=== PATIENT | female | born 1980 | race Caucasian/White ===

== ENCOUNTER → 2017-09-27 19:01 | Outpatient (REF) | payer MEDICAID, SELFPAY ==
[2017-09-27 20:25] LABS: Amphetamine/Metha Screen,Urine Positive ng/mL (<1000); Barbiturates Screen,Urine Negative ng/mL (<200); Benzodiazepines Screen,Urine Negative ng/mL (200); Cannabinoid Screen,Urine Negative ng/mL (<50); Cocaine Screen,Urine Negative ng/g (<300); Methadone Screen,Urine Negative ng/mL (<300); Opiate Screen,Urine Positive ng/mL (<300); Phencyclidine Screen,Urine Negative ng/mL (<25)
== END ==
LOC: LAB 19:01
PROVIDERS: Visit Provider Nurse Practitioner Family
DX: R73.9 Hyperglycemia, unspecified (principal)
CPT/HCPCS: 80305

== ENCOUNTER 2017-09-28 09:59 | Observation (INO) ==
--- NOTE | 2017-09-28 10:27 | Emergency Department Note ---
ED Disposition Clinical Impression: Hyperglycemia due to type 1 diabetes mellitus, Polysubstance (excluding opioids ) dependence Disposition: Still a Patient Condition on Discharge: Fair Referrals: Jeff De La Cruz MD [Primary Care Provider] - - Critical Care Critical Care Time: No Attestation: On 09/28/17, the high probability of a clinically significant, sudden or life threatening deterioration of the following system(s) required my full and direct attention, intervention and personal management. The time I documented below is in addition to time spent performing reported procedures but includes the following listed in this critical care notation. Medical Decision Making - Medical Records Medical records reviewed: Yes: I reviewed the patient's medical records. - Deshaun Inquiry Pt receiving controlled substance: No Deshaun was queried for this patient: No Vital Signs: 09/28/17 10:08 Temperature 98 F Temperature Source Oral Pulse Rate [Right Brachial] 109 H Respiratory Rate 20 Blood Pressure [Right Arm] 124/77 Blood Pressure Mean [Right Arm] 92 Blood Pressure Source [Right Arm] Automatic Cuff Blood Pressure Position [Right Arm] Sitting 02 Sat by Pulse Oximetry 99 Oxygen Delivery Method Room Air - Lab Data Lab Results 09/28/17 10:30: Urine Color Yellow, Urine Appearance Clear, Urine pH 5.5, Ur Specific [place] <= 1.005, Urine Protein Negative, Urine Glucose (UA) 3+, Urine Ketones 1+, Urine Blood Negative, Urine Nitrate Negative, Urine Bilirubin Negative, Urine Urobilinogen 0.2, Ur Leukocyte Esterase Negative, Urine RBC None , Urine WBC Occasional, Ur Squamous Epith Cells 5-10, Urine Bacteria Trace 09/28/17 10:30: Serum HCG, Qual Negative, Urine HCG, Qual Cancelled 09/28/17 10:30: Urine Opiates Screen Positive H, Ur Barbituates Screen Negative , Ur Phencyclidine Scrn Negative, Ur Amphetamines Screen Positive H, U Methamphetamines Scrn Negative, U Benzodiazepines Scrn Negative, Urine Cocaine Screen Negative, U Marijuana (THC) Screen Negative 09/28/17 10:45: WBC 11.1 H, RBC 4.51, Hgb 13.4, Hct 44.1, MCV 97.7, MCH 29.8, MCHC 30.5 L, RDW 12.6, Plt Count 239, MPV 9.2, Neut % (Auto) 74.6, Lymph % (Auto ) 19.7, [place] % (Auto) 3.8, Eos % (Auto) 1.5, Baso % (Auto) 0.6, Neut # (Auto) 8.3 H, Lymph # (Auto) 2.2, [place] # (Auto) 0.4, Eos # (Auto) 0.2, Baso # (Auto) 0.1 09/28/17 10:45: Sodium 131 L, Potassium 4.3, Chloride 94 L, Carbon Dioxide 27, Anion Gap 14.3, BUN 12, Creatinine 0.96, Estimated Creat Clear 73, Estimated GFR 66, Est GFR ( Amer) 80, Glucose 736 H*, Calcium 8.9, Phosphorus 5.0 H , Magnesium 1.6, Total Bilirubin 0.5, AST 30, ALT 65, Alkaline Phosphatase 125 H , Total Protein 7.7, Albumin 3.7, Globulin 4.0 H, Albumin/Globulin Ratio 0.9 L, Acetone Level None detected Result diagrams: 09/28/17 10:45 09/28/17 10:45 Orders (Tests/Meds): ED MEDICATIONS Discontinued Medications Generic Name Dose Route Start Last Admin Trade Name Freq PRN Reason Stop Dose Admin Sodium Chloride 500 mls @ 999 mls/hr 09/28/17 10:30 09/28/17 10:47 Sod Chlor 0.9% 1000ml Bag IV 09/28/17 11:00 999 mls/hr .Q31M BOWEN Administration Sodium Chloride 1,000 mls @ 999 mls/hr 09/28/17 10:45 09/28/17 10:47 Sod Chlor 0.9% 1000ml Bag IV 09/28/17 11:45 999 mls/hr .Q1H1M BOWEN Administration ORDERS Category Date Time Status XR abdomen min 2V Stat Exams 09/28/17 10:27 Taken XR chest 2V Stat Exams 09/28/17 10:27 Taken Diarrhea Panel, PCR Stat Lab 09/28/17 10:29 Ordered Arterial Blood Gas Stat RT 09/28/17 10:27 Ordered Venous Blood Gas Routine RT 09/28/17 11:25 Received - Radiology Data #1 Image(s): Chest, Abdomen Preliminary Findings: Normal/NAD Medical Decision Narrative: The patient remained stable her acetone was negative for blood sugar 737 electrolytes were within normal limits drug screen was positive. Chest x-ray and abdomen were within normal limits. I spoke with the patient who agreed for admission. I discussed with her primary care physician again the Jimy who accepted to admit her for insulin drip. General Adult HPI - General Chief complaint: PAIN Stated complaint: high sugar per Jg Time Seen by Provider: 09/28/17 10:30 Mode of Arrival: Family Vehicle Limitations: No Limitations Description of Symptoms (Recalled from ER Triage Doc. by RN): C/O HEADACHE AND ELEVATED BLOOD SUGAR. WAS SEEN BY ELAN RAPP APRN YESTERDAY AND INSTRUCTED TO COME TO ED YESTERDAY. BLOODSUGAR THIS AM WAS 560 AND HAD HUMALOG INSULIN 15 UNITS SQ - History of Present Illness HPI narrative: 36 years old insulin-dependent diabetic september of 2016 with one episode of diabetic coma. She was seen by her primary care physician yesterday was found to have blood sugar above 500 she was advised to come to the ED but she had nobody to sit for her children. This morning sugar continues to be above 500 so she came to the ED. she denies nausea vomiting abdominal pain but she admits for having 6 bouts of diarrhea yesterday. She denies recent but she admits for missing here menstruation for the past week. Onset (ago): day(s) (elevated blood sugar since yesterday.) Radiation: non-radiation Relieving factors: none Exacerbating factors: none Associated symptoms: cough, fever/chills, malaise, other (diarrhea. ) - Related Data Home Medications Medication Instructions Recorded Confirmed amitriptyline 25 mg tablet 25 mg PO QHS 09/27/17 09/28/17 lisinopril 10 mg tablet 10 mg PO DAILY tab 09/27/17 09/28/17 Gabapentin [Neurontin 600mg 600 mg PO TID 09/28/17 09/28/17 tablet] Insulin Glargine,Hum.rec.anlog 26 unit SQ DAILY 09/28/17 09/28/17 [Lantus Insulin 100units/mL 10mL vial] Insulin Lispro [HumaLOG 100 0 unit SQ QID 09/28/17 09/28/17 units/mL 3mL vial (SSI)] Allergies Allergy/AdvReac Type Severity Reaction Status Date / Time moxifloxacin [From AVELOX] Allergy Unknown SWELLING Verified 09/27/17 09:17 [facility] History I have reviewed the patient's past medical history: Yes Medical History: Reports:: Diabetes Mellitus Type 1 Denies:: Diabetes Mellitus Type 2 Comment: Arthritis, Depression, Neuropathy Other Surgeries: Yes: Amputation: No Fractures: No Comment: Skin Graft - Social History Smoking Status: Current every day smoker Tobacco Type: cigarettes # Packs/Day (cigarettes): 1 Alcohol Intake: never Substance Use Type: denies use Occupational Status: employed Housing: house Household Members: children - Psychiatric History Expresses thoughts of harming self/others: None Suicide Plan Description: No Plan Family Hx:: Heart Attack, Anemia Comment: Lung Disease ROS Obtained: Yes All systems reviewed & no additional complaints Physical Exam - General General appearance: alert, in no apparent distress - Head Head exam: atraumatic, normocephalic, normal inspection - Eye Eye exam: Present: normal appearance, PERRL, other (left eye strabismus. ) - ENT ENT exam: Present: normal exam, normal oropharynx, mucous membranes moist, TM's normal bilaterally, normal external ear exam - Neck Neck exam: Present: normal inspection, full ROM, trachea midline. Absent: meningismus, lymphadenopathy - Chest Chest inspection: Present: normal inspection, symmetric chest wall rise. Absent : tenderness - Respiratory Respiratory exam: Present: normal lung sounds bilaterally. Absent: respiratory distress - Cardiovascular Cardiovascular exam: Present: regular rate, normal rhythm. Absent: JVD - Abdominal Exam Abdominal exam: Present: soft, normal bowel sounds. Absent: distention, tenderness, guarding - Extremities Exam Extremities exam: Present: normal inspection, full ROM, normal capillary refill. Absent: calf tenderness - Back Exam Back exam: Present: normal inspection. Absent: tenderness - Neurological Exam Neurological exam: Present: alert, oriented X3, normal gait, motor sensory deficit, reflexes normal (left eye starbismus. ) - Psychiatric Psychiatric exam: Present: normal affect, normal mood - Skin Skin exam: Present: warm, dry, intact, normal color - Lymphatic Lymphatic Findings: no adenopathy
[2017-09-28 10:51] LABS: Microscopic, Urine URINE MICROSCOPIC (MICROSCOPIC)
[2017-09-28 11:00] LABS: Basophils # 0.1 K/mm3 (0-0.2); Basophils % 0.6 % (0.1-2.0); Eosinophils # 0.2 K/mm3 (0.0-0.4); Eosinophils % 1.5 % (0.1-12.0); Hematocrit 44.1 % (37.0-47.0); Hemoglobin 13.4 g/dL (12.2-16.2); Lymphocytes # 2.2 K/mm3 (0.7-4.5); Lymphocytes % 19.7 K/mm3 (10-50); Mean Corpuscular HGB Conc 30.5 g/dL (31.8-35.4); Mean Corpuscular Hemoglobin 29.8 pg (27.0-31.2); Mean Corpuscular Volume 97.7 fl (81-99); Mean Platelet Volume 9.2 fl (7.4-10.4); Monocytes # 0.4 K/mm3 (0.1-1.0); Monocytes % 3.8 % (1.7-9.3); Neutrophils # 8.3 K/mm3 (1.8-7.8); Neutrophils % 74.6 % (37.0-80.0); Platelet Count 239 K/mm3 (142-424); Red Blood Count 4.51 M/mm3 (4.20-5.40); Red Cell Distribution Width 12.6 % (11.5-17.5); White Blood Count 11.1 K/mm3 (4.8-10.8)
[2017-09-28 11:03] LABS: Appearance,Urine CLEAR (Clear); Bilirubin,Urine Negative (Negative); Blood, Urine Negative (Negative); Color,Urine YELLOW (Yellow); Glucose,Urine (UA) 3+ (Negative); Ketones,Urine 1+ (Negative); Leukocyte Esterase,Urine Negative (Negative); PH,Urine 5.5 (5.0-8.5); Protein,Urine Negative (Negative); Specific Gravity, Urine <= 1.005 (1.005-1.030); Urobilinogen,Urine 0.2 EU/dl (0.2)
[2017-09-28 11:05] LABS: Acetone, Serum (Rapid) None Detected (None Detect); Alanine Aminotransferase 65 U/L (12-78); Albumin Level 3.7 gm/dL (3.4-5.0); Albumin/Globulin Ratio 0.9 (1.1-1.8); Alkaline Phosphatase 125 U/L (46-116); Anion Gap 14.3 mEq/L (5-15); Aspartate Amino Transferase 30 U/L (15-37); Bilirubin,Total 0.5 mg/dL (0.2-1.0); Blood Urea Nitrogen 12 mg/dL (7-18); Calcium 8.9 mg/dL (8.5-10.1); Carbon Dioxide 27 mmol/L (21.0-32.0); Chloride 94 mmol/L (98-107); Potassium 4.3 mmoL/L (3.5-5.1); Sodium 131 mmol/L (136-145); Total Protein,Serum 7.7 gm/dL (6.4-8.2)
[2017-09-28 11:08] LABS: Glucose 736 mg/dL (74-106)
[2017-09-28 11:14] LABS: Amphetamine/Metha Screen,Urine Positive ng/mL (<1000); Barbiturates Screen,Urine Negative ng/mL (<200); Benzodiazepines Screen,Urine Negative ng/mL (200); Cannabinoid Screen,Urine Negative ng/mL (<50); Cocaine Screen,Urine Negative ng/g (<300); Methadone Screen,Urine Negative ng/mL (<300); Opiate Screen,Urine Positive ng/mL (<300); Phencyclidine Screen,Urine Negative ng/mL (<25); WBC,Urine Occasional #/hpf (0-3)
[2017-09-28 11:15] LABS: Bacteria,Urine Trace /lpf
[2017-09-28 12:06] LABS: VBG HCO3 26.2 mmol/L (23-30); VBG Oxygen Saturation 86.7 % (50-70); VBG PH 7.31 mmol/L (7.31-7.41); VBG PO2 52.2 mmol/L (28-40); VBG Total CO2 27.8 mmol/L (23-27)
[2017-09-28 12:10] LABS: VBG PCO2 52.8 mmol/L (35-51)
[2017-09-28 17:19] LABS: Anion Gap 10.8 mEq/L (5-15); Phosphorous 3.3 mg/dL (2.4-4.9); Potassium 3.8 mmoL/L (3.5-5.1)
[2017-09-28 18:45] VITALS: BP 98/67
--- NOTE | 2017-09-29 12:55 | H&P/Discharge Summary ---
General - General Admission date: 09/28/17 Discharge date: 09/28/17 *Admission Date: 09/28/17 *Chief complaint: hyperglycemia *History of present illness: 36 years old insulin-dependent diabetic september of 2016 with one episode of diabetic coma. She was seen by me in office on mons was found to have blood sugar above 500 she was advised to come to the ED but she had nobody to sit for her children. This morning sugar continues to be above 500 so she came to the ED. she denies nausea vomiting abdominal pain but she admits for having 6 bouts of diarrhea yesterday. She denies recent but she admits for missing here menstruation for the past week. [facility] History I have reviewed the patient's past medical history: Yes Medical History: Reports:: Diabetes Mellitus Type 1, Diabetes Mellitus Type 2 Other Surgeries: Yes: Amputation: No Fractures: No - *Social History Smoking Status: Current every day smoker Tobacco Type: cigarettes # Packs/Day (cigarettes): 1 Alcohol Intake: former Alcohol Intake Frequency:: holidays/special occasions only Substance Use Type: amphetamines, opiates Occupational Status: employed Housing: house Household Members: children - Psychiatric History Expresses thoughts of harming self/others: None Suicide Plan Description: No Plan *Family Hx:: Heart Attack, Anemia Exam Vital signs and Labs for Last 24 Hours: Temp Pulse Resp BP Pulse Ox 98.3 F 82 15 98/67 96 09/28/17 13:33 09/28/17 18:44 09/28/17 15:00 09/28/17 18:44 09/28/17 18:00 Laboratory Results - last 24 hr 09/28/17 13:15: POC Glucose > 600 09/28/17 13:25: Random Glucose 614 H* 09/28/17 14:33: POC Glucose 417 09/28/17 15:11: POC Glucose 342 09/28/17 16:13: POC Glucose 233 09/28/17 16:55: Sodium 140, Potassium 3.8, Chloride 104, Carbon Dioxide 29, Anion Gap 10.8, BUN 9, Creatinine 0.66 D, Estimated Creat Clear 105, Estimated GFR 101, Est GFR ( Amer) 123 D, Glucose 184 H D, Phosphorus 3.3 D, Magnesium 1.8 D 09/28/17 17:01: POC Glucose 188 09/28/17 18:34: POC Glucose 93 09/28/17 18:55: Acetone Level None detected I & O for Last 24 hours: Intake & Output 09/27/17 09/28/17 09/29/17 09/30/17 11:59 11:59 11:59 11:59 Intake Total 1624 / 1624 Balance 1624 / 1624 - Detailed Eye Exam Eyelids: Left normal inspection Hospital Course Hospital Course: pt left ama before being seen by pcp assessment was not completed Results Labs on day of discharge: Labs from last 24 hours 09/28/17 09/28/17 09/28/17 18:55 18:34 17:01 Sodium Potassium Chloride Carbon Dioxide Anion Gap BUN Creatinine Estimated Creat Clear Estimated GFR Est GFR ( Amer) Glucose POC Glucose 93 188 Random Glucose Phosphorus Magnesium Acetone Level None detected 09/28/17 09/28/17 09/28/17 16:55 16:13 15:11 Sodium 140 Potassium 3.8 Chloride 104 Carbon Dioxide 29 Anion Gap 10.8 BUN 9 Creatinine 0.66 D Estimated Creat Clear 105 Estimated GFR 101 Est GFR ( Amer) 123 D Glucose 184 H D POC Glucose 233 342 Random Glucose Phosphorus 3.3 D Magnesium 1.8 D Acetone Level 09/28/17 09/28/17 09/28/17 14:33 13:25 13:15 Sodium Potassium Chloride Carbon Dioxide Anion Gap BUN Creatinine Estimated Creat Clear Estimated GFR Est GFR ( Amer) Glucose POC Glucose 417 > 600 Random Glucose 614 H* Phosphorus Magnesium Acetone Level Discharge Medications Discharge Medications: Home Medications Medication Instructions Recorded Confirmed Type amitriptyline 25 mg tablet 25 mg PO QHS 09/27/17 09/28/17 History lisinopril 10 mg tablet 10 mg PO DAILY tab 09/27/17 09/28/17 History Gabapentin [Neurontin 600mg 600 mg PO TID 09/28/17 09/28/17 History tablet] Insulin Glargine,Hum.rec.anlog 26 unit SQ DAILY 09/28/17 09/28/17 History [Lantus Insulin 100units/mL 10mL vial] Insulin Lispro [HumaLOG 100 0 unit SQ QID 09/28/17 09/28/17 History units/mL 3mL vial (SSI)] Disposition Disposition: Left Against Medical Advice
== END 2017-09-28 19:31 | disposition left against medical advice (07) ==
LOC: ER 09:59 → 2ND 12:14 → INTOOBSV 13:09 → 2ND 13:10
PROVIDERS: ADMIT Emergency Medicine; ATTEND Emergency Medicine

== ENCOUNTER 2017-12-07 10:17 | Observation (INO) ==
--- NOTE | 2017-12-07 10:40 | Emergency Department Note ---
ED Disposition Clinical Impression: Diabetic ketoacidosis, Atypical chest pain, Vomiting, Dehydration Disposition: Still a Patient Condition on Discharge: Fair Referrals: Jeff De La Cruz MD [Primary Care Provider] - - Critical Care Critical Care Time: No Attestation: On 12/07/17, the high probability of a clinically significant, sudden or life threatening deterioration of the following system(s) required my full and direct attention, intervention and personal management. The time I documented below is in addition to time spent performing reported procedures but includes the following listed in this critical care notation. Medical Decision Making - Deshaun Inquiry Pt receiving controlled substance: No Deshaun was queried for this patient: No Vital Signs: 12/07/17 10:18 Temperature 98.3 F Temperature Source Oral Pulse Rate [Right Brachial] 118 H Respiratory Rate 20 Blood Pressure [Right Arm] 125/74 Blood Pressure Mean [Right Arm] 91 Blood Pressure Source [Right Arm] Automatic Cuff Blood Pressure Position [Right Arm] Supine 02 Sat by Pulse Oximetry 98 Oxygen Delivery Method Room Air - Lab Data Lab Results 12/07/17 10:25: WBC 13.8 H, RBC 4.95, Hgb 14.9, Hct 49.1 H, MCV 99.1 H, MCH 30.1 , MCHC 30.3 L, RDW 12.4, Plt Count 416, MPV 9.7, Neut % (Auto) 73.2, Lymph % ( Auto) 22.6, [place] % (Auto) 2.3, Eos % (Auto) 1.0, Baso % (Auto) 0.8, Neut # (Auto ) 10.1 H, Lymph # (Auto) 3.1, [place] # (Auto) 0.3, Eos # (Auto) 0.1, Baso # (Auto ) 0.1 12/07/17 10:25: Sodium 131 L, Potassium 4.1, Chloride 93 L, Carbon Dioxide 12 L , Anion Gap 30.1 H, BUN 20 H, Creatinine 1.33 H, Estimated Creat Clear 51, Estimated GFR 45 L, Est GFR ( Amer) 55 L, Glucose 682 H*, Troponin I < 0.02 12/07/17 10:25: Total Bilirubin 0.5, Direct Bilirubin 0.2, Indirect Bilirubin 0.3, AST 32, ALT 71, Alkaline Phosphatase 165 H, Total Protein 9.1 H, Albumin 4.2, Acetone Level Small 05/24/18 10:25: Magnesium 2.1 12/07/17 10:34: Specimen Source L radial, O2 % Room air, ABG pH 7.11 L*, ABG pCO2 20.3 L, ABG pO2 103.8 H, ABG HCO3 6.3 L, ABG Total CO2 6.9 L, ABG O2 Saturation 96, ABG Base Excess -23.2 L, Barrett Test Acceptable Result diagrams: 12/07/17 10:25 12/07/17 10:25 Orders (Tests/Meds): ED MEDICATIONS Generic Name Dose Route Start Last Admin Trade Name Freq PRN Reason Stop Dose Admin Insulin Human Regular 100 unit 101 mls @ 5.05 mls/hr 12/07/17 11:45 / Sodium Chloride IV 01/06/18 11:44 .Q20H BOWEN 5 UNIT/HR Discontinued Medications Generic Name Dose Route Start Last Admin Trade Name Freq PRN Reason Stop Dose Admin Sodium Chloride 1,000 mls @ 999 mls/hr 12/07/17 10:30 12/07/17 10:33 Sod Chlor 0.9% 1000ml Bag IV 12/07/17 11:30 999 mls/hr .Q1H1M BOWEN Administration Sodium Chloride 1,000 mls @ 999 mls/hr 12/07/17 10:45 12/07/17 10:38 Sod Chlor 0.9% 1000ml Bag IV 12/07/17 11:45 Not Given .Q1H1M BOWEN ORDERS Category Date Time Status CT abdomen pelvis wo con Stat Cat Scan 12/07/17 10:35 Taken Chest XR 2 view (NOT portable) [XR chest 2V] Stat Exams 12/07/17 10:25 Ordered Glucose,Random Routine Lab 12/07/17 11:30 Received Lactic Acid Stat Lab 12/07/17 11:30 Received Urinalysis and Microscopic Stat Lab 12/07/17 10:34 Ordered - Radiology Data #1 Image(s): Chest Image Reviewed: Yes I reviewed the patient's radiology image Preliminary Findings: Normal/NAD - ECG Data Tracing #1 Tachycardia 1 22/min biatrial enlargement no acute findings. ECG initial impression date: 12/07/17 ECG initial impression time: 10:10 Medical Decision Narrative: Patient test results was indicative of DKA. Dr. Dr. Alegre is covering Dr. De La Cruz today who accepted to admit the patient for insulin drip and further labs. General Adult HPI - General Chief complaint: Chest Pain Stated complaint: CHEST PAIN Time Seen by Provider: 12/07/17 10:17 Mode of Arrival: Ambulatory Limitations: No Limitations Description of Symptoms (Recalled from ER Triage Doc. by RN): CHEST PAIN THAT WOKE HER UP AT 0830. STABBING PAIN IN CENTER OF CHEST WITH SOA. PT ALSO C/O HIGH BLOOD SUGAR - History of Present Illness HPI narrative: 36 years old white female smoker with history of diabetes mellitus and DKA. Yesterday she developed vomiting 5. This morning she woke up at 8 AM with mild chest pain she checked her sugar was above 600 that is when the chest pain worsened to 6/10 associated with palpitations and shortness of breath. The pain is sharp in character involving the upper chest with no relation to exertion. She denies having hemoptysis hematemesis coffee-ground emesis or bleeding per rectum. She admitted for vomiting without diarrhea. He denies having dysuria or hematuria. Onset (ago): hour(s) (Vomiting started yesterday & chest pain for 2 hours.) Location: chest Radiation: non-radiation Severity: moderate Severity scale (1-10): 6 Quality: sharp Consistency: constant Relieving factors: none Exacerbating factors: none Associated symptoms: nausea/vomiting Treatments prior to arrival: none - Related Data Home Medications Medication Instructions Recorded Confirmed Insulin Lispro [HumaLOG 100 0 unit SQ AC 09/28/17 12/07/17 units/mL 3mL vial (SSI)] Insulin Glargine,Hum.rec.anlog 26 unit SUB-Q HS 12/07/17 12/07/17 [Lantus Insulin 100units/mL 10mL vial] Previous Rx's Medication Instructions Recorded amitriptyline 25 mg tablet 25 mg PO QHS #90 tab 10/02/17 lisinopril 10 mg tablet 10 mg PO DAILY #90 tab 10/02/17 Allergies Allergy/AdvReac Type Severity Reaction Status Date / Time moxifloxacin [From AVELOX] Allergy Unknown SWELLING Verified 12/07/17 10:24 [facility] History I have reviewed the patient's past medical history: Yes Medical History: Reports:: Diabetes Mellitus Type 1, Diabetes Mellitus Type 2 Comment: Arthritis, Depression, Neuropathy Other Surgeries: Yes: Amputation: No Fractures: No Comment: Skin Graft - Social History Smoking Status: Current every day smoker Tobacco Type: cigarettes # Packs/Day (cigarettes): 1 Alcohol Intake: never Alcohol Intake Frequency:: holidays/special occasions only Substance Use Type: heroin, opiates Occupational Status: employed Housing: house Household Members: children - Psychiatric History Expresses thoughts of harming self/others: None Suicide Plan Description: No Plan Family Hx:: Heart Attack, Anemia Comment: Lung Disease ROS Obtained: Yes All systems reviewed & no additional complaints Physical Exam - General General appearance: alert, in no apparent distress - Head Head exam: atraumatic, normocephalic, normal inspection - Eye Eye exam: Present: normal appearance, PERRL, EOMI - ENT ENT exam: Present: normal exam, normal oropharynx, mucous membranes moist, TM's normal bilaterally, normal external ear exam - Neck Neck exam: Present: normal inspection, full ROM, trachea midline. Absent: meningismus, lymphadenopathy - Chest Chest inspection: Present: normal inspection, symmetric chest wall rise. Absent : tenderness - Respiratory Respiratory exam: Present: normal lung sounds bilaterally. Absent: respiratory distress - Cardiovascular Cardiovascular exam: Present: regular rate, tachycardia, normal heart sounds, other - Abdominal Exam Abdominal exam: Present: soft, tenderness, normal bowel sounds, other (Mild diffuse abdominal tenderness with no focal tenderness no guarding no rigidity. ) . Absent: distention, guarding, rebound, rigidity - External exam: Present: normal external exam - Extremities Exam Extremities exam: Present: normal inspection, full ROM, normal capillary refill. Absent: calf tenderness - Back Exam Back exam: Present: normal inspection. Absent: tenderness - Neurological Exam Neurological exam: Present: alert, oriented X3, CN II-XII intact, motor sensory deficit, reflexes normal - Psychiatric Psychiatric exam: Present: normal affect, normal mood - Skin Skin exam: Present: warm, dry, intact, normal color - Lymphatic Lymphatic Findings: no adenopathy
[2017-12-07 10:43] LABS: Basophils # 0.1 K/mm3 (0-0.2); Basophils % 0.8 % (0.1-2.0); Eosinophils # 0.1 K/mm3 (0.0-0.4); Hematocrit 49.1 % (37.0-47.0); Hemoglobin 14.9 g/dL (12.2-16.2); Lymphocytes # 3.1 K/mm3 (0.7-4.5); Lymphocytes % 22.6 K/mm3 (10-50); Mean Corpuscular HGB Conc 30.3 g/dL (31.8-35.4); Mean Corpuscular Hemoglobin 30.1 pg (27.0-31.2); Mean Corpuscular Volume 99.1 fl (81-99); Mean Platelet Volume 9.7 fl (7.4-10.4); Monocytes # 0.3 K/mm3 (0.1-1.0); Monocytes % 2.3 % (1.7-9.3); Neutrophils # 10.1 K/mm3 (1.8-7.8); Neutrophils % 73.2 % (37.0-80.0); Platelet Count 416 K/mm3 (142-424); Red Blood Count 4.95 M/mm3 (4.20-5.40); Red Cell Distribution Width 12.4 % (11.5-17.5); White Blood Count 13.8 K/mm3 (4.8-10.8)
[2017-12-07 10:56] LABS: Alanine Aminotransferase 71 U/L (12-78); Albumin Level 4.2 gm/dL (3.4-5.0); Alkaline Phosphatase 165 U/L (46-116); Bilirubin,Direct 0.2 mg/dL (0.0-0.2); Bilirubin,Indirect 0.3 mg/dL (0.0-0.9); Bilirubin,Total 0.5 mg/dL (0.2-1.0); Total Protein,Serum 9.1 gm/dL (6.4-8.2)
[2017-12-07 11:16] LABS: Sodium 131 mmol/L (136-145)
[2017-12-07 11:17] LABS: Carbon Dioxide 12 mmol/L (21.0-32.0); Chloride 93 mmol/L (98-107)
[2017-12-07 11:18] LABS: Blood Urea Nitrogen 20 mg/dL (7-18); Glucose 682 mg/dL (74-106)
[2017-12-07 11:21] LABS: Acetone, Serum (Rapid) Small (None Detect)
[2017-12-07 11:23] LABS: ABG Base Excess -23.2 mmol/L (-2.4-2.3); ABG HCO3 6.3 mmhg (22.0-26.0); ABG Oxygen Saturation 96 % (90-100); ABG PCO2 20.3 mmhg (35.0-45.0); ABG PO2 103.8 mmhg (80-100); ABG TCO2 6.9 mmhg (23-27)
[2017-12-07 11:24] LABS: ABG PH 7.11 mmol/L (7.35-7.45); Allen's Test ACCEPTABLE; Oxygen ROOM AIR %
[2017-12-07 11:27] LABS: Anion Gap 30.1 mEq/L (5-15); Potassium 4.1 mmoL/L (3.5-5.1)
[2017-12-07 11:29] LABS: Aspartate Amino Transferase 32 U/L (15-37)
--- NOTE | 2017-12-07 12:46 | Pharmacy Consult Notes ---
[facility] Pharmacy VTE Monitoring - Patient Demographics Admission date: 12/07/17 Report Date: 12/07/17 Time: 12:46 Allergies/Adverse Reactions: Patient Allergies moxifloxacin [From AVELOX] Allergy (Unknown, Verified 12/07/17 10:24) SWELLING Height: 1.65 m Weight: 55.338 kg Patient Problems: Current Active Problems Diabetic ketoacidosis (Acute) Atypical chest pain (Acute) Vomiting (Acute) Dehydration (Acute) - VTE Risk Labs: VTE Related Lab Results Hgb 14.9 g/dL (12.2-16.2) 12/07/17 10:25 Hct 49.1 % (37.0-47.0) H 12/07/17 10:25 Plt Count 416 K/mm3 (142-424) 12/07/17 10:25 BUN 20 mg/dL (7-18) H 12/07/17 10:25 Creatinine 1.33 mg/dL (0.55-1.02) H 12/07/17 10:25 Estimated Creat Clear 51 mL/min (0-300) 12/07/17 10:25 Clinical Trial Participant: No - Prophylaxis VTE Prophylaxis Ordered?: Yes Types of VTE Prophylaxis: TEDS Knee High
[2017-12-07 15:54] LABS: ABG Base Excess -16.2 mmol/L (-2.4-2.3); ABG HCO3 10.7 mmhg (22.0-26.0); ABG Oxygen Saturation 99 % (90-100); ABG PCO2 23.6 mmhg (35.0-45.0); ABG PH 7.27 mmol/L (7.35-7.45); ABG TCO2 11.4 mmhg (23-27); Allen's Test Acceptable; Oxygen ROOM AIR %
[2017-12-07 16:42] LABS: Anion Gap 19.6 mEq/L (5-15); Blood Urea Nitrogen 14 mg/dL (7-18); Carbon Dioxide 17 mmol/L (21.0-32.0); Chloride 101 mmol/L (98-107); Glucose 242 mg/dL (74-106); Potassium 3.6 mmoL/L (3.5-5.1); Sodium 134 mmol/L (136-145)
[2017-12-08 04:31] LABS: Basophils % 0.4 % (0.1-2.0); Eosinophils # 0.3 K/mm3 (0.0-0.4); Eosinophils % 3.5 % (0.1-12.0); Hematocrit 38.1 % (37.0-47.0); Lymphocytes # 2.9 K/mm3 (0.7-4.5); Lymphocytes % 39.4 K/mm3 (10-50); Mean Corpuscular HGB Conc 32.2 g/dL (31.8-35.4); Mean Corpuscular Hemoglobin 29.6 pg (27.0-31.2); Mean Corpuscular Volume 91.8 fl (81-99); Mean Platelet Volume 8.2 fl (7.4-10.4); Monocytes # 0.3 K/mm3 (0.1-1.0); Monocytes % 3.8 % (1.7-9.3); Neutrophils # 3.8 K/mm3 (1.8-7.8); Neutrophils % 52.8 % (37.0-80.0); Platelet Count 234 K/mm3 (142-424); Red Blood Count 4.15 M/mm3 (4.20-5.40); Red Cell Distribution Width 13.2 % (11.5-17.5); White Blood Count 7.3 K/mm3 (4.8-10.8)
[2017-12-08 04:32] LABS: Hemoglobin 12.3 g/dL (12.2-16.2)
[2017-12-08 04:53] LABS: Albumin Level 2.9 gm/dL (3.4-5.0); Albumin/Globulin Ratio 0.9 (1.1-1.8); Anion Gap 14.2 mEq/L (5-15); Bilirubin,Total 0.3 mg/dL (0.2-1.0); Calcium 8.6 mg/dL (8.5-10.1); Globulin 3.2 gm/dl (1.3-3.2); Potassium 3.2 mmoL/L (3.5-5.1); Total Protein,Serum 6.1 gm/dL (6.4-8.2)
--- NOTE | 2017-12-08 08:05 | H&P/Discharge Summary ---
General - General Admission date:: 12/07/17 Discharge date: 12/08/17 *Admission Date: 12/07/17 *Chief complaint: high sugar *History of present illness: 36 years old white female smoker with history of diabetes mellitus and DKA with noncompliance. Yesterday she developed vomiting 5. This morning she woke up at 8 AM with mild chest pain she checked her sugar was above 600 that is when the chest pain worsened to 6/10 associated with palpitations and shortness of breath. The pain is sharp in character involving the upper chest with no relation to exertion. She denies having hemoptysis hematemesis coffee-ground emesis or bleeding per rectum. She admitted for vomiting without diarrhea. He denies having dysuria or hematuria. [facility] History I have reviewed the patient's past medical history: Yes Medical History: Reports:: Diabetes Mellitus Type 1, Diabetes Mellitus Type 2 Other Surgeries: Yes: Amputation: No Fractures: No - *Social History Smoking Status: Current every day smoker Tobacco Type: cigarettes # Packs/Day (cigarettes): 1 Alcohol Intake: never Alcohol Intake Frequency:: holidays/special occasions only Substance Use Type: heroin, opiates Occupational Status: employed Housing: house Household Members: children - Psychiatric History Expresses thoughts of harming self/others: None Suicide Plan Description: No Plan *Family Hx:: Heart Attack, Anemia Review of Systems - Review of Systems Review of systems:: pertinent systems reviewed and negative unless documented below - Constitutional Denies body ache(s), Denies chills - Eyes Denies double vision - ENT Denies throat swelling - *Cardiovascular Denies chest pain with activity - *Respiratory Denies shortness of breath - *Gastrointestinal Denies change in bowel habits - *Genitourinary Denies abnormal periods - *Musculoskeletal Denies decreased muscle mass - Integumentary/Breasts Denies change in hair, Denies rash - *Neurologic Denies numbness - Psychiatric Denies anxiety - Endocrine Denies heat intolerance - Hematologic/Lymphatic Denies enlarged lymph nodes - Allergic/Immunologic Denies lip swelling Exam Vital signs and Labs for Last 24 Hours: Temp Pulse Resp BP Pulse Ox 97.8 F 85 16 90/56 99 12/08/17 04:00 12/08/17 06:00 12/08/17 06:00 12/08/17 06:00 12/08/17 06:00 Laboratory Results - last 24 hr 12/07/17 10:25: WBC 13.8 H, RBC 4.95, Hgb 14.9, Hct 49.1 H, MCV 99.1 H, MCH 30.1 , MCHC 30.3 L, RDW 12.4, Plt Count 416, MPV 9.7, Neut % (Auto) 73.2, Lymph % ( Auto) 22.6, [place] % (Auto) 2.3, Eos % (Auto) 1.0, Baso % (Auto) 0.8, Neut # (Auto ) 10.1 H, Lymph # (Auto) 3.1, [place] # (Auto) 0.3, Eos # (Auto) 0.1, Baso # (Auto ) 0.1 12/07/17 10:25: Sodium 131 L, Potassium 4.1, Chloride 93 L, Carbon Dioxide 12 L , Anion Gap 30.1 H, BUN 20 H, Creatinine 1.33 H, Estimated Creat Clear 51, Estimated GFR 45 L, Est GFR ( Amer) 55 L, Glucose 682 H*, Troponin I < 0.02 12/07/17 10:25: Total Bilirubin 0.5, Direct Bilirubin 0.2, Indirect Bilirubin 0.3, AST 32, ALT 71, Alkaline Phosphatase 165 H, Total Protein 9.1 H, Albumin 4.2, Acetone Level Small 12/07/17 10:25: Magnesium 2.1 12/07/17 10:34: Specimen Source L radial, O2 % Room air, ABG pH 7.11 L*, ABG pCO2 20.3 L, ABG pO2 103.8 H, ABG HCO3 6.3 L, ABG Total CO2 6.9 L, ABG O2 Saturation 96, ABG Base Excess -23.2 L, Barrett Test Acceptable 12/07/17 11:30: Lactic Acid 1.1 12/07/17 11:30: Random Glucose 638 H* 12/07/17 12:20: Troponin I < 0.02 12/07/17 13:09: POC Glucose 582 H* 12/07/17 14:07: POC Glucose 470 H* 12/07/17 15:40: Specimen Source Left radial, O2 % Room air, ABG pH 7.27 L, ABG pCO2 23.6 L, ABG pO2 134.0 H, ABG HCO3 10.7 L, ABG Total CO2 11.4 L, ABG O2 Saturation 99, ABG Base Excess -16.2 L, Barrett Test Acceptable 12/07/17 15:56: POC Glucose 244 H 12/07/17 16:17: Sodium 134 L, Potassium 3.6, Chloride 101, Carbon Dioxide 17 L D , Anion Gap 19.6 H, BUN 14 D, Creatinine 1.14 H, Estimated Creat Clear 60, Estimated GFR 54 L, Est GFR ( Amer) 65, Glucose 242 H D, Troponin I < 0.02 12/07/17 16:17: Serum HCG, Qual Negative 12/07/17 17:19: POC Glucose 166 H 12/07/17 18:51: POC Glucose 277 H 12/07/17 21:03: POC Glucose 155 H 12/07/17 22:43: POC Glucose 59 L 12/08/17 00:34: POC Glucose 282 H 12/08/17 00:40: Troponin I < 0.02 12/08/17 02:43: POC Glucose 103 12/08/17 04:20: WBC 7.3 D, RBC 4.15 L, Hgb 12.3 D, Hct 38.1, MCV 91.8, MCH 29.6, MCHC 32.2, RDW 13.2, Plt Count 234 D, MPV 8.2, Neut % (Auto) 52.8, Lymph % (Auto) 39.4, [place] % (Auto) 3.8, Eos % (Auto) 3.5, Baso % (Auto) 0.4, Neut # ( Auto) 3.8, Lymph # (Auto) 2.9, [place] # (Auto) 0.3, Eos # (Auto) 0.3, Baso # (Auto ) 0.0 12/08/17 04:20: Sodium 140, Potassium 3.2 L, Chloride 109 H, Carbon Dioxide 20 L , Anion Gap 14.2, BUN 14, Creatinine 0.62 D, Estimated Creat Clear 110, Estimated GFR 109, Est GFR ( Amer) 132 D, Glucose 58 L D, Calcium 8.6, Phosphorus 2.0 L, Magnesium 1.9, Total Bilirubin 0.3, AST 27, ALT 47 D, Alkaline Phosphatase 101, Total Protein 6.1 L D, Albumin 2.9 L D, Globulin 3.2, Albumin/Globulin Ratio 0.9 L 12/08/17 04:20: Acetone Level None detected 12/08/17 04:28: POC Glucose 54 L 12/08/17 06:35: POC Glucose 262 H I & O for Last 24 hours: Intake & Output 12/05/17 12/06/17 12/07/17 12/08/17 11:59 11:59 11:59 11:59 Intake Total 3976 / 3976 Balance 3976 / 3976 Weight 122 lb 3.941 oz 127 lb - Constitutional no acute distress - *Routine HEENT Exam Head: Present: normocephalic Eye: Present: PERRL ENT: Present: mucous membranes moist - *Routine Neck Exam Present: supple, full ROM - *Routine Respiratory Exam Present: CTA bilaterally - *Routine Cardiovascular Exam Present: RRR - *Routine Abdominal Exam Present: soft, normoactive bowel sounds - *Routine Extremities Exam Present: full ROM - *Routine Skin Exam Present: intact - *Routine Neurological Exam Present: alert, oriented X3, CN II-XII intact - Routine Psychiatric Exam Present: normal affect, normal thought process Hospital Course Hospital Course: Placed on an insulin drip until acetone was negative. Today patient states she would like to go home. Will discharge patient home continue routine medication and follow-up next week in the office. Results Labs on day of discharge: Labs from last 24 hours 12/08/17 12/08/17 12/08/17 06:35 04:28 04:20 WBC RBC Hgb Hct MCV MCH MCHC RDW Plt Count MPV Neut % (Auto) Lymph % (Auto) [place] % (Auto) Eos % (Auto) Baso % (Auto) Neut # (Auto) Lymph # (Auto) [place] # (Auto) Eos # (Auto) Baso # (Auto) Specimen Source O2 % ABG pH ABG pCO2 ABG pO2 ABG HCO3 ABG Total CO2 ABG O2 Saturation ABG Base Excess Barrett Test Sodium Potassium Chloride Carbon Dioxide Anion Gap BUN Creatinine Estimated Creat Clear Estimated GFR Est GFR ( Amer) Glucose POC Glucose 262 H 54 L Random Glucose Lactic Acid Calcium Phosphorus Magnesium Total Bilirubin Direct Bilirubin Indirect Bilirubin AST ALT Alkaline Phosphatase Troponin I Total Protein Albumin Globulin Albumin/Globulin Ratio Serum HCG, Qual Acetone Level None detected 12/08/17 12/08/17 12/08/17 04:20 04:20 02:43 WBC 7.3 D RBC 4.15 L Hgb 12.3 D Hct 38.1 MCV 91.8 MCH 29.6 MCHC 32.2 RDW 13.2 Plt Count 234 D MPV 8.2 Neut % (Auto) 52.8 Lymph % (Auto) 39.4 [place] % (Auto) 3.8 Eos % (Auto) 3.5 Baso % (Auto) 0.4 Neut # (Auto) 3.8 Lymph # (Auto) 2.9 [place] # (Auto) 0.3 Eos # (Auto) 0.3 Baso # (Auto) 0.0 Specimen Source O2 % ABG pH ABG pCO2 ABG pO2 ABG HCO3 ABG Total CO2 ABG O2 Saturation ABG Base Excess Barrett Test Sodium 140 Potassium 3.2 L Chloride 109 H Carbon Dioxide 20 L Anion Gap 14.2 BUN 14 Creatinine 0.62 D Estimated Creat Clear 110 Estimated GFR 109 Est GFR ( Amer) 132 D Glucose 58 L D POC Glucose 103 Random Glucose Lactic Acid Calcium 8.6 Phosphorus 2.0 L Magnesium 1.9 Total Bilirubin 0.3 Direct Bilirubin Indirect Bilirubin AST 27 ALT 47 D Alkaline Phosphatase 101 Troponin I Total Protein 6.1 L D Albumin 2.9 L D Globulin 3.2 Albumin/Globulin Ratio 0.9 L Serum HCG, Qual Acetone Level 12/08/17 12/08/17 12/07/17 00:40 00:34 22:43 WBC RBC Hgb Hct MCV MCH MCHC RDW Plt Count MPV Neut % (Auto) Lymph % (Auto) [place] % (Auto) Eos % (Auto) Baso % (Auto) Neut # (Auto) Lymph # (Auto) [place] # (Auto) Eos # (Auto) Baso # (Auto) Specimen Source O2 % ABG pH ABG pCO2 ABG pO2 ABG HCO3 ABG Total CO2 ABG O2 Saturation ABG Base Excess Barrett Test Sodium Potassium Chloride Carbon Dioxide Anion Gap BUN Creatinine Estimated Creat Clear Estimated GFR Est GFR ( Amer) Glucose POC Glucose 282 H 59 L Random Glucose Lactic Acid Calcium Phosphorus Magnesium Total Bilirubin Direct Bilirubin Indirect Bilirubin AST ALT Alkaline Phosphatase Troponin I < 0.02 Total Protein Albumin Globulin Albumin/Globulin Ratio Serum HCG, Qual Acetone Level 12/07/17 12/07/17 12/07/17 21:03 18:51 17:19 WBC RBC Hgb Hct MCV MCH MCHC RDW Plt Count MPV Neut % (Auto) Lymph % (Auto) [place] % (Auto) Eos % (Auto) Baso % (Auto) Neut # (Auto) Lymph # (Auto) [place] # (Auto) Eos # (Auto) Baso # (Auto) Specimen Source O2 % ABG pH ABG pCO2 ABG pO2 ABG HCO3 ABG Total CO2 ABG O2 Saturation ABG Base Excess Barrett Test Sodium Potassium Chloride Carbon Dioxide Anion Gap BUN Creatinine Estimated Creat Clear Estimated GFR Est GFR ( Amer) Glucose POC Glucose 155 H 277 H 166 H Random Glucose Lactic Acid Calcium Phosphorus Magnesium Total Bilirubin Direct Bilirubin Indirect Bilirubin AST ALT Alkaline Phosphatase Troponin I Total Protein Albumin Globulin Albumin/Globulin Ratio Serum HCG, Qual Acetone Level 12/07/17 12/07/17 12/07/17 16:17 16:17 15:56 WBC RBC Hgb Hct MCV MCH MCHC RDW Plt Count MPV Neut % (Auto) Lymph % (Auto) [place] % (Auto) Eos % (Auto) Baso % (Auto) Neut # (Auto) Lymph # (Auto) [place] # (Auto) Eos # (Auto) Baso # (Auto) Specimen Source O2 % ABG pH ABG pCO2 ABG pO2 ABG HCO3 ABG Total CO2 ABG O2 Saturation ABG Base Excess Barrett Test Sodium 134 L Potassium 3.6 Chloride 101 Carbon Dioxide 17 L D Anion Gap 19.6 H BUN 14 D Creatinine 1.14 H Estimated Creat Clear 60 Estimated GFR 54 L Est GFR ( Amer) 65 Glucose 242 H D POC Glucose 244 H Random Glucose Lactic Acid Calcium Phosphorus Magnesium Total Bilirubin Direct Bilirubin Indirect Bilirubin AST ALT Alkaline Phosphatase Troponin I < 0.02 Total Protein Albumin Globulin Albumin/Globulin Ratio Serum HCG, Qual Negative Acetone Level 12/07/17 12/07/17 12/07/17 15:40 14:07 13:09 WBC RBC Hgb Hct MCV MCH MCHC RDW Plt Count MPV Neut % (Auto) Lymph % (Auto) [place] % (Auto) Eos % (Auto) Baso % (Auto) Neut # (Auto) Lymph # (Auto) [place] # (Auto) Eos # (Auto) Baso # (Auto) Specimen Source Left radial O2 % Room air ABG pH 7.27 L ABG pCO2 23.6 L ABG pO2 134.0 H ABG HCO3 10.7 L ABG Total CO2 11.4 L ABG O2 Saturation 99 ABG Base Excess -16.2 L Barrett Test Acceptable Sodium Potassium Chloride Carbon Dioxide Anion Gap BUN Creatinine Estimated Creat Clear Estimated GFR Est GFR ( Amer) Glucose POC Glucose 470 H* 582 H* Random Glucose Lactic Acid Calcium Phosphorus Magnesium Total Bilirubin Direct Bilirubin Indirect Bilirubin AST ALT Alkaline Phosphatase Troponin I Total Protein Albumin Globulin Albumin/Globulin Ratio Serum HCG, Qual Acetone Level 12/07/17 12/07/17 12/07/17 12:20 11:30 11:30 WBC RBC Hgb Hct MCV MCH MCHC RDW Plt Count MPV Neut % (Auto) Lymph % (Auto) [place] % (Auto) Eos % (Auto) Baso % (Auto) Neut # (Auto) Lymph # (Auto) [place] # (Auto) Eos # (Auto) Baso # (Auto) Specimen Source O2 % ABG pH ABG pCO2 ABG pO2 ABG HCO3 ABG Total CO2 ABG O2 Saturation ABG Base Excess Barrett Test Sodium Potassium Chloride Carbon Dioxide Anion Gap BUN Creatinine Estimated Creat Clear Estimated GFR Est GFR ( Amer) Glucose POC Glucose Random Glucose 638 H* Lactic Acid 1.1 Calcium Phosphorus Magnesium Total Bilirubin Direct Bilirubin Indirect Bilirubin AST ALT Alkaline Phosphatase Troponin I < 0.02 Total Protein Albumin Globulin Albumin/Globulin Ratio Serum HCG, Qual Acetone Level 12/07/17 12/07/17 12/07/17 10:34 10:25 10:25 WBC RBC Hgb Hct MCV MCH MCHC RDW Plt Count MPV Neut % (Auto) Lymph % (Auto) [place] % (Auto) Eos % (Auto) Baso % (Auto) Neut # (Auto) Lymph # (Auto) [place] # (Auto) Eos # (Auto) Baso # (Auto) Specimen Source L radial O2 % Room air ABG pH 7.11 L* ABG pCO2 20.3 L ABG pO2 103.8 H ABG HCO3 6.3 L ABG Total CO2 6.9 L ABG O2 Saturation 96 ABG Base Excess -23.2 L Barrett Test Acceptable Sodium Potassium Chloride Carbon Dioxide Anion Gap BUN Creatinine Estimated Creat Clear Estimated GFR Est GFR ( Amer) Glucose POC Glucose Random Glucose Lactic Acid Calcium Phosphorus Magnesium 2.1 Total Bilirubin 0.5 Direct Bilirubin 0.2 Indirect Bilirubin 0.3 AST 32 ALT 71 Alkaline Phosphatase 165 H Troponin I Total Protein 9.1 H Albumin 4.2 Globulin Albumin/Globulin Ratio Serum HCG, Qual Acetone Level Small 12/07/17 12/07/17 10:25 10:25 WBC 13.8 H RBC 4.95 Hgb 14.9 Hct 49.1 H MCV 99.1 H MCH 30.1 MCHC 30.3 L RDW 12.4 Plt Count 416 MPV 9.7 Neut % (Auto) 73.2 Lymph % (Auto) 22.6 [place] % (Auto) 2.3 Eos % (Auto) 1.0 Baso % (Auto) 0.8 Neut # (Auto) 10.1 H Lymph # (Auto) 3.1 [place] # (Auto) 0.3 Eos # (Auto) 0.1 Baso # (Auto) 0.1 Specimen Source O2 % ABG pH ABG pCO2 ABG pO2 ABG HCO3 ABG Total CO2 ABG O2 Saturation ABG Base Excess Barrett Test Sodium 131 L Potassium 4.1 Chloride 93 L Carbon Dioxide 12 L Anion Gap 30.1 H BUN 20 H Creatinine 1.33 H Estimated Creat Clear 51 Estimated GFR 45 L Est GFR ( Amer) 55 L Glucose 682 H* POC Glucose Random Glucose Lactic Acid Calcium Phosphorus Magnesium Total Bilirubin Direct Bilirubin Indirect Bilirubin AST ALT Alkaline Phosphatase Troponin I < 0.02 Total Protein Albumin Globulin Albumin/Globulin Ratio Serum HCG, Qual Acetone Level - Additional Comments Dr. De La Cruz rounded earlier all orders per Dr. De La Cruz Discharge Medications Discharge Medications: Home Medications Medication Instructions Recorded Confirmed Type Insulin Lispro [HumaLOG 100 0 unit SQ AC 09/28/17 12/07/17 History units/mL 3mL vial (SSI)] Amitriptyline HCl [Elavil 25mg 25 mg PO HS 12/07/17 12/07/17 History tablet] Citalopram Hydrobromide [Celexa 20 mg PO DAILY 12/07/17 12/07/17 History 20mg Tablet] Insulin Glargine,Hum.rec.anlog 26 unit SQ HS 12/07/17 12/07/17 History [Lantus Insulin 100units/mL 10mL vial] Lisinopril [Prinivil 10mg Tablet] 10 mg PO DAILY 12/07/17 12/07/17 History Disposition Disposition: Home, Self-Care
[2017-12-08 08:51] VITALS: BP 108/69
== END 2017-12-08 10:28 | disposition home or self-care (01) ==
LOC: ER 10:17 → ICU 11:51 → INTOOBSV 11:51 → ICU 12:29
PROVIDERS: ADMIT Family Medicine; ATTEND Emergency Medicine

== ENCOUNTER 2017-12-09 10:55 | Observation (INO) ==
--- NOTE | 2017-12-09 11:01 | Emergency Department Note ---
ED Disposition Clinical Impression: IDDM (insulin dependent diabetes mellitus), Intractable vomiting with nausea, DKA (diabetic ketoacidoses) Disposition: Still a Patient Condition on Discharge: Fair Instructions: DI for Diarrhea and Traveler's Diarrhea -- Adult, DI for Diarrhea and Traveler's Diarrhea -- Child, DI for Nausea -- Adult, DI for Nausea -- Child Referrals: Jeff De La Cruz MD [Primary Care Provider] - - Critical Care Critical Care Time: No Attestation: On , the high probability of a clinically significant, sudden or life threatening deterioration of the following system(s) required my full and direct attention, intervention and personal management. The time I documented below is in addition to time spent performing reported procedures but includes the following listed in this critical care notation. Medical Decision Making - Deshaun Inquiry Pt receiving controlled substance: No Deshaun was queried for this patient: No Vital Signs: 12/09/17 10:58 Temperature 98.1 F Temperature Source Oral Pulse Rate [Left Radial] 120 H Respiratory Rate 28 H Blood Pressure [Right Arm] 151/78 Blood Pressure Mean [Right Arm] 102 Blood Pressure Source [Right Arm] Automatic Cuff Blood Pressure Position [Right Arm] Sitting 02 Sat by Pulse Oximetry 98 Oxygen Delivery Method Room Air - Lab Data Lab Results 12/09/17 11:02: Specimen Source Rt radial, O2 % 21, ABG pH 7.06 L*, ABG pCO2 13.2 L, ABG pO2 135.6 H, ABG HCO3 3.6 L, ABG Total CO2 4.0 L, ABG O2 Saturation 98, ABG Base Excess -26.7 L, Barrett Test Acceptable 12/09/17 11:06: POC Glucose 594 H* Orders (Tests/Meds): ED MEDICATIONS Discontinued Medications Generic Name Dose Route Start Last Admin Trade Name Freq PRN Reason Stop Dose Admin Sodium Chloride 500 mls @ 999 mls/hr 12/09/17 11:15 12/09/17 11:14 Sod Chlor 0.9% 1000ml Bag IV 12/09/17 11:45 999 mls/hr .Q31M BOWEN Administration Sodium Chloride 500 mls @ 999 mls/hr 12/09/17 11:15 Sod Chlor 0.9% 1000ml Bag IV 12/09/17 11:45 .Q31M BOWEN Ondansetron HCl 4 mg 12/09/17 11:05 12/09/17 11:13 Zofran 4mg/2ml Vial IV 12/09/17 11:06 4 mg ONCE ONE Administration ORDERS Category Date Time Status Acute abdomen XR series [XR acute abdomen series] Stat Exams 12/09/17 11:05 Taken Acetone, Serum (Rapid) Stat Lab 12/09/17 11:02 Ordered Complete Blood Count Auto Diff Stat Lab 12/09/17 11:02 Ordered Comprehensive Metabolic Panel Stat Lab 12/09/17 11:02 Ordered Drug Screen,Urine Stat Lab 12/09/17 11:04 Ordered Lactic Acid Stat Lab 12/09/17 11:04 Ordered MAG [Magnesium] Stat Lab 12/09/17 11:04 Ordered Phosphorous Stat Lab 12/09/17 11:06 Ordered Serum [HCG Qualitative, Serum] Stat Lab 12/09/17 11:02 Ordered Urinalysis and Microscopic Stat Lab 12/09/17 11:04 Ordered - Radiology Data #1 Image(s): Chest, Abdomen Image Reviewed: Yes I reviewed the patient's radiology image Preliminary Findings: Normal/NAD Medical Decision Narrative: The patient was given anti-emetics started on IV fluids, discussed with Dirk De La Cruz's nurse practitioner who will admit the patient for insulin IV. Nausea/Vomiting/Diarrhea HPI - General Chief complaint: Nausea/Vomiting/Diarrhea Stated complaint: high blood sugar Time Seen by Provider: 12/09/17 10:55 - History of Present Illness HPI Narrative: 36 years old insulin-dependent diabetic well known to me from prior ED visit on 12/07/17 when she was admitted for DKA. The patient was discharged yesterday after 2 days of ED stay for diabetic ketoacidosis. Her Accu-Chek on the bedside is [phone], since she left the hospital she has been vomiting x 14 watery yellow material with no hematemesis coffee-ground emesis melanotic stool or bleeding per rectum, she denies fever or chills or diarrhea. She denies abdominal pain without vomiting. She denies the use of pain medication. MD complaint: nausea, vomiting Onset (ago): day(s) (Since she left the hospital yesterday.) Description of Vomiting: watery, bilious Associated Abdominal Pain: Yes (With vomiting. No pain without vomiting. ) Location of pain: epigastric Quality: sharp Consistency: intermittent Relieving factors: vomiting Exacerbating factors: vomiting Associated symptoms: nausea/vomiting - Related Data Home Medications Medication Instructions Recorded Confirmed Insulin Lispro [HumaLOG 100 0 unit SQ AC 09/28/17 12/09/17 units/mL 3mL vial (SSI)] Amitriptyline HCl [Elavil 25mg 25 mg PO HS 12/07/17 12/09/17 tablet] Citalopram Hydrobromide [Celexa 20 mg PO DAILY 12/07/17 12/09/17 20mg Tablet] Insulin Glargine,Hum.rec.anlog 26 unit SQ HS 12/07/17 12/09/17 [Lantus Insulin 100units/mL 10mL vial] Lisinopril [Prinivil 10mg Tablet] 10 mg PO DAILY 12/07/17 12/09/17 Allergies Allergy/AdvReac Type Severity Reaction Status Date / Time moxifloxacin [From AVELOX] Allergy Unknown SWELLING Verified 12/07/17 10:24 [facility] History I have reviewed the patient's past medical history: Yes Medical History: Reports:: Diabetes Mellitus Type 1, Diabetes Mellitus Type 2 Comment: Arthritis, Depression, Neuropathy Other Surgeries: Yes: Amputation: No Fractures: No Comment: Skin Graft - Social History Smoking Status: Current every day smoker Tobacco Type: cigarettes # Packs/Day (cigarettes): 1 Alcohol Intake: never Alcohol Intake Frequency:: holidays/special occasions only Substance Use Type: heroin, opiates Occupational Status: employed Housing: house Household Members: children Family Hx:: Heart Attack, Anemia Comment: Lung Disease ROS Obtained: Yes All systems reviewed & no additional complaints Physical Exam - General General appearance: alert, in no apparent distress - Head Head exam: atraumatic, normocephalic, normal inspection - Eye Eye exam: Present: normal appearance, PERRL, EOMI, other (Does have strabismus. ). Absent: scleral icterus - ENT ENT exam: Present: normal exam, normal oropharynx, mucous membranes moist, TM's normal bilaterally, normal external ear exam - Neck Neck exam: Present: normal inspection, full ROM, trachea midline. Absent: tenderness, meningismus, lymphadenopathy - Chest Chest inspection: Present: normal inspection, symmetric chest wall rise. Absent : tenderness - Respiratory Respiratory exam: Present: normal lung sounds bilaterally. Absent: respiratory distress - Cardiovascular Cardiovascular exam: Present: regular rate, normal rhythm. Absent: JVD - Abdominal Exam Abdominal exam: Present: soft, tenderness, normal bowel sounds, Arciniega's sign, other (Mild epigastric and right upper quadrant tenderness. ). Absent: distention, guarding, tenderness at McBurney's Point - External exam: Present: normal external exam - Extremities Exam Extremities exam: Present: normal inspection, full ROM, normal capillary refill. Absent: calf tenderness - Back Exam Back exam: Present: normal inspection. Absent: tenderness - Neurological Exam Neurological exam: Present: alert, oriented X3, CN II-XII intact, motor sensory deficit, reflexes normal - Psychiatric Psychiatric exam: Present: normal affect, normal mood - Skin Skin exam: Present: warm, dry, intact, normal color
[2017-12-09 11:32] LABS: ABG Base Excess -26.7 mmol/L (-2.4-2.3); ABG HCO3 3.6 mmhg (22.0-26.0); ABG Oxygen Saturation 98 % (90-100); ABG PO2 135.6 mmhg (80-100)
[2017-12-09 11:38] LABS: Allen's Test ACCEPTABLE; Oxygen 21 %
[2017-12-09 11:39] LABS: ABG PCO2 13.2 mmhg (35.0-45.0); ABG PH 7.06 mmol/L (7.35-7.45)
[2017-12-09 12:40] LABS: Acetone, Serum (Rapid) Small (None Detect)
[2017-12-09 12:44] LABS: Basophils % 0.5 % (0.1-2.0); Eosinophils # 0.1 K/mm3 (0.0-0.4); Eosinophils % 1.3 % (0.1-12.0); Hematocrit 50.5 % (37.0-47.0); Hemoglobin 14.1 g/dL (12.2-16.2); Lymphocytes # 1.2 K/mm3 (0.7-4.5); Lymphocytes % 19.5 K/mm3 (10-50); Mean Corpuscular Hemoglobin 28.8 pg (27.0-31.2); Mean Corpuscular Volume 102.8 fl (81-99); Mean Platelet Volume 9.2 fl (7.4-10.4); Monocytes # 0.1 K/mm3 (0.1-1.0); Monocytes % 1.9 % (1.7-9.3); Neutrophils # 4.8 K/mm3 (1.8-7.8); Neutrophils % 76.8 % (37.0-80.0); Platelet Count 307 K/mm3 (142-424); Red Blood Count 4.92 M/mm3 (4.20-5.40); Red Cell Distribution Width 12.6 % (11.5-17.5); White Blood Count 6.3 K/mm3 (4.8-10.8)
[2017-12-09 12:48] LABS: Alanine Aminotransferase 60 U/L (12-78); Albumin Level 3.8 gm/dL (3.4-5.0); Albumin/Globulin Ratio 0.8 (1.1-1.8); Alkaline Phosphatase 153 U/L (46-116); Bilirubin,Total 0.5 mg/dL (0.2-1.0); Blood Urea Nitrogen 16 mg/dL (7-18); Calcium 8.2 mg/dL (8.5-10.1); Chloride 100 mmol/L (98-107); Globulin 4.5 gm/dl (1.3-3.2); Sodium 136 mmol/L (136-145); Total Protein,Serum 8.3 gm/dL (6.4-8.2)
[2017-12-09 12:50] LABS: Carbon Dioxide 8 mmol/L (21.0-32.0)
[2017-12-09 12:52] LABS: Aspartate Amino Transferase 37 U/L (15-37)
[2017-12-09 12:57] LABS: Microscopic, Urine URINE MICROSCOPIC (MICROSCOPIC)
[2017-12-09 12:59] LABS: Glucose 618 mg/dL (74-106)
[2017-12-09 13:00] LABS: Appearance,Urine CLEAR (Clear); Bilirubin,Urine Negative (Negative); Blood, Urine TRACE-L (Negative); Color,Urine YELLOW (Yellow); Glucose,Urine (UA) 3+ (Negative); Ketones,Urine 3+ (Negative); Leukocyte Esterase,Urine Negative (Negative); PH,Urine 5.5 (5.0-8.5); Protein,Urine TRACE (Negative); Specific Gravity, Urine 1.025 (1.005-1.030); Urobilinogen,Urine 0.2 EU/dl (0.2)
[2017-12-09 13:07] LABS: Amphetamine/Metha Screen,Urine Negative ng/mL (<1000); Barbiturates Screen,Urine Negative ng/mL (<200); Benzodiazepines Screen,Urine Negative ng/mL (200); Cannabinoid Screen,Urine Negative ng/mL (<50); Cocaine Screen,Urine Negative ng/g (<300); Methadone Screen,Urine Negative ng/mL (<300); Opiate Screen,Urine Negative ng/mL (<300); Phencyclidine Screen,Urine Negative ng/mL (<25)
[2017-12-09 13:08] LABS: Bacteria,Urine 1+ /lpf; Mucus,Urine 1+ /lpf; WBC,Urine Occasional #/hpf (0-3)
--- NOTE | 2017-12-09 14:46 | History & Physical Report ---
*Admission Date: 12/09/17 *Chief complaint: nausea/vomiting *History of present illness: 36 years old insulin-dependent diabetic with prior ED visit on 12/07/17 when she was admitted for DKA history of noncompliance to medication regimen. The patient was discharged yesterday. Her Accu-Chek on the bedside is 594 in ed. Pt states since she left the hospital she has been vomiting x 14 watery yellow material with no hematemesis coffee-ground emesis melanotic stool or bleeding per rectum, she denies fever or chills or diarrhea. She denies abdominal pain without vomiting. Patient admitted for DKA. [facility] History I have reviewed the patient's past medical history: Yes Medical History: Reports:: Diabetes Mellitus Type 1, Diabetes Mellitus Type 2 Other Surgeries: Yes: Amputation: No Fractures: No - *Social History Smoking Status: Current every day smoker Tobacco Type: cigarettes # Packs/Day (cigarettes): 1 Alcohol Intake: never Alcohol Intake Frequency:: holidays/special occasions only Substance Use Type: heroin, opiates Occupational Status: employed Housing: house Household Members: children - Psychiatric History Expresses thoughts of harming self/others: None Suicide Plan Description: No Plan *Family Hx:: Heart Attack, Anemia Review of Systems - Review of Systems Review of systems:: pertinent systems reviewed and negative unless documented below - Constitutional Denies chills, Denies fever(s), Denies headache(s) - Eyes Denies change in vision - ENT Denies change in voice - *Cardiovascular Denies chest pain at rest, Denies chest pain with activity - *Respiratory Denies chest congestion, Denies cough - *Gastrointestinal Reports abdominal pain, Reports nausea, Reports vomiting - *Genitourinary Denies abnormal vaginal bleeding - *Musculoskeletal Denies decreased muscle mass - Integumentary/Breasts Denies rash - *Neurologic Denies dizziness - Psychiatric Denies lack of enjoyment, Denies anxiety - Endocrine Denies flushing - Hematologic/Lymphatic Denies enlarged lymph nodes - Allergic/Immunologic Denies lip swelling Meds Home Medications Medication Instructions Recorded Confirmed Type Insulin Lispro [HumaLOG 100 0 unit SQ AC 09/28/17 12/09/17 History units/mL 3mL vial (SSI)] Amitriptyline HCl [Elavil 25mg 25 mg PO HS 12/07/17 12/09/17 History tablet] Citalopram Hydrobromide [Celexa 20 mg PO DAILY 12/07/17 12/09/17 History 20mg Tablet] Insulin Glargine,Hum.rec.anlog 26 unit SQ HS 12/07/17 12/09/17 History [Lantus Insulin 100units/mL 10mL vial] Lisinopril [Prinivil 10mg Tablet] 10 mg PO DAILY 12/07/17 12/09/17 History Allergies Allergy/AdvReac Type Severity Reaction Status Date / Time moxifloxacin [From AVELOX] Allergy Unknown SWELLING Verified 12/07/17 10:24 Exam Vital signs and Labs for Last 24 Hours: Temp Pulse Resp BP Pulse Ox 98.0 F 116 H 20 120/67 98 12/09/17 14:12/09/17 14:09 12/09/17 14:12/09/17 14:12/09/17 14:09 Laboratory Results - last 24 hr 12/09/17 11:02: Specimen Source Rt radial, O2 % 21, ABG pH 7.06 L*, ABG pCO2 13.2 L, ABG pO2 135.6 H, ABG HCO3 3.6 L, ABG Total CO2 4.0 L, ABG O2 Saturation 98, ABG Base Excess -26.7 L, Barrett Test Acceptable 12/09/17 11:06: POC Glucose 594 H* 12/09/17 12:20: WBC 6.3, RBC 4.92, Hgb 14.1, Hct 50.5 H, MCV 102.8 H, MCH 28.8, MCHC 28.0 L, RDW 12.6, Plt Count 307 D, MPV 9.2, Neut % (Auto) 76.8, Lymph % ( Auto) 19.5, [place] % (Auto) 1.9, Eos % (Auto) 1.3, Baso % (Auto) 0.5, Neut # (Auto ) 4.8, Lymph # (Auto) 1.2, [place] # (Auto) 0.1, Eos # (Auto) 0.1, Baso # (Auto) 0.0 12/09/17 12:20: Sodium 136, Potassium 5.0 D, Chloride 100, Carbon Dioxide 8 L* D, Anion Gap 33.0 H, BUN 16, Creatinine 1.13 H D, Estimated Creat Clear 60, Estimated GFR 54 L, Est GFR ( Amer) 66 D, Glucose 618 H*, Calcium 8.2 L , Total Bilirubin 0.5, AST 37 D, ALT 60 D, Alkaline Phosphatase 153 H, Total Protein 8.3 H D, Albumin 3.8 D, Globulin 4.5 H, Albumin/Globulin Ratio 0.8 L, Acetone Level Small 12/09/17 12:20: Serum HCG, Qual Negative 12/09/17 12:20: Lactic Acid 1.0 12/09/17 12:20: Magnesium 1.8 12/09/17 12:20: Phosphorus 4.3 D 12/09/17 12:52: Urine Color Yellow, Urine Appearance Clear, Urine pH 5.5, Ur Specific [place] 1.025, Urine Protein Trace, Urine Glucose (UA) 3+, Urine Ketones 3+, Urine Blood Trace-l, Urine Nitrate Negative, Urine Bilirubin Negative, Urine Urobilinogen 0.2, Ur Leukocyte Esterase Negative, Urine WBC Occasional, Ur Squamous Epith Cells 3-5, Urine Bacteria 1+, Urine Mucus 1+ 12/09/17 12:52: Urine Opiates Screen Negative, Ur Barbituates Screen Negative, Ur Phencyclidine Scrn Negative, Ur Amphetamines Screen Negative, U Methamphetamines Scrn Negative, U Benzodiazepines Scrn Negative, Urine Cocaine Screen Negative, U Marijuana (THC) Screen Negative 12/09/17 13:15: POC Glucose 581 H* I & O for Last 24 hours: Intake & Output 12/07/17 12/08/17 12/09/17 12/10/17 11:59 11:59 11:59 11:59 Intake Total 240 / 240 Output Total 1999 / 1999 Balance -1760 / -1760 Weight 122 lb 116 lb 3 oz - Constitutional no acute distress - *Routine HEENT Exam Head: Present: normocephalic Eye: Present: PERRL ENT: Present: mucous membranes moist - *Routine Neck Exam Present: full ROM - *Routine Respiratory Exam Present: CTA bilaterally - *Routine Cardiovascular Exam Present: RRR - *Routine Abdominal Exam Present: soft, normoactive bowel sounds. Absent: distended, rebound - *Routine Extremities Exam Present: full ROM - *Routine Skin Exam Present: intact - *Routine Neurological Exam Present: alert, oriented X3, CN II-XII intact - Routine Psychiatric Exam Present: normal affect, normal thought process H&P: Result - Labs Labs: Short CBC 12/09/17 Range/Units 12:20 WBC 6.3 (4.8-10.8) K/mm3 Hgb 14.1 (12.2-16.2) g/dL Hct 50.5 H (37.0-47.0) % Plt Count 307 D (142-424) K/mm3 BMP 12/09/17 12:20 Sodium 136 Potassium 5.0 D Chloride 100 Carbon Dioxide 8 L* D BUN 16 Creatinine 1.13 H D Glucose 618 H* Calcium 8.2 L Liver Function 12/09/17 Range/Units 12:20 Total Bilirubin 0.5 (0.2-1.0) mg/dL AST 37 D (15-37) U/L ALT 60 D (12-78) U/L Alkaline Phosphatase 153 H (46-116) U/L Albumin 3.8 D (3.4-5.0) gm/dL Urine 12/09/17 Range/Units 12:52 Urine Color Yellow (Yellow) Urine Appearance Clear (Clear) Urine pH 5.5 (5.0-8.5) Ur Specific [place] 1.025 (1.005-1.030) Urine Protein Trace (Negative) Urine Glucose (UA) 3+ (Negative) Assessment and Plan - Assessment and plan all Dx Assessment and Plan for all problems:: Dorothy will see patient later today.
--- NOTE | 2017-12-09 18:10 | Discharge Summary ---
General - General Admission date:: 12/09/17 Discharge date: 12/09/17 HPI HPI: 36 years old insulin-dependent diabetic with prior ED visit on 12/07/17 when she was admitted for DKA history of noncompliance to medication regimen. The patient was discharged yesterday. Her Accu-Chek on the bedside is 594 in ed. Pt states since she left the hospital she has been vomiting x 14 watery yellow material with no hematemesis coffee-ground emesis melanotic stool or bleeding per rectum, she denies fever or chills or diarrhea. She denies abdominal pain without vomiting. Patient admitted for DKA. Hospital Course Hospital Course: Monitoring of labs insulin drip at 12 units an hour Patient requests transfer to [facility] to be called by an lacquer polisher. Discussed with Dr. De La Cruz he is okay with transfer. Dr. Montemayor has accepted patient for transfer to the ICU Objective Vital signs: Temp Pulse Resp BP Pulse Ox 98.0 F 109 H 22 101/51 100 12/09/17 14:09 12/09/17 17:00 12/09/17 17:00 12/09/17 17:00 12/09/17 17:00 no acute distress - *Routine HEENT Exam Head: Present: normocephalic Eye: Present: PERRL ENT: Present: mucous membranes moist - *Routine Neck Exam Present: full ROM - *Routine Respiratory Exam Present: CTA bilaterally - *Routine Cardiovascular Exam Present: RRR - *Routine Abdominal Exam Present: soft, normoactive bowel sounds - *Routine Extremities Exam Present: full ROM - *Routine Neurological Exam Present: alert, oriented X3, CN II-XII intact - Routine Psychiatric Exam Present: normal affect, normal thought process Results Labs on day of discharge: Labs from last 24 hours 12/09/17 12/09/17 12/09/17 15:39 14:44 13:15 WBC RBC Hgb Hct MCV MCH MCHC RDW Plt Count MPV Neut % (Auto) Lymph % (Auto) [place] % (Auto) Eos % (Auto) Baso % (Auto) Neut # (Auto) Lymph # (Auto) [place] # (Auto) Eos # (Auto) Baso # (Auto) Specimen Source O2 % ABG pH ABG pCO2 ABG pO2 ABG HCO3 ABG Total CO2 ABG O2 Saturation ABG Base Excess Barrett Test Sodium Potassium Chloride Carbon Dioxide Anion Gap BUN Creatinine Estimated Creat Clear Estimated GFR Est GFR ( Amer) Glucose POC Glucose 368 H* 436 H* 581 H* Lactic Acid Calcium Phosphorus Magnesium Total Bilirubin AST ALT Alkaline Phosphatase Total Protein Albumin Globulin Albumin/Globulin Ratio Serum HCG, Qual Urine Color Urine Appearance Urine pH Ur Specific [place] Urine Protein Urine Glucose (UA) Urine Ketones Urine Blood Urine Nitrate Urine Bilirubin Urine Urobilinogen Ur Leukocyte Esterase Urine WBC Ur Squamous Epith Cells Urine Bacteria Urine Mucus Urine Opiates Screen Ur Barbituates Screen Ur Phencyclidine Scrn Ur Amphetamines Screen U Methamphetamines Scrn U Benzodiazepines Scrn Urine Cocaine Screen U Marijuana (THC) Screen Acetone Level 12/09/17 12/09/17 12/09/17 12:52 12:52 12:20 WBC RBC Hgb Hct MCV MCH MCHC RDW Plt Count MPV Neut % (Auto) Lymph % (Auto) [place] % (Auto) Eos % (Auto) Baso % (Auto) Neut # (Auto) Lymph # (Auto) [place] # (Auto) Eos # (Auto) Baso # (Auto) Specimen Source O2 % ABG pH ABG pCO2 ABG pO2 ABG HCO3 ABG Total CO2 ABG O2 Saturation ABG Base Excess Barrett Test Sodium Potassium Chloride Carbon Dioxide Anion Gap BUN Creatinine Estimated Creat Clear Estimated GFR Est GFR ( Amer) Glucose POC Glucose Lactic Acid Calcium Phosphorus 4.3 D Magnesium Total Bilirubin AST ALT Alkaline Phosphatase Total Protein Albumin Globulin Albumin/Globulin Ratio Serum HCG, Qual Urine Color Yellow Urine Appearance Clear Urine pH 5.5 Ur Specific [place] 1.025 Urine Protein Trace Urine Glucose (UA) 3+ Urine Ketones 3+ Urine Blood Trace-l Urine Nitrate Negative Urine Bilirubin Negative Urine Urobilinogen 0.2 Ur Leukocyte Esterase Negative Urine WBC Occasional Ur Squamous Epith Cells 3-5 Urine Bacteria 1+ Urine Mucus 1+ Urine Opiates Screen Negative Ur Barbituates Screen Negative Ur Phencyclidine Scrn Negative Ur Amphetamines Screen Negative U Methamphetamines Scrn Negative U Benzodiazepines Scrn Negative Urine Cocaine Screen Negative U Marijuana (THC) Screen Negative Acetone Level 12/09/17 12/09/17 12/09/17 12:20 12:20 12:20 WBC RBC Hgb Hct MCV MCH MCHC RDW Plt Count MPV Neut % (Auto) Lymph % (Auto) [place] % (Auto) Eos % (Auto) Baso % (Auto) Neut # (Auto) Lymph # (Auto) [place] # (Auto) Eos # (Auto) Baso # (Auto) Specimen Source O2 % ABG pH ABG pCO2 ABG pO2 ABG HCO3 ABG Total CO2 ABG O2 Saturation ABG Base Excess Barrett Test Sodium Potassium Chloride Carbon Dioxide Anion Gap BUN Creatinine Estimated Creat Clear Estimated GFR Est GFR ( Amer) Glucose POC Glucose Lactic Acid 1.0 Calcium Phosphorus Magnesium 1.8 Total Bilirubin AST ALT Alkaline Phosphatase Total Protein Albumin Globulin Albumin/Globulin Ratio Serum HCG, Qual Negative Urine Color Urine Appearance Urine pH Ur Specific [place] Urine Protein Urine Glucose (UA) Urine Ketones Urine Blood Urine Nitrate Urine Bilirubin Urine Urobilinogen Ur Leukocyte Esterase Urine WBC Ur Squamous Epith Cells Urine Bacteria Urine Mucus Urine Opiates Screen Ur Barbituates Screen Ur Phencyclidine Scrn Ur Amphetamines Screen U Methamphetamines Scrn U Benzodiazepines Scrn Urine Cocaine Screen U Marijuana (THC) Screen Acetone Level 12/09/17 12/09/17 12/09/17 12:20 12:20 11:06 WBC 6.3 RBC 4.92 Hgb 14.1 Hct 50.5 H MCV 102.8 H MCH 28.8 MCHC 28.0 L RDW 12.6 Plt Count 307 D MPV 9.2 Neut % (Auto) 76.8 Lymph % (Auto) 19.5 [place] % (Auto) 1.9 Eos % (Auto) 1.3 Baso % (Auto) 0.5 Neut # (Auto) 4.8 Lymph # (Auto) 1.2 [place] # (Auto) 0.1 Eos # (Auto) 0.1 Baso # (Auto) 0.0 Specimen Source O2 % ABG pH ABG pCO2 ABG pO2 ABG HCO3 ABG Total CO2 ABG O2 Saturation ABG Base Excess Barrett Test Sodium 136 Potassium 5.0 D Chloride 100 Carbon Dioxide 8 L* D Anion Gap 33.0 H BUN 16 Creatinine 1.13 H D Estimated Creat Clear 60 Estimated GFR 54 L Est GFR ( Amer) 66 D Glucose 618 H* POC Glucose 594 H* Lactic Acid Calcium 8.2 L Phosphorus Magnesium Total Bilirubin 0.5 AST 37 D ALT 60 D Alkaline Phosphatase 153 H Total Protein 8.3 H D Albumin 3.8 D Globulin 4.5 H Albumin/Globulin Ratio 0.8 L Serum HCG, Qual Urine Color Urine Appearance Urine pH Ur Specific [place] Urine Protein Urine Glucose (UA) Urine Ketones Urine Blood Urine Nitrate Urine Bilirubin Urine Urobilinogen Ur Leukocyte Esterase Urine WBC Ur Squamous Epith Cells Urine Bacteria Urine Mucus Urine Opiates Screen Ur Barbituates Screen Ur Phencyclidine Scrn Ur Amphetamines Screen U Methamphetamines Scrn U Benzodiazepines Scrn Urine Cocaine Screen U Marijuana (THC) Screen Acetone Level Small 12/09/17 11:02 WBC RBC Hgb Hct MCV MCH MCHC RDW Plt Count MPV Neut % (Auto) Lymph % (Auto) [place] % (Auto) Eos % (Auto) Baso % (Auto) Neut # (Auto) Lymph # (Auto) [place] # (Auto) Eos # (Auto) Baso # (Auto) Specimen Source Rt radial O2 % 21 ABG pH 7.06 L* ABG pCO2 13.2 L ABG pO2 135.6 H ABG HCO3 3.6 L ABG Total CO2 4.0 L ABG O2 Saturation 98 ABG Base Excess -26.7 L Barrett Test Acceptable Sodium Potassium Chloride Carbon Dioxide Anion Gap BUN Creatinine Estimated Creat Clear Estimated GFR Est GFR ( Amer) Glucose POC Glucose Lactic Acid Calcium Phosphorus Magnesium Total Bilirubin AST ALT Alkaline Phosphatase Total Protein Albumin Globulin Albumin/Globulin Ratio Serum HCG, Qual Urine Color Urine Appearance Urine pH Ur Specific [place] Urine Protein Urine Glucose (UA) Urine Ketones Urine Blood Urine Nitrate Urine Bilirubin Urine Urobilinogen Ur Leukocyte Esterase Urine WBC Ur Squamous Epith Cells Urine Bacteria Urine Mucus Urine Opiates Screen Ur Barbituates Screen Ur Phencyclidine Scrn Ur Amphetamines Screen U Methamphetamines Scrn U Benzodiazepines Scrn Urine Cocaine Screen U Marijuana (THC) Screen Acetone Level Discharge Plan - Patient Discharge Instructions ACTIVITY: Continue current activity DIET: continue same diet - Follow up Plan Follow up with: Zeny Coleman APRN [Nurse Practitioner] - 12/12/17 Disposition: Xfer Short-Term Hosp Home Medications: Home Medications Medication Instructions Recorded Confirmed Type Insulin Lispro [HumaLOG 100 0 unit SQ AC 09/28/17 12/09/17 History units/mL 3mL vial (SSI)] Amitriptyline HCl [Elavil 25mg 25 mg PO HS 12/07/17 12/09/17 History tablet] Citalopram Hydrobromide [Celexa 20 mg PO DAILY 12/07/17 12/09/17 History 20mg Tablet] Insulin Glargine,Hum.rec.anlog 26 unit SQ HS 12/07/17 12/09/17 History [Lantus Insulin 100units/mL 10mL vial] Lisinopril [Prinivil 10mg Tablet] 10 mg PO DAILY 12/07/17 12/09/17 History Prescriptions/Medication Reconciliation: Continue Insulin Lispro [HumaLOG 100 units/mL 3mL vial (SSI)] 0 unit SQ AC Amitriptyline HCl [Elavil 25mg tablet] 25 mg PO HS Citalopram Hydrobromide [Celexa 20mg Tablet] 20 mg PO DAILY Lisinopril [Prinivil 10mg Tablet] 10 mg PO DAILY Insulin Glargine,Hum.rec.anlog [Lantus Insulin 100units/mL 10mL vial] 26 unit SQ HS
[2017-12-09 18:20] LABS: Anion Gap 18.2 mEq/L (5-15); Phosphorous 1.5 mg/dL (2.4-4.9); Potassium 4.2 mmoL/L (3.5-5.1)
[2017-12-09 22:02] VITALS: BP 101/63
== END 2017-12-10 00:05 | disposition short-term general hospital (02) ==
LOC: ER 10:55 → 2ND 13:36 → INTOOBSV 13:55 → 2ND 13:56
PROVIDERS: ADMIT Emergency Medicine; ATTEND Emergency Medicine

== ENCOUNTER 2020-07-07 12:22 | Inpatient (IN) | payer MEDICAID, SELFPAY ==
[2020-07-07] VITALS (12 sets, daily range): BP systolic 121–155; BP diastolic 53–90; PULSE 100–119; RESP 17–22; TEMP 36.7–36.9; O2SAT 96–100; BMI 22.4; BMI 19.1
--- NOTE | 2020-07-07 12:42 | HMH.EDGENADL ---
ED Disposition Clinical Impression: Diabetic ketoacidosis Qualifiers: Diabetes mellitus type: type 1 Diabetes mellitus complication detail: without coma Qualified Code(s): E10.10 - Type 1 diabetes mellitus with ketoacidosis without coma Disposition: Admitted As Inpatient Condition on Discharge: Critical Instructions: DI for Hyperglycemia -- Adult Referrals: PCP,No [Primary Care Provider] - - Critical Care Critical Care Time: Yes Attestation: On 07/07/20, the high probability of a clinically significant, sudden or life threatening deterioration of the following system(s) required my full and direct attention, intervention and personal management. The time I documented below is in addition to time spent performing reported procedures but includes the following listed in this critical care notation. Total Critical Care Time: 40 Vital system(s) involved:: Metabolic Failure My critical care processes included: Assessment & monitoring of V/S, Initial and Re-exams, Data Review/Interpretation, Coordinating Care, Medication Orders and management, Documentation Medical Decision Making - Medical Records Medical records reviewed: Yes: I reviewed the patient's medical records. MR Comment: Collected notification shows admission to [facility] March 09, 2020 for DKA. - Deshaun Inquiry Pt receiving controlled substance: No Vital Signs: 07/07/20 12:25 07/07/20 13:58 Temperature 98.4 F Temperature Source Oral Pulse Rate [Right Brachial] 118 H 112 H Respiratory Rate 22 Blood Pressure [Right Arm] 147/78 H 121/54 L Blood Pressure Mean [Right Arm] 101 76 Blood Pressure Source [Right Arm] Automatic Cuff Automatic Cuff Blood Pressure Position [Right Arm] Supine Sitting 02 Sat by Pulse Oximetry 100 100 Oxygen Delivery Method Room Air Room Air - Lab Data Lab Results 07/07/20 12:42: VBG pH 6.93 L, VBG pCO2 20.6 L, VBG pO2 59.8 H, VBG HCO3 4.2 L, VBG Total CO2 4.9 L, VBG O2 Saturation 79.9 H, VBG Base Excess -28.2 L 07/07/20 12:43: Urine Color Yellow, Urine Appearance Clear, Urine pH 5.5, Ur Specific [place] 1.020, Urine Protein Negative, Urine Glucose (UA) 3+, Urine Ketones 3+, Urine Blood Trace-i, Urine Nitrate Negative, Urine Bilirubin Negative, Urine Urobilinogen 0.2, Ur Leukocyte Esterase Negative, Urine RBC 5-10, Urine WBC 3-5, Ur Squamous Epith Cells 3-5 07/07/20 13:13: WBC 21.2 H*, RBC 4.42, Hgb 13.3, Hct 46.5, MCV 105.1 H, MCH 30.2, MCHC 28.7 L, RDW 13.9, Plt Count 464 H, MPV 8.2, Neut % (Auto) 85.7 H, Lymph % (Auto) 8.8 L, [place] % (Auto) 4.5, Eos % (Auto) 0.7, Baso % (Auto) 0.4, Neut # (Auto) 18.1 H, Lymph # (Auto) 1.8, [place] # (Auto) 1.0, Eos # (Auto) 0.1, Baso # (Auto) 0.1, Total Counted 100, Neutrophils % (Manual) 84 H, Lymphocytes % (Manual) 11, Monocytes % (Manual) 5, Platelet Estimate Slight increase, Macrocytosis 1+ 07/07/20 13:13: Sodium 129 L, Potassium 6.0 H, Chloride 96 L, Carbon Dioxide < 5 L*, Anion Gap 34.0 H, BUN 18 H, Creatinine 1.10 H, Estimated Creat Clear 66, Estimated GFR 55 L, Est GFR ( Amer) 67, Glucose 879 H*, Calcium 9.7, Total Bilirubin 1.4 H, AST 132 H, ALT 89 H, Alkaline Phosphatase 196 H, Total Protein 8.1, Albumin 4.4, Globulin 3.7 H, Albumin/Globulin Ratio 1.2 07/07/20 13:13: Acetone Level Large 07/07/20 13:13: Serum HCG, Qual Negative 07/07/20 13:13: Phosphorus 9.1 H, Magnesium 2.3, Troponin I < 0.01 07/07/20 13:13: Lipase 61 07/07/20 13:13: Plasma/Serum Alcohol < 10 07/07/20 13:13: SARS-CoV-2 IgG Ab (Rapid) Negative, SARS-CoV-2 IgM Ab (Rapid) Negative Result diagrams: 07/07/20 13:13 07/07/20 13:13 Orders (Tests/Meds): ED MEDICATIONS Generic Name Dose Route Start Last Admin Trade Name Freq PRN Reason Stop Dose Admin Insulin Human Regular 100 unit 101 mls @ 6.185 mls/hr 07/07/20 14:00 07/07/20 14:10 / Sodium Chloride IV 08/06/20 13:59 6.185 mls/hr .[id number] BOWEN Administration Protocol 0.1 UNITS/KG/HR Discontinued Medications Generic Name Dose Route St
--- NOTE | 2020-07-07 12:49 | XR_ITS ---
PROCEDURE: XR CHEST PORTABLE CLINICAL HISTORY: cp, soa COMPARISON: CR CXR2V XR chest 2V from 09/28/2017 DX CXR2V XR chest 2V from 12/07/2017 FINDINGS: The cardiomediastinal silhouette and pulmonary vascularity are within normal limits. The lungs are clear without infiltrates, suspicious nodules, or pleural effusions. No acute bony abnormalities. IMPRESSION: No acute findings. Dictated by: Barrett Alejandra MD 07/07/2020 13:10 Barrett Alejandra MD in OV 07/07/2020 13:10
--- NOTE | 2020-07-07 12:57 | PC.NURSE ---
Patient states that she will give a urine sample, but refuses to have a drug screen done.
[2020-07-07 12:59] LABS: Microscopic, Urine URINE MICROSCOPIC (MICROSCOPIC)
[2020-07-07 13:00] LABS: Appearance,Urine CLEAR (Clear); Bilirubin,Urine Negative (Negative); Blood, Urine TRACE-I (Negative); Color,Urine YELLOW (Yellow); Glucose,Urine (UA) 3+ (Negative); Ketones,Urine 3+ (Negative); Leukocyte Esterase,Urine Negative (Negative); Nitrate,Urine Negative (Negative); PH,Urine 5.5 (5.0-8.5); Protein,Urine Negative (Negative); Urobilinogen,Urine 0.2 EU/dl (0.2)
--- NOTE | 2020-07-07 13:07 | ECG_ITS ---
APPROVED REPORT Exam: Resting ECG HR:110 bpm ECG Measurements Heart Rate 110 AXES MA 134 P 79 QRSd 86 QRS 72 QT 354 T 36 QTc 479 Conclusion Sinus tachycardia Right atrial enlargement Borderline ECG Electronically signed by : Dillon Garcia, 07/09/2020 14:29:52
[2020-07-07 13:22] LABS: Basophils # 0.1 K/mm3 (0-0.2); Basophils % 0.4 % (0.1-2.0); Eosinophils # 0.1 K/mm3 (0.0-0.4); Eosinophils % 0.7 % (0.1-12.0); Hematocrit 46.5 % (37.0-47.0); Hemoglobin 13.3 g/dL (12.2-16.2); Lymphocytes # 1.8 K/mm3 (0.7-4.5); Lymphocytes % 8.8 % (10-50); Mean Corpuscular HGB Conc 28.7 g/dL (31.8-35.4); Mean Corpuscular Hemoglobin 30.2 pg (27.0-31.2); Mean Corpuscular Volume 105.1 fl (81-99); Mean Platelet Volume 8.2 fl (7.4-10.4); Monocytes % 4.5 % (1.7-9.3); Neutrophils # 18.1 K/mm3 (1.8-7.8); Neutrophils % 85.7 % (37.0-80.0); Platelet Count 464 K/mm3 (142-424); Red Blood Count 4.42 M/mm3 (4.20-5.40); Red Cell Distribution Width 13.9 % (11.5-17.5); White Blood Count 21.2 K/mm3 (4.8-10.8)
[2020-07-07 13:34] LABS: Acetone, Serum (Rapid) Large (None Detect)
[2020-07-07 13:39] LABS: HCG Qualitative, Serum Negative (Negative)
[2020-07-07 13:42] LABS: Chloride 96 mmol/L (98-107); Sodium 129 mmol/L (136-145)
[2020-07-07 13:44] LABS: Blood Urea Nitrogen 18 mg/dl (7-17); Creatinine Clearance Estimated 66 mL/min (50-200); Estimated Glomerular Filt Rate 55 ml/min (>60); GFR (African American) 67 ML/MIN (>60); Magnesium 2.3 mg/dl (1.6-2.3); Phosphorous 9.1 mg/dl (2.5-4.5)
[2020-07-07 13:45] LABS: Alanine Aminotransferase 89 U/L (12-78); Albumin Level 4.4 g/dl (3.5-5.0); Albumin/Globulin Ratio 1.2 (1.1-1.8); Alkaline Phosphatase 196 U/L (38-126); Aspartate Amino Transferase 132 U/L (14-36); Bilirubin,Total 1.4 mg/dl (0.2-1.3); Calcium 9.7 mg/dl (8.4-10.2); Globulin 3.7 g/dL (1.3-3.2); Lipase 61 U/L (23-300); Total Protein,Serum 8.1 g/dl (6.3-8.2)
[2020-07-07 13:54] LABS: Coronavirus 19 IgG Antibody Negative (Negative); Coronavirus 19 IgM Antibody Negative (Negative)
[2020-07-07 13:55] LABS: MANUAL DIFFERENTIAL MANUAL DIFFERENTIAL (MANUAL DIFF)
[2020-07-07 13:56] LABS: Ethyl Alcohol < 10 mg/dl (0-10)
[2020-07-07 13:57] LABS: Glucose 879 mg/dl (74-100); Troponin I < 0.01 ng/ml (0.00-0.034)
[2020-07-07 13:58] LABS: Carbon Dioxide < 5 mmol/L (22.0-30.0)
[2020-07-07 14:04] LABS: VBG Base Excess -28.2 mmol/L (-2.4-2.3); VBG HCO3 4.2 mmol/L (23-30); VBG Oxygen Saturation 79.9 % (50-70); VBG PO2 59.8 mmol/L (28-40); VBG Total CO2 4.9 mmol/L (23-27)
--- NOTE | 2020-07-07 14:05 | PC.NURSE ---
Dr. Veras notified of K+ of 6.0.
[2020-07-07 14:06] LABS: VBG PCO2 20.6 mmol/L (35-51); VBG PH 6.93 mmol/L (7.31-7.41)
--- NOTE | 2020-07-07 14:06 | PC.NURSE ---
Dr. Veras notified of VBG pH of 6.93 and CO2 of 20.6.
[2020-07-07 14:12] LABS: Lymphocytes % 11 % (10-50); Macrocytosis 1+; Monocytes % 5 % (2-9); Neutrophils % 84 % (42-76); Platelet Estimate Slight Increase; Total Cells Counted 100
--- NOTE | 2020-07-07 14:31 | PC.NURSE ---
CALL PLACED TO DR VITAL
--- NOTE | 2020-07-07 14:38 | PC.NURSE ---
CALL PLACED TO DR VITAL
--- NOTE | 2020-07-07 14:47 | PC.NURSE ---
Care management notified of admission and needing a bed.
--- NOTE | 2020-07-07 15:25 | PC.NURSE ---
Pt has rang out several times for water, I have given her some and ice chips and explained to her that I didn't want to give her too much and make her sick. She understood.
[2020-07-07 15:36] LABS: Adenovirus,PCR Not Detected (NotDetected); Bordetella Pertussis Not Detected (NotDetected); Chlamydophila Pneumoniae, PCR Not Detected (NotDetected); Coronavirus 19, PCR Not Detected (NotDetected); Coronavirus 229E Not Detected (NotDetected); Coronavirus NL63 Not Detected (NotDetected); Coronavirus OC43 Not Detected (NotDetected); Coronovirus HKU1,PCR Not Detected (NotDetected); Human Metapneumovirus Not Detected (NotDetected); Influenza A, PCR Not Detected (NotDetected); Influenza AH1, 2009 Not Detected (NotDetected); Influenza AH1, PCR Not Detected (NotDetected); Influenza AH3,PCR Not Detected (NotDetected); Influenza B, PCR Not Detected (NotDetected); Mycoplasma Pneumoniae, PCR Not Detected (NotDetected); Parainfluenza 1, PCR Not Detected (NotDetected); Parainfluenza 2, PCR Not Detected (NotDetected); Parainfluenza 3, PCR Not Detected (NotDetected); Parainfluenza 4, PCR Not Detected (NotDetected); Respiratory Syncytial Virus Not Detected (NotDetected); Rhinovirus/Enterovirus Not Detected (NotDetected)
--- NOTE | 2020-07-07 15:56 | PC.NURSE ---
PT REFUSING TO HAVE BLOOD DRAWN
[2020-07-07 16:57] LABS: Glucose,Random 663 mg/dL (74-100)
--- NOTE | 2020-07-07 16:58 | PC.NURSE ---
Dr. Veras notified of random glucose of 663
[2020-07-07 17:05] LABS: Troponin I < 0.01 ng/ml (0.00-0.034)
--- NOTE | 2020-07-07 17:49 | PC.NURSE ---
v/s delayed due to pt removing her own monitors multiple times. pt is writhing around in bed stating that she needs to pee and is hurting all over. Assisted pt to restroom at which time she urinated on herself. helped pt removed wet clothing and placed her in a clean gown. Asked MD for something for pain for pt per her request and he added new orders. Pt nurse aware.
[2020-07-07 18:03] LABS: Chloride 100 mmol/L (98-107)
[2020-07-07 18:04] LABS: Potassium 5.8 mmoL/L (3.5-5.1); Sodium 128 mmol/L (136-145)
[2020-07-07 18:07] LABS: Blood Urea Nitrogen 17 mg/dl (7-17); Calcium 8.9 mg/dl (8.4-10.2); Creatinine Clearance Estimated 73 mL/min (50-200); Estimated Glomerular Filt Rate 62 ml/min (>60); GFR (African American) 75 ML/MIN (>60)
[2020-07-07 18:11] LABS: POC Glucose,Bedside 578 (70-110)
[2020-07-07 18:11] LABS: Hemoglobin A1C 11.6 % (4.0-6.0)
[2020-07-07 18:26] LABS: Anion Gap 28.8 mEq/L (5-15); Carbon Dioxide < 5 mmol/L (22.0-30.0); Glucose 669 mg/dl (74-100)
--- NOTE | 2020-07-07 18:26 | PC.NURSE ---
Critical lab values called to Roro Hooper RN
[2020-07-07 18:58] LABS: Glucose,Random 554 mg/dL (74-100)
--- NOTE | 2020-07-07 19:03 | PC.NURSE ---
critical glucose called from lab. is aware patient is having high glucoses. will titrate the insulin drip up to 9units/hr per dka protocol. will continue to titrate based on fsbs/glucose levels
[2020-07-07 19:34] LABS: Troponin I < 0.01 ng/ml (0.00-0.034)
--- NOTE | 2020-07-07 19:36 | PC.NURSE ---
patient arrived to floor at 1900 in stable condition. requested warm blankets, and soup, sugar free jello, and sugar free pudding. body system assessment negative. some generalized weakness, and eid on arms from drug abuse. report given to oncoming nurse sheryl layton
--- NOTE | 2020-07-07 20:53 | PC.NURSE ---
During report prev shift RN gave pt requested snack and pt c/o of IV site to RAC. Site was cold, hard, and edematous. IV was removed d/t infiltration. This RN and Bob Parikh RN attempted PIV x6 without successes. Wilfredo Frias from ER attempted PIV without success, but was able to get an 18G to LEJ. Insulin gtt restated at this time at 6units/hr d/t FS drop > 10mg/dL/hr (554 to 430).
--- NOTE | 2020-07-07 21:49 | PC.NURSE ---
Insulin gtt decreased to 3units/hr per protocol of FS decrease > 100 (430 to 267).
[2020-07-07 22:08] LABS: Chloride 105 mmol/L (98-107); Potassium 4.1 mmoL/L (3.5-5.1); Sodium 133 mmol/L (136-145)
[2020-07-07 22:11] LABS: Blood Urea Nitrogen 14 mg/dl (7-17); Creatinine Clearance Estimated 69 mL/min (50-200); Estimated Glomerular Filt Rate 70 ml/min (>60); GFR (African American) 84 ML/MIN (>60)
[2020-07-07 22:12] LABS: Anion Gap 25.1 mEq/L (5-15); Calcium 9.6 mg/dl (8.4-10.2); Glucose 269 mg/dl (74-100)
[2020-07-07 22:15] LABS: Carbon Dioxide 7 mmol/L (22.0-30.0)
[2020-07-08] VITALS (12 sets, daily range): BP systolic 105–137; BP diastolic 59–88; PULSE 89–113; RESP 16–22; TEMP 36.6–37.4; O2SAT 97–100; BMI 20.3
[2020-07-08 00:11] LABS: POC Glucose,Bedside 267 (70-110)
[2020-07-08 00:11] LABS: POC Glucose,Bedside 143 (70-110)
[2020-07-08 00:11] LABS: POC Glucose,Bedside 430 (70-110)
--- NOTE | 2020-07-08 00:43 | PC.NURSE ---
Titrated Insulin gtt down to 1.5units/hr per protocol. New orders received from Dr. Ford to start Lantus 20units SQ now and stop Insulin gtt in 30 min from time of administration of basal insulin. Start Humalog/Lispro SSI at Medium Intensity ACHS, pt ok to have a correlating dose at FS spot-check. Keep IVF the same of NS with 20meq KCL @ 150ml/hr.
[2020-07-08 01:53] LABS: POC Glucose,Bedside 100 (70-110)
[2020-07-08 02:05] LABS: Acetone, Serum (Rapid) None Detected (None Detect)
[2020-07-08 02:14] LABS: Anion Gap 14.4 mEq/L (5-15); Blood Urea Nitrogen 14 mg/dl (7-17); Calcium 9.5 mg/dl (8.4-10.2); Carbon Dioxide 15 mmol/L (22.0-30.0); Chloride 108 mmol/L (98-107); Creatinine Clearance Estimated 89 mL/min (50-200); Estimated Glomerular Filt Rate 93 ml/min (>60); GFR (African American) 113 ML/MIN (>60); Glucose 100 mg/dl (74-100); Potassium 4.4 mmoL/L (3.5-5.1); Sodium 133 mmol/L (136-145)
--- NOTE | 2020-07-08 02:26 | PC.NURSE ---
Lantus given at 0100, thus Insulin gtt stopped at [address] Ford's orders. Pt is drowsy but awakens easily and answers questions appropriately. Pt denies any nausea, SOA, dizziness, or pain. Pt reports to only feeling tired. Will recheck FS as needed and ACHS.
[2020-07-08 06:08] LABS: Chloride 110 mmol/L (98-107)
[2020-07-08 06:09] LABS: Potassium 4.4 mmoL/L (3.5-5.1); Sodium 134 mmol/L (136-145)
[2020-07-08 06:10] LABS: POC Glucose,Bedside 101 (70-110)
[2020-07-08 06:12] LABS: Anion Gap 10.4 mEq/L (5-15); Blood Urea Nitrogen 14 mg/dl (7-17); Carbon Dioxide 18 mmol/L (22.0-30.0); Creatinine Clearance Estimated 94 mL/min (50-200); Estimated Glomerular Filt Rate 93 ml/min (>60); GFR (African American) 113 ML/MIN (>60); Glucose 104 mg/dl (74-100)
--- NOTE | 2020-07-08 06:32 | PC.NURSE ---
Pts A& Ox4 and has ambulated to the BR 1x this shift, no BM but lots of flatus. Pt has denied any N/V but has coughed until retching 1x. Sputum collected d/t productive cough, thin clear/white sputum. Lungs CTA, room air sat > 98% t/o shift. Pt FS has been controlled since d/c Insulin gtt. Slight edema to R AC & elbow d/t infiltrated IV. Puncture site noted t/o hands and forearms. Pt admits to recent IVDU. Some small bruises noted to BLE. Refused TEDS. Sinus tach, NSR on tele. T-Max 99.3, tylenol administered x2 this shift.
--- NOTE | 2020-07-08 07:07 | HMH.PHAVTE ---
[facility] Pharmacy VTE Monitoring - Patient Demographics Admission date: 07/07/20 Report Date: 07/08/20 Time: 07:07 Allergies/Adverse Reactions: Patient Allergies moxifloxacin [From AVELOX] Allergy (Unknown, Verified 07/07/20 12:34) SWELLING Height: 1.65 m Weight: 55.338 kg Patient Problems: Current Active Problems Diabetic ketoacidosis (Acute) - VTE Risk Labs: VTE Related Lab Results Hgb 13.3 g/dL (12.2-16.2) 07/07/20 13:13 Hct 46.5 % (37.0-47.0) 07/07/20 13:13 Plt Count 464 K/mm3 (142-424) H 07/07/20 13:13 BUN 14 mg/dl (7-17) 07/08/20 05:45 Creatinine 0.70 mg/dl (0.52-1.04) 07/08/20 05:45 Estimated Creat Clear 94 mL/min (50-200) 07/08/20 05:45 - Prophylaxis VTE Prophylaxis Ordered?: Yes Types of VTE Prophylaxis: TEDS Knee High Location of Applied Device: Bilateral Lower Extremeties
--- NOTE | 2020-07-08 07:20 | HMH.PHAINT ---
MEDICATION RECONCILIATION COMPLETED ON PATIENT USING EXTERNAL FILL HISTORY FROM PHARMACY. -SHANTELL BARBOUR, EDDD
[2020-07-08 08:24] LABS: POC Glucose,Bedside 252 (70-110)
--- NOTE | 2020-07-08 08:40 | HMH.HP ---
*Admission Date: 07/07/20 <Any Mascorro 07/08/20 08:45> *Chief complaint: DKA <Any Mascorro 07/08/20 08:45> *History of present illness: Patient brought in by ambulance, states that she has DKA . States that she drank 1/5 of whiskey a couple of nights ago. She states she also has a history of IV drug abuse and was clean for 4 years until starting to use intravenous heroin again 2 weeks ago. She says that the last time she was in DKA was about 4 to 5 months ago and was hospitalized, she thinks it was at [facility]. She denies using any other drugs other than heroin. She says she normally does not drink. She complains of abdominal pain and pain in her kidneys, chest pain, and shortness of breath. She says all of the symptoms are mostly what she gets when she gets DKA. She has bad heartburn, but no vomiting or diarrhea. Denies cough or fever. Last menstrual period was last month . (above as per ER physician) <Any Mascorro 07/08/20 08:45> [facility] [place] History I have reviewed the patient's past medical history: Yes <Any Mascorro 07/08/20 08:45> Medical History: Reports:: Diabetes Mellitus Type 1, Diabetes Mellitus Type 2, Hypertension Denies:: Cancer <Any Mascorro 07/08/20 08:45> *Have you ever received a pneumonia vaccine?: No <Any Mascorro 07/08/20 08:45> *Have you received a flu vaccine this season?: No <Any Mascorro 07/08/20 08:45> Other Medical History: Reports: Arthritis <Any Mascorro 07/08/20 08:45> Other Surgeries: Yes: <LudwinAny 07/08/20 08:45> Amputation: No <Any Mascorro 07/08/20 08:45> Fractures: No <LudwinAny 07/08/20 08:45> - *Social History Smoking Status: Current some day smoker <LudwinAny 07/08/20 08:45> Tobacco Type: cigarettes <LudwinAny 07/08/20 08:45> # Packs/Day (cigarettes): 1 <Any Mascorro - 07/08/20 08:45> Alcohol Intake: current <Any Mascorro 07/08/20 08:45> Alcohol Intake Frequency:: a few times a month <Any Mascorro 07/08/20 08:45> Substance Use Type: heroin, IV drugs <Any Mascorro 07/08/20 08:45> Last Used Substance: days (ago) <Any Mascorro 07/08/20 08:45> *Occupational Status:: unemployed <Any Mascorro 07/08/20 08:45> Housing: house <Any Mascorro 07/08/20 08:45> Household Members: children <Any Mascorro 07/08/20 08:45> *Travel in the last 8 weeks: None <Any Mascorro 07/08/20 08:45> Family Hx:: No significant family history <Any Mascorro 07/08/20 08:45> Review of Systems - Review of Systems Review of systems:: unable to obtain <Any Mascorro 07/08/20 08:45> Meds Home Medications Medication Instructions Recorded Confirmed Type Buprenorphine HCl/Naloxone HCl 2 each SL DAILY 07/08/20 07/08/20 History [Suboxone 8 mg-2 mg Sl Film] Insulin Glargine,Hum.rec.anlog 25 unit SQ HS 07/08/20 07/08/20 History [Lantus Insulin 100units/mL 10mL vial] Insulin Lispro [Admelog Solostar] 0 units SQ DIRECTED 07/08/20 07/08/20 History <Alex Ford - 07/08/20 09:56> Allergies Allergy/AdvReac Type Severity Reaction Status Date / Time moxifloxacin [From AVELOX] Allergy Unknown SWELLING Verified 07/07/20 12:34 <Alex Ford - 07/08/20 09:56> Exam Vital signs and Labs for Last 24 Hours: Temp Pulse Resp BP Pulse Ox 99.0 F 97 H 20 137/82 98 07/08/20 06:00 07/08/20 08:00 07/08/20 08:00 07/08/20 08:00 07/08/20 08:00 Laboratory Results - last 24 hr 07/07/20 12:42: VBG pH 6.93 L, VBG pCO2 20.6 L, VBG pO2 59.8 H, VBG HCO3 4.2 L, VBG Total CO2 4.9 L, VBG O2 Saturation 79.9 H, VBG Base Excess -28.2 L 07/07/20 12:43: Urine Color Yellow, Urine Appearance Clear, Urine pH 5.5, Ur Specific [place] 1.020, Urine Protein Negative, Urine Glucose (UA) 3+, Urine Ketones 3+, Urine Blood Trace-i, Urine Nitrate Negative, Urine Bilirubin Negative, Urine Urobilinogen 0.2, Ur Leukocyte Esterase Negative, Urine RBC 5-10, Urine WBC 3-5, Ur Squamous Epith Ce
[2020-07-08 12:34] LABS: POC Glucose,Bedside 339 (70-110)
--- NOTE | 2020-07-08 14:09 | PC.NURSE ---
Pt has rested in bed all day thus far. She is lethargic but arouses to verbal stimuli. Once awake she falls back to sleep quickly. She has tolerated her diet with no complaints. She has been SR-ST on telemetry. She has ambulated to the bathroom with 1 assist. Glucose was 339, insulin administered per ss. No complaints or concerns at this time.
--- NOTE | 2020-07-08 18:26 | PC.NURSE ---
patient has been up walking in to and from bathroom. has spent last little bit in bathroom. did take wallet into restroom with her. also requested a shower. lantus dose ordered at this time has not been given yet because of patient showering. will give once out of shower. rings out as needed. tolerating diet well. has been drowsy through out the day. vitals stable will continue to monitor.
[2020-07-08 18:47] LABS: Chloride 109 mmol/L (98-107); Potassium 4.3 mmoL/L (3.5-5.1); Sodium 135 mmol/L (136-145)
[2020-07-08 18:50] LABS: Anion Gap 16.3 mEq/L (5-15); Blood Urea Nitrogen 16 mg/dl (7-17); Calcium 8.4 mg/dl (8.4-10.2); Carbon Dioxide 14 mmol/L (22.0-30.0); Creatinine Clearance Estimated 73 mL/min (50-200); Estimated Glomerular Filt Rate 70 ml/min (>60); GFR (African American) 84 ML/MIN (>60); Glucose 271 mg/dl (74-100)
[2020-07-08 23:48] LABS: POC Glucose,Bedside 318 (70-110)
[2020-07-08 23:48] LABS: POC Glucose,Bedside 187 (70-110)
[2020-07-09 04:00] VITALS: BP 116/74; PULSE 87; RESP 16; TEMP 36.6; O2SAT 99
[2020-07-09 05:00] VITALS: BMI 21.0
--- NOTE | 2020-07-09 05:36 | PC.NURSE ---
Patient resting in bed watching tv at this time. No complaints. No signs or symptoms of distress noted.
[2020-07-09 05:47] LABS: POC Glucose,Bedside 191 (70-110)
[2020-07-09 07:04] LABS: Basophils % 0.3 % (0.1-2.0); Eosinophils # 0.1 K/mm3 (0.0-0.4); Eosinophils % 1.2 % (0.1-12.0); Hematocrit 32.1 % (37.0-47.0); Hemoglobin 10.5 g/dL (12.2-16.2); Lymphocytes # 2.4 K/mm3 (0.7-4.5); Lymphocytes % 43.3 % (10-50); Mean Corpuscular HGB Conc 32.6 g/dL (31.8-35.4); Mean Corpuscular Volume 92.1 fl (81-99); Mean Platelet Volume 8.2 fl (7.4-10.4); Monocytes # 0.2 K/mm3 (0.1-1.0); Monocytes % 3.8 % (1.7-9.3); Neutrophils # 2.8 K/mm3 (1.8-7.8); Neutrophils % 51.3 % (37.0-80.0); Platelet Count 205 K/mm3 (142-424); Red Blood Count 3.48 M/mm3 (4.20-5.40); Red Cell Distribution Width 14.5 % (11.5-17.5); White Blood Count 5.5 K/mm3 (4.8-10.8)
[2020-07-09 07:13] LABS: Chloride 107 mmol/L (98-107); Sodium 133 mmol/L (136-145)
[2020-07-09 07:16] LABS: Blood Urea Nitrogen 11 mg/dl (7-17); Calcium 8.1 mg/dl (8.4-10.2); Carbon Dioxide 19 mmol/L (22.0-30.0); Creatinine Clearance Estimated 137 mL/min (50-200); Estimated Glomerular Filt Rate 137 ml/min (>60); GFR (African American) 166 ML/MIN (>60); Glucose 173 mg/dl (74-100)
[2020-07-09 08:00] VITALS: BP 121/69; PULSE 91; RESP 16; TEMP 37; O2SAT 100
--- NOTE | 2020-07-09 08:09 | HMH.ACPN2 ---
<Any Mascorro - Last Filed: 07/09/20 08:09> Internal Medicine - PN: Subj *Date: 07/09/20 *Time: 08:09 Interval history: Patient states she feels better today. She tolerated her breakfast and slept well last night. She states she does have a headache and a sore throat today. Her glucose has improved. She states she is going home today. Exam Vital signs and Labs for Last 24 Hours: Temp Pulse Resp BP Pulse Ox 97.9 F 87 16 116/74 99 07/09/20 04:00 07/09/20 04:00 07/09/20 04:00 07/09/20 04:00 07/09/20 04:00 Laboratory Results - last 24 hr 07/08/20 08:14: POC Glucose 252 H 07/08/20 12:18: POC Glucose 339 H* 07/08/20 16:50: POC Glucose 318 H* 07/08/20 18:36: Sodium 135 L, Potassium 4.3, Chloride 109 H, Carbon Dioxide 14 L D, Anion Gap 16.3 H, BUN 16, Creatinine 0.90 D, Estimated Creat Clear 73, Estimated GFR 70, Est GFR ( Amer) 84 D, Glucose 271 H D, Calcium 8.4 07/08/20 20:42: POC Glucose 187 H 07/09/20 05:28: POC Glucose 191 H 07/09/20 06:00: WBC 5.5 D, RBC 3.48 L, Hgb 10.5 L, Hct 32.1 L, MCV 92.1, MCH 30.0, MCHC 32.6, RDW 14.5, Plt Count 205 D, MPV 8.2, Neut % (Auto) 51.3, Lymph % (Auto) 43.3, [place] % (Auto) 3.8, Eos % (Auto) 1.2, Baso % (Auto) 0.3, Neut # (Auto) 2.8, Lymph # (Auto) 2.4, [place] # (Auto) 0.2, Eos # (Auto) 0.1, Baso # (Auto) 0.0 07/09/20 06:00: Sodium 133 L, Potassium 3.0 L, Chloride 107, Carbon Dioxide 19 L D, Anion Gap 10.0, BUN 11 D, Creatinine 0.50 L D, Estimated Creat Clear 137, Estimated GFR 137, Est GFR ( Amer) 166 D, Glucose 173 H D, Calcium 8.1 L I & O for Last 24 hours: Intake & Output 07/06/20 07/07/20 07/08/20 07/09/20 11:59 11:59 11:59 11:59 Intake Total 680 / 680 1680 / 1680 Balance 680 / 680 1680 / 1680 Weight 122 lb 126 lb 7 oz Microbiology Reports for the Last 24 Hours: Microbiology 07/08/20 04:30 Sputum - Expectorated Sputum Gram Stain - Final 07/08/20 04:30 Sputum - Expectorated Sputum Sputum Culture - Preliminary - Constitutional no acute distress - *Routine Respiratory Exam Present: CTA bilaterally - *Routine Cardiovascular Exam Present: RRR - *Routine Abdominal Exam Present: soft, normoactive bowel sounds. Absent: tenderness - *Routine Extremities Exam Absent: cyanosis, clubbing, edema - *Routine Skin Exam Present: warm. Absent: rash - *Routine Neurological Exam Present: alert, oriented X3 Assessment and Plan (1) Diabetic ketoacidosis Status: Acute Qualifiers: Diabetes mellitus type: type 1 Diabetes mellitus complication detail: without coma Qualified Code(s): E10.10 - Type 1 diabetes mellitus with ketoacidosis without coma Category: Medical Code(s): E13.10 - Other specified diabetes mellitus with ketoacidosis without coma (2) Polysubstance (excluding opioids) dependence Status: Chronic Category: Medical Code(s): F19.20 - Other psychoactive substance dependence, uncomplicated (3) IDDM (insulin dependent diabetes mellitus) Status: Chronic Category: Medical Code(s): E11.9 - Type 2 diabetes mellitus without complications; Z79.4 - local [employer] (current) use of insulin - Assessment and plan all Dx Assessment and Plan for all problems:: The patient's white count has normalized. Her potassium is low today. Her glucose has improved. Her sputum is still pending. Possible discharge home today with potassium supplementation. Will discuss with Dr. Ford. <Alex Ford - Last Filed: 07/09/20 08:47> Internal Medicine - PN: Subj *Date: 07/09/20 *Time: 08:46 Exam Vital signs and Labs for Last 24 Hours: Temp Pulse Resp BP Pulse Ox 98.6 F 91 H 16 121/69 100 07/09/20 08:00 07/09/20 08:00 07/09/20 08:00 07/09/20 08:00 07/09/20 08:00 Laboratory Results - last 24 hr 07/08/20 12:18: POC Glucose 339 H* 07/08/20 16:50: POC Glucose 318 H* 07/08/20 18:36: Sodium 135 L, Potassium 4.3, Chloride 109 H, Carbon Dioxide 14 L D, Anion Gap 16.3 H, BUN 16, Creatinine 0
--- NOTE | 2020-07-09 08:35 | HMH.DCSUM ---
General - General Admission date:: 07/07/20 Discharge date: 07/09/20 HPI HPI: Patient brought in by ambulance, states that she has DKA . States that she drank 1/5 of whiskey a couple of nights ago. She states she also has a history of IV drug abuse and was clean for 4 years until starting to use intravenous heroin again 2 weeks ago. She says that the last time she was in DKA was about 4 to 5 months ago and was hospitalized, she thinks it was at [facility]. She denies using any other drugs other than heroin. She says she normally does not drink. She complains of abdominal pain and pain in her kidneys, chest pain, and shortness of breath. She says all of the symptoms are mostly what she gets when she gets DKA. She has bad heartburn, but no vomiting or diarrhea. Denies cough or fever. Last menstrual period was last month . (above as per ER physician) Hospital Course Hospital Course: Patient's chest x-ray showed nothing acute. She was admitted and started on insulin drip and IV fluids. She stated she had been sick with some vomiting and diarrhea and felt like she got dehydrated. She could not remember the last time she took her insulin. She did tell the ER doctor she recently resumed using IV drugs and alcohol. Her blood sugar and acidosis improved with treatment and subcutaneous insulin was started. She was started on a diet as well. By 07/09/2020, she was feeling better and had tolerated breakfast. Her sugars were stable. Her white count had normalized. She wanted to go home. Her potassium was low therefore she was given a run of 10 mEq of potassium and an oral dose of 40 mEq of potassium and was stable to be discharged. Objective Vital signs: Temp Pulse Resp BP Pulse Ox 98.6 F 91 H 16 121/69 100 07/09/20 08:00 07/09/20 08:00 07/09/20 08:00 07/09/20 08:00 07/09/20 08:00 Narrative: - Constitutional no acute distress - *Routine Respiratory Exam Present: CTA bilaterally - *Routine Cardiovascular Exam Present: RRR - *Routine Abdominal Exam Present: soft, normoactive bowel sounds. Absent: tenderness - *Routine Extremities Exam Absent: cyanosis, clubbing, edema - *Routine Skin Exam Present: warm. Absent: rash - *Routine Neurological Exam Present: alert, oriented X3 Results Labs on day of discharge: Labs from last 24 hours 07/09/20 07/09/20 07/09/20 06:00 06:00 05:28 WBC 5.5 D RBC 3.48 L Hgb 10.5 L Hct 32.1 L MCV 92.1 MCH 30.0 MCHC 32.6 RDW 14.5 Plt Count 205 D MPV 8.2 Neut % (Auto) 51.3 Lymph % (Auto) 43.3 [place] % (Auto) 3.8 Eos % (Auto) 1.2 Baso % (Auto) 0.3 Neut # (Auto) 2.8 Lymph # (Auto) 2.4 [place] # (Auto) 0.2 Eos # (Auto) 0.1 Baso # (Auto) 0.0 Sodium 133 L Potassium 3.0 L Chloride 107 Carbon Dioxide 19 L D Anion Gap 10.0 BUN 11 D Creatinine 0.50 L D Estimated Creat Clear 137 Estimated GFR 137 Est GFR ( Amer) 166 D Glucose 173 H D POC Glucose 191 H Calcium 8.1 L 07/08/20 07/08/20 07/08/20 20:42 18:36 16:50 WBC RBC Hgb Hct MCV MCH MCHC RDW Plt Count MPV Neut % (Auto) Lymph % (Auto) [place] % (Auto) Eos % (Auto) Baso % (Auto) Neut # (Auto) Lymph # (Auto) [place] # (Auto) Eos # (Auto) Baso # (Auto) Sodium 135 L Potassium 4.3 Chloride 109 H Carbon Dioxide 14 L D Anion Gap 16.3 H BUN 16 Creatinine 0.90 D Estimated Creat Clear 73 Estimated GFR 70 Est GFR ( Amer) 84 D Glucose 271 H D POC Glucose 187 H 318 H* Calcium 8.4 07/08/20 12:18 WBC RBC Hgb Hct MCV MCH MCHC RDW Plt Count MPV Neut % (Auto) Lymph % (Auto) [place] % (Auto) Eos % (Auto) Baso % (Auto) Neut # (Auto) Lymph # (Auto) [place] # (Auto) Eos # (Auto) Baso # (Auto) Sodium Potassium Chloride Carbon
--- NOTE | 2020-07-09 10:04 | HMH.PHAINT ---
DISCHARGE COUNSELING COMPLETED ON PATIENT. NEW PRESCRIPTIONS FOR POTASSIUM, ADMELOG, AND LANTUS. ALL NEW PRESCRIPTIONS WERE SENT TO [facility] IN [place]. LANTUS DOSE CHANGED TO 25 UNITS HS. PATIENT IS TO CONTINUE ALL OTHER HOME MEDICATIONS. PATIENT VERBALIZED UNDERSTANDING AND HAD NO QUESTIONS AT THIS TIME. -SHANTELL BARBOUR, EDDD
--- NOTE | 2020-07-09 10:44 | PC.NURSE ---
Pt given discharge information, verbalized understanding. IJ removed, attempted to place sterile gauze and tegaderm but pt refused. Pressure applied and sterile gauze and tape applied instead. Pt stated no further questions. Pt DC'd.
[2020-07-13 10:50] LABS: POC Glucose,Bedside > 600 (70-110)
== END 2020-07-09 10:43 | disposition home or self-care (01) | DRG 638 ==
LOC: ER 14:46 → 2ND 07-08 07:02
PROVIDERS: Admitting Provider Family Medicine; Emergency Provider Emergency Medicine; Visit Provider Family Medicine
DX: E10.10 Type 1 diabetes mellitus with ketoacidosis without coma (principal); F11.20 Opioid dependence, uncomplicated; Z72.0 Tobacco use; Z79.4 Long term (current) use of insulin
CPT/HCPCS: 36415; 71045; 80048; 80053; 81001; 82009; 82803; 82947; 82962; 83036; 83690; 83735; 84100; 84484; 84703; 85007; 85025; 86328; 87070; 87077; 87186; 87205; 87581; 87633; 87798; 93005; 96365; 96366; 99284; J2405

== ENCOUNTER 2020-09-02 03:50 | Inpatient (IN) | payer MEDICAID, SELFPAY ==
[2020-09-02] VITALS (17 sets, daily range): BP systolic 109–152; BP diastolic 61–104; PULSE 92–120; RESP 16–24; TEMP 36.6–37.2; O2SAT 97–100; BMI 13.9; BMI 19.8
[2020-09-02 03:42] LABS: POC Glucose,Bedside 584 (70-110)
--- NOTE | 2020-09-02 04:05 | PC.NURSE ---
lab at bedside
--- NOTE | 2020-09-02 04:14 | PC.NURSE ---
lab unable to draw blood at this time.
--- NOTE | 2020-09-02 04:19 | PC.NURSE ---
emi perez rn attempting to get blood at this time.
[2020-09-02 04:53] LABS: Basophils # 0.1 K/mm3 (0-0.2); Basophils % 0.4 % (0.1-2.0); Eosinophils % 0.2 % (0.1-12.0); Hematocrit 46.2 % (37.0-47.0); Lymphocytes # 2.4 K/mm3 (0.7-4.5); Lymphocytes % 19.3 % (10-50); Mean Corpuscular HGB Conc 30.3 g/dL (31.8-35.4); Mean Corpuscular Hemoglobin 29.6 pg (27.0-31.2); Mean Corpuscular Volume 97.6 fl (81-99); Mean Platelet Volume 7.6 fl (7.4-10.4); Monocytes # 0.4 K/mm3 (0.1-1.0); Monocytes % 3.5 % (1.7-9.3); Neutrophils # 9.5 K/mm3 (1.8-7.8); Neutrophils % 76.6 % (37.0-80.0); Platelet Count 381 K/mm3 (142-424); Red Blood Count 4.74 M/mm3 (4.20-5.40); White Blood Count 12.4 K/mm3 (4.8-10.8)
--- NOTE | 2020-09-02 05:13 | PC.NURSE ---
waiting on lab to come and redraw her chemistry panels. spoke with spring.
--- NOTE | 2020-09-02 05:18 | XR_ITS ---
PROCEDURE: XR CHEST PORTABLE CLINICAL HISTORY: cough COMPARISON: CR CXR2V XR chest 2V from 09/28/2017 DX CXR2V XR chest 2V from 12/07/2017 CR XR CHEST PORTABLE from 07/07/2020 FINDINGS: The cardiomediastinal silhouette and pulmonary vascularity are within normal limits. The lungs are clear without infiltrates, suspicious nodules, or pleural effusions. No acute bony abnormalities. IMPRESSION: No acute findings. Dictated by: Dr. Félix Ivy MD 09/02/2020 08:15 Dr. Félix Ivy MD in [place] 09/02/2020 08:15
[2020-09-02 05:58] LABS: Alanine Aminotransferase 54 U/L (12-78); Alkaline Phosphatase 178 U/L (38-126); Anion Gap 21.8 mEq/L (5-15); Aspartate Amino Transferase 42 U/L (14-36); Bilirubin,Direct 0.1 mg/dl (0.0-0.4); Bilirubin,Indirect 0.4 mg/dL (0.0-0.9); Bilirubin,Total 0.5 mg/dl (0.2-1.3); Bilirubin,Unconjugated 0.5 mg/dL (0.0-1.1); Blood Urea Nitrogen 17 mg/dl (7-17); Calcium 9.2 mg/dl (8.4-10.2); Chloride 105 mmol/L (98-107); Creatinine Clearance Estimated 53 mL/min (50-200); Estimated Glomerular Filt Rate 70 ml/min (>60); GFR (African American) 84 ML/MIN (>60); Glucose 394 mg/dl (74-100); Potassium 3.8 mmoL/L (3.5-5.1); Sodium 132 mmol/L (136-145); Total Protein,Serum 7.9 g/dl (6.3-8.2)
[2020-09-02 05:59] LABS: Ethyl Alcohol < 10 mg/dl (0-10); Lactic Acid 2.2 mmol/L (0.7-2.1)
[2020-09-02 06:01] LABS: Carbon Dioxide 9 mmol/L (22.0-30.0)
[2020-09-02 06:02] LABS: Acetone, Serum (Rapid) Moderate (None Detect)
[2020-09-02 06:03] LABS: C-Reactive Protein 17.9 mg/L (0-4)
--- NOTE | 2020-09-02 06:10 | PC.NURSE ---
[facility] pharmacy spoke with gordy; rceived order for insulin drip at this time.
[2020-09-02 06:13] LABS: Troponin I < 0.01 ng/ml (0.00-0.034)
[2020-09-02 06:17] LABS: Procalcitonin 0.802 ng/mL (0.0-2.0)
[2020-09-02 06:19] LABS: Erythrocyte Sedimentation Rate 15 mm/hr (0-20)
--- NOTE | 2020-09-02 06:22 | HMH.EDGENADL ---
ED Disposition Clinical Impression: IDDM (insulin dependent diabetes mellitus), IVDU (intravenous drug user), Low body mass index (BMI) Diabetic ketoacidosis Qualifiers: Diabetes mellitus type: type 1 Diabetes mellitus complication detail: without coma Qualified Code(s): E10.10 - Type 1 diabetes mellitus with ketoacidosis without coma Disposition: Admitted As Inpatient Condition on Discharge: Serious Instructions: DI for Hyperglycemia -- Adult Referrals: PCP,No [Primary Care Provider] - - Critical Care Critical Care Time: Yes Attestation: On 09/02/20, the high probability of a clinically significant, sudden or life threatening deterioration of the following system(s) required my full and direct attention, intervention and personal management. The time I documented below is in addition to time spent performing reported procedures but includes the following listed in this critical care notation. Total Critical Care Time: 30 Vital system(s) involved:: Metabolic Failure My critical care processes included: Assessment & monitoring of V/S, Initial and Re-exams, Data Review/Interpretation, Medication Orders and management, Documentation Medical Decision Making - Medical Records Medical records reviewed: Yes: I reviewed the patient's medical records. - Deshaun Inquiry Pt receiving controlled substance: No Vital Signs: 09/02/20 03:43 09/02/20 04:00 09/02/20 04:31 Temperature 98.0 F Temperature Source Oral Pulse Rate [Right Brachial] 118 H 112 H 104 H Respiratory Rate 17 17 24 Blood Pressure [Right Arm] 129/104 H 134/89 128/95 H Blood Pressure Mean [Right Arm] 112 104 106 Blood Pressure Source [Right Arm] Automatic Cuff Automatic Cuff Blood Pressure Position [Right Arm] Sitting Supine Sitting 02 Sat by Pulse Oximetry 98 97 100 Oxygen Delivery Method Room Air Room Air Room Air 09/02/20 05:13 09/02/20 06:00 Temperature Temperature Source Pulse Rate [Right Brachial] 109 H 103 H Respiratory Rate 24 18 Blood Pressure [Right Arm] 130/102 H 125/94 H Blood Pressure Mean [Right Arm] 111 104 Blood Pressure Source [Right Arm] Automatic Cuff Blood Pressure Position [Right Arm] Sitting Supine 02 Sat by Pulse Oximetry 100 100 Oxygen Delivery Method Room Air Room Air - Lab Data Lab results reviewed: Yes: I reviewed the patient's lab results. Lab Results 09/02/20 03:30: WBC 12.4 H, RBC 4.74, Hgb 14.0, Hct 46.2, MCV 97.6, MCH 29.6, MCHC 30.3 L, RDW 13.0, Plt Count 381, MPV 7.6, Neut % (Auto) 76.6, Lymph % (Auto) 19.3, [place] % (Auto) 3.5, Eos % (Auto) 0.2, Baso % (Auto) 0.4, Neut # (Auto) 9.5 H, Lymph # (Auto) 2.4, [place] # (Auto) 0.4, Eos # (Auto) 0.0, Baso # (Auto) 0.1 09/02/20 03:30: ESR 15 09/02/20 03:35: POC Glucose 584 H* 09/02/20 05:36: Sodium 132 L, Potassium 3.8, Chloride 105, Carbon Dioxide 9 L*, Anion Gap 21.8 H, BUN 17, Creatinine 0.90, Estimated Creat Clear 53, Estimated GFR 70, Est GFR ( Amer) 84, Glucose 394 H, Calcium 9.2, Total Bilirubin 0.5, Direct Bilirubin 0.1, Conjugated Bilirubin 0.0, Indirect Bilirubin 0.4, Unconjugated Bilirubin 0.5, AST 42 H, ALT 54, Alkaline Phosphatase 178 H, Troponin I < 0.01, C-Reactive Protein 17.9 H, Total Protein 7.9, Albumin 4.0, Procalcitonin 0.802, Acetone Level Moderate 09/02/20 05:36: Lactate 2.2 H 09/02/20 05:36: Plasma/Serum Alcohol < 10 Result diagrams: 09/02/20 03:30 09/02/20 05:36 Orders (Tests/Meds): ED MEDICATIONS Generic Name Dose Route Start Last Admin Trade Name Freq PRN Reason Stop Dose Admin Sodium Chloride 1,000 mls @ 999 mls/hr 09/02/20 04:00 09/02/20 03:55 Sod Chlor 0.9% 1000ml Bag IV 09/02/20 05:00 999 mls/hr .Q1H1M BOWEN Administration Sodium Chloride 1,000 mls @ 999 mls/hr 09/02/20 05:30 09/02/20 05:17 Sod Chlor 0.9% 1000ml Bag IV 09/02/20 06:30 999 mls/hr .Q1H1M BOWEN Administration Insulin Human Regular 100 unit 101 mls @ 6.06 mls/hr 09/02/20 06:15 09/02/20 06:25 / Sodium Chloride IV 10/02/20 06:14 6.0
--- NOTE | 2020-09-02 06:40 | PC.NURSE ---
Paging at this time
--- NOTE | 2020-09-02 06:47 | PC.NURSE ---
spoke with dr foley who is covering for service due to patient seeing mahnaz campos np. admission plan is alaina to alaina, diagnosis dka, acute. called house and spoke with calin huang; advised of incoming pt. told her we would call back with elisha results to obtain assignment for this patient. she will pass on to receiving housefellow and I will pass on to incoming charge nurse.
--- NOTE | 2020-09-02 07:34 | PC.NURSE ---
accucheck 309
[2020-09-02 07:37] LABS: VBG Base Excess -19.2 mmol/L (-2.4-2.3); VBG HCO3 9.1 mmol/L (23-30); VBG Oxygen Saturation 92.4 % (50-70); VBG PO2 67.7 mmol/L (28-40); VBG Total CO2 9.9 mmol/L (23-27)
[2020-09-02 07:40] LABS: VBG PCO2 24.7 mmol/L (35-51); VBG PH 7.18 mmol/L (7.31-7.41)
--- NOTE | 2020-09-02 08:52 | HMH.HP ---
*Admission Date: 09/02/20 <Any Mascorro 09/02/20 08:57> *Chief complaint: weakness <Any Mascorro 09/02/20 08:57> *History of present illness: Ms Feliciano is a 39 yo female who was recently seen by Dr. Ford in June while on service call for DKA. She was noted to be lethargic at another residence and EMS was called. The patient was hyperglycemic. She told EMS she had been self detoxing off of heroin and also had a cold. She has had a cough and chest congestion for the past 4 days and has been vomiting for the past 2 days. She was brought to the emergency room for evaluation. Her glucose was 584 on arrival and her lactate was mildly elevated at 2.2. Her acetone level was moderate. Her white blood cell count was also elevated at 12.4. She was admitted due to DKA and placed on an insulin drip. <Any Mascorro 09/02/20 09:06> [facility] History I have reviewed the patient's past medical history: Yes <Any Mascorro 09/02/20 08:57> Medical History: Reports:: Diabetes Mellitus Type 1, Diabetes Mellitus Type 2, Hypertension Denies:: Cancer <Any Mascorro 09/02/20 08:57> *Have you ever received a pneumonia vaccine?: No <Any Mascorro 09/02/20 08:57> *Have you received a flu vaccine this season?: No <Any Mascorro 09/02/20 08:57> Other Medical History: Reports: Arthritis <Any Mascorro 09/02/20 08:57> Other Surgeries: Yes: <Any Mascorro 09/02/20 08:57> Amputation: No <Any Mascorro 09/02/20 08:57> Fractures: No <Any Mascorro 09/02/20 08:57> - *Social History Smoking Status: Current some day smoker <nAy Mascorro 09/02/20 08:57> Tobacco Type: cigarettes <Any Mascorro 09/02/20 08:57> # Packs/Day (cigarettes): 1 <Any Mascorro 09/02/20 08:57> Alcohol Intake: current <Any Mascorro 09/02/20 08:57> Alcohol Intake Frequency:: a few times a month <Any Mascorro 09/02/20 08:57> Substance Use Type: heroin, IV drugs <Any Mascorro 09/02/20 08:57> *Occupational Status:: unemployed <Any Mascorro 09/02/20 08:57> Housing: house <Any Mascorro 09/02/20 08:57> Household Members: children <Any Mascorro 09/02/20 08:57> *Travel in the last 8 weeks: None <Any Mascorro 09/02/20 09:06> Family Hx:: No significant family history <Any Mascorro 09/02/20 08:57> Review of Systems - Constitutional Reports fatigue, Reports weakness <Any Mascorro 09/02/20 09:06> - Eyes Denies blurry vision, Denies double vision <Any Mascorro 09/02/20 09:06> - ENT Reports nasal congestion, Denies sore throat <LudwinAny 09/02/20 09:06> - *Cardiovascular Reports chest pain, Reports shortness of breath <Any Mascorro 09/02/20 09:06> - *Respiratory Reports cough, Reports shortness of breath <LudwinAny 09/02/20 09:06> - *Gastrointestinal Reports nausea, Reports vomiting, Denies abdominal pain, Denies loose stools <Any Mascorro 09/02/20 09:06> - *Genitourinary Denies difficulty urinating, Denies painful urination <Any Mascorro 09/02/20 09:06> - *Musculoskeletal Denies joint pain <Any Mascorro 09/02/20 09:06> - *Neurologic Reports weakness, Denies localized weakness, Denies headache(s), Denies seizure-like activity <Any Mascorro 09/02/20 09:06> Meds Home Medications Medication Instructions Recorded Confirmed Type Buprenorphine HCl/Naloxone HCl 2 each SL DAILY 07/08/20 09/02/20 History [Suboxone 8mg/2mg ODT] Insulin Glargine,Hum.rec.anlog 25 unit SQ HS #1 ml 07/09/20 09/02/20 Rx [Lantus Insulin 100units/mL 10mL vial] Insulin Lispro [Admelog Solostar] 0 units SQ DIRECTED #1 pen 07/09/20 09/02/20 Rx <Bart Lee - 09/02/20 13:46> Allergies Allergy/AdvReac Type Severity Reaction Status Date / Time moxifloxacin [From AVELOX] Allergy Unknown SWELLING Verified 09/02/20 10:53 <Bart Lee - 09/02/20 13:46> Exam Vital signs and Labs for Last 24 Hours: Temp Pulse Resp BP Pulse Ox
--- NOTE | 2020-09-02 08:54 | PC.NURSE ---
Pt arrived to the floor at this time.
--- NOTE | 2020-09-02 09:00 | PC.NURSE ---
Insulin gtt titrated to 3 units/HR at this time. (FSBS result: 147)
--- NOTE | 2020-09-02 09:24 | HMH.PHAVTE ---
[facility] Pharmacy VTE Monitoring - Patient Demographics Admission date: 09/02/20 Report Date: 09/02/20 Time: 09:24 Allergies/Adverse Reactions: Patient Allergies moxifloxacin [From AVELOX] Allergy (Unknown, Verified 07/07/20 12:34) SWELLING Height: 1.7 m Weight: 40.37 kg Patient Problems: Current Active Problems Diabetic ketoacidosis (Acute) IVDU (intravenous drug user) (Chronic) Low body mass index (BMI) (Chronic) IDDM (insulin dependent diabetes mellitus) (Chronic) - VTE Risk Labs: VTE Related Lab Results Hgb 14.0 g/dL (12.2-16.2) 09/02/20 03:30 Hct 46.2 % (37.0-47.0) 09/02/20 03:30 Plt Count 381 K/mm3 (142-424) 09/02/20 03:30 BUN 17 mg/dl (7-17) 09/02/20 05:36 Creatinine 0.90 mg/dl (0.52-1.04) 09/02/20 05:36 Estimated Creat Clear 53 mL/min (50-200) 09/02/20 05:36 Clinical Trial Participant: No - Prophylaxis VTE Prophylaxis Ordered?: Yes Types of VTE Prophylaxis: TEDS Knee High
[2020-09-02 09:44] LABS: POC Glucose,Bedside 147 (70-110)
[2020-09-02 09:46] LABS: Reflex Lactic Add Lactic Reflex
[2020-09-02 09:52] LABS: Chloride 112 mmol/L (98-107)
[2020-09-02 09:53] LABS: Potassium 3.2 mmoL/L (3.5-5.1); Sodium 136 mmol/L (136-145)
[2020-09-02 09:55] LABS: Blood Urea Nitrogen 14 mg/dl (7-17); Creatinine Clearance Estimated 92 mL/min (50-200); Estimated Glomerular Filt Rate 93 ml/min (>60); GFR (African American) 113 ML/MIN (>60)
[2020-09-02 09:56] LABS: Anion Gap 14.2 mEq/L (5-15); Calcium 8.6 mg/dl (8.4-10.2); Carbon Dioxide 13 mmol/L (22.0-30.0); Glucose 153 mg/dl (74-100); Magnesium 1.5 mg/dl (1.6-2.3); Phosphorous 2.2 mg/dl (2.5-4.5)
[2020-09-02 09:57] LABS: Lactic Acid Follow Up (RFLX 1) 1.8 mmol/L (0.7-2.1)
[2020-09-02 10:41] LABS: POC Glucose,Bedside 212 (70-110)
[2020-09-02 10:56] LABS: Acetone, Serum (Rapid) Moderate (None Detect)
--- NOTE | 2020-09-02 11:14 | HMH.PHAINT ---
CLARIFIED HOME MEDICATION LIST USING LIST FROM [facility] AND MOHIT [facility]OSTEG[facility] INTERVIEWING PT.
--- NOTE | 2020-09-02 11:15 | PC.NURSE ---
Insulin gtt titrated to 6 units/HR at this time. (FSBS result: 262)
[2020-09-02 11:30] LABS: POC Glucose,Bedside 262 (70-110)
[2020-09-02 12:24] LABS: POC Glucose,Bedside 206 (70-110)
--- NOTE | 2020-09-02 12:46 | DIET.NUTRFU ---
Nutritional assessment, IP/consult completed. Pt with very bad cough and unable to communicate much. Diet education/counseling provided to best of ability/appropriateness at this time for DM/DKA prevention and nutritional considerations sobriety. In depth written education provided as well, will continue to educate/recreation counselor pt t/o stay. She is tolerating regular diet. Pt stated she usually is without chewing/swallowing difficulties but is struggling at this time rt SOA, moderate soft modifications made for ease of eating. Will monitor and alter as indicated.
--- NOTE | 2020-09-02 13:15 | PC.NURSE ---
Insulin gtt titrated to 3 units/HR at this time. (FSBS result: 129)
[2020-09-02 13:22] LABS: POC Glucose,Bedside 129 (70-110)
[2020-09-02 13:43] LABS: Troponin I < 0.01 ng/ml (0.00-0.034)
[2020-09-02 13:49] LABS: Chloride 112 mmol/L (98-107); Potassium 3.5 mmoL/L (3.5-5.1); Sodium 135 mmol/L (136-145)
[2020-09-02 13:52] LABS: Blood Urea Nitrogen 13 mg/dl (7-17); Creatinine Clearance Estimated 92 mL/min (50-200); Estimated Glomerular Filt Rate 93 ml/min (>60); GFR (African American) 113 ML/MIN (>60)
[2020-09-02 13:53] LABS: Anion Gap 6.5 mEq/L (5-15); Calcium 8.7 mg/dl (8.4-10.2); Carbon Dioxide 20 mmol/L (22.0-30.0); Glucose 139 mg/dl (74-100)
--- NOTE | 2020-09-02 14:15 | PC.NURSE ---
Insulin gtt titrated to 1.5 units/HR at this time. (FSBS result: 138)
[2020-09-02 14:26] LABS: POC Glucose,Bedside 138 (70-110)
[2020-09-02 15:17] LABS: POC Glucose,Bedside 188 (70-110)
[2020-09-02 16:22] LABS: POC Glucose,Bedside 189 (70-110)
[2020-09-02 17:20] LABS: POC Glucose,Bedside 228 (70-110)
[2020-09-02 17:33] LABS: Chloride 108 mmol/L (98-107); Potassium 3.6 mmoL/L (3.5-5.1); Sodium 134 mmol/L (136-145)
[2020-09-02 17:36] LABS: Anion Gap 11.6 mEq/L (5-15); Blood Urea Nitrogen 13 mg/dl (7-17); Calcium 8.3 mg/dl (8.4-10.2); Carbon Dioxide 18 mmol/L (22.0-30.0); Creatinine Clearance Estimated 92 mL/min (50-200); Estimated Glomerular Filt Rate 93 ml/min (>60); GFR (African American) 113 ML/MIN (>60); Glucose 246 mg/dl (74-100)
--- NOTE | 2020-09-02 19:00 | PC.NURSE ---
Insulin gtt titrated to 3 units/HR at this time. (FSBS result: 383)
[2020-09-02 19:01] LABS: POC Glucose,Bedside 383 (70-110)
[2020-09-02 19:49] LABS: POC Glucose,Bedside 309 (70-110)
[2020-09-02 20:01] LABS: POC Glucose,Bedside 334 (70-110)
[2020-09-02 21:25] LABS: POC Glucose,Bedside 221 (70-110)
[2020-09-02 21:46] LABS: Acetone, Serum (Rapid) None Detected (None Detect)
[2020-09-02 21:48] LABS: Anion Gap 9.5 mEq/L (5-15); Blood Urea Nitrogen 10 mg/dl (7-17); Calcium 8.1 mg/dl (8.4-10.2); Carbon Dioxide 17 mmol/L (22.0-30.0); Chloride 109 mmol/L (98-107); Creatinine Clearance Estimated 92 mL/min (50-200); Estimated Glomerular Filt Rate 93 ml/min (>60); GFR (African American) 113 ML/MIN (>60); Glucose 212 mg/dl (74-100); Magnesium 1.7 mg/dl (1.6-2.3); Potassium 3.5 mmoL/L (3.5-5.1); Sodium 132 mmol/L (136-145)
[2020-09-02 21:50] LABS: Phosphorous 1.5 mg/dl (2.5-4.5)
[2020-09-02 22:10] LABS: POC Glucose,Bedside 125 (70-110)
[2020-09-03] VITALS (7 sets, daily range): BP systolic 96–121; BP diastolic 52–68; PULSE 80–100; RESP 16–18; TEMP 36.7; O2SAT 95–100; BMI 20.9
[2020-09-03 00:15] LABS: POC Glucose,Bedside 134 (70-110)
[2020-09-03 02:34] LABS: POC Glucose,Bedside 260 (70-110)
[2020-09-03 03:24] LABS: POC Glucose,Bedside 292 (70-110)
[2020-09-03 03:24] LABS: Anion Gap 6.1 mEq/L (5-15); Blood Urea Nitrogen 8 mg/dl (7-17); Calcium 7.8 mg/dl (8.4-10.2); Carbon Dioxide 21 mmol/L (22.0-30.0); Chloride 107 mmol/L (98-107); Creatinine Clearance Estimated 129 mL/min (50-200); Estimated Glomerular Filt Rate 137 ml/min (>60); GFR (African American) 166 ML/MIN (>60); Glucose 250 mg/dl (74-100); Potassium 3.1 mmoL/L (3.5-5.1); Sodium 131 mmol/L (136-145)
--- NOTE | 2020-09-03 04:54 | PC.NURSE ---
pt is currently off insulin drip. fsbs have been checked and coverage given per protocol/sliding scale order. pt has been eating all night. attempts for urine several times and pt has missed hat when urinating. attempt at new iv without success. iv patent and infusing per order. pt requested Tylenol for headache and robitussin for cough. stated i will leave if i dont get something. I am not doing this all night. md was called and prn orders placed. no acute changes from previous assessment. independent with ambulation. alert and oriented. vss. call light in reach. will continue to monitor
[2020-09-03 05:40] LABS: POC Glucose,Bedside 177 (70-110)
[2020-09-03 05:55] LABS: Chloride 108 mmol/L (98-107); Sodium 135 mmol/L (136-145)
[2020-09-03 05:58] LABS: Anion Gap 8.9 mEq/L (5-15); Blood Urea Nitrogen 7 mg/dl (7-17); Calcium 8.1 mg/dl (8.4-10.2); Carbon Dioxide 21 mmol/L (22.0-30.0); Estimated Glomerular Filt Rate 137 ml/min (>60); GFR (African American) 166 ML/MIN (>60); Glucose 176 mg/dl (74-100)
[2020-09-03 06:53] LABS: Creatinine Clearance Estimated 136 mL/min (50-200); Potassium 2.9 mmoL/L (3.5-5.1)
--- NOTE | 2020-09-03 08:16 | HMH.ACPN2 ---
<Any Mascorro - Last Filed: 09/03/20 08:16> Internal Medicine - PN: Subj *Date: 09/03/20 *Time: 08:16 Interval history: Patient states she is feeling much better this morning. Her glucose has improved and she is hungry. Per nursing she is ate all night long and has had 2 breakfast this morning. She does complain of some epigastric discomfort and states food feels like it gets stuck there. She says she went to a doctor and was told she had an ulcer but was never given any treatment. She denies any other pain and states she slept well last night. Exam Vital signs and Labs for Last 24 Hours: Temp Pulse Resp BP Pulse Ox 98.0 F 97 H 16 96/55 L 100 09/03/20 07:40 09/03/20 06:00 09/03/20 06:00 09/03/20 06:00 09/03/20 06:00 Laboratory Results - last 24 hr 09/02/20 07:32: POC Glucose 309 H* 09/02/20 09:12: POC Glucose 147 H 09/02/20 09:21: Troponin I < 0.01 09/02/20 09:21: Sodium 136, Potassium 3.2 L, Chloride 112 H, Carbon Dioxide 13 L D, Anion Gap 14.2, BUN 14, Creatinine 0.70 D, Estimated Creat Clear 92, Estimated GFR 93, Est GFR ( Amer) 113 D, Glucose 153 H D, Calcium 8.6, Phosphorus 2.2 L, Magnesium 1.5 L, Acetone Level Moderate 09/02/20 09:21: Lactate 1.8 09/02/20 10:23: POC Glucose 212 H 09/02/20 11:15: POC Glucose 262 H 09/02/20 12:15: POC Glucose 206 H 09/02/20 13:14: POC Glucose 129 H 09/02/20 13:27: Sodium 135 L, Potassium 3.5, Chloride 112 H, Carbon Dioxide 20 L D, Anion Gap 6.5, BUN 13, Creatinine 0.70, Estimated Creat Clear 92, Estimated GFR 93, Est GFR ( Amer) 113, Glucose 139 H, Calcium 8.7 09/02/20 14:13: POC Glucose 138 H 09/02/20 15:08: POC Glucose 188 H 09/02/20 16:13: POC Glucose 189 H 09/02/20 17:10: POC Glucose 228 H 09/02/20 17:15: Sodium 134 L, Potassium 3.6, Chloride 108 H, Carbon Dioxide 18 L, Anion Gap 11.6, BUN 13, Creatinine 0.70, Estimated Creat Clear 92, Estimated GFR 93, Est GFR ( Amer) 113, Glucose 246 H D, Calcium 8.3 L 09/02/20 18:52: POC Glucose 383 H* 09/02/20 19:52: POC Glucose 334 H* 09/02/20 21:07: POC Glucose 221 H 09/02/20 21:09: Sodium 132 L, Potassium 3.5, Chloride 109 H, Carbon Dioxide 17 L, Anion Gap 9.5, BUN 10, Creatinine 0.70, Estimated Creat Clear 92, Estimated GFR 93, Est GFR ( Amer) 113, Glucose 212 H, Calcium 8.1 L, Phosphorus 1.5 L D, Magnesium 1.7 D, Acetone Level None detected 09/02/20 22:03: POC Glucose 125 H 09/03/20 00:08: POC Glucose 134 H 09/03/20 02:13: POC Glucose 260 H 09/03/20 02:20: Sodium 131 L, Potassium 3.1 L, Chloride 107, Carbon Dioxide 21 L D, Anion Gap 6.1, BUN 8, Creatinine 0.50 L D, Estimated Creat Clear 129, Estimated GFR 137, Est GFR ( Amer) 166 D, Glucose 250 H, Calcium 7.8 L 09/03/20 03:05: POC Glucose 292 H 09/03/20 05:33: POC Glucose 177 H 09/03/20 05:34: Sodium 135 L, Potassium 2.9 L*, Chloride 108 H, Carbon Dioxide 21 L, Anion Gap 8.9, BUN 7, Creatinine 0.50 L, Estimated Creat Clear 136, Estimated GFR 137, Est GFR ( Amer) 166, Glucose 176 H D, Calcium 8.1 L I & O for Last 24 hours: Intake & Output 08/31/20 09/01/20 09/02/20 09/03/20 11:59 11:59 11:59 11:59 Intake Total 4248 / 4248 Output Total 800 / 800 Balance 3448 / 3448 Weight 119 lb 5 oz 126 lb Microbiology Reports for the Last 24 Hours: Microbiology 09/02/20 05:58 Nasopharyngeal Coronavirus COVID-19 PCR - Final - Constitutional no acute distress - *Routine Respiratory Exam Present: CTA bilaterally - *Routine Cardiovascular Exam Present: RRR - *Routine Abdominal Exam Present: soft, normoactive bowel sounds, tenderness (epigastric) - *Routine Extremities Exam Absent: cyanosis, clubbing, edema - *Routine Skin Exam Present: warm. Absent: rash - *Routine Neurological Exam Present: alert, oriented X3 Assessment and Plan (1) Diabetic ketoacidosis Status: Acute Qualifiers: Diabetes mellitus type: type 1 Diabetes mellitus complication detail: without coma Qualified Code(s): E10.10 -
--- NOTE | 2020-09-03 08:26 | PC.NURSE ---
PATIENT MAY COME OUT OF STEPDOWN PER MD. ALSO STATED TO NOT GIVE THE IV POTASSIUM HE WOULD ORDER A PO DOSE FOR THE PATIENT.
[2020-09-03 09:57] LABS: Magnesium 1.8 mg/dl (1.6-2.3)
[2020-09-03 10:01] LABS: Phosphorous 1.9 mg/dl (2.5-4.5)
--- NOTE | 2020-09-03 10:04 | PC.NURSE ---
REPORTED PHOSPHORUS AND MAGNESIUM LEVEL TO NO NEW ORDERS
[2020-09-03 10:06] LABS: Acetone, Serum (Rapid) Moderate (None Detect)
--- NOTE | 2020-09-03 11:02 | PC.NURSE ---
PATIENT FSBS 574 PER PROTOCOL ORDERED STAT GLUCOSE. NOTIFIED AT THIS TIME AND STATED TO GIVE HER 18 UNITS OF THE SLIDING SCALE INSULIN
[2020-09-03 11:17] LABS: POC Glucose,Bedside 574 (70-110)
[2020-09-03 11:24] LABS: Glucose,Random 550 mg/dL (74-100)
--- NOTE | 2020-09-03 14:00 | PC.NURSE ---
upon rececking of chart noted that an acetone was drawn at 0905. noted to be moderate at that time. did relay this to , who stated to draw another acetone when we vin the bmp
[2020-09-03 14:10] LABS: Chloride 103 mmol/L (98-107)
[2020-09-03 14:11] LABS: Sodium 132 mmol/L (136-145)
[2020-09-03 14:14] LABS: Blood Urea Nitrogen 12 mg/dl (7-17); Calcium 8.3 mg/dl (8.4-10.2); Carbon Dioxide 18 mmol/L (22.0-30.0); Creatinine Clearance Estimated 85 mL/min (50-200); Estimated Glomerular Filt Rate 80 ml/min (>60); GFR (African American) 97 ML/MIN (>60); Glucose 322 mg/dl (74-100)
[2020-09-03 14:33] LABS: Acetone, Serum (Rapid) Small (None Detect)
--- NOTE | 2020-09-03 15:06 | HMH.DCSUM ---
General - General Admission date:: 09/02/20 <Bart Lee - 10/16/20 13:11> 09/02/20 <Any Mascorro - 09/03/20 15:32> Discharge date: 09/03/20 <Any Mascorro - 09/03/20 15:32> HPI HPI: Ms Feliciano is a 39 yo female who was recently seen by Dr. Ford in June while on service call for DKA. She was noted to be lethargic at another residence and EMS was called. The patient was hyperglycemic. She told EMS she had been self detoxing off of heroin and also had a cold. She has had a cough and chest congestion for the past 4 days and has been vomiting for the past 2 days. She was brought to the emergency room for evaluation. Her glucose was 584 on arrival and her lactate was mildly elevated at 2.2. Her acetone level was moderate. Her white blood cell count was also elevated at 12.4. She was admitted due to DKA and placed on an insulin drip. <Any Mascorro - 09/03/20 15:32> Hospital Course Hospital Course: The patient's chest x-ray showed nothing acute. She was admitted and started on insulin drip. Her blood sugar improved and the insulin drip was stopped. She was started on Lantus and Humalog. Her potassium was low and was replaced. She began feeling much better and was tolerating a diet. She did complain of some epigastric discomfort and stated she felt like food got stuck in that area. She said she was told at one point she had an ulcer but was never given any treatment, therefore she was started on some Protonix. She was anxious to go home and her acetone had cleared. She was kept throughout the day on 09/03/2020 in order to recheck her potassium. Once rechecked, it was normal, however her sugars became elevated again (likely due to all of the food she was consuming), and her anion gap increased but was still normal. She was insistent on going home and stated she could monitor and control her blood sugar at home. She voiced understanding of carb counting to regulate her mealtime insulin and stated she had been taking 25 units of Lantus at bedtime. She was discharged and encouraged to follow-up with her PCP in 1 to 2 weeks. <nAy Mascorro 09/03/20 15:44> Objective Vital signs: Temp Pulse Resp BP Pulse Ox 98.1 F 96 H 18 109/68 L 95 09/03/20 10:43 09/03/20 10:43 09/03/20 10:43 09/03/20 10:43 09/03/20 10:43 <Bart Lee - 10/16/20 13:11> Temp Pulse Resp BP Pulse Ox 98.1 F 96 H 18 109/68 L 95 09/03/20 10:43 09/03/20 10:43 09/03/20 10:43 09/03/20 10:43 09/03/20 10:43 <Any Mascorro - 09/03/20 15:32> Narrative: - Constitutional no acute distress - *Routine Respiratory Exam Present: CTA bilaterally - *Routine Cardiovascular Exam Present: RRR - *Routine Abdominal Exam Present: soft, normoactive bowel sounds, tenderness (epigastric) - *Routine Extremities Exam Absent: cyanosis, clubbing, edema - *Routine Skin Exam Present: warm. Absent: rash - *Routine Neurological Exam Present: alert, oriented X3 <Any Mascorro - 09/03/20 15:44> Results Labs on day of discharge: Labs from last 24 hours 09/03/20 09/03/20 09/03/20 14:08 13:56 10:57 Sodium 132 L Potassium 4.0 D Chloride 103 Carbon Dioxide 18 L Anion Gap 15.0 BUN 12 D Creatinine 0.80 D Estimated Creat Clear 85 Estimated GFR 80 Est GFR ( Amer) 97 D Glucose 322 H D POC Glucose Random Glucose 550 H* Calcium 8.3 L Phosphorus Magnesium Acetone Level Small 09/03/20 09/03/20 09/03/20 10:54 09:05 05:34 Sodium 135 L Potassium 2.9 L* Chloride 108 H Carbon Dioxide 21 L Anion Gap 8.9 BUN 7 Creatinine 0.50 L Estimated Creat Clear 136 Estimated GFR 137 Est GFR ( Amer) 166 Glucose 176 H D POC Glucose 574 H* Random Glucose Calcium 8.1 L Phosphorus 1.9 L D Magnesium 1.8 Acetone Level Moderate 09/03/20 09/03/20 09/03/20 05:33 03:05
== END 2020-09-03 15:16 | disposition home or self-care (01) | DRG 639 ==
LOC: ER 06:53 → 2ND 08:41
PROVIDERS: Admitting Provider Family Medicine; Emergency Provider Emergency Medicine; Visit Provider Family Medicine
DX: E11.10 Type 2 diabetes mellitus with ketoacidosis without coma (principal); R10.13 Epigastric pain; Z79.4 Long term (current) use of insulin; I10 Essential (primary) hypertension; Z72.0 Tobacco use; Z88.8 Allergy status to other drugs, medicaments and biological substances; E87.6 Hypokalemia; F11.21 Opioid dependence, in remission; Z79.899 Other long term (current) drug therapy
CPT/HCPCS: 36415; 71045; 80048; 80076; 82009; 82803; 82947; 82962; 83605; 83735; 84100; 84145; 84484; 85025; 85651; 86140; 87040; 96365; 96366; 96367; 96375; 99284; J0574; U0003

== ENCOUNTER 2021-12-02 14:06 | Inpatient (IN) | payer MEDICAID, SELFPAY ==
[2021-12-02] VITALS (11 sets, daily range): BP systolic 107–128; BP diastolic 61–87; PULSE 84–113; RESP 16–20; TEMP 36.6–36.9; O2SAT 98–100; BMI 29.9; BMI 23.8
--- NOTE | 2021-12-02 14:11 | PC.NURSE ---
[facility] [place] at BS
--- NOTE | 2021-12-02 14:18 | HMH.EDGENADL ---
ED Disposition Clinical Impression: DKA (diabetic ketoacidosis) Qualifiers: Diabetes mellitus type: type 1 Diabetes mellitus complication detail: without coma Qualified Code(s): E10.10 - Type 1 diabetes mellitus with ketoacidosis without coma Disposition: Admitted as Observation Condition on Discharge: Good - Critical Care Critical Care Time: No Attestation: On 12/02/21, the high probability of a clinically significant, sudden or life threatening deterioration of the following system(s) required my full and direct attention, intervention and personal management. The time I documented below is in addition to time spent performing reported procedures but includes the following listed in this critical care notation. Medical Decision Making - Medical Records Medical records reviewed: Yes: I reviewed the patient's medical records. - Deshaun Inquiry Pt receiving controlled substance: No Vital Signs: 12/02/21 14:07 12/02/21 15:50 12/02/21 16:00 Temperature 98.5 F Temperature Source Oral Pulse Rate 86 89 Pulse Rate [Right Radial] 113 H Respiratory Rate 18 16 16 Blood Pressure 108/75 L 119/73 Blood Pressure [Right Arm] 107/84 L Blood Pressure Mean 86 96 Blood Pressure Mean [Right Arm] 91 Blood Pressure Source Blood Pressure Source [Right Arm] Automatic Cuff Blood Pressure Position Blood Pressure Position [Right Arm] Sitting 02 Sat by Pulse Oximetry 98 100 100 Oxygen Delivery Method Room Air Room Air Room Air 12/02/21 16:01 12/02/21 16:30 12/02/21 17:00 Temperature Temperature Source Pulse Rate 91 H 93 H 89 Pulse Rate [Right Radial] Respiratory Rate 16 Blood Pressure 119/73 122/87 128/61 Blood Pressure [Right Arm] Blood Pressure Mean 101 83 Blood Pressure Mean [Right Arm] Blood Pressure Source Automatic Cuff Blood Pressure Source [Right Arm] Blood Pressure Position Sitting Blood Pressure Position [Right Arm] 02 Sat by Pulse Oximetry 100 100 100 Oxygen Delivery Method Room Air Room Air Room Air 12/02/21 17:30 12/02/21 17:36 Temperature 98.5 F Temperature Source Pulse Rate 88 90 Pulse Rate [Right Radial] Respiratory Rate 16 16 Blood Pressure 121/77 121/77 Blood Pressure [Right Arm] Blood Pressure Mean 92 Blood Pressure Mean [Right Arm] Blood Pressure Source Blood Pressure Source [Right Arm] Blood Pressure Position Sitting Blood Pressure Position [Right Arm] 02 Sat by Pulse Oximetry 100 Oxygen Delivery Method Room Air Room Air - Lab Data Lab Results 12/02/21 14:16: Urine Color Yellow, Urine Appearance Clear, Urine pH 5.5, Ur Specific [place] 1.010, Urine Protein Negative, Urine Glucose (UA) 3+, Urine Ketones 3+, Urine Blood Negative, Urine Nitrate Positive, Urine Bilirubin Negative, Urine Urobilinogen 0.2, Ur Leukocyte Esterase Negative, Urine RBC 5-10, Urine WBC 3-5, Ur Squamous Epith Cells 5-10, Urine Bacteria 1+ 12/02/21 14:30: WBC 8.9, RBC 4.34, Hgb 13.1, Hct 42.1, MCV 97.0, MCH 30.2, MCHC 31.1 L, RDW 13.8, Plt Count 282, MPV 8.4, Neut % (Auto) 75.6, Lymph % (Auto) 19.2, [place] % (Auto) 3.3, Eos % (Auto) 1.2, Baso % (Auto) 0.6, Neut # (Auto) 6.7, Lymph # (Auto) 1.7, [place] # (Auto) 0.3, Eos # (Auto) 0.1, Baso # (Auto) 0.1 12/02/21 14:30: Sodium 131 L, Potassium 4.3, Chloride 96 L, Carbon Dioxide 11 L, Anion Gap 28.3 H, BUN 9, Creatinine 0.50 L, Estimated Creat Clear 193, Estimated GFR 137, Est GFR ( Amer) 165, Glucose 802 H*, Calcium 8.7, Total Bilirubin 0.8, AST 102 H, ALT 87 H, Alkaline Phosphatase 156 H, Total Protein 6.3, Albumin 3.7, Globulin 2.6, Albumin/Globulin Ratio 1.4, Acetone Level Moderate 12/02/21 15:00: VBG pH 7.31 12/02/21 15:54: SARS-CoV-2 (PCR) Not detected, Influenza A Untype (PCR) Not detected, Influenza Type B (PCR) Not detected 12/02/21 17:02: Random Glucose 621 H* Result diagrams: 12/02/21 14:30 12/02/21 14:30 Orders (Tests/Meds): ED MEDICATIONS Generic Name Dose Route Start Last Admin [employer]
--- NOTE | 2021-12-02 14:18 | PC.NURSE ---
ED MD at
--- NOTE | 2021-12-02 14:19 | PC.NURSE ---
patient ambulatory to restroom with parole officers and MOODY [place]; no complications
[2021-12-02 14:21] LABS: Microscopic, Urine URINE MICROSCOPIC (MICROSCOPIC)
[2021-12-02 14:40] LABS: Chloride 96 mmol/L (98-107)
[2021-12-02 14:41] LABS: Basophils # 0.1 K/mm3 (0-0.2); Basophils % 0.6 % (0.1-2.0); Eosinophils # 0.1 K/mm3 (0.0-0.4); Eosinophils % 1.2 % (0.1-12.0); Hematocrit 42.1 % (37.0-47.0); Hemoglobin 13.1 g/dL (12.2-16.2); Lymphocytes # 1.7 K/mm3 (0.7-4.5); Lymphocytes % 19.2 % (10-50); Mean Corpuscular HGB Conc 31.1 g/dL (31.8-35.4); Mean Corpuscular Hemoglobin 30.2 pg (27.0-31.2); Mean Platelet Volume 8.4 fl (7.4-10.4); Monocytes # 0.3 K/mm3 (0.1-1.0); Monocytes % 3.3 % (1.7-9.3); Neutrophils # 6.7 K/mm3 (1.8-7.8); Neutrophils % 75.6 % (37.0-80.0); Platelet Count 282 K/mm3 (142-424); Potassium 4.3 mmoL/L (3.5-5.1); Red Blood Count 4.34 M/mm3 (4.20-5.40); Red Cell Distribution Width 13.8 % (11.5-17.5); Sodium 131 mmol/L (136-145); White Blood Count 8.9 K/mm3 (4.8-10.8)
[2021-12-02 14:43] LABS: Alanine Aminotransferase 87 U/L (12-78); Alkaline Phosphatase 156 U/L (38-126); Aspartate Amino Transferase 102 U/L (14-36); Bilirubin,Total 0.8 mg/dl (0.2-1.3); Blood Urea Nitrogen 9 mg/dl (7-17); Creatinine Clearance Estimated 193 mL/min (50-200); Estimated Glomerular Filt Rate 137 ml/min (>60); GFR (African American) 165 ML/MIN (>60)
[2021-12-02 14:44] LABS: Albumin Level 3.7 g/dl (3.5-5.0); Albumin/Globulin Ratio 1.4 (1.1-1.8); Anion Gap 28.3 mEq/L (5-15); Calcium 8.7 mg/dl (8.4-10.2); Carbon Dioxide 11 mmol/L (22.0-30.0); Globulin 2.6 g/dL (1.3-3.2); Total Protein,Serum 6.3 g/dl (6.3-8.2)
--- NOTE | 2021-12-02 15:05 | PC.NURSE ---
critical glucose reported to ER at this time
[2021-12-02 15:09] LABS: VBG PH 7.31 mmol/L (7.31-7.41)
[2021-12-02 15:16] LABS: Glucose 802 mg/dl (74-100)
[2021-12-02 15:24] LABS: Appearance,Urine CLEAR (Clear); Bilirubin,Urine Negative (Negative); Blood, Urine Negative (Negative); Color,Urine YELLOW (Yellow); Glucose,Urine (UA) 3+ (Negative); Ketones,Urine 3+ (Negative); Leukocyte Esterase,Urine Negative (Negative); Nitrate,Urine POSITIVE (Negative); PH,Urine 5.5 (5.0-8.5); Protein,Urine Negative (Negative); Urobilinogen,Urine 0.2 EU/dl (0.2)
[2021-12-02 15:30] LABS: Acetone, Serum (Rapid) Moderate (None Detect)
[2021-12-02 16:00] LABS: Coronavirus 19, PCR Not Detected (NotDetected); Influenza A, PCR Not Detected (NotDetected); Influenza B, PCR Not Detected (NotDetected)
[2021-12-02 16:11] LABS: Bacteria,Urine 1+ /lpf
[2021-12-02 17:17] LABS: Glucose,Random 621 mg/dL (74-100)
--- NOTE | 2021-12-02 17:17 | PC.NURSE ---
report given to calin marquez on second floor at this time.
--- NOTE | 2021-12-02 17:19 | PC.NURSE ---
lab called with critical values glucose 621 aware
--- NOTE | 2021-12-02 17:38 | PC.NURSE ---
Pt arrived to the floor at this time
--- NOTE | 2021-12-02 17:51 | HMH.HP ---
*Admission Date: 12/02/21 *Chief complaint: Nausea/vomiting *History of present illness: 40-year-old white female who has been a type I diabetic since 2017, who has had an extremely convoluted social situation with problems with opioid IV injection drug abuse and multiple incarcerations. She [facility] with type [facility], and was placed on insulin therapy. She then went to [place] where she was in a rehab program and was treated by a physician in [place] with Lantus and mealtime insulin and apparently did well. She decided to move back here to [place], unfortunately she has been arrested a couple of times and was actually being arrested again today and on her way to the [facility] center began complaining of illness and feeling like she was in DKA. She has been out of her Lantus for about a week. She was brought to the emergency department where she was found to have positive acetone, and pH of 7.3 with sugar over 800. IV fluids were started and she was admitted to hospital for DKA protocol. Denies infectious symptoms of fevers, skin lesions, UTI issues or cough or cold symptoms [facility] History I have reviewed the patient's past medical history: Yes Medical History: Reports:: Diabetes Mellitus Type 1, Hypertension Denies:: Cancer, Diabetes Mellitus Type 2, MRSA *Have you ever received a pneumonia vaccine?: No *Have you received a flu vaccine this season?: No Other Medical History: Reports: Arthritis Other Surgeries: Yes: , Other (Skin graft) Amputation: No Fractures: No - *Social History Smoking Status: Never smoker Tobacco Type: cigarettes # Packs/Day (cigarettes): 1 Alcohol Intake: never Alcohol Intake Frequency:: a few times a month Substance Use Type: former substance user *Occupational Status:: unemployed Housing: house Household Members: none *Travel in the last 8 weeks: Inside the [place] Family Hx:: No significant family history Review of Systems - Review of Systems Review of systems:: pertinent systems reviewed and negative unless documented below Meds Home Medications Medication Instructions Recorded Confirmed Type Buprenorphine HCl/Naloxone HCl 2 each SL DAILY 07/08/20 09/02/20 History [Suboxone 8mg/2mg ODT] Insulin Glargine,Hum.rec.anlog 25 unit SQ HS #1 ml 07/09/20 09/02/20 Rx [Lantus Insulin 100units/mL 10mL vial] Insulin Lispro [Admelog Solostar] 0 units SQ DIRECTED #1 pen 07/09/20 09/02/20 Rx Allergies Allergy/AdvReac Type Severity Reaction Status Date / Time moxifloxacin [From AVELOX] Allergy Unknown SWELLING Verified 09/02/20 10:53 Exam Vital signs and Labs for Last 24 Hours: Temp Pulse Resp BP Pulse Ox 98.5 F 90 16 121/77 100 12/02/21 17:36 12/02/21 17:36 12/02/21 17:36 12/02/21 17:36 12/02/21 17:30 Laboratory Results - last 24 hr 12/02/21 14:16: Urine Color Yellow, Urine Appearance Clear, Urine pH 5.5, Ur Specific [employer] 1.010, Urine Protein Negative, Urine Glucose (UA) 3+, Urine Ketones 3+, Urine Blood Negative, Urine Nitrate Positive, Urine Bilirubin Negative, Urine Urobilinogen 0.2, Ur Leukocyte Esterase Negative, Urine RBC 5-10, Urine WBC 3-5, Ur Squamous Epith Cells 5-10, Urine Bacteria 1+ 12/02/21 14:30: WBC 8.9, RBC 4.34, Hgb 13.1, Hct 42.1, MCV 97.0, MCH 30.2, MCHC 31.1 L, RDW 13.8, Plt Count 282, MPV 8.4, Neut % (Auto) 75.6, Lymph % (Auto) 19.2, [place] % (Auto) 3.3, Eos % (Auto) 1.2, Baso % (Auto) 0.6, Neut # (Auto) 6.7, Lymph # (Auto) 1.7, [place] # (Auto) 0.3, Eos # (Auto) 0.1, Baso # (Auto) 0.1 12/02/21 14:30: Sodium 131 L, Potassium 4.3, Chloride 96 L, Carbon Dioxide 11 L, Anion Gap 28.3 H, BUN 9, Creatinine 0.50 L, Estimated Creat Clear 193, Estimated GFR 137, Est GFR ( Amer) 165, Glucose 802 H*, Calcium 8.7, Total Bilirubin 0.8, AST 102 H, ALT 87 H, Alkaline Phosphatase 156 H, Total Protein 6.3, Albumin 3.7, Globulin 2.6, Albumin/Globulin Rat
--- NOTE | 2021-12-02 18:25 | PC.NURSE ---
I attempted to place an IV twice and another RN attempted 3 times with no success. Pt refusing to any other attempts at this time.
--- NOTE | 2021-12-02 18:30 | PC.NURSE ---
labs ordered for morning per Dr Garcia
--- NOTE | 2021-12-02 18:57 | PC.NURSE ---
insulin decreased by 1/2 per protocol, currently running at 4
[2021-12-02 19:19] LABS: POC Glucose,Bedside 373 (70-110)
[2021-12-02 20:15] LABS: POC Glucose,Bedside 341 (70-110)
[2021-12-02 22:28] LABS: POC Glucose,Bedside 252 (70-110)
[2021-12-03] VITALS (8 sets, daily range): BP systolic 90–136; BP diastolic 48–77; PULSE 67–90; RESP 15–20; TEMP 36.7–37; O2SAT 94–100; BMI 23.8; BMI 23.6
[2021-12-03 00:11] LABS: POC Glucose,Bedside 193 (70-110)
[2021-12-03 02:16] LABS: POC Glucose,Bedside 170 (70-110)
[2021-12-03 03:10] LABS: POC Glucose,Bedside 138 (70-110)
[2021-12-03 04:08] LABS: POC Glucose,Bedside 163 (70-110)
--- NOTE | 2021-12-03 05:15 | PC.NURSE ---
Pt has slept at intervals this shift. No complaints stated. Has remained on insulin gtt this shift and is currently infusing @ 2 units/hr. NS @ 200 ml/hr per MD order. VSS. Pt remains on RA. Has ambulated to BR without difficulty. Awaiting labs this AM. Will continue to monitor. Insulin titration 0000 - titrated from 4 units/hr to 2 units/hr 0300 - titrated to 1 unit/hr 0500 - titrated to 2 units/hr
[2021-12-03 06:07] LABS: POC Glucose,Bedside 122 (70-110)
[2021-12-03 06:34] LABS: Acetone, Serum (Rapid) None Detected (None Detect)
[2021-12-03 06:48] LABS: Anion Gap 8.2 mEq/L (5-15); Blood Urea Nitrogen 11 mg/dl (7-17); Calcium 7.4 mg/dl (8.4-10.2); Carbon Dioxide 24 mmol/L (22.0-30.0); Chloride 109 mmol/L (98-107); Creatinine Clearance Estimated 153 mL/min (50-200); Estimated Glomerular Filt Rate 137 ml/min (>60); GFR (African American) 165 ML/MIN (>60); Glucose 120 mg/dl (74-100); Potassium 3.2 mmoL/L (3.5-5.1); Sodium 138 mmol/L (136-145)
--- NOTE | 2021-12-03 07:05 | HMH.PHAVTE ---
[facility] Pharmacy VTE Monitoring - Patient Demographics Admission date: 12/02/21 Report Date: 12/03/21 Time: 07:05 Allergies/Adverse Reactions: Patient Allergies moxifloxacin [From AVELOX] Allergy (Unknown, Verified 09/02/20 10:53) SWELLING Height: 1.65 m Weight: 64.92 kg Patient Problems: Current Active Problems Polysubstance (excluding opioids) dependence (Chronic) Diabetic ketoacidosis (Acute) IVDU (intravenous drug user) (Chronic) - VTE Risk Labs: VTE Related Lab Results Hgb 13.1 g/dL (12.2-16.2) 12/02/21 14:30 Hct 42.1 % (37.0-47.0) 12/02/21 14:30 Plt Count 282 K/mm3 (142-424) 12/02/21 14:30 BUN 9 mg/dl (7-17) 12/02/21 14:30 Creatinine 0.50 mg/dl (0.52-1.04) L 12/02/21 14:30 Estimated Creat Clear 193 mL/min (50-200) 12/02/21 14:30 Was VTE Risk Assessment Performed: Yes VTE Score: 4 VTE Risk Level: Low Risk - Prophylaxis VTE Prophylaxis Ordered?: Yes Types of VTE Prophylaxis: TEDS Knee High Location of Applied Device: Bilateral Lower Extremeties
--- NOTE | 2021-12-03 07:13 | HMH.PHAINT ---
MEDICATION RECONCILIATION COMPLETED ON PATIENT USING EXTERNAL FILL HISTORY FROM PHARMACY. -SHANTELL BARBOUR, EDDD
[2021-12-03 08:14] LABS: Hemoglobin A1C 11.7 % (4.0-6.0)
--- NOTE | 2021-12-03 14:01 | HMH.ACPN2 ---
Internal Medicine - PN: Subj *Date: 12/03/21 *Time: 17:02 Interval history: Patient's gap closed overnight. She denies any nausea or vomiting this morning. Eating breakfast on rounds. Overall did well. Denies any chest pain or shortness of breath. Urinary symptoms absent. Discussed transitioning to basal bolus regimen today. Exam Vital signs and Labs for Last 24 Hours: Temp Pulse Resp BP Pulse Ox 98.3 F 70 20 136/77 99 12/03/21 12:00 12/03/21 12:00 12/03/21 12:00 12/03/21 12:00 12/03/21 12:00 Laboratory Results - last 24 hr 12/02/21 14:16: Urine Color Yellow, Urine Appearance Clear, Urine pH 5.5, Ur Specific [place] 1.010, Urine Protein Negative, Urine Glucose (UA) 3+, Urine Ketones 3+, Urine Blood Negative, Urine Nitrate Positive, Urine Bilirubin Negative, Urine Urobilinogen 0.2, Ur Leukocyte Esterase Negative, Urine RBC 5-10, Urine WBC 3-5, Ur Squamous Epith Cells 5-10, Urine Bacteria 1+ 12/02/21 14:30: WBC 8.9, RBC 4.34, Hgb 13.1, Hct 42.1, MCV 97.0, MCH 30.2, MCHC 31.1 L, RDW 13.8, Plt Count 282, MPV 8.4, Neut % (Auto) 75.6, Lymph % (Auto) 19.2, [place] % (Auto) 3.3, Eos % (Auto) 1.2, Baso % (Auto) 0.6, Neut # (Auto) 6.7, Lymph # (Auto) 1.7, [place] # (Auto) 0.3, Eos # (Auto) 0.1, Baso # (Auto) 0.1 12/02/21 14:30: Sodium 131 L, Potassium 4.3, Chloride 96 L, Carbon Dioxide 11 L, Anion Gap 28.3 H, BUN 9, Creatinine 0.50 L, Estimated Creat Clear 193, Estimated GFR 137, Est GFR ( Amer) 165, Glucose 802 H*, Calcium 8.7, Total Bilirubin 0.8, AST 102 H, ALT 87 H, Alkaline Phosphatase 156 H, Total Protein 6.3, Albumin 3.7, Globulin 2.6, Albumin/Globulin Ratio 1.4, Acetone Level Moderate 12/02/21 15:00: VBG pH 7.31 12/02/21 15:54: SARS-CoV-2 (PCR) Not detected, Influenza A Untype (PCR) Not detected, Influenza Type B (PCR) Not detected 12/02/21 17:02: Random Glucose 621 H* 12/02/21 18:55: POC Glucose 373 H* 12/02/21 20:06: POC Glucose 341 H* 12/02/21 22:21: POC Glucose 252 H 12/03/21 00:01: POC Glucose 193 H 12/03/21 02:08: POC Glucose 170 H 12/03/21 03:03: POC Glucose 138 H 12/03/21 03:59: POC Glucose 163 H 12/03/21 06:00: POC Glucose 122 H 12/03/21 06:15: Acetone Level None detected 12/03/21 06:15: Sodium 138, Potassium 3.2 L D, Chloride 109 H, Carbon Dioxide 24, Anion Gap 8.2, BUN 11, Creatinine 0.50 L, Estimated Creat Clear 153, Estimated GFR 137, Est GFR ( Amer) 165, Glucose 120 H D, Calcium 7.4 L 12/03/21 06:15: Hemoglobin A1c 11.7 H I & O for Last 24 hours: Intake & Output 11/30/21 12/01/21 12/02/21 12/03/21 23:59 23:59 23:59 23:59 Intake Total 2503 / 2503 Balance 2503 / 2503 Weight 64.92 kg 64.29 kg - Constitutional no acute distress - *Routine HEENT Exam Head: Present: normocephalic Eye: Present: EOMI, PERRL ENT: Present: mucous membranes moist - *Routine Neck Exam Present: supple. Absent: lymphadenopathy - *Routine Respiratory Exam Present: CTA bilaterally - *Routine Cardiovascular Exam Present: RRR - *Routine Abdominal Exam Present: soft, normoactive bowel sounds. Absent: tenderness - *Routine Extremities Exam Absent: cyanosis, clubbing, edema - *Routine Skin Exam Present: warm. Absent: rash - *Routine Neurological Exam Present: alert, oriented X3 Assessment and Plan (1) Diabetic ketoacidosis Status: Acute Qualifiers: Diabetes mellitus type: type 1 Diabetes mellitus complication detail: without coma Qualified Code(s): E10.10 - Type 1 diabetes mellitus with ketoacidosis without coma Category: Medical Code(s): E13.10 - Other specified diabetes mellitus with ketoacidosis without coma (2) IVDU (intravenous drug user) Status: Chronic Category: Social Hx Code(s): F19.90 - Other psychoactive substance use, unspecified, uncomplicated (3) Polysubstance (excluding opioids) dependence Status: Chronic Category: Medical Code(s): F19.20 - Other psychoactive substance dependence, uncomplicated - Assessment and plan all Dx Assessmen
--- NOTE | 2021-12-03 17:38 | PC.NURSE ---
PT IS AOX4, ABLE TO MAKE NEEDS KNOWN TO STAFF, SHE HAS TOLERATED DIET WELL. FSBS WAS ELEVATED AROUND LUNCHTIME SO SSI REGIMEN INCREASED TO MEDIUM INTENSITY. SHE DOES NOT REQUIRE O2 SUPPORT. HAS AMBULATED IN ROOM WITHOUT DIFFICULTY.
--- NOTE | 2021-12-03 18:00 | PC.NURSE ---
patient did not have a BM during this shift
--- NOTE | 2021-12-03 18:04 | PC.NURSE ---
PT ASKED TO LEAVE FLOOR TO VISIT WITH DAUGHTER. THIS RN INFORMED HER THAT DAUGHTER COULD COME UP TO ROOM AND CURRENT VISITOR COULD SWITCH OUT WITH OTHER VISITORS. SHE REFUSED STATING THAT SHE WANTED TO WALK. INFORMED CONSENT FOR PROVIDED AND PATIENT WAS EDUCATED ON RISKS OF LEAVING THE FLOOR. SHE VOICED HER UNDERSTANDING. IV WAS WRAPPED IN SHOWER COVER AND COBAN.
[2021-12-03 18:41] LABS: POC Glucose,Bedside 188 (70-110)
[2021-12-03 18:41] LABS: POC Glucose,Bedside 298 (70-110)
[2021-12-03 18:41] LABS: POC Glucose,Bedside 179 (70-110)
[2021-12-03 18:41] LABS: POC Glucose,Bedside 198 (70-110)
[2021-12-03 18:41] LABS: POC Glucose,Bedside 428 (70-110)
[2021-12-03 20:54] LABS: POC Glucose,Bedside 299 (70-110)
[2021-12-04] VITALS: BP 109/65; PULSE 83; RESP 16; TEMP 37.1; O2SAT 98
[2021-12-04 05:00] VITALS: BMI 23.6
[2021-12-04 06:26] LABS: POC Glucose,Bedside 120 (70-110)
[2021-12-04 07:52] VITALS: BP 116/74; PULSE 79; RESP 16; TEMP 36.5; O2SAT 98
--- NOTE | 2021-12-04 08:12 | HMH.DCSUM ---
General - General Admission date:: 12/02/21 Discharge date: 12/04/21 HPI HPI: 40-year-old white female who has been a type I diabetic since 2017, who has had an extremely convoluted social situation with problems with opioid IV injection drug abuse and multiple incarcerations. She [facility] with type [facility] a [facility], and was placed on insulin therapy. She then went to [place] where she was in a rehab program and was treated by a physician in [place] with Lantus and mealtime insulin and apparently did well. She decided to move back here to [place], unfortunately she has been arrested a couple of times and was actually being arrested again today and on her way to the [facility] began complaining of illness and feeling like she was in DKA. She has been out of her Lantus for about a week. She was brought to the emergency department where she was found to have positive acetone, and pH of 7.3 with sugar over 800. IV fluids were started and she was admitted to hospital for DKA protocol. Denies infectious symptoms of fevers, skin lesions, UTI issues or cough or cold symptoms Hospital Course Hospital Course: 40-year-old female with uncontrolled diabetes who presented in DKA. Initiated on insulin drip with IV fluids. Gap closed overnight. She was transitioned to basal bolus regimen and monitored for 24 hours. Tolerated good p.o. intake. Glucose remains in the low 100s on day of discharge. Overall responded well. Medically stable for discharge home. Problems addressed as follows: DKA Uncontrolled diabetes -A1c 11.7. -Gap closed with insulin drip. Received partial dose of insulin glargine that morning and scheduled on mealtime of 5 with sliding scale. Received 7 to 13 units with meals thereafter. Received nighttime dose of 25 units insulin glargine with morning glucose on day of discharge of 120. Will transition back to her home regimen of 25 units of insulin glargine. Recommend resuming mealtime with carb ratio. Recommend 12 units of mealtime with carb ratio of 1:5. Patient is familiar with this regimen she has been on it before. This is a slight increase in her mealtime scheduled dose however. Also recommend following up with her PCP or site medical director in the next few weeks. Anxiety: Present on admission. Resumed her home medications for sleep and anxiety. Medically stable for discharge. Examined on day of discharge. Counseled on changes in medication. No new medications. Objective Vital signs: Temp Pulse Resp BP Pulse Ox 97.7 F 79 16 116/74 98 12/04/21 07:52 12/04/21 07:52 12/04/21 07:52 12/04/21 07:52 12/04/21 07:52 Narrative: - Constitutional no acute distress - *Routine HEENT Exam Head: Present: normocephalic Eye: Present: EOMI, PERRL ENT: Present: mucous membranes moist - *Routine Neck Exam Present: supple. Absent: lymphadenopathy - *Routine Respiratory Exam Present: CTA bilaterally - *Routine Cardiovascular Exam Present: RRR - *Routine Abdominal Exam Present: soft, normoactive bowel sounds. Absent: tenderness - *Routine Extremities Exam Absent: cyanosis, clubbing, edema - *Routine Skin Exam Present: warm. Absent: rash - *Routine Neurological Exam Present: alert, oriented X3 Results Labs on day of discharge: Labs from last 24 hours 12/04/21 12/03/21 12/03/21 06:18 20:46 15:38 POC Glucose 120 H 299 H 188 H Hemoglobin A1c 12/03/21 12/03/21 12/03/21 14:13 11:20 08:43 POC Glucose 198 H 428 H* 298 H Hemoglobin A1c 12/03/21 12/03/21 07:32 06:15 POC Glucose 179 H Hemoglobin A1c 11.7 H DS: Diagnosis - Discharge Diagnosis (1) Diabetic ketoacidosis Status: Acute (2) IVDU (intravenous drug user) Status: Chronic (3) Polysubstance (excluding opioids) dependence Status: Chronic Discharge Plan - Patient Dis
== END 2021-12-04 10:04 | disposition home or self-care (01) | DRG 638 ==
LOC: ER 14:10 → 2ND 16:52
PROVIDERS: Internal Medicine Adolescent Medicine; Admitting Provider Internal Medicine Adolescent Medicine; Emergency Provider Emergency Medicine; Visit Provider Internal Medicine Adolescent Medicine
DX: E10.10 Type 1 diabetes mellitus with ketoacidosis without coma (principal); F19.20 Other psychoactive substance dependence, uncomplicated; Z79.4 Long term (current) use of insulin; Z20.822 Contact with and (suspected) exposure to COVID-19; I10 Essential (primary) hypertension; F41.9 Anxiety disorder, unspecified
CPT/HCPCS: 36415; 80048; 80053; 81001; 82009; 82947; 82962; 83036; 85025; 99285; C9803; U0003; U0005

== ENCOUNTER 2022-05-18 12:13 | Inpatient (IN) | payer OTHER, SELFPAY ==
[2022-05-18] VITALS (13 sets, daily range): BP systolic 99–153; BP diastolic 54–68; PULSE 84–104; RESP 14–20; TEMP 36.6–36.8; O2SAT 95–100; BMI 25.2; BMI 25.3
--- NOTE | 2022-05-18 12:43 | ECG_ITS ---
APPROVED REPORT Exam: Resting ECG HR:97 bpm ECG Measurements Heart Rate 97 AXES DE 137 P 72 QRSd 101 QRS 73 QT 365 T 47 QTc 420 Conclusion SINUS RHYTHM Normal ECG UNCONFIRMED REPORT Electronically signed by : Dillon Garcia MD 05/20/2022 13:30:58
--- NOTE | 2022-05-18 13:07 | PC.NURSE ---
ROBERT ROUNDED NO NEEDS AT THIS TIME
[2022-05-18 13:10] LABS: Basophils # 0.1 K/mm3 (0-0.2); Basophils % 0.9 % (0.1-2.0); Eosinophils # 0.1 K/mm3 (0.0-0.4); Eosinophils % 0.7 % (0.1-12.0); Hematocrit 42.8 % (37.0-47.0); Hemoglobin 13.9 g/dL (12.2-16.2); Lymphocytes # 2.3 K/mm3 (0.7-4.5); Mean Corpuscular HGB Conc 32.5 g/dL (31.8-35.4); Mean Corpuscular Hemoglobin 29.9 pg (27.0-31.2); Mean Corpuscular Volume 91.9 fl (81-99); Mean Platelet Volume 9.4 fl (7.4-10.4); Monocytes # 0.5 K/mm3 (0.1-1.0); Monocytes % 4.2 % (1.7-9.3); Neutrophils # 8.1 K/mm3 (1.8-7.8); Neutrophils % 73.2 % (37.0-80.0); Platelet Count 321 K/mm3 (142-424); Red Blood Count 4.66 M/mm3 (4.20-5.40); Red Cell Distribution Width 12.9 % (11.5-17.5)
--- NOTE | 2022-05-18 13:29 | HMH.EDGENADL ---
Discharge Plan Disposition Patient Disposition: Admitted As Inpatient Condition: Good Clinical Impressions Clinical Impression: DKA, type 1 Discharge ED Provider: Geneva Minor General Adult HPI General Chief complaint: Anxiety Stated complaint: anxiety Time Seen by Provider: 05/18/22 12:31 Mode of Arrival: Ambulatory Source of Information: Patient Limitations: No Limitations Description of Symptoms (Recalled from ER Triage Doc. by RN): pt to ed c/o anxiety. pt states she was released from residential yesterday and has been anxious about getting her medication refilled. History of Present Illness HPI narrative: This patient is a 41-year-old female with a history of type 1 diabetes presenting to the emergency department for evaluation because she ran out of her insulin. She states that she has not had insulin in over 24 hours, and she fears that she is starting to get symptoms of DKA, such as headache, chest tightness, and shortness of breath. She also states that she is having mild abdominal discomfort. She is not sure what her blood sugar is. She states that she has no supplies whatsoever. She was just released from residential yesterday, and she states that this is the reason that she does not have anything. She denies any fever, chills, or other recent concerns. Related Data Previous Rx's Medication Instructions Recorded amitriptyline 50 mg tablet 50 mg PO HS MOOD 30 days #30 tabs 12/04/21 cetirizine 10 mg tablet 10 mg PO DAILY Allergy symptoms 30 12/04/21 days #30 tabs citalopram 20 mg tablet 20 mg PO DAILY MOOD 30 days #30 12/04/21 tabs insulin glargine 100 unit/mL 25 unit (0.25 mL) SQ HS Diabetes 12/04/21 subcutaneous solution 30 days #10 mL insulin lispro 100 unit/mL 12 units (0.12 mL) SQ DIRECTED 12/04/21 subcutaneous pen Diabetes 30 days #3 pen needles lisinopril 10 mg tablet 10 mg PO DAILY Hypertension 30 12/04/21 days #30 tabs methylnaltrexone 150 mg tablet 450 mg PO DAILY CONSTIPATION 30 12/04/21 days #90 tabs topiramate 25 mg tablet 25 mg PO HS MIGRAINES 30 days #30 12/04/21 tabs trazodone 50 mg tablet 50 mg PO HS SLEEP 30 days #30 tabs 12/04/21 Allergies Allergy/AdvReac Type Severity Reaction Status Date / Time moxifloxacin [From AVELOX] Allergy Unknown SWELLING Verified 09/02/20 10:53 PFSH PFSH Social History Smoking Status: Never smoker alcohol intake: current substance use type: former substance user current occupational status: unemployed Travel in the last 8 weeks: Inside the [place] household members: none housing: house current occupational exposures/hazards: No caffeine: Yes ROS Obtained: Yes All systems reviewed & no additional complaints except as documented 14 point review of systems obtained and negative except otherwise mentioned in HPI. Physical Exam General General appearance: alert and in no apparent distress Head Head exam: atraumatic and normocephalic Eye Eye exam: Present normal appearance, PERRL and EOMI ENT ENT exam: Present normal exam, normal oropharynx and mucous membranes moist Neck Neck exam: Present normal inspection Chest Chest inspection: Present normal inspection Respiratory Respiratory exam: Present normal lung sounds bilaterally; Absent respiratory distress or wheezes Cardiovascular Cardiovascular exam: Present regular rate and normal rhythm Abdominal Exam Abdominal exam: Present soft; Absent distention, tenderness or guarding Extremities Exam Extremities exam: Present normal inspection Back Exam Back exam: Present normal inspection Neurological Exam Neurological exam: Present alert and oriented X3 Psychiatric Psychiatric exam: Present normal affect Skin Skin exam: Present warm and dry Medical Decision Making Medical Records Medical records reviewed: Yes I reviewed the patient's medical records. Deshaun Inquiry Pt receiving controlled substance: No Vital Signs:
[2022-05-18 13:31] LABS: Alanine Aminotransferase 60 U/L (12-78); Albumin Level 4.8 g/dl (3.5-5.0); Albumin/Globulin Ratio 1.5 (1.1-1.8); Alkaline Phosphatase 154 U/L (38-126); Anion Gap 30.1 mEq/L (5-15); Aspartate Amino Transferase 52 U/L (14-36); Blood Urea Nitrogen 18 mg/dl (7-17); Calcium 9.8 mg/dl (8.4-10.2); Carbon Dioxide 13 mmol/L (22.0-30.0); Chloride 95 mmol/L (98-107); Creatinine Clearance Estimated 134 mL/min (50-200); Estimated Glomerular Filt Rate 110 ml/min (>60); GFR (African American) 133 ML/MIN (>60); Globulin 3.1 g/dL (1.3-3.2); Potassium 5.1 mmoL/L (3.5-5.1); Sodium 133 mmol/L (136-145); Total Protein,Serum 7.9 g/dl (6.3-8.2)
[2022-05-18 13:42] LABS: Glucose 574 mg/dl (74-100)
[2022-05-18 13:45] LABS: Troponin I < 0.01 ng/ml (0.00-0.034)
--- NOTE | 2022-05-18 13:45 | PC.NURSE ---
LAB CALLED WITH CRITICAL GLUCOSE 574. NOTIFIED.
[2022-05-18 13:46] LABS: Acetone, Serum (Rapid) Moderate (None Detect)
--- NOTE | 2022-05-18 14:14 | PC.NURSE ---
Dr Minor on phone with Hospitalist at this time
[2022-05-18 14:32] LABS: VBG Base Excess -11.4 mmol/L (-2.4-2.3); VBG HCO3 16.2 mmol/L (23-30); VBG Oxygen Saturation 95.6 % (50-70); VBG PCO2 39.8 mmol/L (35-51); VBG PH 7.23 mmol/L (7.31-7.41); VBG PO2 87.8 mmol/L (28-40); VBG Total CO2 17.4 mmol/L (23-27)
[2022-05-18 14:36] LABS: Microscopic, Urine URINE MICROSCOPIC (MICROSCOPIC)
[2022-05-18 14:44] LABS: Appearance,Urine CLEAR (Clear); Bilirubin,Urine Negative (Negative); Blood, Urine Negative (Negative); Color,Urine YELLOW (Yellow); Glucose,Urine (UA) 3+ (Negative); Ketones,Urine 3+ (Negative); Leukocyte Esterase,Urine Negative (Negative); Nitrate,Urine Negative (Negative); Protein,Urine Negative (Negative); Urobilinogen,Urine 0.2 EU/dl (0.2)
[2022-05-18 14:46] LABS: Coronavirus 19, PCR Not Detected (NotDetected); Influenza A, PCR Not Detected (NotDetected); Influenza B, PCR Not Detected (NotDetected)
[2022-05-18 14:59] LABS: Bacteria,Urine Trace /lpf; RBC,Urine Occasional #/hpf (0-3); WBC,Urine Occasional #/hpf (0-3)
--- NOTE | 2022-05-18 15:31 | EXP.HP ---
History of Present Illness *Admission Date: 05/18/22 *Reason for visit:: hyperglycemia, abdominal pain *History of present illness: Ms. Feliciano is a 41-year-old female with history of insulin-dependent diabetes, neuropathy, who presented to the ER because of abdominal pain and elevated blood sugar. She reports she was recently incarcerated for the past 5-1/2 months and was discharged in the past 24 hours without any insulin. She did not have any insulin at home and was worried that she was going into DKA. She reports some nausea, headache, shortness of breath consistent with her previous episodes of DKA. Denies any fever, katerina emesis, diarrhea, confusion. On initial work-up her pH was approximately 7.2, high anion gap, elevated glucose above 500. Started on DKA protocol in the ER. Medicine consulted for admission and further management. On arrival to the floor, patient is alert and oriented. Sitting up in bed and appears in minimal distress. She reports being hungry and is asking for dinner. States that she has had increased urine output over the past day but has been without insulin due to her social situation. Previous insulin regimen of glargine 25 units nightly and carb correction per a sliding scale. States she was previously well managed prior to incarceration where her glucose ran in the 3-400 range consistently for the past 5 to 6 months. [facility] Medical History Cerebral palsy Social History Smoking Status: Current every day smoker tobacco type: cigarettes packs per day: 1 alcohol intake: current substance use type: former substance user current occupational status: unemployed Travel in the last 8 weeks: None household members: none housing: house current occupational exposures/hazards: No caffeine: Yes Review of Systems Review of Systems Review of systems (narrative): 14 point review of systems performed, pertinent positives and negatives as per HPI Meds Home Medications and Allergies Home Medications Medication Instructions Recorded Confirmed Type insulin glargine 100 unit/mL 25 unit (0.25 mL) SQ HS Diabetes 12/04/21 05/18/22 Rx subcutaneous solution 30 days #10 mL insulin lispro 100 unit/mL 12 units (0.12 mL) SQ DIRECTED 12/04/21 05/18/22 Rx subcutaneous pen Diabetes 30 days #3 pen needles lisinopril 10 mg tablet 10 mg PO DAILY Hypertension 30 12/04/21 05/18/22 Rx days #30 tabs New Prescriptions to Start Prescriptions: Allergies Allergy/AdvReac Type Severity Reaction Status Date / Time moxifloxacin [From AVELOX] Allergy Unknown SWELLING Verified 09/02/20 10:53 Exam Data for Last 24 hours Vital signs and Labs for Last 24 Hours: Temp Pulse Resp BP Pulse Ox 98.3 F 103 H 18 109/68 L 98 05/18/22 12:45 05/18/22 13:30 05/18/22 12:45 05/18/22 13:30 05/18/22 13:30 Laboratory Results - last 24 hr 05/18/22 12:36: VBG pH 7.23 L, VBG pCO2 39.8, VBG pO2 87.8 H, VBG HCO3 16.2 L, VBG Total CO2 17.4 L, VBG O2 Saturation 95.6 H, VBG Base Excess -11.4 L 05/18/22 12:58: WBC 11.0 H, RBC 4.66, Hgb 13.9, Hct 42.8, MCV 91.9, MCH 29.9, MCHC 32.5, RDW 12.9, Plt Count 321, MPV 9.4, Neut % (Auto) 73.2, Lymph % (Auto) 21.0, [place] % (Auto) 4.2, Eos % (Auto) 0.7, Baso % (Auto) 0.9, Neut # (Auto) 8.1 H, Lymph # (Auto) 2.3, [place] # (Auto) 0.5, Eos # (Auto) 0.1, Baso # (Auto) 0.1 05/18/22 12:58: Sodium 133 L, Potassium 5.1, Chloride 95 L, Carbon Dioxide 13 L, Anion Gap 30.1 H, BUN 18 H, Creatinine 0.60, Estimated Creat Clear 134, Estimated GFR 110, Est GFR ( Amer) 133, Glucose 574 H*, Calcium 9.8, Total Bilirubin 1.0, AST 52 H, ALT 60, Alkaline Phosphatase 154 H, Troponin I < 0.01, Total Protein 7.9 D, Albumin 4.8, Globulin 3.1, Albumin/Globulin Ratio 1.5, Acetone Level Moderate 05/18/22 14:15: Urine Color Yellow, Urine Appearance Clear, Urine pH 6.0, Ur Specific [place] 1.020,
--- NOTE | 2022-05-18 15:46 | PC.NURSE ---
called for meal tray
[2022-05-18 16:05] LABS: POC Glucose,Bedside 450 (70-110)
--- NOTE | 2022-05-18 16:54 | PC.NURSE ---
patient arrived to room by stretcher from ED
[2022-05-18 17:05] LABS: Acetone, Serum (Rapid) Moderate (None Detect)
[2022-05-18 17:13] LABS: Anion Gap 30.8 mEq/L (5-15); Blood Urea Nitrogen 17 mg/dl (7-17); Calcium 9.3 mg/dl (8.4-10.2); Chloride 105 mmol/L (98-107); Creatinine Clearance Estimated 134 mL/min (50-200); Estimated Glomerular Filt Rate 110 ml/min (>60); GFR (African American) 133 ML/MIN (>60); Potassium 5.8 mmoL/L (3.5-5.1); Sodium 137 mmol/L (136-145)
--- NOTE | 2022-05-18 17:15 | PC.NURSE ---
received call from lab reporting CO2 7 and glucose 466. Name and verified. Dr. Ross rounding and has been updated.
[2022-05-18 17:17] LABS: Carbon Dioxide 7 mmol/L (22.0-30.0); Glucose 466 mg/dl (74-100)
[2022-05-18 18:04] LABS: Troponin I < 0.01 ng/ml (0.00-0.034)
[2022-05-18 19:03] LABS: POC Glucose,Bedside 497 (70-110)
[2022-05-18 19:03] LABS: POC Glucose,Bedside 495 (70-110)
[2022-05-18 19:03] LABS: POC Glucose,Bedside 522 (70-110)
[2022-05-18 19:58] LABS: Hemoglobin A1C 11.5 % (4.0-6.0)
[2022-05-18 20:12] LABS: POC Glucose,Bedside 474 (70-110)
[2022-05-18 21:25] LABS: Anion Gap 17.5 mEq/L (5-15); Blood Urea Nitrogen 17 mg/dl (7-17); Calcium 8.9 mg/dl (8.4-10.2); Carbon Dioxide 19 mmol/L (22.0-30.0); Chloride 100 mmol/L (98-107); Creatinine Clearance Estimated 101 mL/min (50-200); Estimated Glomerular Filt Rate 79 ml/min (>60); GFR (African American) 96 ML/MIN (>60); Glucose 370 mg/dl (74-100); Potassium 4.5 mmoL/L (3.5-5.1); Sodium 132 mmol/L (136-145)
[2022-05-18 21:40] LABS: Troponin I < 0.01 ng/ml (0.00-0.034)
[2022-05-18 22:10] LABS: POC Glucose,Bedside 290 (70-110)
[2022-05-18 22:10] LABS: POC Glucose,Bedside 384 (70-110)
[2022-05-19] VITALS (9 sets, daily range): BP systolic 91–125; BP diastolic 54–76; PULSE 86–98; RESP 16–18; TEMP 36.8–36.9; O2SAT 93–97; BMI 26.1
[2022-05-19 00:17] LABS: POC Glucose,Bedside 142 (70-110)
[2022-05-19 00:17] LABS: POC Glucose,Bedside 187 (70-110)
[2022-05-19 01:33] LABS: Anion Gap 17.1 mEq/L (5-15); Blood Urea Nitrogen 16 mg/dl (7-17); Calcium 8.1 mg/dl (8.4-10.2); Carbon Dioxide 16 mmol/L (22.0-30.0); Chloride 106 mmol/L (98-107); Creatinine Clearance Estimated 134 mL/min (50-200); Estimated Glomerular Filt Rate 110 ml/min (>60); GFR (African American) 133 ML/MIN (>60); Glucose 210 mg/dl (74-100); Potassium 4.1 mmoL/L (3.5-5.1); Sodium 135 mmol/L (136-145)
[2022-05-19 01:47] LABS: Acetone, Serum (Rapid) Moderate (None Detect)
[2022-05-19 03:18] LABS: POC Glucose,Bedside 244 (70-110)
[2022-05-19 03:18] LABS: POC Glucose,Bedside 216 (70-110)
[2022-05-19 03:18] LABS: POC Glucose,Bedside 200 (70-110)
[2022-05-19 04:14] LABS: POC Glucose,Bedside 161 (70-110)
--- NOTE | 2022-05-19 04:37 | PC.NURSE ---
pt has rested intermittently this shift, remains on room air with O2 sats 93-99%, HR 84-94, SBP 94-131, complained of KENT twice and was treated per MAR, ambulating to BR, FS still being done Q1 at this time
--- NOTE | 2022-05-19 04:52 | PC.NURSE ---
pt has rested intermittently this shift, remains on room air with O2 sats 93-99%, HR 84-94, SBP 94-131, complained of KENT twice and was treated per MAR, ambulating to BR
[2022-05-19 06:25] LABS: Basophils # 0.1 K/mm3 (0-0.2); Basophils % 0.6 % (0.1-2.0); Eosinophils # 0.2 K/mm3 (0.0-0.4); Eosinophils % 1.3 % (0.1-12.0); Hematocrit 35.3 % (37.0-47.0); Lymphocytes # 3.1 K/mm3 (0.7-4.5); Lymphocytes % 25.3 % (10-50); Mean Corpuscular HGB Conc 33.8 g/dL (31.8-35.4); Mean Corpuscular Hemoglobin 30.3 pg (27.0-31.2); Mean Corpuscular Volume 89.7 fl (81-99); Mean Platelet Volume 9.2 fl (7.4-10.4); Monocytes # 0.6 K/mm3 (0.1-1.0); Monocytes % 4.6 % (1.7-9.3); Neutrophils # 8.4 K/mm3 (1.8-7.8); Neutrophils % 68.2 % (37.0-80.0); Platelet Count 268 K/mm3 (142-424); Red Blood Count 3.93 M/mm3 (4.20-5.40); Red Cell Distribution Width 13.2 % (11.5-17.5); White Blood Count 12.3 K/mm3 (4.8-10.8)
[2022-05-19 06:27] LABS: Hemoglobin 11.9 g/dL (12.2-16.2)
[2022-05-19 06:33] LABS: Alanine Aminotransferase 36 U/L (12-78); Albumin Level 3.1 g/dl (3.5-5.0); Albumin/Globulin Ratio 1.2 (1.1-1.8); Alkaline Phosphatase 84 U/L (38-126); Anion Gap 14.8 mEq/L (5-15); Aspartate Amino Transferase 28 U/L (14-36); Bilirubin,Total 0.5 mg/dl (0.2-1.3); Blood Urea Nitrogen 14 mg/dl (7-17); Calcium 8.2 mg/dl (8.4-10.2); Carbon Dioxide 20 mmol/L (22.0-30.0); Chloride 108 mmol/L (98-107); Creatinine Clearance Estimated 166 mL/min (50-200); Estimated Glomerular Filt Rate 136 ml/min (>60); GFR (African American) 165 ML/MIN (>60); Globulin 2.6 g/dL (1.3-3.2); Glucose 145 mg/dl (74-100); Magnesium 1.7 mg/dl (1.6-2.3); Potassium 3.8 mmoL/L (3.5-5.1); Sodium 139 mmol/L (136-145); Total Protein,Serum 5.7 g/dl (6.3-8.2)
[2022-05-19 06:40] LABS: POC Glucose,Bedside 161 (70-110)
--- NOTE | 2022-05-19 08:32 | EXP.DC.SUM ---
General Admission date:: 05/18/22 Discharge date: 05/19/22 HPI HPI HPI: Ms. Feliciano is a 41-year-old female with history of insulin-dependent diabetes, neuropathy, who presented to the ER because of abdominal pain and elevated blood sugar. She reports she was recently incarcerated for the past 5-1/2 months and was discharged in the past 24 hours without any insulin. She did not have any insulin at home and was worried that she was going into DKA. She reports some nausea, headache, shortness of breath consistent with her previous episodes of DKA. Denies any fever, katerina emesis, diarrhea, confusion. On initial work-up her pH was approximately 7.2, high anion gap, elevated glucose above 500. Started on DKA protocol in the ER. Medicine consulted for admission and further management. On arrival to the floor, patient is alert and oriented. Sitting up in bed and appears in minimal distress. She reports being hungry and is asking for dinner. States that she has had increased urine output over the past day but has been without insulin due to her social situation. Previous insulin regimen of glargine 25 units nightly and carb correction per a sliding scale. States she was previously well managed prior to incarceration where her glucose ran in the 3-400 range consistently for the past 5 to 6 months. Hospital Course Hospital Course Hospital Course: 41-year-old female with history of insulin-dependent diabetes.? Has been out of her insulin and presented to the ER in DKA.? Initiated on DKA protocol with insulin drip and IV fluids.? Was started on 10 units of basal insulin night of admission. Gap closed overnight and was transitioned off of insulin drip to bolus regimen with meals. Labs overall show improvement. Tolerating p.o. intake. Hemodynamically stable. Medically stable for discharge home. Needs to establish with a new PCP, will refer her to Dr. Zeny Hameed at her request. Problems addressed as follows during admission: Insulin-dependent diabetes High anion gap metabolic acidosis DKA -Started on insulin drip. Responded well with closure of anion gap in less than 12 hours. Tolerating p.o. intake. Received 10 units of insulin glargine at night of admission. Glucose in the morning in the 150s. Will transition back to her previous basal bolus regimen with 25 units of glargine at night and carb correction with meals (approximately 12 units with each meal). Medications, meter, needles sent to her pharmacy ([facility] Hyperkalemia normalized with correction of her anion gap metabolic acidosis. A1c 11.5. Defer further management and control to her new PCP. Blood pressure was appropriate during admission, actually a little soft. Held on lisinopril. Will defer reinitiation to new outpatient physician. Patient stopped smoking while in skilled nursing. Still having cravings, would like to try patches for cessation. Prescribed 14 mg patches at discharge. Exam Data for Last 24 hours Vital signs and Labs for Last 24 Hours: Temp Pulse Resp BP Pulse Ox 98.5 F 98 H 17 96/67 L 95 05/19/22 04:00 05/19/22 08:00 05/19/22 08:00 05/19/22 08:00 05/19/22 08:00 Laboratory Results - last 24 hr 05/18/22 12:36: VBG pH 7.23 L, VBG pCO2 39.8, VBG pO2 87.8 H, VBG HCO3 16.2 L, VBG Total CO2 17.4 L, VBG O2 Saturation 95.6 H, VBG Base Excess -11.4 L 05/18/22 12:58: WBC 11.0 H, RBC 4.66, Hgb 13.9, Hct 42.8, MCV 91.9, MCH 29.9, MCHC 32.5, RDW 12.9, Plt Count 321, MPV 9.4, Neut % (Auto) 73.2, Lymph % (Auto) 21.0, [place] % (Auto) 4.2, Eos % (Auto) 0.7, Baso % (Auto) 0.9, Neut # (Auto) 8.1 H, Lymph # (Auto) 2.3, [place] # (Auto) 0.5, Eos # (Auto) 0.1, Baso # (Auto) 0.1 05/18/22 12:58: Sodium 133 L, Potassium 5.1, Chloride 95 L, Carbon Dioxide 13 L, Anion Gap 30.1 H, BUN 18 H, Creatinine 0.60, Estimated Creat Clear 134, Estimated GFR 110, Est GFR ( Amer) 133, Glucose 574 H*, Calcium 9.8, Total Bilirubin 1.0, AST 52 H, ALT 60, Alkaline Phosphatase 154 H, Tr
--- NOTE | 2022-05-20 13:09 | CARE MANAGER ---
Attempted post-discharge phone interview, no answer.
== END 2022-05-19 11:18 | disposition home or self-care (01) | DRG 639 ==
LOC: ER 14:30 → 2ND 15:00
PROVIDERS: Admitting Provider Internal Medicine Adolescent Medicine; Emergency Provider Emergency Medicine; Visit Provider Internal Medicine Adolescent Medicine
DX: E10.10 Type 1 diabetes mellitus with ketoacidosis without coma (principal); Z79.4 Long term (current) use of insulin; F17.210 Nicotine dependence, cigarettes, uncomplicated; E87.5 Hyperkalemia; E86.0 Dehydration; E10.40 Type 1 diabetes mellitus with diabetic neuropathy, unspecified
CPT/HCPCS: 36415; 80048; 80053; 81001; 82009; 82803; 82962; 83036; 83735; 84484; 85025; 93005; 99285; C9803; J2405; U0003; U0005

== ENCOUNTER 2022-11-01 19:28 | Inpatient (IN) | payer OTHER, SELFPAY ==
[2022-11-01 19:28] VITALS: BP 143/74; PULSE 116; RESP 40; TEMP 36.1; O2SAT 97; BMI 27.4
[2022-11-01 19:50] VITALS: BMI 27.4
[2022-11-01 19:56] LABS: ABG Base Excess -28.8 mmol/L (-2.4-2.3); ABG HCO3 2.5 mmhg (22.0-26.0); ABG Oxygen Saturation 98 % (90-100); ABG PO2 139.9 mmhg (80-100); ABG TCO2 2.8 mmhg (23-27)
[2022-11-01 19:57] LABS: Allen's Test Acceptable; Oxygen ROOM AIR %; Source Left Brachial
[2022-11-01 19:58] LABS: ABG PCO2 10.5 mmhg (35.0-45.0)
--- NOTE | 2022-11-01 20:00 | HMH.EDGENADL ---
Discharge Plan Disposition Patient Disposition: Admitted As Inpatient Chief Complaint: Hyper/Hypoglycemia Clinical Impressions Clinical Impression: IDDM (insulin dependent diabetes mellitus), Diabetic ketoacidosis Discharge ED Provider: Dorothy (ED)[facility] Adult HPI General Chief complaint: Hyper/Hypoglycemia Stated complaint: SOA poss DKA Time Seen by Provider: 11/01/22 20:00 Mode of Arrival: Wheelchair Source of Information: Patient and Medical Record Limitations: No Limitations Description of Symptoms (Recalled from ER Triage Doc. by RN): pt states she has been feeling bad today and sugar high History of Present Illness HPI narrative: pt with not feeling well with sob and vomiting and hx of iddm and dka Onset (ago): hour(s) Severity: severe Consistency: constant Associated symptoms: shortness of breath Related Data Previous Rx's Medication Instructions Recorded insulin glargine 100 unit/mL 25 unit (0.25 mL) SQ HS Diabetes 05/19/22 subcutaneous solution 30 days #3 pen needles insulin lispro 100 unit/mL 12 unit (0.12 mL) SQ DIRECTED 05/19/22 subcutaneous pen Diabetes 30 days #3 pen needles nicotine 14 mg/24 hr daily 14 mg transdermal DAILYP PRN 05/19/22 transdermal patch Nicotine Cravings 30 days #30 ea Allergies Allergy/AdvReac Type Severity Reaction Status Date / Time moxifloxacin [From AVELOX] Allergy Unknown SWELLING Verified 09/02/20 10:53 [facility] Disclaimer: The information contained in this section may have been updated after the patient was seen, as this information can be updated by other users. Medical History Cerebral palsy Social History Smoking Status: Unknown if ever smoked alcohol intake: current substance use type: former substance user current occupational status: unemployed Travel in the last 8 weeks: None household members: none housing: house current occupational exposures/hazards: No caffeine: Yes ROS Obtained: Yes All systems reviewed & no additional complaints except as documented Physical Exam General General appearance: alert Head Head exam: normocephalic Eye Eye exam: Present PERRL and EOMI; Absent scleral icterus ENT ENT exam: Present mucous membranes dry Neck Neck exam: Present trachea midline Respiratory Respiratory exam: Present normal lung sounds bilaterally; Absent respiratory distress Cardiovascular Cardiovascular exam: Present tachycardia Abdominal Exam Abdominal exam: Present soft Extremities Exam Extremities exam: Present full ROM Neurological Exam Neurological exam: Present alert, oriented X3 and CN II-XII intact; Absent motor sensory deficit Psychiatric Psychiatric exam: Present anxious Skin Skin exam: Absent rash Medical Decision Making Medical Records Medical records reviewed: Yes I reviewed the patient's medical records. Deshaun Inquiry Pt receiving controlled substance: No Vital Signs: 11/01/22 19:28 Temperature 97.0 F L Temperature Source Rectal Pulse Rate [Right] 116 H Respiratory Rate 40 H Blood Pressure [Right Arm] 143/74 H Blood Pressure Mean [Right Arm] 97 02 Sat by Pulse Oximetry 97 Lab Data Lab results reviewed: Yes I reviewed the patient's lab results. Lab Results 11/01/22 19:50: Specimen Source Left brachial, O2 % Room air, ABG pH 7.00 L*, ABG pCO2 10.5 L, ABG pO2 139.9 H, ABG HCO3 2.5 L, ABG Total CO2 2.8 L, ABG O2 Saturation 98, ABG Base Excess -28.8 L, Barrett Test Acceptable 11/01/22 20:10: WBC 26.3 H*, RBC 4.83, Hgb 14.1, Hct 49.0 H, MCV 101.5 H, MCH 29.1, MCHC 28.7 L, RDW 12.3, Plt Count 374, MPV 8.4, Neut % (Auto) 89.3 H, Lymph % (Auto) 7.1 L, [place] % (Auto) 2.5, Eos % (Auto) 0.9, Baso % (Auto) 0.3, Neut # (Auto) 23.5 H, Lymph # (Auto) 1.9, [place] # (Auto) 0.7, Eos # (Auto) 0.2, Baso # (Auto) 0.1, Total Counted 100, Neutrophils % (Manual) 94 H, Lymphocytes % (Manual) 6 L, Platelet
[2022-11-01 20:17] LABS: Basophils # 0.1 K/mm3 (0-0.2); Basophils % 0.3 % (0.1-2.0); Eosinophils # 0.2 K/mm3 (0.0-0.4); Eosinophils % 0.9 % (0.1-12.0); Hemoglobin 14.1 g/dL (12.2-16.2); Lymphocytes # 1.9 K/mm3 (0.7-4.5); Lymphocytes % 7.1 % (10-50); Mean Corpuscular HGB Conc 28.7 g/dL (31.8-35.4); Mean Corpuscular Hemoglobin 29.1 pg (27.0-31.2); Mean Corpuscular Volume 101.5 fl (81-99); Mean Platelet Volume 8.4 fl (7.4-10.4); Monocytes # 0.7 K/mm3 (0.1-1.0); Monocytes % 2.5 % (1.7-9.3); Neutrophils # 23.5 K/mm3 (1.8-7.8); Neutrophils % 89.3 % (37.0-80.0); Platelet Count 374 K/mm3 (142-424); Red Blood Count 4.83 M/mm3 (4.20-5.40); Red Cell Distribution Width 12.3 % (11.5-17.5); White Blood Count 26.3 K/mm3 (4.8-10.8)
[2022-11-01 20:22] LABS: MANUAL DIFFERENTIAL MANUAL DIFFERENTIAL (MANUAL DIFF)
[2022-11-01 20:25] LABS: Acetone, Serum (Rapid) Moderate (None Detect)
[2022-11-01 20:27] LABS: HCG Qualitative, Serum Negative (Negative)
--- NOTE | 2022-11-01 20:28 | XR_ITS ---
PROCEDURE INFORMATION: Exam: XR Chest Exam date and time: 11/01/2022 8:49 PM Age: 41 years old Clinical indication: Cough and shortness of breath; Additional info: Cough, chills, shortness of air TECHNIQUE: Imaging protocol: Radiologic exam of the chest. Views: 1 view. COMPARISON: CR XR CHEST PORTABLE 09/02/2020 5:52 AM FINDINGS: Lungs: Question mild peribronchial thickening and perihilar stranding suggesting possible bronchitis. Normal pulmonary expansion. Pulmonary vasculature grossly normal. Mild linear density in the central left lung base, likely mild subsegmental atelectasis or vascular shadow. Patchy basilar infiltrate considered less likely. Pleural spaces: No pleural effusion. No pneumothorax. Heart/Mediastinum: Heart size normal. No tracheal/mediastinal shift. Bones/joints: No acute osseous abnormalities are identified. IMPRESSION: 1. Question mild changes of bronchitis. 2. Linear density in the central left lung base likely vascular or mild linear atelectasis. Patchy basilar infiltrate considered less likely.
[2022-11-01 20:30] LABS: Coronavirus 19, PCR Not Detected (NotDetected); Influenza A, PCR Not Detected (NotDetected); Influenza B, PCR Not Detected (NotDetected)
--- NOTE | 2022-11-01 20:38 | PC.NURSE ---
Admissions notified of admit at this time. Pt assigned to room 217 Stepdown.
[2022-11-01 20:43] LABS: Alanine Aminotransferase 145 U/L (12-78); Albumin Level 4.5 g/dl (3.5-5.0); Albumin/Globulin Ratio 1.3 (1.1-1.8); Alkaline Phosphatase 181 U/L (38-126); Aspartate Amino Transferase 70 U/L (14-36); Bilirubin,Total 0.5 mg/dl (0.2-1.3); Blood Urea Nitrogen 15 mg/dl (7-17); Calcium 8.4 mg/dl (8.4-10.2); Chloride 100 mmol/L (98-107); Creatinine Clearance Estimated 65 mL/min (50-200); Estimated Glomerular Filt Rate 45 ml/min (>60); GFR (African American) 55 ML/MIN (>60); Globulin 3.5 g/dL (1.3-3.2); Sodium 133 mmol/L (136-145)
[2022-11-01 20:46] LABS: Erythrocyte Sedimentation Rate 3 mm/hr (0-20)
[2022-11-01 20:52] LABS: Lymphocytes % 6 % (10-50); Macrocytosis 1+; Neutrophils % 94 % (42-76); Platelet Estimate Normal; Procalcitonin 3.37 ng/mL (0.0-2.0); Total Cells Counted 100
--- NOTE | 2022-11-01 20:54 | ECG_ITS ---
APPROVED REPORT Exam: Resting ECG HR:117 bpm ECG Measurements Heart Rate 117 AXES IN 158 P 76 QRSd 106 QRS 73 QT 352 T 38 QTc 422 Conclusion SINUS TACHYCARDIA Bi-atrial abnormality ABNORMAL RHYTHM ECG UNCONFIRMED REPORT Electronically signed by : Dillon Garcia MD 11/04/2022 14:31:10
[2022-11-01 21:08] VITALS: BP 122/78; PULSE 118; RESP 36; TEMP 36.1; O2SAT 99
[2022-11-01 21:08] LABS: Potassium 6.1 mmoL/L (3.5-5.1)
--- NOTE | 2022-11-01 21:08 | PC.NURSE ---
lab contacted about lab results, chemistry had not been released and they were going to have blood re drawn. I explained that patient was in DKA and at that point critical levels were reported to me and I repeated and confirmed and made Dr. De La Cruz aware
[2022-11-01 21:09] LABS: Anion Gap 34.1 mEq/L (5-15); Carbon Dioxide < 5 mmol/L (22.0-30.0); Glucose 667 mg/dl (74-100)
[2022-11-01 21:10] LABS: C-Reactive Protein 19.1 mg/L (0-4)
--- NOTE | 2022-11-01 21:25 | EXP.HP ---
History of Present Illness *Admission Date: 11/01/22 *Reason for visit:: Chills, Body Aches, shortness of air, dysuria *History of present illness: Ms. Feliciano is a 41-year-old female with a past medical history of IDDM and chronic Tobacco Use. She presents to [facility] through the ER due to complaints of fevers, chills, body aches and dysuria for a couple days and she reports that she has been without her diabetic medications, (insulins). In the ER, ABG showed a pH of 7.0, HCO3 2.5, PCO2 10.5. CBC showed an elevated WBC of 26.3, CMP showed a Na of 133, K of 6.1, Creatinine of 1.30 and Glucose of 667. In the ER, the patient received NS x 1 liter, Regular insulin 10 units and was started on an insulin gtt at 4ml/hr. The patient was admitted with initial impression: DKA and High Anion Gap Metabolic Acidosis. [facility] Disclaimer: The information contained in this section may have been updated after the patient was seen, as this information can be updated by other users. Medical History Cerebral palsy Diabetes Hepatitis C Tobacco abuse Social History (Updated 11/02/22 @ 00:58 by Elsie Galvez RN) Smoking Status: Unknown if ever smoked alcohol intake: current substance use type: former substance user current occupational status: unemployed Travel in the last 8 weeks: None household members: none housing: house current occupational exposures/hazards: No caffeine: Yes Review of Systems Review of Systems Review of systems:: pertinent systems reviewed and negative unless documented below Constitutional Constitutional: Reports body ache(s), Reports chills and Reports fever(s) Eyes Eyes: Reports system reviewed and no additional complaints, except as documented ENT Ears, Nose, Mouth, and Throat: Reports system reviewed and no additional complaints, except as documented *Cardiovascular Cardiovascular: Reports system reviewed and no additional complaints, except as documented and Reports dyspnea *Respiratory Respiratory: Reports cough and Reports dyspnea *Gastrointestinal Gastrointestinal: Reports system reviewed and no additional complaints, except as documented *Genitourinary Genitourinary: Reports dysuria *Musculoskeletal Musculoskeletal: Reports system reviewed and no additional complaints, except as documented Integumentary/Breasts Skin/Breast: Reports system reviewed and no additional complaints, except as documented *Neurologic Neurologic: Reports system reviewed and no additional complaints, except as documented Psychiatric Psychiatric: Reports system reviewed and no additional complaints, except as documented Endocrine Endocrine: Reports system reviewed and no additional complaints, except as documented Hematologic/Lymphatic Hematologic/Lymphatic: Reports system reviewed and no additional complaints, except as documented Allergic/Immunologic Allergic/Immunologic: Reports system reviewed and no additional complaints, except as documented Meds Home Medications and Allergies Home Medications Medication Instructions Recorded Confirmed Type insulin glargine 100 unit/mL 25 unit (0.25 mL) SQ HS Diabetes 05/19/22 11/02/22 Rx subcutaneous solution 30 days #3 pen needles amitriptyline 50 mg tablet 100 mg PO HS MOOD 11/02/22 11/02/22 History bupropion HCl 100 mg tablet,12 hr 100 mg PO BID MOOD 11/02/22 11/02/22 History sustained-release insulin lispro 100 unit/mL 12 unit SQ AC Diabetes 11/02/22 11/02/22 History subcutaneous half-unit pen (Humalog Oscar KwikPen (U-100)) topiramate 50 mg tablet 100 mg PO DAILY MIGRAINE 11/02/22 11/02/22 History New Prescriptions to Start Prescriptions: Allergies Allergy/AdvReac Type Severity Reaction Status Date / Time moxifloxacin [From AVELOX] Allergy Unknown SWELLING Verified 09/02/20 10:53 Exam Data for Last 24 hours Vital signs and Labs for Last 24 Hours:
--- NOTE | 2022-11-01 21:28 | PC.NURSE ---
Pt arrived to floor by bed at thisd time
[2022-11-01 21:52] LABS: Hemoglobin A1C 10.3 % (4.0-6.0)
[2022-11-01 22:00] VITALS: BP 146/79; PULSE 116; RESP 27; TEMP 35.6; O2SAT 100; BMI 26.5
--- NOTE | 2022-11-01 22:00 | PC.NURSE ---
Titrated insulin gtt to 6u/hr per protocol
[2022-11-01 23:00] LABS: Blood Urea Nitrogen 16 mg/dl (7-17); Chloride 106 mmol/L (98-107); Creatinine Clearance Estimated 69 mL/min (50-200); Estimated Glomerular Filt Rate 50 ml/min (>60); GFR (African American) 60 ML/MIN (>60); Magnesium 2.1 mg/dl (1.6-2.3); Phosphorous 5.7 mg/dl (2.5-4.5); Potassium 4.7 mmoL/L (3.5-5.1); Sodium 137 mmol/L (136-145)
[2022-11-01 23:15] LABS: POC Glucose,Bedside 535 (70-110)
[2022-11-01 23:15] LABS: POC Glucose,Bedside 425 (70-110)
[2022-11-01 23:23] LABS: Anion Gap 30.7 mEq/L (5-15)
[2022-11-01 23:25] LABS: Carbon Dioxide < 5 mmol/L (22.0-30.0); Glucose 498 mg/dl (74-100)
[2022-11-01 23:34] VITALS: TEMP 35.2
--- NOTE | 2022-11-01 23:35 | PC.NURSE ---
Bare hugger applied to pt at this time. Rectal temp down to 95.4
[2022-11-02] VITALS (17 sets, daily range): BP systolic 107–159; BP diastolic 60–87; PULSE 97–125; RESP 18–27; TEMP 36.4–37.4; O2SAT 98–100; BMI 28.5
[2022-11-02 00:01] LABS: Lipase 52 U/L (23-300)
--- NOTE | 2022-11-02 00:17 | PC.NURSE ---
Insulin gtt titrated down to 3u/hr at this time
[2022-11-02 01:18] LABS: POC Glucose,Bedside 247 (70-110)
[2022-11-02 01:18] LABS: POC Glucose,Bedside 285 (70-110)
[2022-11-02 01:55] LABS: Blood Urea Nitrogen 17 mg/dl (7-17); Chloride 111 mmol/L (98-107); Creatinine Clearance Estimated 75 mL/min (50-200); Estimated Glomerular Filt Rate 55 ml/min (>60); GFR (African American) 66 ML/MIN (>60); Glucose 247 mg/dl (74-100); Potassium 5.3 mmoL/L (3.5-5.1); Sodium 140 mmol/L (136-145)
--- NOTE | 2022-11-02 02:00 | PC.NURSE ---
pt's temp 98.7 axillary, turned lory hugger off at this time
[2022-11-02 02:07] LABS: Anion Gap 29.3 mEq/L (5-15)
[2022-11-02 02:08] LABS: Carbon Dioxide < 5 mmol/L (22.0-30.0)
--- NOTE | 2022-11-02 03:10 | PC.NURSE ---
in and out cathed pt to obtain urine for labs and obtained 900mL clear arun UOP, noted pt with menses at this time
[2022-11-02 03:37] LABS: Microscopic, Urine URINE MICROSCOPIC (MICROSCOPIC)
[2022-11-02 03:45] LABS: Appearance,Urine CLEAR (Clear); Blood, Urine 1+ (Negative); Color,Urine YELLOW (Yellow); Glucose,Urine (UA) 2+ (Negative); Ketones,Urine 3+ (Negative); Leukocyte Esterase,Urine Negative (Negative); Nitrate,Urine Negative (Negative); PH,Urine 5.5 (5.0-8.5); Protein,Urine 1+ (Negative); Specific Gravity, Urine >= 1.030 (1.005-1.030); Urobilinogen,Urine 0.2 EU/dl (0.2)
[2022-11-02 03:59] LABS: Amorphous Sediment,Urine 1+ /lpf; Bacteria,Urine 1+ /lpf; Bilirubin,Urine Negative (Negative); Yeast,Urine 2+ /lpf
--- NOTE | 2022-11-02 04:11 | PC.NURSE ---
fsbs 138, decreased insulin drip to 1.5units/hr and changed ivf to D5NS at 75mL/hr (from NS @ 125mL/hr) per dka protocol
[2022-11-02 04:30] LABS: Amphetamine/Metha Screen,Urine Negative ng/ml (<1000)
[2022-11-02 04:35] LABS: Barbiturates Screen,Urine Negative ng/ml (<200); Benzodiazepines Screen,Urine Negative ng/ml (<200)
[2022-11-02 04:36] LABS: Cannabinoid Screen,Urine Negative ng/ml (<50); Cocaine Screen,Urine Negative ng/ml (<300)
[2022-11-02 04:37] LABS: Methadone Screen,Urine Negative ng/ml (<300)
[2022-11-02 04:38] LABS: Opiate Screen,Urine Negative ng/ml (<300)
[2022-11-02 04:40] LABS: Phencyclidine Screen,Urine Negative ng/ml (<25)
[2022-11-02 06:44] LABS: Basophils # 0.1 K/mm3 (0-0.2); Basophils % 0.3 % (0.1-2.0); Eosinophils % 0.1 % (0.1-12.0); Hematocrit 41.8 % (37.0-47.0); Hemoglobin 12.8 g/dL (12.2-16.2); Lymphocytes # 2.7 K/mm3 (0.7-4.5); Lymphocytes % 9.9 % (10-50); Mean Corpuscular HGB Conc 30.7 g/dL (31.8-35.4); Mean Corpuscular Hemoglobin 29.2 pg (27.0-31.2); Mean Corpuscular Volume 95.3 fl (81-99); Mean Platelet Volume 8.3 fl (7.4-10.4); Monocytes # 1.2 K/mm3 (0.1-1.0); Monocytes % 4.5 % (1.7-9.3); Neutrophils # 23.3 K/mm3 (1.8-7.8); Neutrophils % 85.2 % (37.0-80.0); Platelet Count 339 K/mm3 (142-424); Red Blood Count 4.38 M/mm3 (4.20-5.40); Red Cell Distribution Width 12.2 % (11.5-17.5); White Blood Count 27.3 K/mm3 (4.8-10.8)
[2022-11-02 06:47] LABS: MANUAL DIFFERENTIAL MANUAL DIFFERENTIAL (MANUAL DIFF)
[2022-11-02 06:50] LABS: Chloride 115 mmol/L (98-107); Potassium 4.3 mmoL/L (3.5-5.1); Sodium 142 mmol/L (136-145)
[2022-11-02 06:53] LABS: Alanine Aminotransferase 120 U/L (12-78); Albumin Level 3.9 g/dl (3.5-5.0); Albumin/Globulin Ratio 1.3 (1.1-1.8); Alkaline Phosphatase 137 U/L (38-126); Aspartate Amino Transferase 54 U/L (14-36); Bilirubin,Total 0.5 mg/dl (0.2-1.3); Blood Urea Nitrogen 15 mg/dl (7-17); Calcium 7.9 mg/dl (8.4-10.2); Creatinine Clearance Estimated 89 mL/min (50-200); Estimated Glomerular Filt Rate 61 ml/min (>60); GFR (African American) 74 ML/MIN (>60); Globulin 3.1 g/dL (1.3-3.2); Glucose 162 mg/dl (74-100)
--- NOTE | 2022-11-02 06:54 | PC.NURSE ---
fsbs 179, continuing infusions per dka protocol
[2022-11-02 06:55] LABS: Anion Gap 26.3 mEq/L (5-15)
[2022-11-02 06:56] LABS: Carbon Dioxide < 5 mmol/L (22.0-30.0)
[2022-11-02 06:59] LABS: POC Glucose,Bedside 173 (70-110)
[2022-11-02 06:59] LABS: POC Glucose,Bedside 151 (70-110)
[2022-11-02 06:59] LABS: POC Glucose,Bedside 212 (70-110)
[2022-11-02 06:59] LABS: POC Glucose,Bedside 162 (70-110)
[2022-11-02 06:59] LABS: POC Glucose,Bedside 138 (70-110)
[2022-11-02 06:59] LABS: POC Glucose,Bedside 179 (70-110)
--- NOTE | 2022-11-02 07:00 | US_ITS ---
FINAL REPORT CLINICAL HISTORY: Transminitis FINDINGS: Sonographic images of the right upper quadrant were obtained. The pancreas is partially obscured. The liver has increased echogenicity consistent with fatty infiltration. There are several gallstones in the gallbladder. There is no evidence of biliary ductal dilatation.The common duct measures 5 mm. Limited images of the right kidney are unremarkable. IMPRESSION: Fatty liver. Cholelithiasis. Reviewed, Interpreted and Dictated by Jason Kaufman III, MD Transcribed by Belkis Winter Authenticated and [facility]
[2022-11-02 07:08] LABS: Lymphocytes % 14 % (10-50); Monocytes % 4 % (2-9); Neutrophils % 82 % (42-76); Platelet Estimate Normal; RBC Morphology Normal; Total Cells Counted 100
--- NOTE | 2022-11-02 07:45 | EXP.ACUTE.PN ---
Subjective *Date: 11/02/22 *Time: 09:16 Interval history: Patient awakens and moves along with response to verbal and painful stimuli. Somnolent however goes back to sleep quickly. Tachycardic on exam. Blood pressure normal. On room air. Afebrile. Labs showing improvement in gap but still high. Improved from 34 on admission to 26 this morning. Continues on insulin drip with dextrose infusion. Continues to necessitate stepdown level of care. No nausea, vomiting, diarrhea Medical Exam Vital signs and Labs for Last 24 Hours: Vital Signs Temp Pulse Pulse Resp BP BP Pulse Ox 11/02/22 07:40 99.4 F 11/02/22 06:00 122 H 22 138/74 98 11/02/22 05:56 120 H 11/02/22 04:00 98.9 F 11/02/22 04:00 121 H 20 137/74 99 11/02/22 02:00 98.7 F 123 H 27 H 147/75 H 99 11/02/22 01:23 120 H 11/01/22 22:00 96.0 F L 11/02/22 00:00 97 H 25 H 135/84 100 11/01/22 23:34 95.4 F L 11/01/22 22:00 96.0 F L 116 H 27 H 146/79 H 100 11/01/22 21:08 97.0 F L 118 H 36 H 122/78 11/01/22 19:28 97.0 F L 116 H 40 H 143/74 H 97 Intake and Output 11/01/22 11/01/22 11/02/22 15:59 23:59 07:59 Intake Total 230 / 230 Output Total 900 / 900 Balance -670 / -670 Intake: Intake, Oral Amount 0 / 0 Intake, Total IV Amount 230 / 230 Azithromycin 500 mg In 0.9 % 230 / 230 Sodium Chloride 250 ml @ 250 mls/hr IV Q24H [facility] Rx#:[id number] Output: Output, Urine Amount 900 / 900 Other: Weight 70.6 kg 75.9 kg Patient Weight 11/02/22 23:59 Weight 75.9 kg Laboratory Results - last 24 hr 11/01/22 19:50: Specimen Source Left brachial, O2 % Room air, ABG pH 7.00 L*, ABG pCO2 10.5 L, ABG pO2 139.9 H, ABG HCO3 2.5 L, ABG Total CO2 2.8 L, ABG O2 Saturation 98, ABG Base Excess -28.8 L, Barrett Test Acceptable 11/01/22 20:10: WBC 26.3 H*, RBC 4.83, Hgb 14.1, Hct 49.0 H, MCV 101.5 H, MCH 29.1, MCHC 28.7 L, RDW 12.3, Plt Count 374, MPV 8.4, Neut % (Auto) 89.3 H, Lymph % (Auto) 7.1 L, [place] % (Auto) 2.5, Eos % (Auto) 0.9, Baso % (Auto) 0.3, Neut # (Auto) 23.5 H, Lymph # (Auto) 1.9, [place] # (Auto) 0.7, Eos # (Auto) 0.2, Baso # (Auto) 0.1, Total Counted 100, Neutrophils % (Manual) 94 H, Lymphocytes % (Manual) 6 L, Platelet Estimate Normal, RBC Morphology Not Reportable, Macrocytosis 1+, ESR 3 11/01/22 20:10: Sodium 133 L, Potassium 6.1 H*, Chloride 100, Carbon Dioxide < 5 L*, Anion Gap 34.1 H, BUN 15, Creatinine 1.30 H, Estimated Creat Clear 65, Estimated GFR 45 L, Est GFR ( Amer) 55 L, Glucose 667 H*, Calcium 8.4, Total Bilirubin 0.5, AST 70 H, ALT 145 H, Alkaline Phosphatase 181 H, C-Reactive Protein 19.1 H, Total Protein 8.0 D, Albumin 4.5, Globulin 3.5 H, Albumin/Globulin Ratio 1.3, Procalcitonin 3.37 H, Acetone Level Moderate 11/01/22 20:10: Serum HCG, Qual Negative 11/01/22 20:10: Hemoglobin A1c 10.3 H 11/01/22 20:22: SARS-CoV-2 (PCR) Not detected, Influenza A Untype (PCR) Not detected, Influenza Type B (PCR) Not detected 11/01/22 21:46: POC Glucose 535 H* 11/01/22 22:25: Lipase 52 11/01/22 22:25: Sodium 137, Potassium 4.7 D, Chloride 106, Carbon Dioxide < 5 L*, Anion Gap 30.7 H, BUN 16, Creatinine 1.20 H, Estimated Creat Clear 69, Estimated GFR 50 L, Est GFR ( Amer) 60, Glucose 498 H* D, Calcium 8.0 L, Phosphorus 5.7 H, Magnesium 2.1 11/01/22 23:06: POC Glucose 425 H* 11/02/22 00:15: POC Glucose 285 H 11/02/22 01:11: POC Glucose 247 H 11/02/22 01:30: Sodium 140, Potassium 5.3 H, Chloride 111 H, Carbon Dioxide < 5 L*, Anion Gap 29.3 H, BUN 17, Creatinine 1.10 H, Estimated Creat Clear 75, Estimated GFR 55 L, Est GFR ( Amer) 66, Glucose 247 H D, Calcium 8.0 L 11/02/22 02:03: POC Glucose 212 H 11/02/22 03:00: Urine Opiates Screen Negative, Urine Methadone Screen Negative, Ur Barbituates Screen Negative, Ur Phencyclidine Scrn Negative, Ur Amphetamines Screen Negative, U Benzodiazepines Scrn Negative, Urine Cocaine Screen Negative, U Marij
--- NOTE | 2022-11-02 07:58 | XR_ITS ---
FINAL REPORT CLINICAL HISTORY: dyspnea COMPARISON: 11/01/2022 FINDINGS: A single portable view of the chest was obtained. The heart size and pulmonary vascularity are within normal limits. The mediastinum is within normal limits. There are mild bibasilar opacities, favor atelectasis. The bony thorax is intact. IMPRESSION: Mild bibasilar opacities, favor atelectasis. Reviewed, Interpreted and Dictated by Jason Kaufman III, MD Transcribed by Belkis Winter Authenticated and [facility]
--- NOTE | 2022-11-02 08:01 | HMH.PHAINT1 ---
Pharmacy Intervention Comments: MEDICATION RECONCILIATION COMPLETED ON PATIENT USING EXTERNAL FILL HISTORY FROM PHARMACY. -SHANTELL BARBOUR, EDDD
[2022-11-02 08:04] LABS: Lactic Acid < 0.5 mmol/L (0.7-2.1)
[2022-11-02 08:45] LABS: Acetone, Serum (Rapid) Moderate (None Detect)
[2022-11-02 09:04] LABS: POC Glucose,Bedside 187 (70-110)
[2022-11-02 09:17] LABS: POC Glucose,Bedside 250 (70-110)
[2022-11-02 10:35] LABS: Chloride 116 mmol/L (98-107); Sodium 143 mmol/L (136-145)
[2022-11-02 10:38] LABS: Blood Urea Nitrogen 15 mg/dl (7-17); Creatinine Clearance Estimated 89 mL/min (50-200); Estimated Glomerular Filt Rate 61 ml/min (>60); GFR (African American) 74 ML/MIN (>60)
[2022-11-02 10:39] LABS: Calcium 8.1 mg/dl (8.4-10.2); Glucose 243 mg/dl (74-100); Magnesium 1.9 mg/dl (1.6-2.3)
[2022-11-02 10:44] LABS: Carbon Dioxide < 5 mmol/L (22.0-30.0)
[2022-11-02 13:26] LABS: Chloride 117 mmol/L (98-107); Sodium 142 mmol/L (136-145)
[2022-11-02 13:27] LABS: Potassium 3.5 mmoL/L (3.5-5.1)
[2022-11-02 13:29] LABS: Blood Urea Nitrogen 16 mg/dl (7-17); Creatinine Clearance Estimated 99 mL/min (50-200); Estimated Glomerular Filt Rate 69 ml/min (>60); GFR (African American) 83 ML/MIN (>60)
[2022-11-02 13:30] LABS: Anion Gap 17.5 mEq/L (5-15); Carbon Dioxide 11 mmol/L (22.0-30.0); Glucose 179 mg/dl (74-100)
--- NOTE | 2022-11-02 14:20 | PC.NURSE ---
Pt is sleeping in bed at this time. She is A&O x3 when awake. Has ambulated to BR with assist x1. Voided in toilet. Insulin gtt is currently infusing @ 2 units per hour. Titrated. BP stable. HR tachycardic. Pt tachypneic. Medication administered per mar and doctors orders. Safety measures in place. Call light within reach.
--- NOTE | 2022-11-02 14:25 | PC.NURSE ---
Insulin titration 0800 Titrated 1.5 units/hr to 2 units/hr 0900 titrated to 3 units/hr 1015 titrated to 4 units/hr 1400 titrated to 2 units/hr
[2022-11-02 16:10] LABS: POC Glucose,Bedside 172 (70-110)
[2022-11-02 16:10] LABS: POC Glucose,Bedside 208 (70-110)
[2022-11-02 16:10] LABS: POC Glucose,Bedside 243 (70-110)
[2022-11-02 16:10] LABS: POC Glucose,Bedside 184 (70-110)
[2022-11-02 16:10] LABS: POC Glucose,Bedside 150 (70-110)
[2022-11-02 16:10] LABS: POC Glucose,Bedside 166 (70-110)
[2022-11-02 17:16] LABS: POC Glucose,Bedside 154 (70-110)
[2022-11-02 18:36] LABS: Chloride 117 mmol/L (98-107); Potassium 3.3 mmoL/L (3.5-5.1); Sodium 142 mmol/L (136-145)
[2022-11-02 18:39] LABS: Anion Gap 14.3 mEq/L (5-15); Blood Urea Nitrogen 15 mg/dl (7-17); Calcium 7.9 mg/dl (8.4-10.2); Carbon Dioxide 14 mmol/L (22.0-30.0); Creatinine Clearance Estimated 111 mL/min (50-200); Estimated Glomerular Filt Rate 79 ml/min (>60); GFR (African American) 96 ML/MIN (>60); Glucose 160 mg/dl (74-100)
[2022-11-02 18:40] LABS: POC Glucose,Bedside 170 (70-110)
[2022-11-02 19:37] LABS: Calcium 7.8 mg/dl (8.4-10.2); Magnesium 1.9 mg/dl (1.6-2.3)
[2022-11-02 19:42] LABS: Phosphorous 1.4 mg/dl (2.5-4.5)
--- NOTE | 2022-11-02 19:43 | PC.NURSE ---
notified ADRIENNE Barth of pt's critical phosphorus of 1.4, SWEAT BAND SEWER to order K phos
[2022-11-02 20:34] LABS: POC Glucose,Bedside 153 (70-110)
--- NOTE | 2022-11-02 21:14 | PC.NURSE ---
ADRIENNE Barth stopped insulin drip as pt's gap closed at this time and adrienne ordered to start sliding scale insulin and lantus, insulin drip stopped, fsbs 153 at this time, will check another fsbs in 2 hours per dka protocol
[2022-11-02 23:58] LABS: POC Glucose,Bedside 233 (70-110)
[2022-11-03] VITALS (13 sets, daily range): BP systolic 101–125; BP diastolic 55–77; PULSE 90–110; RESP 16–27; TEMP 36.3–36.9; O2SAT 97–99; BMI 28.0
--- NOTE | 2022-11-03 02:59 | PC.NURSE ---
notified ADRIENNE Barth of pt's 299 fsbs of 404, FNP stated will look at chart and place orders
[2022-11-03 03:15] LABS: POC Glucose,Bedside 404 (70-110)
[2022-11-03 05:50] LABS: POC Glucose,Bedside 282 (70-110)
[2022-11-03 06:25] LABS: Chloride 115 mmol/L (98-107)
[2022-11-03 06:26] LABS: Potassium 3.1 mmoL/L (3.5-5.1); Sodium 139 mmol/L (136-145)
[2022-11-03 06:29] LABS: Anion Gap 14.1 mEq/L (5-15); Blood Urea Nitrogen 13 mg/dl (7-17); Calcium 7.4 mg/dl (8.4-10.2); Carbon Dioxide 13 mmol/L (22.0-30.0); Creatinine Clearance Estimated 124 mL/min (50-200); Estimated Glomerular Filt Rate 92 ml/min (>60); GFR (African American) 112 ML/MIN (>60); Glucose 271 mg/dl (74-100)
--- NOTE | 2022-11-03 09:49 | PC.NURSE ---
cleared for multiple shifts.
[2022-11-03 09:53] LABS: Calcium 7.3 mg/dl (8.4-10.2); Magnesium 1.8 mg/dl (1.6-2.3)
[2022-11-03 10:08] LABS: Phosphorous 1.5 mg/dl (2.5-4.5)
--- NOTE | 2022-11-03 10:34 | PC.NURSE ---
1007 received critical lab notification on pt. Phos 1.5 results repeated and verified back. Dr Ross notified face to face at 1007. pt is currently receiving IV phosporus infusion at this time.
[2022-11-03 11:32] LABS: POC Glucose,Bedside 220 (70-110)
[2022-11-03 14:19] LABS: Chloride 113 mmol/L (98-107); Potassium 3.4 mmoL/L (3.5-5.1); Sodium 138 mmol/L (136-145)
[2022-11-03 14:22] LABS: Anion Gap 10.4 mEq/L (5-15); Blood Urea Nitrogen 10 mg/dl (7-17); Calcium 7.3 mg/dl (8.4-10.2); Carbon Dioxide 18 mmol/L (22.0-30.0); Creatinine Clearance Estimated 145 mL/min (50-200); Estimated Glomerular Filt Rate 110 ml/min (>60); GFR (African American) 133 ML/MIN (>60); Glucose 200 mg/dl (74-100)
--- NOTE | 2022-11-03 15:14 | EXP.ACUTE.PN ---
Subjective *Date: 11/03/22 *Time: 15:16 Interval history: Gap closed, tolerating sliding scale insulin and basal regimen. Tolerating p.o. intake overnight. Remained on room air. Remains afebrile. Sleeping a lot but will wake to verbal stimuli and answer questions appropriately. Ambulating to the bathroom. Denies chest pain, nausea, vomiting, or abdominal pain. Medical Exam Vital signs and Labs for Last 24 Hours: Vital Signs Temp Pulse Pulse Pulse Resp BP Pulse Ox 11/03/22 14:00 97 H 20 124/77 99 11/03/22 11:23 98.5 F 11/03/22 08:00 103 H 11/03/22 10:00 106 H 20 107/68 L 98 11/03/22 08:00 104 H 97 11/03/22 08:00 97.4 F L 103 H 27 H 116/68 97 11/03/22 08:00 97.7 F 11/03/22 04:00 106 H 19 110/74 11/03/22 06:00 90 21 111/66 11/02/22 20:00 110 H 11/03/22 04:00 100 H 11/03/22 04:00 97.9 F 11/03/22 02:00 105 H 20 101/55 L 98 11/03/22 00:00 106 H 20 113/66 98 11/02/22 22:00 107 H 20 119/87 100 11/03/22 00:00 98.3 F 11/03/22 00:18 100 H 11/02/22 20:00 97.7 F 11/02/22 20:00 107 H 20 126/80 100 11/02/22 18:00 111 H 18 124/76 98 11/02/22 16:00 114 H 11/02/22 16:00 113 H 19 133/74 98 Intake and Output 11/02/22 11/03/22 11/03/22 23:59 07:59 15:59 Intake Total 1032 / 6020 4988 / 6020 Output Total 1800 / 3700 800 / 2000 1200 / 2000 Balance -1800 / -2438 232 / 4020 3788 / 4020 Intake: Intake, Oral Amount 360 / 600 240 / 600 Intake, Other Amount 4748 / 4748 Intake, Total IV Amount 672 / 672 Azithromycin 500 mg In 0.9 % 250 / 250 Sodium Chloride 250 ml @ 250 mls/hr IV Q24H [facility] Rx#:[id number] Ceftriaxone Sodium 1 gm In 0.9 50 / 50 % Sodium Chloride 50 ml @ 100 mls/hr IV Q24H [facility] Rx#:[id number] Insulin Regular, Human 100 unit 72 / 72 In 0.9 % Sodium Chloride 100 ml @ 4 UNIT/HR 4.04 mls/hr IV . Q25H [facility] Rx#:[id number] KCl 10mEq/100ml 100 ml @ 100 300 / 300 mls/hr IV Q1H [facility] Rx#:[id number] Output: Output, Urine Amount 1800 / 3700 800 / 2000 1200 / 2000 Other: Number of Voids 1 Number of Unmeasured Voids 1 Weight 74.503 kg Patient Weight 11/03/22 23:59 Weight 74.503 kg Laboratory Results - last 24 hr 11/02/22 10:15: POC Glucose 243 H 11/02/22 11:26: POC Glucose 208 H 11/02/22 13:18: POC Glucose 172 H 11/02/22 14:09: POC Glucose 150 H 11/02/22 15:07: POC Glucose 166 H 11/02/22 15:59: POC Glucose 184 H 11/02/22 17:06: POC Glucose 154 H 11/02/22 17:55: Sodium 142, Potassium 3.3 L, Chloride 117 H, Carbon Dioxide 14 L, Anion Gap 14.3, BUN 15, Creatinine 0.80, Estimated Creat Clear 111, Estimated GFR 79, Est GFR ( Amer) 96, Glucose 160 H, Calcium 7.9 L 11/02/22 17:55: Calcium 7.8 L, Phosphorus 1.4 L D, Magnesium 1.9 11/02/22 18:33: POC Glucose 170 H 11/02/22 20:20: POC Glucose 153 H 11/02/22 22:55: POC Glucose 233 H 11/03/22 02:58: POC Glucose 404 H* 11/03/22 05:42: Sodium 139, Potassium 3.1 L, Chloride 115 H, Carbon Dioxide 13 L, Anion Gap 14.1, BUN 13, Creatinine 0.70, Estimated Creat Clear 124, Estimated GFR 92, Est GFR ( Amer) 112, Glucose 271 H D, Calcium 7.4 L 11/03/22 05:43: POC Glucose 282 H 11/03/22 09:35: Calcium 7.3 L, Phosphorus 1.5 L, Magnesium 1.8 11/03/22 11:22: POC Glucose 220 H 11/03/22 13:53: Sodium 138, Potassium 3.4 L, Chloride 113 H, Carbon Dioxide 18 L, Anion Gap 10.4, BUN 10, Creatinine 0.60, Estimated Creat Clear 145, Estimated GFR 110, Est GFR ( Amer) 133, Glucose 200 H D, Calcium 7.3 L I & O for Labs for Last 24 Hours: Intake & Output 10/31/22 11/01/22 11/02/22 11/03/22 23:59 23:59 23:59 23:59 Intake Total 230 / 1262 6020 / 6020 Output Total 3700 / 3700 1999 Balance -3470 / -2438 4020 / 4020 Weight 70.6 kg 75.9 kg 74.503 kg Constitutional: Present no acute distress and chronically ill
--- NOTE | 2022-11-03 15:46 | PC.NURSE ---
ok to transfer pt out of stepdown at this time. pt needs to remain on monitor. [id number]
[2022-11-03 16:52] LABS: POC Glucose,Bedside 177 (70-110)
--- NOTE | 2022-11-03 16:58 | PC.NURSE ---
Pt was up to bedside and took a partial bath early in the afternoon. pt is a/o x 3, lungs are clear but diminished. bowel sounds are active in all quads. pt has slept off and on throughout the shift but is easily awakened.
[2022-11-03 20:16] LABS: POC Glucose,Bedside 262 (70-110)
[2022-11-03 20:21] LABS: Peripheral Smear Review Scanned Result
[2022-11-03 21:54] LABS: Basophils % 0.6 % (0.1-2.0); Chloride 112 mmol/L (98-107); Eosinophils # 0.1 K/mm3 (0.0-0.4); Eosinophils % 1.6 % (0.1-12.0); Hematocrit 31.7 % (37.0-47.0); Hemoglobin 10.6 g/dL (12.2-16.2); Lymphocytes # 2.2 K/mm3 (0.7-4.5); Lymphocytes % 36.2 % (10-50); Mean Corpuscular HGB Conc 33.4 g/dL (31.8-35.4); Mean Corpuscular Hemoglobin 29.4 pg (27.0-31.2); Mean Platelet Volume 8.1 fl (7.4-10.4); Monocytes # 0.2 K/mm3 (0.1-1.0); Monocytes % 3.1 % (1.7-9.3); Neutrophils # 3.6 K/mm3 (1.8-7.8); Neutrophils % 58.6 % (37.0-80.0); Platelet Count 212 K/mm3 (142-424); Red Blood Count 3.61 M/mm3 (4.20-5.40); Red Cell Distribution Width 12.6 % (11.5-17.5); Sodium 140 mmol/L (136-145); White Blood Count 6.1 K/mm3 (4.8-10.8)
[2022-11-03 21:57] LABS: Blood Urea Nitrogen 8 mg/dl (7-17); Creatinine Clearance Estimated 174 mL/min (50-200); Estimated Glomerular Filt Rate 136 ml/min (>60); GFR (African American) 165 ML/MIN (>60)
[2022-11-03 21:58] LABS: Anion Gap 10.8 mEq/L (5-15); Calcium 7.1 mg/dl (8.4-10.2); Carbon Dioxide 20 mmol/L (22.0-30.0); Glucose 208 mg/dl (74-100)
[2022-11-03 22:01] LABS: Phosphorous 1.6 mg/dl (2.5-4.5); Potassium 2.8 mmoL/L (3.5-5.1)
--- NOTE | 2022-11-03 22:27 | PC.NURSE ---
[facility] PHARMACIST NAZARIO PAGED AT THIS TIME FOR PT'S IV PHOSPHORUS ORDER. HE STATED THAT HE OR JOAN WOULD COME IN TO BRING PT'S MED.
--- NOTE | 2022-11-03 22:35 | PC.NURSE ---
SPOKE WITH BOTH NAZARIO FROM PHARMACY AND FRANCISCO J PLYWOOD PATCHER. PHARMACY WANTED TO SEE IF THE PHOSPHORUS DOSE COULD WAIT UNTIL MORNING. PLYWOOD PATCHER STATED THAT DOSE COULD WAIT UNTIL AM.
[2022-11-04] VITALS: BP 138/80; PULSE 100; PULSE 92; RESP 17; TEMP 36.9; O2SAT 98
[2022-11-04 01:06] LABS: POC Glucose,Bedside 111 (70-110)
[2022-11-04 04:00] VITALS: BP 120/73; PULSE 80; PULSE 89; RESP 18; TEMP 36.7; O2SAT 99
[2022-11-04 05:01] LABS: POC Glucose,Bedside 63 (70-110)
--- NOTE | 2022-11-04 05:13 | PC.NURSE ---
NO ACUTE CHANGES THIS SHIFT. PT RESTED WELL. NO C/O PAIN THIS SHIFT. PT WAS LEARY OF [place] ORDER FOR 2100 LAST NIGHT. PT SUGAR CHECKED AT ABOUT MIDNIGHT AND WAS 111. SUGARS REMAINED STABLE OVER NIGHT. TOLERATED POTASSIUM RUNS WELL. VSS. AMBULATING TO THE BATHROOM WITH STANDBY ASSIST. CALL WELCH WITHIN REACH.
[2022-11-04 06:06] LABS: Basophils % 0.6 % (0.1-2.0); Eosinophils # 0.1 K/mm3 (0.0-0.4); Eosinophils % 2.3 % (0.1-12.0); Hemoglobin 10.6 g/dL (12.2-16.2); Lymphocytes # 2.4 K/mm3 (0.7-4.5); Lymphocytes % 49.6 % (10-50); Mean Corpuscular HGB Conc 33.1 g/dL (31.8-35.4); Mean Corpuscular Hemoglobin 29.5 pg (27.0-31.2); Mean Corpuscular Volume 88.9 fl (81-99); Mean Platelet Volume 8.8 fl (7.4-10.4); Monocytes # 0.1 K/mm3 (0.1-1.0); Monocytes % 2.9 % (1.7-9.3); Neutrophils # 2.1 K/mm3 (1.8-7.8); Neutrophils % 44.6 % (37.0-80.0); Platelet Count 214 K/mm3 (142-424); Red Cell Distribution Width 12.5 % (11.5-17.5); White Blood Count 4.7 K/mm3 (4.8-10.8)
[2022-11-04 06:12] LABS: Chloride 117 mmol/L (98-107); Potassium 3.4 mmoL/L (3.5-5.1); Sodium 142 mmol/L (136-145)
[2022-11-04 06:15] LABS: Alanine Aminotransferase 62 U/L (12-78); Albumin Level 2.5 g/dl (3.5-5.0); Alkaline Phosphatase 80 U/L (38-126); Anion Gap 6.4 mEq/L (5-15); Aspartate Amino Transferase 57 U/L (14-36); Bilirubin,Total 0.6 mg/dl (0.2-1.3); Blood Urea Nitrogen 5 mg/dl (7-17); Calcium 7.1 mg/dl (8.4-10.2); Carbon Dioxide 22 mmol/L (22.0-30.0); Creatinine Clearance Estimated 233 mL/min (50-200); Estimated Glomerular Filt Rate 176 ml/min (>60); GFR (African American) 213 ML/MIN (>60); Globulin 2.4 g/dL (1.3-3.2); Glucose 121 mg/dl (74-100); Total Protein,Serum 4.9 g/dl (6.3-8.2)
[2022-11-04 06:25] LABS: Phosphorous 2.1 mg/dl (2.5-4.5)
[2022-11-04 06:26] LABS: Magnesium 1.7 mg/dl (1.6-2.3)
--- NOTE | 2022-11-04 07:09 | EXP.DC.SUM ---
General Admission date:: 11/01/22 Discharge date: 11/04/22 HPI HPI HPI: Ms. Feliciano is a 41-year-old female with a past medical history of IDDM and chronic Tobacco Use. She presents to [facility] through the ER due to complaints of fevers, chills, body aches and dysuria for a couple days and she reports that she has been without her diabetic medications, (insulins). In the ER, ABG showed a pH of 7.0, HCO3 2.5, PCO2 10.5. CBC showed an elevated WBC of 26.3, CMP showed a Na of 133, K of 6.1, Creatinine of 1.30 and Glucose of 667. In the ER, the patient received NS x 1 liter, Regular insulin 10 units and was started on an insulin gtt at 4ml/hr. The patient was admitted with initial impression: DKA and High Anion Gap Metabolic Acidosis. Hospital Course Hospital Course Hospital Course: 41-year-old female with past medical history of IDDM and chronic tobacco abuse presents due to elevated blood glucose, subjective fevers, chills, body aches, dyrusia and being without her diabetic medications for 2 days. Admitted for DKA. Treated with protocol, showed gradual improvement during hospitalization. Able to switch back to basal bolus regimen. Meeting criteria for discharge home. Problems addressed as follows: - DKA -High anion gap metabolic acidosis, resolved Initially had a severely elevated gap on arrival greater than 35. Bicarb less than 5. Started on DKA protocol with insulin drip and IV fluids. Had gradual improvement with closure of gap over 36 hours. Unable to transition back to basal bolus regimen. We will continue insulin glargine 30 units nightly and lispro 8 to 12 units with meals 3 times a day. Patient has monitors at home. Insulin sent to pharmacy for refill. Of note, she does have an OmniPod and continuous glucose monitor but needs instruction on how to use them. We will set her up with a new PCP to help manage her diabetes moving forward. Electrolyte disturbances addressed as below. Of note, A1c greater than 10 on admission. This shows consistently poorly controlled diabetes. - SIRS Criteria met on admission:? HR 118, RR 36, WBC 26.3. No source of infection identified during work-up. White cell count normalized. Discontinue antibiotics after 48 hours. Patient with no dysuria and no shortness of breath. Would benefit from repeat evaluation at follow-up with new PCP. -Hypokalemia -Hypophosphatemia Related to patient's DKA, replating as needed.? Receiving both oral and IV repletion during admission. Will discharge home with phosphorus replacement for 5 days. Anticipate normalization with improvement in p.o. intake. - Transaminitis, improved. Likely secondary to dehydration and DKA. Hepatitis panel obtained however and still pending at time of discharge. - Chronic Tobacco Use: NRT Patient's glucose control has been much better over the past 24 hours. On a stable regimen. Refilled insulin regimen. Has her other medications per her report. Will establish with new PCP in the local area. Stable for discharge home Exam Data for Last 24 hours Vital signs and Labs for Last 24 Hours: Temp Pulse Resp BP Pulse Ox 98.1 F 89 18 120/73 99 11/04/22 04:00 11/04/22 04:00 11/04/22 04:00 11/04/22 04:00 11/04/22 04:00 Laboratory Results - last 24 hr 11/03/22 09:35: Calcium 7.3 L, Phosphorus 1.5 L, Magnesium 1.8 11/03/22 11:22: POC Glucose 220 H 11/03/22 13:53: Sodium 138, Potassium 3.4 L, Chloride 113 H, Carbon Dioxide 18 L, Anion Gap 10.4, BUN 10, Creatinine 0.60, Estimated Creat Clear 145, Estimated GFR 110, Est GFR ( Amer) 133, Glucose 200 H D, Calcium 7.3 L 11/03/22 16:45: POC Glucose 177 H 11/03/22 19:58: POC Glucose 262 H 11/03/22 21:45: Sodium 140, Potassium 2.8 L*, Chloride 112 H, Carbon Dioxide 20 L, Anion Gap 10.8, BUN 8, Creatinine 0.50 L, Estimated Creat Clear 174, Estimated GFR 136, Est GFR ( Amer) 165 D, Glucose 208 H, Calcium 7.1 L 11/03/22 21:45: WBC 6.1
[2022-11-04 08:00] VITALS: BP 123/69; PULSE 90; PULSE 96; RESP 18; TEMP 36.7; O2SAT 99
--- NOTE | 2022-11-04 10:11 | EXP.PHA.PN ---
Subjective *Date: 11/04/22 *Time: 10:11 Medical Exam Vital signs and Labs for Last 24 Hours: Vital Signs Temp Pulse Pulse Resp BP Pulse Ox 11/04/22 08:00 90 11/04/22 08:00 98.1 F 96 H 18 123/69 99 11/04/22 04:00 80 11/04/22 04:00 98.1 F 89 18 120/73 99 11/04/22 00:00 100 H 11/04/22 00:00 98.5 F 92 H 17 138/80 98 11/03/22 20:00 90 11/03/22 20:00 98.2 F 99 H 16 125/69 98 11/03/22 16:00 91 H 11/03/22 12:00 110 H 11/03/22 15:31 97.7 F 11/03/22 14:00 97 H 20 124/77 99 11/03/22 11:23 98.5 F Intake and Output 11/03/22 11/04/22 11/04/22 23:59 07:59 15:59 Intake Total 1039 / 7059 2376 / 2856 480 / 2856 Output Total 900 / 2900 400 / 400 Balance 139 / 4159 1976 / 2456 480 / 2456 Intake: Intake, Oral Amount 480 / 1080 480 / 480 Intake, Total IV Amount 559 / 1231 2376 / 2376 0.9 % Sodium Chloride 1000ML 1, 311 / 311 2376 / 2376 000 ml @ 150 mls/hr IV .[id number] [facility] Rx#:[id number] Potassium Phosphate 15 mmol In 248 / 248 0.9 % Sodium Chloride 250 ml @ 63.75 mls/hr IV ONCE ONE Rx#: [id number] Output: Output, Urine Amount 900 / 2900 400 / 400 Other: Number of Unmeasured Voids 1 1 Weight 79.787 kg Patient Weight 11/04/22 23:59 Weight 79.787 kg Laboratory Results - last 24 hr 11/03/22 11:22: POC Glucose 220 H 11/03/22 13:53: Sodium 138, Potassium 3.4 L, Chloride 113 H, Carbon Dioxide 18 L, Anion Gap 10.4, BUN 10, Creatinine 0.60, Estimated Creat Clear 145, Estimated GFR 110, Est GFR ( Amer) 133, Glucose 200 H D, Calcium 7.3 L 11/03/22 16:45: POC Glucose 177 H 11/03/22 19:58: POC Glucose 262 H 11/03/22 21:45: Sodium 140, Potassium 2.8 L*, Chloride 112 H, Carbon Dioxide 20 L, Anion Gap 10.8, BUN 8, Creatinine 0.50 L, Estimated Creat Clear 174, Estimated GFR 136, Est GFR ( Amer) 165 D, Glucose 208 H, Calcium 7.1 L 11/03/22 21:45: WBC 6.1 D, RBC 3.61 L, Hgb 10.6 L, Hct 31.7 L, MCV 88.0, MCH 29.4, MCHC 33.4, RDW 12.6, Plt Count 212 D, MPV 8.1, Neut % (Auto) 58.6, Lymph % (Auto) 36.2, [place] % (Auto) 3.1, Eos % (Auto) 1.6, Baso % (Auto) 0.6, Neut # (Auto) 3.6, Lymph # (Auto) 2.2, [place] # (Auto) 0.2, Eos # (Auto) 0.1, Baso # (Auto) 0.0 11/03/22 21:45: Phosphorus 1.6 L 11/04/22 01:00: POC Glucose 111 H 11/04/22 04:53: POC Glucose 63 L 11/04/22 05:43: WBC 4.7 L, RBC 3.60 L, Hgb 10.6 L, Hct 32.0 L, MCV 88.9, MCH 29.5, MCHC 33.1, RDW 12.5, Plt Count 214, MPV 8.8, Neut % (Auto) 44.6, Lymph % (Auto) 49.6, [place] % (Auto) 2.9, Eos % (Auto) 2.3, Baso % (Auto) 0.6, Neut # (Auto) 2.1, Lymph # (Auto) 2.4, [place] # (Auto) 0.1, Eos # (Auto) 0.1, Baso # (Auto) 0.0 11/04/22 05:43: Phosphorus 2.1 L D, Magnesium 1.7 11/04/22 05:43: Sodium 142, Potassium 3.4 L D, Chloride 117 H, Carbon Dioxide 22, Anion Gap 6.4, BUN 5 L D, Creatinine 0.40 L, Estimated Creat Clear 233, Estimated GFR 176, Est GFR ( Amer) 213 D, Glucose 121 H D, Calcium 7.1 L, Total Bilirubin 0.6, AST 57 H, ALT 62 D, Alkaline Phosphatase 80, Total Protein 4.9 L D, Albumin 2.5 L, Globulin 2.4, Albumin/Globulin Ratio 1.0 L I & O for Labs for Last 24 Hours: Intake & Output 11/01/22 11/02/22 11/03/22 11/04/22 23:59 23:59 23:59 23:59 Intake Total 230 / 1262 7059 / 7059 2856 / 2856 Output Total 3700 / 3700 2900 / 2900 400 / 400 Balance -3470 / -2438 4159 / 4159 2456 / 2456 Weight 70.6 kg 75.9 kg 74.503 kg 79.787 kg Microbiology Reports for the Last 24 Hours: Microbiology 11/02/22 01:27 Nose MRSA Culture - Final Negative 11/01/22 21:15 Blood Blood Culture - Preliminary NO GROWTH AFTER 48 HOURS 11/01/22 21:00 Blood Blood Culture - Preliminary NO GROWTH AFTER 48 HOURS The patient's infection will respond to the chosen ABx?: Yes Is the patient receiving the right drug, dose, and route?: Yes Could a more targeted ABx be o
--- NOTE | 2022-11-04 10:50 | HMH.PHAINT1 ---
Pharmacy Intervention Comments: Counseled patient on one new medication to START (phosphate supplement) and medication CHANGE (insulin dose) at discharge. Patient expressed understanding of new medication's indication, dose, route, frequency, and potential side effects. Patient expressed understanding of insulin dose increase.
[2022-11-04 12:12] LABS: Body Fluid Culture, Sterile Not indicated. (.); Organism ID Not indicated. (.); Specimen Source Urine (.); Streptococcus pneumoniae Ag Negative (Negative)
[2022-11-04 17:32] LABS: Legionella pneumophila Urinary Negative (Negative)
[2022-11-05 18:08] LABS: Hep A Ab, IgM Negative (Negative); Hepatitis B Core Antibody IgM Negative (Negative)
[2022-11-07 03:12] LABS: Hepatitis B Surface Antigen Negative; Hepatitis C Antibody Reactive
--- NOTE | 2022-11-07 13:55 | CARE MANAGER ---
Attempted to contact patient related to hospital discharge. Patient does not have working number. MOODY Izquierdo
== END 2022-11-04 11:12 | disposition home or self-care (01) | DRG 638 ==
LOC: ER 19:49 → 2ND 21:09
PROVIDERS: Nurse Practitioner Family; Admitting Provider Internal Medicine Adolescent Medicine; Emergency Provider Emergency Medicine; Visit Provider Internal Medicine Adolescent Medicine
DX: E11.10 Type 2 diabetes mellitus with ketoacidosis without coma (principal); R65.10 Systemic inflammatory response syndrome (SIRS) of non-infectious origin without acute organ dysfunction; E87.6 Hypokalemia; E83.39 Other disorders of phosphorus metabolism; E86.0 Dehydration; G80.9 Cerebral palsy, unspecified; F17.210 Nicotine dependence, cigarettes, uncomplicated; Z79.4 Long term (current) use of insulin
CPT/HCPCS: 36415; 71045; 76705; 80048; 80053; 80074; 80305; 81001; 82009; 82310; 82803; 82962; 83036; 83605; 83690; 83735; 84100; 84145; 84703; 85007; 85025; 85651; 86140; 87040; 87081; 87899; 93005; C9803; J0456; J0696; U0003; U0005

== ENCOUNTER 2022-12-03 20:58 | Inpatient (IN) | payer OTHER, SELFPAY ==
[2022-12-03 21:01] LABS: ABG Base Excess -30.5 mmol/L (-2.4-2.3); ABG HCO3 2.6 mmhg (22.0-26.0); ABG Oxygen Saturation 98 % (90-100); ABG PO2 148.4 mmhg (80-100); ABG TCO2 3.1 mmhg (23-27)
[2022-12-03 21:10] LABS: Allen's Test Y; Oxygen RA %; Source Right Femoral
[2022-12-03 21:11] LABS: ABG PCO2 14.4 mmhg (35.0-45.0); ABG PH 6.88 mmol/L (7.35-7.45)
[2022-12-03 21:13] VITALS: BP 110/58; PULSE 86; RESP 27; O2SAT 94; BMI 21.9
--- NOTE | 2022-12-03 21:18 | ECG_ITS ---
APPROVED REPORT Exam: Resting ECG HR:169 bpm ECG Measurements Heart Rate 169 AXES QRSd 122 QRS 85 QT 270 T 77 QTc 362 Conclusion Sinus Rhythm Atrial abnormality MODERATE INTRAVENTRICULAR CONDUCTION DELAY [110+ ms QRS DURATION] NONSPECIFIC T-WAVE ABNORMALITY - consider hyperkalemia CRITICAL TEST RESULT UNCONFIRMED REPORT Electronically signed by : Dillon Garcia MD 12/04/2022 07:33:20
--- NOTE | 2022-12-03 21:18 | XR_ITS ---
PROCEDURE INFORMATION: Exam: XR Chest Exam date and time: 12/03/2022 9:25 PM Age: 41 years old Clinical indication: Other: Altered TECHNIQUE: Imaging protocol: Radiologic exam of the chest. Views: 1 view. COMPARISON: CR XR CHEST PORTABLE 11/02/2022 9:08 AM FINDINGS: Lungs: No consolidation. Pleural spaces: No pneumothorax. Heart/Mediastinum: No cardiomegaly. Bones/joints: No acute abnormality. IMPRESSION: No acute findings.
[2022-12-03 21:21] VITALS: TEMP 33.8
--- NOTE | 2022-12-03 21:21 | HMH.EDAMS ---
Discharge Plan Disposition Patient Disposition: Admitted As Inpatient Prescriptions Prescriptions: No Action amitriptyline 50 mg tablet 100 mg PO HS bupropion HCl 100 mg tablet sustained-release 12 hr 100 mg PO BID topiramate 50 mg tablet 100 mg PO DAILY insulin glargine 100 UNIT/ML solution 30 unit SQ HS 30 Days Qty: 3 0RF Phospha 250 Neutral 250 mg Tablet 1 tab PO BID 5 Days Qty: 10 0RF insulin glargine [Lantus Solostar U-100 Insulin] 100 unit/mL (3 mL) Insulin Pen 30 unit SQ HS 30 Days Qty: 9 0RF insulin lispro [Humalog Oscar KwikPen U-100] 100 unit/mL insulin pen, half-unit 12 unit SQ AC 30 Days Qty: 10.8 0RF Referrals Follow up/Referrals: Provider,Referral, MD [Primary Care Provider] - See instructions Clinical Impressions Clinical Impression: IDDM (insulin dependent diabetes mellitus), DKA (diabetic ketoacidosis), Abnormal drug screen, Severe sepsis with acute organ dysfunction, CHIQUIS (acute kidney injury) Instructions Patient Instructions: DI for Altered Mental Status Discharge ED Provider: Dorothy (ED)Jeff Altered Mental Status HPI General Chief Complaint: Altered Mental Status Stated Complaint: DKA, UNRESPONSIVE Time Seen by Provider: 12/03/22 21:05 Mode of Arrival: EMS Source of Information: EMS, Law Enforcement and Medical Record Limitations: Physical Limitations Description of Symptoms (Recalled from ER Triage Doc. by RN): unresponsive to external stimuli, brought in by ems for CC of hyperglycemia and unresponsiveness. EMS reports they were told patient had just left inpatient rehab earlier this date; possibly took meth and was found by family in the bathroom History of Present Illness HPI narrative: pt found unresponsive with hx of drug use and diabetes with dka - complaint: altered mental status Onset (ago): hour(s) Severity: similar to previous episodes Context: drug abuse and diabetes Related Data Home Medications Medication Instructions Recorded Confirmed amitriptyline 50 mg tablet 100 mg PO HS sleep/mood 11/02/22 11/02/22 bupropion HCl 100 mg tablet,12 hr 100 mg PO BID Depression 11/02/22 11/02/22 sustained-release topiramate 50 mg tablet 100 mg PO DAILY migraine prevention 11/02/22 11/02/22 Previous Rx's Medication Instructions Recorded insulin glargine 100 unit/mL (3 30 unit (0.3 mL) SQ HS 30 days #9 11/04/22 mL) subcutaneous pen (Lantus mL Solostar U-100 Insulin) insulin glargine 100 unit/mL 30 unit (0.3 mL) SQ HS Diabetes 30 11/04/22 subcutaneous solution days #3 pen needles insulin lispro 100 unit/mL 12 unit (0.12 mL) SQ AC Diabetes 11/04/22 subcutaneous half-unit pen 30 days #10.8 mL (Humalog Oscar KwikPen (U-100)) sodium di- and 1 tab PO BID 5 days #10 tabs 11/04/22 monophosphate-potassium phos monobasic 250 mg tablet (Phospha Neutral) Allergies Allergy/AdvReac Type Severity Reaction Status Date / Time moxifloxacin [From AVELOX] Allergy Unknown SWELLING Verified 09/02/20 10:53 [facility] Disclaimer: The information contained in this section may have been updated after the patient was seen, as this information can be updated by other users. Medical History (Updated 12/03/22 @ 22:32 by Jeff De La Cruz (ROHAN)MD) Cerebral palsy Diabetes Hepatitis C Tobacco abuse Social History (Updated 11/02/22 @ 00:58 by Elsie Galvez RN) Smoking Status: Current every day smoker tobacco type: cigarettes packs per day: 1 alcohol intake: current substance use type: former substance user current occupational status: unemployed Travel in the last 8 weeks: None household members: none housing: house current occupational exposures/hazards: No caffeine: Yes ROS Obtained: Yes unobtainable due to mental status Physical Exam General General appearance: obtunded Head Head exam: normocephalic Eye Eye exam: Present PERRL and EOMI; Absent scleral icterus ENT ENT exam: Present mucous m
[2022-12-03 21:25] LABS: Microscopic, Urine URINE MICROSCOPIC (MICROSCOPIC)
--- NOTE | 2022-12-03 21:26 | PC.NURSE ---
pt rectal temp assessed to be 92.8 at his time. MD notified and pt placed on lory hugger and warm blankets at this time
[2022-12-03 21:29] LABS: Basophils % 0.1 % (0.1-2.0); Hemoglobin 12.3 g/dL (12.2-16.2); Lymphocytes # 1.2 K/mm3 (0.7-4.5); Lymphocytes % 5.2 % (10-50); Mean Corpuscular HGB Conc 27.4 g/dL (31.8-35.4); Mean Corpuscular Hemoglobin 29.6 pg (27.0-31.2); Mean Corpuscular Volume 108.1 fl (81-99); Mean Platelet Volume 9.2 fl (7.4-10.4); Monocytes # 0.9 K/mm3 (0.1-1.0); Monocytes % 3.9 % (1.7-9.3); Neutrophils # 21.2 K/mm3 (1.8-7.8); Neutrophils % 90.7 % (37.0-80.0); Platelet Count 398 K/mm3 (142-424); Red Blood Count 4.16 M/mm3 (4.20-5.40); Red Cell Distribution Width 13.1 % (11.5-17.5); White Blood Count 23.4 K/mm3 (4.8-10.8)
[2022-12-03 21:31] LABS: Acetone, Serum (Rapid) Moderate (None Detect); Appearance,Urine CLEAR (Clear); Bilirubin,Urine Negative (Negative); Blood, Urine 2+ (Negative); Color,Urine YELLOW (Yellow); Glucose,Urine (UA) 3+ (Negative); Ketones,Urine 3+ (Negative); Leukocyte Esterase,Urine Negative (Negative); Nitrate,Urine Negative (Negative); PH,Urine 5.5 (5.0-8.5); Protein,Urine TRACE (Negative); Urobilinogen,Urine 0.2 EU/dl (0.2)
[2022-12-03 21:33] LABS: MANUAL DIFFERENTIAL MANUAL DIFFERENTIAL (MANUAL DIFF)
[2022-12-03 21:35] LABS: Alanine Aminotransferase 64 U/L (12-78); Albumin Level 4.2 g/dl (3.5-5.0); Albumin/Globulin Ratio 1.5 (1.1-1.8); Alkaline Phosphatase 158 U/L (38-126); Aspartate Amino Transferase 81 U/L (14-36); Bilirubin,Total 0.6 mg/dl (0.2-1.3); Blood Urea Nitrogen 26 mg/dl (7-17); Calcium 8.1 mg/dl (8.4-10.2); Chloride 90 mmol/L (98-107); Creatine Kinase 673 U/L (30-135); Creatinine Clearance Estimated 35 mL/min (50-200); Estimated Glomerular Filt Rate 31 ml/min (>60); GFR (African American) 38 ML/MIN (>60); Globulin 2.8 g/dL (1.3-3.2); Magnesium 3.2 mg/dl (1.6-2.3); Sodium 132 mmol/L (136-145)
[2022-12-03 21:39] LABS: Ethyl Alcohol < 10 mg/dl (0-10); Urine Pregnancy, HCG Qual. Negative (Negative)
[2022-12-03 21:42] LABS: Barbiturates Screen,Urine Negative ng/ml (<200)
[2022-12-03 21:43] LABS: Amphetamine/Metha Screen,Urine Positive ng/ml (<1000); Benzodiazepines Screen,Urine Negative ng/ml (<200)
[2022-12-03 21:44] LABS: Cannabinoid Screen,Urine Negative ng/ml (<50)
[2022-12-03 21:45] LABS: Cocaine Screen,Urine Negative ng/ml (<300); Methadone Screen,Urine Negative ng/ml (<300)
[2022-12-03 21:46] LABS: Opiate Screen,Urine Negative ng/ml (<300); Phencyclidine Screen,Urine Negative ng/ml (<25)
[2022-12-03 21:47] LABS: Creatine Kinase MB 9.3 ng/ml (0.0-2.03)
[2022-12-03 21:52] LABS: Procalcitonin 2.37 ng/mL (0.0-2.0); RBC,Urine Occasional #/hpf (0-3); Squamous Epithelial Cell,Urine Occasional #/hpf (0-5)
[2022-12-03 21:57] LABS: Anion Gap 43.2 mEq/L (5-15); Salicylate < 1.0 mg/dL (2.0-20.0); Troponin I < 0.01 ng/ml (0.00-0.034)
[2022-12-03 21:58] LABS: Acetaminophen < 10 ug/ml (10-30)
[2022-12-03 21:59] LABS: Coronavirus 19, PCR Not Detected (NotDetected); Influenza A, PCR Not Detected (NotDetected); Influenza B, PCR Not Detected (NotDetected)
[2022-12-03 21:59] LABS: Carbon Dioxide < 5 mmol/L (22.0-30.0); Glucose 1389 mg/dl (74-100); Potassium 6.2 mmoL/L (3.5-5.1)
[2022-12-03 22:01] LABS: Lymphocytes % 12 % (10-50); Monocytes % 1 % (2-9); Neutrophils % 87 % (42-76); Platelet Estimate Normal; RBC Morphology Normal; Total Cells Counted 100
--- NOTE | 2022-12-03 22:05 | PC.NURSE ---
MD notified of abnormal labs including potassium, glucose and CO2. pt information read back and confirmed at this time.
--- NOTE | 2022-12-03 22:43 | EXP.HP ---
History of Present Illness *Admission Date: 12/03/22 *Reason for visit:: Altered mental status and hyperglycemia *History of present illness: This is a 41-year-old female with past medical history of IV drug use, polysubstance abuse, DM with poor compliance and recurrent DKA who presents emergency department today for altered mental status. Patient was brought in by EMS with reports that patient left inpatient rehab today. Patient was found by family in bathroom unresponsive with a likelihood of doing meth. Other collateral information unable to be obtained due to patient's mental status. Emergency department work-up significant for DKA with a glucose of 1368, pH 6.88, CO2 of 43. Given patient's DKA, she is admitted to the hospital service for further evaluation and management. [facility] Disclaimer: The information contained in this section may have been updated after the patient was seen, as this information can be updated by other users. Medical History Cerebral palsy Diabetes Hepatitis C Tobacco abuse Social History Smoking Status: Current every day smoker tobacco type: cigarettes packs per day: 1 alcohol intake: current substance use type: former substance user current occupational status: unemployed Travel in the last 8 weeks: None household members: none housing: house current occupational exposures/hazards: No caffeine: Yes Review of Systems Review of Systems Review of systems:: unable to obtain Review of systems (narrative): Altered mental status Meds Home Medications and Allergies Home Medications Medication Instructions Recorded Confirmed Type amitriptyline 50 mg tablet 100 mg PO HS sleep/mood 11/02/22 12/04/22 History bupropion HCl 100 mg tablet,12 hr 100 mg PO BID Depression 11/02/22 12/04/22 History sustained-release topiramate 50 mg tablet 50 mg PO BID migraine prevention 11/02/22 12/04/22 History insulin lispro 100 unit/mL 12 unit (0.12 mL) SQ AC Diabetes 11/04/22 12/04/22 Rx subcutaneous half-unit pen 30 days #10.8 mL (Humalog Oscar KwikPen (U-100)) ergocalciferol (vitamin D2) 1,250 1,250 mcg PO WEEKLY VITAMIN D 12/04/22 12/04/22 History mcg (50,000 unit) capsule SUPPLEMENT insulin glargine 100 unit/mL (3 30 unit SQ HS Diabetes 12/04/22 12/04/22 History mL) subcutaneous pen (Lantus Solostar U-100 Insulin) New Prescriptions to Start Prescriptions: Allergies Allergy/AdvReac Type Severity Reaction Status Date / Time moxifloxacin [From AVELOX] Allergy Unknown SWELLING Verified 09/02/20 10:53 Exam Data for Last 24 hours Vital signs and Labs for Last 24 Hours: Temp Pulse Resp BP Pulse Ox 92.8 F L 86 27 H 110/58 L 94 L 12/03/22 21:21 12/03/22 21:13 12/03/22 21:13 12/03/22 21:13 12/03/22 21:13 Laboratory Results - last 24 hr 12/03/22 20:50: SARS-CoV-2 (PCR) Not detected, Influenza A Untype (PCR) Not detected, Influenza Type B (PCR) Not detected 12/03/22 21:00: Specimen Source Right femoral, O2 % Ra, ABG pH 6.88 L*, ABG pCO2 14.4 L, ABG pO2 148.4 H, ABG HCO3 2.6 L, ABG Total CO2 3.1 L, ABG O2 Saturation 98, ABG Base Excess -30.5 L, Barrett Test Y 12/03/22 21:07: Urine Color Yellow, Urine Appearance Clear, Urine pH 5.5, Ur Specific [place] 1.020, Urine Protein Trace, Urine Glucose (UA) 3+, Urine Ketones 3+, Urine Blood 2+, Urine Nitrate Negative, Urine Bilirubin Negative, Urine Urobilinogen 0.2, Ur Leukocyte Esterase Negative, Urine RBC Occasional, Urine WBC None, Ur Squamous Epith Cells Occasional, Urine Bacteria None 12/03/22 21:07: WBC 23.4 H*, RBC 4.16 L, Hgb 12.3, Hct 45.0, MCV 108.1 H, MCH 29.6, MCHC 27.4 L, RDW 13.1, Plt Count 398, MPV 9.2, Neut % (Auto) 90.7 H, Lymph % (Auto) 5.2 L, [place] % (Auto) 3.9, Eos % (Auto) 0.0 L, Baso % (Auto) 0.1, Neut # (Auto) 21.2 H, Lymph # (Auto) 1.2, [place] # (Auto) 0.9, Eos # (Auto) 0.0, Baso # (Auto) 0
--- NOTE | 2022-12-03 22:54 | PC.NURSE ---
spoke with Vidhi in pharmacy for vanc dose at this time
[2022-12-03 23:05] LABS: Lactic Acid 2.9 mmol/L (0.7-2.1)
[2022-12-03 23:29] VITALS: BP 89/60; PULSE 88; RESP 26; TEMP 34.3; O2SAT 100
[2022-12-03 23:31] LABS: Chloride 104 mmol/L (98-107); Potassium 3.3 mmoL/L (3.5-5.1); Sodium 141 mmol/L (136-145)
--- NOTE | 2022-12-03 23:32 | EXP.SEPSISRE ---
[facility] Tissue Perfusion Eval Sepsis Re-Evaluation Performed: Yes Date Performed: 12/03/22 Time Performed: 23:05
[2022-12-03 23:34] LABS: Blood Urea Nitrogen 25 mg/dl (7-17); Calcium 7.4 mg/dl (8.4-10.2); Creatinine Clearance Estimated 40 mL/min (50-200); Estimated Glomerular Filt Rate 36 ml/min (>60); GFR (African American) 43 ML/MIN (>60)
--- NOTE | 2022-12-03 23:41 | PC.NURSE ---
rechecked pt temp at this time. pt rectal temp is 93.0 pt continues to thrash around and pull off lory hugger and warm blankets. MD notified and ordered soft restraints at this time.
[2022-12-03 23:43] LABS: Anion Gap 35.3 mEq/L (5-15)
[2022-12-03 23:45] LABS: Carbon Dioxide < 5 mmol/L (22.0-30.0); Glucose 911 mg/dl (74-100)
[2022-12-04] VITALS (24 sets, daily range): BP systolic 84–158; BP diastolic 33–107; PULSE 98–121; RESP 18–24; TEMP 34.3–37.8; O2SAT 96–100; BMI 26.9
--- NOTE | 2022-12-04 00:03 | PC.NURSE ---
pt arrived to floor at this time
--- NOTE | 2022-12-04 00:34 | PC.NURSE ---
pt fsbs on glucometer read HI, fsbs is greater than 600, per protocol need to increased drip by 50% (currently going at 4units/hr, so +50% is 6units/hr) which is 6units/hr; lab on way up to draw vbg and bmp, notified [employer]LECT[employer] TECHNICIAN Valerio of pt's critical fsbs
[2022-12-04 01:59] LABS: Reflex Lactic Add Lactic Reflex
[2022-12-04 02:04] LABS: Chloride 112 mmol/L (98-107); Potassium 3.3 mmoL/L (3.5-5.1); Sodium 147 mmol/L (136-145)
[2022-12-04 02:07] LABS: VBG Base Excess -21.8 mmol/L (-2.4-2.3); VBG HCO3 8.2 mmol/L (23-30); VBG Oxygen Saturation 98.7 % (50-70); VBG PCO2 28.7 mmol/L (35-51); VBG PO2 157.9 mmol/L (28-40); VBG Total CO2 9.1 mmol/L (23-27)
[2022-12-04 02:07] LABS: Anion Gap 29.3 mEq/L (5-15); Blood Urea Nitrogen 23 mg/dl (7-17); Calcium 7.1 mg/dl (8.4-10.2); Creatinine Clearance Estimated 65 mL/min (50-200); Estimated Glomerular Filt Rate 50 ml/min (>60); GFR (African American) 60 ML/MIN (>60)
[2022-12-04 02:09] LABS: VBG PH 7.08 mmol/L (7.31-7.41)
[2022-12-04 02:10] LABS: Carbon Dioxide 9 mmol/L (22.0-30.0); Glucose 584 mg/dl (74-100)
[2022-12-04 02:20] LABS: Troponin I < 0.01 ng/ml (0.00-0.034)
[2022-12-04 02:22] LABS: Lactic Acid Follow Up (RFLX 1) 1.7 mmol/L (0.7-2.1)
--- NOTE | 2022-12-04 02:31 | PC.NURSE ---
instructed by ADRIENNE Luo to keep insulin drip at 6units/hr as glucose has dropped greatly
[2022-12-04 03:16] LABS: POC Glucose,Bedside 480 (70-110)
[2022-12-04 04:15] LABS: POC Glucose,Bedside 415 (70-110)
[2022-12-04 05:06] LABS: POC Glucose,Bedside 300 (70-110)
--- NOTE | 2022-12-04 05:07 | PC.NURSE ---
pt pulled right upper extremity out, notified house, TJ attempting to start USG PIV
[2022-12-04 05:21] LABS: Chloride 116 mmol/L (98-107)
[2022-12-04 05:22] LABS: Potassium 3.7 mmoL/L (3.5-5.1); Sodium 148 mmol/L (136-145)
[2022-12-04 05:24] LABS: Blood Urea Nitrogen 21 mg/dl (7-17); Creatinine Clearance Estimated 78 mL/min (50-200)
[2022-12-04 05:25] LABS: Anion Gap 20.7 mEq/L (5-15); Calcium 7.4 mg/dl (8.4-10.2); Carbon Dioxide 15 mmol/L (22.0-30.0); Estimated Glomerular Filt Rate 61 ml/min (>60); GFR (African American) 74 ML/MIN (>60); Glucose 276 mg/dl (74-100)
[2022-12-04 05:38] LABS: Troponin I < 0.01 ng/ml (0.00-0.034)
[2022-12-04 05:49] LABS: VBG Base Excess -12.8 mmol/L (-2.4-2.3); VBG HCO3 13.7 mmol/L (23-30); VBG Oxygen Saturation 97.9 % (50-70); VBG PCO2 28.8 mmol/L (35-51); VBG PO2 108.7 mmol/L (28-40); VBG Total CO2 14.6 mmol/L (23-27)
--- NOTE | 2022-12-04 06:36 | ECG_ITS ---
APPROVED REPORT Exam: Resting ECG HR:116 bpm ECG Measurements Heart Rate 116 AXES RI 135 P 61 QRSd 89 QRS 67 QT 437 T 50 QTc 506 Conclusion SINUS TACHYCARDIA NONSPECIFIC ST & T-WAVE ABNORMALITY ABNORMAL RHYTHM ECG UNCONFIRMED REPORT Electronically signed by : Dillon Garcia MD 12/05/2022 20:24:00
[2022-12-04 06:59] LABS: POC Glucose,Bedside 222 (70-110)
[2022-12-04 06:59] LABS: POC Glucose,Bedside 278 (70-110)
[2022-12-04 08:08] LABS: Basophils % 0.2 % (0.1-2.0); Mean Corpuscular HGB Conc 33.7 g/dL (31.8-35.4)
[2022-12-04 08:16] LABS: POC Glucose,Bedside 205 (70-110)
[2022-12-04 08:17] LABS: Lactic Acid 1.9 mmol/L (0.7-2.1)
[2022-12-04 08:18] LABS: Alanine Aminotransferase 60 U/L (12-78); Albumin Level 3.1 g/dl (3.5-5.0); Alkaline Phosphatase 115 U/L (38-126); Aspartate Amino Transferase 72 U/L (14-36); Bilirubin,Indirect 0.4 mg/dL (0.0-0.9); Bilirubin,Total 0.4 mg/dl (0.2-1.3); Bilirubin,Unconjugated 0.4 mg/dL (0.0-1.1); Creatine Kinase 1228 U/L (30-135); Eosinophils # 0.2 K/mm3 (0.0-0.4); Eosinophils % 0.7 % (0.1-12.0); Hematocrit 32.4 % (37.0-47.0); Lymphocytes # 2.2 K/mm3 (0.7-4.5); Lymphocytes % 9.2 % (10-50); Magnesium 2.1 mg/dl (1.6-2.3); Mean Corpuscular Volume 89.3 fl (81-99); Mean Platelet Volume 8.1 fl (7.4-10.4); Monocytes % 4.1 % (1.7-9.3); Neutrophils # 20.2 K/mm3 (1.8-7.8); Neutrophils % 85.8 % (37.0-80.0); Platelet Count 346 K/mm3 (142-424); Red Blood Count 3.63 M/mm3 (4.20-5.40); Red Cell Distribution Width 13.6 % (11.5-17.5); Total Protein,Serum 5.8 g/dl (6.3-8.2); White Blood Count 23.5 K/mm3 (4.8-10.8)
[2022-12-04 08:19] LABS: Hemoglobin 10.9 g/dL (12.2-16.2); MANUAL DIFFERENTIAL MANUAL DIFFERENTIAL (MANUAL DIFF)
--- NOTE | 2022-12-04 08:50 | EXP.PHA.CONS ---
Pharmacy Consult Date: 12/04/22 Time: 08:50 Referring provider: DR. DYKES Reason for Consult:: VANCOMYCIN DOSING Allergies Allergy/AdvReac Type Severity Reaction Status Date / Time moxifloxacin [From AVELOX] Allergy Unknown SWELLING Verified 09/02/20 10:53 Home Medications Medication Instructions Recorded Confirmed Type amitriptyline 50 mg tablet 100 mg PO HS sleep/mood 11/02/22 11/02/22 History bupropion HCl 100 mg tablet,12 hr 100 mg PO BID Depression 11/02/22 11/02/22 History sustained-release topiramate 50 mg tablet 100 mg PO DAILY migraine prevention 11/02/22 11/02/22 History insulin glargine 100 unit/mL (3 30 unit (0.3 mL) SQ HS 30 days #9 11/04/22 Rx mL) subcutaneous pen (Lantus mL Solostar U-100 Insulin) insulin glargine 100 unit/mL 30 unit (0.3 mL) SQ HS Diabetes 30 11/04/22 11/02/22 Rx subcutaneous solution days #3 pen needles insulin lispro 100 unit/mL 12 unit (0.12 mL) SQ AC Diabetes 11/04/22 Rx subcutaneous half-unit pen 30 days #10.8 mL (Humalog Oscar KwikPen (U-100)) sodium di- and 1 tab PO BID 5 days #10 tabs 11/04/22 Rx monophosphate-potassium phos monobasic 250 mg tablet (Phospha Neutral) New Prescriptions to Start Prescriptions: Height: 1.57 m Weight: 66.395 kg Laboratory Results:: Laboratory Results - last 24 hr 12/03/22 20:50: SARS-CoV-2 (PCR) Not detected, Influenza A Untype (PCR) Not detected, Influenza Type B (PCR) Not detected 12/03/22 21:00: Specimen Source Right femoral, O2 % Ra, ABG pH 6.88 L*, ABG pCO2 14.4 L, ABG pO2 148.4 H, ABG HCO3 2.6 L, ABG Total CO2 3.1 L, ABG O2 Saturation 98, ABG Base Excess -30.5 L, Barrett Test Y 12/03/22 21:07: Urine Color Yellow, Urine Appearance Clear, Urine pH 5.5, Ur Specific [place] 1.020, Urine Protein Trace, Urine Glucose (UA) 3+, Urine Ketones 3+, Urine Blood 2+, Urine Nitrate Negative, Urine Bilirubin Negative, Urine Urobilinogen 0.2, Ur Leukocyte Esterase Negative, Urine RBC Occasional, Urine WBC None, Ur Squamous Epith Cells Occasional, Urine Bacteria None 12/03/22 21:07: WBC 23.4 H*, RBC 4.16 L, Hgb 12.3, Hct 45.0, MCV 108.1 H, MCH 29.6, MCHC 27.4 L, RDW 13.1, Plt Count 398, MPV 9.2, Neut % (Auto) 90.7 H, Lymph % (Auto) 5.2 L, [place] % (Auto) 3.9, Eos % (Auto) 0.0 L, Baso % (Auto) 0.1, Neut # (Auto) 21.2 H, Lymph # (Auto) 1.2, [place] # (Auto) 0.9, Eos # (Auto) 0.0, Baso # (Auto) 0.0, Total Counted 100, Neutrophils % (Manual) 87 H, Lymphocytes % (Manual) 12, Monocytes % (Manual) 1 L, Platelet Estimate Normal, RBC Morphology Normal 12/03/22 21:07: Urine HCG, Qual Negative 12/03/22 21:07: Sodium 132 L, Potassium 6.2 H*, Chloride 90 L, Carbon Dioxide < 5 L*, Anion Gap 43.2 H, BUN 26 H, Creatinine 1.80 H, Estimated Creat Clear 35, Estimated GFR 31 L, Est GFR ( Amer) 38 L, Glucose 1389 H*, Calcium 8.1 L, Magnesium 3.2 H, Total Bilirubin 0.6, AST 81 H, ALT 64, Alkaline Phosphatase 158 H, Total Creatine Kinase 673 H*, CK-MB (CK-2) 9.3 H*, Troponin I < 0.01, Total Protein 7.0 D, Albumin 4.2, Globulin 2.8, Albumin/Globulin Ratio 1.5, Salicylates < 1.0 L, Acetaminophen < 10 L, Acetone Level Moderate 12/03/22 21:07: Urine Opiates Screen Negative, Urine Methadone Screen Negative, Ur Barbituates Screen Negative, Ur Phencyclidine Scrn Negative, Ur Amphetamines Screen Positive H, U Benzodiazepines Scrn Negative, Urine Cocaine Screen Negative, U Marijuana (THC) Screen Negative 05/20/23 21:07: Plasma/Serum Alcohol < 10 12/03/22 21:07: Procalcitonin 2.37 H 12/03/22 21:07: Lactate 2.9 H 12/03/22 23:17: Sodium 141, Potassium 3.3 L D, Chloride 104, Carbon Dioxide < 5 L*, Anion Gap 35.3 H, BUN 25 H, Creatinine 1.60 H, Estimated Creat Clear 40, Estimated GFR 36 L, Est GFR ( Amer) 43 L, Glucose 911 H* D, Calcium 7.4 L 12/04/22 01:50: Sodium 147 H, Potassium 3.3 L, Chloride 112 H, Carbon Dioxide 9 L* D, Anion Gap 29.3 H, BUN 23 H, Creatinine 1.20 H D, Estimated Creat Clear 65, Estimated GFR 50 L, Est GFR ( Amer) 60 D, Glucose 584 H* D, Calcium 7.1 L
[2022-12-04 09:09] LABS: Lymphocytes % 8 % (10-50); Monocytes % 1 % (2-9); Neutrophils % 91 % (42-76); Total Cells Counted 100
[2022-12-04 09:10] LABS: Anisocytosis 1+; Platelet Estimate Normal
[2022-12-04 09:26] LABS: POC Glucose,Bedside 260 (70-110)
--- NOTE | 2022-12-04 10:12 | EXP.ACUTE.PN ---
Subjective *Date: 12/04/22 *Time: 18:09 Interval history: Patient is slept most of the day. Had an episode overnight requiring Ativan because of withdrawal symptoms and agitation. Cultures sleep through the majority of the day. Woke up again at approximately 5 with similar symptoms but not as severe. Intermittently responsive. At least alert to self. Stable on room air. No nausea or vomiting. Complaining of sore throat. Medical Exam Vital signs and Labs for Last 24 Hours: Vital Signs Temp Pulse Pulse Resp BP BP Pulse Ox 12/04/22 10:00 111 H 20 100/55 L 98 12/04/22 09:00 111 H 23 108/53 L 99 12/04/22 08:00 117 H 22 103/49 L 100 12/04/22 08:00 115 H 22 97 12/04/22 08:00 120 H 12/04/22 08:00 100.0 F H 12/04/22 06:00 98.6 F 115 H 22 102/49 L 97 12/04/22 04:00 120 H 12/04/22 00:20 98 12/04/22 04:00 121 H 24 84/48 L 98 12/04/22 03:00 98.2 F 111 H 21 105/63 L 100 12/04/22 02:00 107 H 20 95/33 L 98 12/04/22 01:00 98 H 22 151/78 H 100 12/04/22 00:00 93.7 F L 101 H 21 101/65 L 97 12/03/22 23:29 93.8 F L 88 26 H 89/60 L 12/03/22 21:21 92.8 F L 12/03/22 21:13 86 27 H 110/58 L 94 L Intake and Output 12/03/22 12/04/22 12/04/22 23:59 07:59 15:59 Intake Total 2049 2548 / 2548 Output Total 350 / 3550 6800 / 7525 725 / 7525 Balance 1700 / -1500 -4252 / -4977 -725 / -4977 Intake: Intake, Total IV Amount 2049 2548 / 2548 0.9 % Sodium Chloride 1000ML 1, 2000 / 1999 000 ml @ 999 mls/hr IV .Q1H1M [facility] Rx#:[id number] Insulin Regular, Human 100 unit 48 / 48 In 0.9 % Sodium Chloride 100 ml @ 4 UNIT/HR 4.04 mls/hr IV . Q25H [facility] Rx#:[id number] KCl 20mEq/100ml 100 ml @ 50 mls 200 / 200 /hr IV ONCE ONE Rx#:[id number] Lactated Ringers 1000ML 1,000 50 / 50 ml @ 100 mls/hr IV .Q10H [facility] Rx #:[id number] Vancomycin/Water For Inj (Peg) 250 / 250 1.25 gm In 250 ml @ 125 mls/hr IV ONCE ONE Rx#:[id number] Output: Output, Urine Amount 350 / 1550 2400 / 2400 0 / 2400 Output, Urine Amount (Catheter) 4400 / 5125 725 / 5125 [place] 4400 / 5125 725 / 5125 Other: Number of Unmeasured Voids 1 Weight 54.431 kg 66.395 kg 66.395 kg Patient Weight 12/04/22 23:59 Weight 66.395 kg Laboratory Results - last 24 hr 12/03/22 20:50: SARS-CoV-2 (PCR) Not detected, Influenza A Untype (PCR) Not detected, Influenza Type B (PCR) Not detected 12/03/22 21:00: Specimen Source Right femoral, O2 % Ra, ABG pH 6.88 L*, ABG pCO2 14.4 L, ABG pO2 148.4 H, ABG HCO3 2.6 L, ABG Total CO2 3.1 L, ABG O2 Saturation 98, ABG Base Excess -30.5 L, Barrett Test Y 12/03/22 21:07: Urine Color Yellow, Urine Appearance Clear, Urine pH 5.5, Ur Specific Cades 1.020, Urine Protein Trace, Urine Glucose (UA) 3+, Urine Ketones 3+, Urine Blood 2+, Urine Nitrate Negative, Urine Bilirubin Negative, Urine Urobilinogen 0.2, Ur Leukocyte Esterase Negative, Urine RBC Occasional, Urine WBC None, Ur Squamous Epith Cells Occasional, Urine Bacteria None 12/03/22 21:07: WBC 23.4 H*, RBC 4.16 L, Hgb 12.3, Hct 45.0, MCV 108.1 H, MCH 29.6, MCHC 27.4 L, RDW 13.1, Plt Count 398, MPV 9.2, Neut % (Auto) 90.7 H, Lymph % (Auto) 5.2 L, [place] % (Auto) 3.9, Eos % (Auto) 0.0 L, Baso % (Auto) 0.1, Neut # (Auto) 21.2 H, Lymph # (Auto) 1.2, [place] # (Auto) 0.9, Eos # (Auto) 0.0, Baso # (Auto) 0.0, Total Counted 100, Neutrophils % (Manual) 87 H, Lymphocytes % (Manual) 12, Monocytes % (Manual) 1 L, Platelet Estimate Normal, RBC Morphology Normal 12/03/22 21:07: Urine HCG, Qual Negative 12/03/22 21:07: Sodium 132 L, Potassium 6.2 H*, Chloride 90 L, Carbon Dioxide < 5 L*, Anion Gap 43.2 H, BUN 26 H, Creatinine 1.80 H, Estimated Creat Clear 35, Estimated GFR 31 L, Est GFR ( Amer) 38 L, Glucose 1389 H*, Calcium 8.1 L, Magnesium 3.2 H, Total Bilirubin 0.6, AST 81 H, ALT 64, Alkaline P
[2022-12-04 10:14] LABS: POC Glucose,Bedside 205 (70-110)
[2022-12-04 11:27] LABS: POC Glucose,Bedside 179 (70-110)
[2022-12-04 12:27] LABS: POC Glucose,Bedside 143 (70-110)
[2022-12-04 12:45] LABS: Chloride 123 mmol/L (98-107)
[2022-12-04 12:46] LABS: Potassium 4.4 mmoL/L (3.5-5.1)
[2022-12-04 12:48] LABS: Blood Urea Nitrogen 17 mg/dl (7-17); Creatinine Clearance Estimated 129 mL/min (50-200); Estimated Glomerular Filt Rate 110 ml/min (>60); GFR (African American) 133 ML/MIN (>60)
[2022-12-04 12:49] LABS: Anion Gap 15.4 mEq/L (5-15); Calcium 8.4 mg/dl (8.4-10.2); Carbon Dioxide 17 mmol/L (22.0-30.0); Glucose 122 mg/dl (74-100)
[2022-12-04 12:50] LABS: Sodium 151 mmol/L (136-145)
[2022-12-04 13:32] LABS: POC Glucose,Bedside 153 (70-110)
[2022-12-04 14:42] LABS: POC Glucose,Bedside 300 (70-110)
[2022-12-04 15:21] LABS: POC Glucose,Bedside 168 (70-110)
[2022-12-04 16:22] LABS: POC Glucose,Bedside 149 (70-110)
[2022-12-04 17:14] LABS: POC Glucose,Bedside 203 (70-110)
[2022-12-04 18:59] LABS: POC Glucose,Bedside 192 (70-110)
[2022-12-04 18:59] LABS: POC Glucose,Bedside 223 (70-110)
[2022-12-04 18:59] LABS: Basophils # 0.1 K/mm3 (0-0.2); Basophils % 0.4 % (0.1-2.0); Eosinophils # 0.2 K/mm3 (0.0-0.4); Eosinophils % 1.3 % (0.1-12.0); Hematocrit 35.2 % (37.0-47.0); Hemoglobin 11.7 g/dL (12.2-16.2); Lymphocytes # 2.4 K/mm3 (0.7-4.5); Mean Corpuscular HGB Conc 33.1 g/dL (31.8-35.4); Mean Corpuscular Hemoglobin 29.3 pg (27.0-31.2); Mean Corpuscular Volume 88.5 fl (81-99); Mean Platelet Volume 9.5 fl (7.4-10.4); Monocytes # 0.6 K/mm3 (0.1-1.0); Neutrophils # 12.5 K/mm3 (1.8-7.8); Neutrophils % 79.3 % (37.0-80.0); Platelet Count 302 K/mm3 (142-424); Red Blood Count 3.98 M/mm3 (4.20-5.40); Red Cell Distribution Width 13.7 % (11.5-17.5); White Blood Count 15.8 K/mm3 (4.8-10.8)
[2022-12-04 19:08] LABS: MANUAL DIFFERENTIAL MANUAL DIFFERENTIAL (MANUAL DIFF)
[2022-12-04 19:17] LABS: Chloride 123 mmol/L (98-107); Potassium 4.3 mmoL/L (3.5-5.1); Sodium 146 mmol/L (136-145)
[2022-12-04 19:20] LABS: Alanine Aminotransferase 54 U/L (12-78); Albumin Level 2.8 g/dl (3.5-5.0); Albumin/Globulin Ratio 1.1 (1.1-1.8); Alkaline Phosphatase 96 U/L (38-126); Anion Gap 9.3 mEq/L (5-15); Aspartate Amino Transferase 68 U/L (14-36); Bilirubin,Total 0.4 mg/dl (0.2-1.3); Blood Urea Nitrogen 14 mg/dl (7-17); Calcium 8.2 mg/dl (8.4-10.2); Carbon Dioxide 18 mmol/L (22.0-30.0); Creatinine Clearance Estimated 129 mL/min (50-200); Estimated Glomerular Filt Rate 110 ml/min (>60); GFR (African American) 133 ML/MIN (>60); Globulin 2.5 g/dL (1.3-3.2); Glucose 190 mg/dl (74-100); Total Protein,Serum 5.3 g/dl (6.3-8.2)
[2022-12-04 19:32] LABS: Creatine Kinase 970 U/L (30-135); Magnesium 2.2 mg/dl (1.6-2.3)
[2022-12-04 19:39] LABS: Anisocytosis 1+; Hypochromasia 2+; Lymphocytes % 11 % (10-50); Monocytes % 4 % (2-9); Neutrophils % 85 % (42-76); Platelet Estimate Normal; Total Cells Counted 100
--- NOTE | 2022-12-04 21:39 | PC.NURSE ---
insulin drip stopped per order from [employer], sliding scale and lantus given, see emar, D5W continued at 75mL/hr
[2022-12-05] VITALS (17 sets, daily range): BP systolic 108–131; BP diastolic 57–85; PULSE 90–107; RESP 15–22; TEMP 36.8–37.3; O2SAT 94–100; BMI 28.0
[2022-12-05 02:25] LABS: Chloride 121 mmol/L (98-107); Potassium 3.1 mmoL/L (3.5-5.1); Sodium 146 mmol/L (136-145)
[2022-12-05 02:28] LABS: Anion Gap 8.1 mEq/L (5-15); Blood Urea Nitrogen 13 mg/dl (7-17); Calcium 7.8 mg/dl (8.4-10.2); Carbon Dioxide 20 mmol/L (22.0-30.0); Creatinine Clearance Estimated 129 mL/min (50-200); Estimated Glomerular Filt Rate 110 ml/min (>60); GFR (African American) 133 ML/MIN (>60); Glucose 121 mg/dl (74-100)
[2022-12-05 06:03] LABS: POC Glucose,Bedside 270 (70-110)
[2022-12-05 08:37] LABS: POC Glucose,Bedside 199 (70-110)
--- NOTE | 2022-12-05 09:56 | EXP.PN ---
Subjective *Date: 12/05/22 *Time: 20:07 Interval history: Patient is resting, calm, and peacefully. Did not require sedation medication last night. She is alert to self, location, and situation. She remains stable on room air. Denies nausea and vomiting. Still complains of a sore throat. This morning she was treated for hypokalemia and replaced with 40 meq of potassium IV. Will have bed side swallow evaluation done. Exam Data for Last 24 hours Vital signs and Labs for Last 24 Hours: Temp Pulse Resp BP Pulse Ox 98.3 F 97 H 19 126/77 100 12/05/22 08:00 12/05/22 09:00 12/05/22 09:00 12/05/22 09:00 12/05/22 09:00 Laboratory Results - last 24 hr 12/04/22 10:04: POC Glucose 205 H 12/04/22 10:58: POC Glucose 179 H 12/04/22 12:00: POC Glucose 143 H 12/04/22 12:20: Sodium 151 H*, Potassium 4.4, Chloride 123 H, Carbon Dioxide 17 L, Anion Gap 15.4 H, BUN 17, Creatinine 0.60 D, Estimated Creat Clear 129, Estimated GFR 110, Est GFR ( Amer) 133 D, Glucose 122 H D, Calcium 8.4 12/04/22 13:03: POC Glucose 153 H 12/04/22 14:00: POC Glucose 300 H 12/04/22 15:01: POC Glucose 168 H 12/04/22 16:14: POC Glucose 149 H 12/04/22 17:04: POC Glucose 203 H 12/04/22 18:00: Magnesium 2.2, Total Creatine Kinase 970 H* 12/04/22 18:00: WBC 15.8 H D, RBC 3.98 L, Hgb 11.7 L, Hct 35.2 L, MCV 88.5, MCH 29.3, MCHC 33.1, RDW 13.7, Plt Count 302, MPV 9.5, Neut % (Auto) 79.3, Lymph % (Auto) 15.0, [place] % (Auto) 4.0, Eos % (Auto) 1.3, Baso % (Auto) 0.4, Neut # (Auto) 12.5 H, Lymph # (Auto) 2.4, [place] # (Auto) 0.6, Eos # (Auto) 0.2, Baso # (Auto) 0.1, Total Counted 100, Neutrophils % (Manual) 85 H, Lymphocytes % (Manual) 11, Monocytes % (Manual) 4, Platelet Estimate Normal, Hypochromasia 2+, Anisocytosis 1+ 12/04/22 18:00: Sodium 146 H, Potassium 4.3, Chloride 123 H, Carbon Dioxide 18 L, Anion Gap 9.3, BUN 14, Creatinine 0.60, Estimated Creat Clear 129, Estimated GFR 110, Est GFR ( Amer) 133, Glucose 190 H D, Calcium 8.2 L, Total Bilirubin 0.4, AST 68 H, ALT 54, Alkaline Phosphatase 96, Total Protein 5.3 L, Albumin 2.8 L, Globulin 2.5, Albumin/Globulin Ratio 1.1 12/04/22 18:01: POC Glucose 192 H 12/04/22 18:52: POC Glucose 223 H 12/04/22 21:26: POC Glucose 270 H 12/05/22 02:00: Sodium 146 H, Potassium 3.1 L D, Chloride 121 H, Carbon Dioxide 20 L, Anion Gap 8.1, BUN 13, Creatinine 0.60, Estimated Creat Clear 129, Estimated GFR 110, Est GFR ( Amer) 133, Glucose 121 H D, Calcium 7.8 L 12/05/22 08:23: POC Glucose 199 H I & O for Last 24 hours: Intake & Output 12/02/22 12/03/22 12/04/22 12/05/22 23:59 23:59 23:59 23:59 Intake Total 2049 4097 / 4097 1853 / 1853 Output Total 350 / 3550 7900 / 7900 875 / 875 Balance 1700 / -1500 -3803 / -3803 978 / 978 Weight 54.431 kg 66.395 kg 69.037 kg Constitutional Constitutional: chronically ill appearing *Routine HEENT Exam Head: Present normocephalic and atraumatic Eye: Present EOMI ENT: Present mucous membranes dry; Absent dentition normal *Routine Neck Exam Neck: Present full ROM; Absent tenderness or swelling *Routine Respiratory Exam Respiratory: Present CTA bilaterally and symmetric chest movement; Absent accessory muscle use, rhonchi, stridor, wheezes or crackles *Routine Cardiovascular Exam Cardiovascular: Present RRR, Normal S1 and Normal S2 *Routine Abdominal Exam Abdominal: Present soft and normoactive bowel sounds; Absent tenderness or distended *Routine Rectal Exam Patient deferred: visual exam *Routine Exam Patient deferred: external exam *Routine Extremities Exam Extremities: Present full ROM; Absent edema or tenderness *Routine Skin Exam Skin: Present intact; Absent erythema or rash *Routine Neurological Exam Neurological: Present alert and moving all extremities Assessment and Plan *Assessment and plan (1) Metabolic encephalopathy: Status: Acute Category: Medical Code(s): G93.41 - Metabolic encephalopathy (2) IVDU (intravenous drug user):
[2022-12-05 11:18] LABS: Basophils % 0.3 % (0.1-2.0); Eosinophils # 0.2 K/mm3 (0.0-0.4); Eosinophils % 2.2 % (0.1-12.0); Hematocrit 33.8 % (37.0-47.0); Hemoglobin 11.1 g/dL (12.2-16.2); Lymphocytes # 2.5 K/mm3 (0.7-4.5); Lymphocytes % 24.7 % (10-50); Mean Corpuscular Volume 87.9 fl (81-99); Mean Platelet Volume 9.3 fl (7.4-10.4); Monocytes # 0.3 K/mm3 (0.1-1.0); Monocytes % 2.8 % (1.7-9.3); Neutrophils % 69.9 % (37.0-80.0); Platelet Count 269 K/mm3 (142-424); Red Blood Count 3.84 M/mm3 (4.20-5.40); Red Cell Distribution Width 13.7 % (11.5-17.5)
[2022-12-05 11:42] LABS: Anion Gap 7.9 mEq/L (5-15); Blood Urea Nitrogen 10 mg/dl (7-17); Calcium 7.6 mg/dl (8.4-10.2); Carbon Dioxide 21 mmol/L (22.0-30.0); Chloride 119 mmol/L (98-107); Creatinine Clearance Estimated 161 mL/min (50-200); Estimated Glomerular Filt Rate 136 ml/min (>60); GFR (African American) 165 ML/MIN (>60); Glucose 207 mg/dl (74-100); Potassium 3.9 mmoL/L (3.5-5.1); Sodium 144 mmol/L (136-145)
[2022-12-05 12:28] LABS: Magnesium 2.2 mg/dl (1.6-2.3)
[2022-12-05 14:30] LABS: POC Glucose,Bedside 324 (70-110)
--- NOTE | 2022-12-05 18:58 | PC.NURSE ---
pt has rested t/o most of shift, has been able to eat some of her meals, has not complained of any pain this shift, still not able to answer orientation questions when asked, remains on room air, HR 95-101
[2022-12-05 20:17] LABS: POC Glucose,Bedside 348 (70-110)
[2022-12-06] VITALS (8 sets, daily range): BP systolic 102–111; BP diastolic 65–75; PULSE 79–95; RESP 13–18; TEMP 36.6–36.7; O2SAT 94–100; BMI 29.7
[2022-12-06 02:19] LABS: POC Glucose,Bedside 242 (70-110)
[2022-12-06 04:51] LABS: Basophils % 0.5 % (0.1-2.0); Eosinophils # 0.2 K/mm3 (0.0-0.4); Eosinophils % 3.4 % (0.1-12.0); Hematocrit 31.6 % (37.0-47.0); Hemoglobin 10.8 g/dL (12.2-16.2); Lymphocytes # 2.3 K/mm3 (0.7-4.5); Mean Corpuscular HGB Conc 34.3 g/dL (31.8-35.4); Mean Corpuscular Hemoglobin 30.2 pg (27.0-31.2); Mean Corpuscular Volume 88.1 fl (81-99); Mean Platelet Volume 8.8 fl (7.4-10.4); Monocytes # 0.2 K/mm3 (0.1-1.0); Monocytes % 3.3 % (1.7-9.3); Neutrophils % 52.8 % (37.0-80.0); Platelet Count 236 K/mm3 (142-424); Red Blood Count 3.59 M/mm3 (4.20-5.40); Red Cell Distribution Width 13.7 % (11.5-17.5); White Blood Count 5.6 K/mm3 (4.8-10.8)
[2022-12-06 05:11] LABS: Anion Gap 13.4 mEq/L (5-15); Blood Urea Nitrogen 9 mg/dl (7-17); Calcium 7.5 mg/dl (8.4-10.2); Carbon Dioxide 23 mmol/L (22.0-30.0); Chloride 109 mmol/L (98-107); Creatinine Clearance Estimated 214 mL/min (50-200); Estimated Glomerular Filt Rate 176 ml/min (>60); GFR (African American) 213 ML/MIN (>60); Glucose 166 mg/dl (74-100); Potassium 3.4 mmoL/L (3.5-5.1); Sodium 142 mmol/L (136-145)
[2022-12-06 05:28] LABS: Vancomycin,Trough < 5.0 ug/mL (5.0-10.0)
--- NOTE | 2022-12-06 08:18 | EXP.PHA.CONS ---
Pharmacy Consult Date: 12/06/22 Time: 08:18 Referring provider: DR. DYKES Reason for Consult:: VANCOMYCIN LEVEL AND DOSE CHANGE Allergies Allergy/AdvReac Type Severity Reaction Status Date / Time moxifloxacin [From AVELOX] Allergy Unknown SWELLING Verified 09/02/20 10:53 Home Medications Medication Instructions Recorded Confirmed Type amitriptyline 50 mg tablet 100 mg PO HS sleep/mood 11/02/22 12/04/22 History bupropion HCl 100 mg tablet,12 hr 100 mg PO BID Depression 11/02/22 12/04/22 History sustained-release topiramate 50 mg tablet 50 mg PO BID migraine prevention 11/02/22 12/04/22 History insulin lispro 100 unit/mL 12 unit (0.12 mL) SQ AC Diabetes 11/04/22 12/04/22 Rx subcutaneous half-unit pen 30 days #10.8 mL (Humalog Oscar KwikPen (U-100)) ergocalciferol (vitamin D2) 1,250 1,250 mcg PO WEEKLY VITAMIN D 12/04/22 12/04/22 History mcg (50,000 unit) capsule SUPPLEMENT insulin glargine 100 unit/mL (3 30 unit SQ HS Diabetes 12/04/22 12/04/22 History mL) subcutaneous pen (Lantus Solostar U-100 Insulin) New Prescriptions to Start Prescriptions: Height: 1.57 m Weight: 73.198 kg Laboratory Results:: Laboratory Results - last 24 hr 12/05/22 08:23: POC Glucose 199 H 12/05/22 08:30: WBC 10.0 D, RBC 3.84 L, Hgb 11.1 L, Hct 33.8 L, MCV 87.9, MCH 29.0, MCHC 33.0, RDW 13.7, Plt Count 269, MPV 9.3, Neut % (Auto) 69.9, Lymph % (Auto) 24.7, [place] % (Auto) 2.8, Eos % (Auto) 2.2, Baso % (Auto) 0.3, Neut # (Auto) 7.0, Lymph # (Auto) 2.5, [place] # (Auto) 0.3, Eos # (Auto) 0.2, Baso # (Auto) 0.0 12/05/22 08:30: Sodium 144, Potassium 3.9 D, Chloride 119 H, Carbon Dioxide 21 L, Anion Gap 7.9, BUN 10, Creatinine 0.50 L, Estimated Creat Clear 161, Estimated GFR 136, Est GFR ( Amer) 165 D, Glucose 207 H D, Calcium 7.6 L 12/05/22 08:30: Magnesium 2.2 12/05/22 14:16: POC Glucose 324 H* 12/05/22 20:11: POC Glucose 348 H* 12/06/22 02:10: POC Glucose 242 H 12/06/22 04:35: WBC 5.6 D, RBC 3.59 L, Hgb 10.8 L, Hct 31.6 L, MCV 88.1, MCH 30.2, MCHC 34.3, RDW 13.7, Plt Count 236, MPV 8.8, Neut % (Auto) 52.8, Lymph % (Auto) 40.0, [place] % (Auto) 3.3, Eos % (Auto) 3.4, Baso % (Auto) 0.5, Neut # (Auto) 3.0, Lymph # (Auto) 2.3, [place] # (Auto) 0.2, Eos # (Auto) 0.2, Baso # (Auto) 0.0 12/06/22 04:35: Sodium 142, Potassium 3.4 L, Chloride 109 H, Carbon Dioxide 23, Anion Gap 13.4, BUN 9, Creatinine 0.40 L, Estimated Creat Clear 214, Estimated GFR 176, Est GFR ( Amer) 213 D, Glucose 166 H, Calcium 7.5 L 12/06/22 04:35: Vancomycin Trough < 5.0 L 12/06/22 04:35: Magnesium 2.0 Medical History: Medical History (Updated 12/03/22 @ 22:54 by SPENCER Eduardo) Cerebral palsy Diabetes Hepatitis C Tobacco abuse Assessment and Plan Assessment and plan all Dx Assessment and Plan for all problems:: PATIENT'S VANCOMYCIN TROUGH LEVEL WAS <5.0 MCG/ML OVERNIGHT. PATIENT'S CRCL IMPROVED FROM ADMISSION. RECOMMEND CHANGING VANCOMYCIN DOSE TO 1 GM Q8H AT THIS TIME.
--- NOTE | 2022-12-06 08:42 | EXP.PHA.PN ---
Subjective *Date: 12/06/22 *Time: 08:42 Medical Exam Vital signs and Labs for Last 24 Hours: Vital Signs Temp Pulse Pulse Resp BP Pulse Ox 12/06/22 08:00 98 F 93 H 17 111/70 100 12/06/22 06:00 79 13 109/69 L 97 12/06/22 01:00 100 12/06/22 04:00 84 12/06/22 04:00 84 16 109/71 L 97 12/06/22 02:00 80 16 102/65 L 96 12/06/22 00:00 88 14 106/70 L 94 L 12/06/22 04:00 98.0 F 12/06/22 00:00 87 12/05/22 20:00 93 H 12/06/22 00:00 97.9 F 12/05/22 20:00 99 12/05/22 22:00 92 H 15 108/69 L 98 12/05/22 20:00 92 H 18 113/66 99 12/05/22 20:00 98.3 F 12/05/22 18:00 99 H 20 119/69 100 12/05/22 16:00 90 12/05/22 16:00 94 H 20 120/82 100 12/05/22 12:00 90 12/05/22 12:00 98 H 22 112/66 96 12/05/22 11:00 95 H 19 128/75 99 12/05/22 14:00 101 H 22 124/85 99 12/05/22 10:00 96 H 18 127/80 99 12/05/22 09:00 97 H 19 126/77 100 Intake and Output 12/05/22 12/06/22 12/06/22 23:59 07:59 15:59 Intake Total 1290 / 3614 1291 / 1531 240 / 1531 Output Total 375 / 1350 600 / 600 0 / 600 Balance 915 / 2264 691 / 931 240 / 931 Intake: Intake, Oral Amount 240 / 240 240 / 240 Intake, Total IV Amount 1050 / 3374 1291 / 1291 Cefepime HCl 2 gm In 0.9 % 100 / 400 125 / 125 Sodium Chloride 100 ml @ 200 mls/hr IV Q8H [facility] Rx#:[id number] Dextrose 5 % in Water 1,000 ml 700 / 2261 916 / 916 @ 75 mls/hr IV .[id number] [facility] Rx# :[id number] Vancomycin/Water For Inj (Peg) 250 / 500 250 / 250 1.25 gm In 250 ml @ 125 mls/hr IV Q18H [facility] Rx#:[id number] Output: Output, Urine Amount 375 / 875 600 / 600 0 / 600 Other: Number of Voids 0 Number of Unmeasured Voids 0 0 Weight 73.198 kg 73.198 kg Patient Weight 12/06/22 23:59 Weight 73.198 kg Laboratory Results - last 24 hr 12/05/22 08:30: WBC 10.0 D, RBC 3.84 L, Hgb 11.1 L, Hct 33.8 L, MCV 87.9, MCH 29.0, MCHC 33.0, RDW 13.7, Plt Count 269, MPV 9.3, Neut % (Auto) 69.9, Lymph % (Auto) 24.7, [place] % (Auto) 2.8, Eos % (Auto) 2.2, Baso % (Auto) 0.3, Neut # (Auto) 7.0, Lymph # (Auto) 2.5, [place] # (Auto) 0.3, Eos # (Auto) 0.2, Baso # (Auto) 0.0 12/05/22 08:30: Sodium 144, Potassium 3.9 D, Chloride 119 H, Carbon Dioxide 21 L, Anion Gap 7.9, BUN 10, Creatinine 0.50 L, Estimated Creat Clear 161, Estimated GFR 136, Est GFR ( Amer) 165 D, Glucose 207 H D, Calcium 7.6 L 12/05/22 08:30: Magnesium 2.2 12/05/22 14:16: POC Glucose 324 H* 12/05/22 20:11: POC Glucose 348 H* 12/06/22 02:10: POC Glucose 242 H 12/06/22 04:35: WBC 5.6 D, RBC 3.59 L, Hgb 10.8 L, Hct 31.6 L, MCV 88.1, MCH 30.2, MCHC 34.3, RDW 13.7, Plt Count 236, MPV 8.8, Neut % (Auto) 52.8, Lymph % (Auto) 40.0, [place] % (Auto) 3.3, Eos % (Auto) 3.4, Baso % (Auto) 0.5, Neut # (Auto) 3.0, Lymph # (Auto) 2.3, [place] # (Auto) 0.2, Eos # (Auto) 0.2, Baso # (Auto) 0.0 12/06/22 04:35: Sodium 142, Potassium 3.4 L, Chloride 109 H, Carbon Dioxide 23, Anion Gap 13.4, BUN 9, Creatinine 0.40 L, Estimated Creat Clear 214, Estimated GFR 176, Est GFR ( Amer) 213 D, Glucose 166 H, Calcium 7.5 L 12/06/22 04:35: Vancomycin Trough < 5.0 L 12/06/22 04:35: Magnesium 2.0 I & O for Labs for Last 24 Hours: Intake & Output 12/03/22 12/04/22 12/05/22 12/06/22 23:59 23:59 23:59 23:59 Intake Total 2050 / 2050 4097 / 4097 3514 / 3614 1531 / 1531 Output Total 350 / 3550 7900 / 7900 1350 / 1350 600 / 600 Balance 1700 / -1500 -3803 / -3803 2164 / 2264 931 / 931 Weight 54.431 kg 66.395 kg 69.037 kg 73.198 kg Microbiology Reports for the Last 24 Hours: Microbiology 12/03/22 21:07 Blood Blood Culture - Preliminary NO GROWTH AFTER 48 HOURS 12/03/22 21:07 Blood Blood Culture - Preliminary NO GROWTH AFTER 48 HOURS The patient's infection will respond to the chosen ABx?: Yes (BLOOD CULTURE NO
--- NOTE | 2022-12-06 08:48 | EXP.PN ---
Subjective *Date: 12/06/22 *Time: 09:08 Interval history: K is 3.4 Glucose is 166 this morning but was as high as 348 last night. She received 36 units from sliding scale since yesterday morning. Exam Data for Last 24 hours Vital signs and Labs for Last 24 Hours: Temp Pulse Resp BP Pulse Ox 98 F 93 H 17 111/70 100 12/06/22 08:00 12/06/22 08:00 12/06/22 08:00 12/06/22 08:00 12/06/22 08:00 Laboratory Results - last 24 hr 12/05/22 08:30: WBC 10.0 D, RBC 3.84 L, Hgb 11.1 L, Hct 33.8 L, MCV 87.9, MCH 29.0, MCHC 33.0, RDW 13.7, Plt Count 269, MPV 9.3, Neut % (Auto) 69.9, Lymph % (Auto) 24.7, [place] % (Auto) 2.8, Eos % (Auto) 2.2, Baso % (Auto) 0.3, Neut # (Auto) 7.0, Lymph # (Auto) 2.5, [place] # (Auto) 0.3, Eos # (Auto) 0.2, Baso # (Auto) 0.0 12/05/22 08:30: Sodium 144, Potassium 3.9 D, Chloride 119 H, Carbon Dioxide 21 L, Anion Gap 7.9, BUN 10, Creatinine 0.50 L, Estimated Creat Clear 161, Estimated GFR 136, Est GFR ( Amer) 165 D, Glucose 207 H D, Calcium 7.6 L 12/05/22 08:30: Magnesium 2.2 12/05/22 14:16: POC Glucose 324 H* 12/05/22 20:11: POC Glucose 348 H* 12/06/22 02:10: POC Glucose 242 H 12/06/22 04:35: WBC 5.6 D, RBC 3.59 L, Hgb 10.8 L, Hct 31.6 L, MCV 88.1, MCH 30.2, MCHC 34.3, RDW 13.7, Plt Count 236, MPV 8.8, Neut % (Auto) 52.8, Lymph % (Auto) 40.0, [place] % (Auto) 3.3, Eos % (Auto) 3.4, Baso % (Auto) 0.5, Neut # (Auto) 3.0, Lymph # (Auto) 2.3, [place] # (Auto) 0.2, Eos # (Auto) 0.2, Baso # (Auto) 0.0 12/06/22 04:35: Sodium 142, Potassium 3.4 L, Chloride 109 H, Carbon Dioxide 23, Anion Gap 13.4, BUN 9, Creatinine 0.40 L, Estimated Creat Clear 214, Estimated GFR 176, Est GFR ( Amer) 213 D, Glucose 166 H, Calcium 7.5 L 12/06/22 04:35: Vancomycin Trough < 5.0 L 12/06/22 04:35: Magnesium 2.0 I & O for Last 24 hours: Intake & Output 12/03/22 12/04/22 12/05/22 12/06/22 23:59 23:59 23:59 23:59 Intake Total 2050 / 0 4097 / 4097 3514 / 3614 1531 / 1531 Output Total 350 / 3550 7900 / 7900 1350 / 1350 600 / 600 Balance 1700 / -1500 -3803 / -3803 2164 / 2264 931 / 931 Weight 54.431 kg 66.395 kg 69.037 kg 73.198 kg Microbiology Reports for the Last 24 Hours: Microbiology 12/03/22 21:07 Blood Blood Culture - Preliminary NO GROWTH AFTER 48 HOURS 12/03/22 21:07 Blood Blood Culture - Preliminary NO GROWTH AFTER 48 HOURS Assessment and Plan *Assessment and plan Plan Mora Feliciano is a 41 year old female with a past medical history of substance abuse and recurrent DKA. She presented with confusion and admitted to the ICU on 12/03 with DKA. Initial workup included ABG with pH 6.8, CMP with a glucose level of 1368 and a bicarb less than 5. She was started on IV fluids, insulin drip protocol and empiric antibiotics of iv vancomycin and cefepime. #metabolic encephalopathy #severe sepsis #hypokalemia #DKA #polysubstance use Blood cultures are without growth at 48 hours. Insulin drip protocol was discontinued on 12/04 Continuing Lantus 20u HS and high dose ssi Continuing D5LR @ 100mL/hr Continuing Cefepime and iv vancomycin DVT ppx: SCDs Full Code Diabetic diet
[2022-12-06 09:23] LABS: POC Glucose,Bedside 337 (70-110)
--- NOTE | 2022-12-06 10:10 | HMH.OTEV ---
OT Inpatient Evaluation Rehab OT IP Evaluation Start: 12/05/22 20:33 Freq: ONCE Status: Active Protocol: Document 12/06/22 09:57 [facility] (Rec: 12/06/22 10:10 [facility] [id number]) Rehab OT IP Assessment Subjective History Pt oriented x 3 on arrival. Pt agreeable to engage in therapy evaluation. Pt was admitted on 12/03/22 due to Altered mental status, DKA, and hyperglycemia. Prior to being in the hospital, pt was in an inpateint rehab. She left voluntarily and was found in family bathroom unresponsive with a likelihood of doing meth. Pt claims prior to being in the hospital she was independent with all ADLs and IADLs. However, prior to being in inpatient rehab she was homeless. She did not require any type of AE during functional transfers. Pt has a past medical history of: Cerebral palsy Diabetes Hepatitis C Tobacco abuse Subjective My foot hurts. Objective Patient Orientation Person,Place,Birthday Upper Extremity Gross ROM WFL Bed Mobility bed mobility-scooting,bed mobility - supine/sit,bed mobility - rolling Assist Level Contact Guard/Hand Hold Transfer Training Sit/Stand Transfer Assist Level Minimal x 1 (25% assist) Rehab OT IP prob,goals,plan Problems Date of Evaluation: 12/06/22 OT IP Problems Bed Mobility,Transfers,Balance ,Self care,Safety Rehab Potential Rehab Potential Good Equipment Needs Assistive Devices None / NA Plan OT intervention Plan Bed Mobility,Transfers,Balance ,Self care,Safety,Therapeutic Exercise OT Plan Frequency BID Duration LOS Discharge Goals Bed Mobility Ability Standby Assistance Sit to Stand Chair Transfer Ability Supervision/Stand by Chair Transfer Ability Supervision/Stand by Chair Transfer Technique Sit to/from Ambulatory Chair Transfer
--- NOTE | 2022-12-06 10:50 | HMH.PTEV ---
Physical Therapy Evaluation Rehab PT IP Evaluation Start: 12/05/22 20:33 Freq: ONCE Status: Active Protocol: Document 12/06/22 09:20 [facility] (Rec: 12/06/22 10:50 [facility] [id number]) Subjective/History History History 41 yowf adm to hospital with DKA with extremely high blood glucose. She has hx of DM and IVDU. She reports she is homeless and does not know where she will stay once she is d/c from hospital. She reports she was independent with all mobility and ADLs prior to adm without AD. Subjective Subjective Pt c/o pain everywhere, but did not rate. She agrees to mobility assessment. Rehab PT IP Eval Objective Appearance Patient Behavior Appropriate Patient Orientation Person,Place,Time Difficulty following instructions none Speech Pattern Clear,Delayed Ambulation Patient Able to Ambulate Yes Ambulation Observation IP General Gait Pattern Observation Shuffling Step Ambulation Distance (feet) 15 Ambulation Assistive Device None Ambulation Ability Contact Guard/Hand Hold Balance Ability to Arise Able, uses arms to help Sitting Balance Steady, safe Standing Balance Unsteady Dynamic Sitting Balance Ability Fair Dynamic Standing Balance Ability Poor Transfers Bed Transfer Ability Contact Guard/Hand Hold Chair Transfer Ability Contact Guard/Hand Hold Sit to Stand Bed Transfer Ability Contact Guard/Hand Hold Sit to Stand Chair Transfer Ability Contact Guard/Hand Hold Rehab PT IP prob,goals,plan Problems Date of Evaluation: 12/06/22 PT IP Problems Bed Mobility,Transfers,Gait Rehab Potential Rehab Potential Fair Plan PT Intervention Plan Bed Mobility,Transfers,Gait, Therapeutic Exercise PT Plan Frequency Daily Duration LOS Discharge Goals Bed Transfer Ability Supervision/Stand by Sit to Stand Chair Transfer Ability Supervision/Stand by Ambulation Assistive Device None Ambulation Distance (feet) 30 Discharge Plan PT Discharge Plan Pt is currently appropriate to return to prior living situation once medically stable. She is mildly unsteady on her feet at this time with gait training. G -code Required
--- NOTE | 2022-12-06 11:14 | PC.NURSE ---
pt ambulated to the restroom with assistance x 1 from staff with contact guard. pt voided in commode following previous removal of catheter. pt noted to be on her menstrual cycle at this time. pt provided feminine hygiene products.
--- NOTE | 2022-12-06 11:28 | EXP.DC.SUM ---
General Admission date:: 12/03/22 Discharge date: 12/06/22 HPI HPI HPI: This is a 41-year-old female with past medical history of IV drug use, polysubstance abuse, DM with poor compliance and recurrent DKA who presents emergency department today for altered mental status. Patient was brought in by EMS with reports that patient left inpatient rehab today. Patient was found by family in bathroom unresponsive with a likelihood of doing meth. Other collateral information unable to be obtained due to patient's mental status. Emergency department work-up significant for DKA with a glucose of 1368, pH 6.88, CO2 of 43. Given patient's DKA, she is admitted to the hospital service for further evaluation and management. Hospital Course Hospital Course Hospital Course: The patient was fluid resuscitated and started on an insulin drip. Her mental status returned to baseline and DKA resolved. She was empirically given cefepime and IV vancomycin throughout the hospital course. By the day of discharge the patient had no complaints except for chronic back pain which is no different from her baseline. She declined resources for her history of substance abuse. The cause of this episode of DKA could be due to nonadherence to insulin. She states she was taking 25 units of lantus every night and a sliding scale before each meal. She was instructed to continue her prescribed regimen of 30 units of lantus QHS, lispro 12u AC and sliding scale. She was instructed to follow up with her Functional Manager or primary care provider within a week. Mora Feliciano is a 41 year old female with a past medical history of substance abuse and recurrent DKA. She presented with confusion and admitted to the ICU on 12/03 with DKA. Initial workup included ABG with pH 6.8, CMP with a glucose level of 1368 and a bicarb less than 5.? She was started on IV fluids, insulin drip protocol and empiric antibiotics of iv vancomycin and cefepime. #metabolic encephalopathy #severe sepsis? #hypokalemia #DKA #polysubstance use Blood cultures are without growth at 48 hours. Insulin drip protocol was discontinued on 12/04 Continuing Lantus 20u HS and high dose ssi Continuing D5LR @ 100mL/hr Continuing Cefepime and iv vancomycin DVT ppx: SCDs Full Code Diabetic diet Exam Data for Last 24 hours Vital signs and Labs for Last 24 Hours: Temp Pulse Resp BP Pulse Ox 98 F 95 H 18 110/75 100 12/06/22 08:00 12/06/22 08:00 12/06/22 08:00 12/06/22 08:00 12/06/22 08:00 Laboratory Results - last 24 hr 12/05/22 08:30: Sodium 144, Potassium 3.9 D, Chloride 119 H, Carbon Dioxide 21 L, Anion Gap 7.9, BUN 10, Creatinine 0.50 L, Estimated Creat Clear 161, Estimated GFR 136, Est GFR ( Amer) 165 D, Glucose 207 H D, Calcium 7.6 L 12/05/22 08:30: Magnesium 2.2 12/05/22 14:16: POC Glucose 324 H* 12/05/22 20:11: POC Glucose 348 H* 12/06/22 02:10: POC Glucose 242 H 12/06/22 04:35: WBC 5.6 D, RBC 3.59 L, Hgb 10.8 L, Hct 31.6 L, MCV 88.1, MCH 30.2, MCHC 34.3, RDW 13.7, Plt Count 236, MPV 8.8, Neut % (Auto) 52.8, Lymph % (Auto) 40.0, [place] % (Auto) 3.3, Eos % (Auto) 3.4, Baso % (Auto) 0.5, Neut # (Auto) 3.0, Lymph # (Auto) 2.3, [place] # (Auto) 0.2, Eos # (Auto) 0.2, Baso # (Auto) 0.0 12/06/22 04:35: Sodium 142, Potassium 3.4 L, Chloride 109 H, Carbon Dioxide 23, Anion Gap 13.4, BUN 9, Creatinine 0.40 L, Estimated Creat Clear 214, Estimated GFR 176, Est GFR ( Amer) 213 D, Glucose 166 H, Calcium 7.5 L 12/06/22 04:35: Vancomycin Trough < 5.0 L 12/06/22 04:35: Magnesium 2.0 12/06/22 09:11: POC Glucose 337 H* I & O for Last 24 hours: Intake & Output 12/03/22 12/04/22 12/05/22 12/06/22 23:59 23:59 23:59 23:59 Intake Total 2049 4097 / 4097 3514 / 3614 1531 / 1531 Output Total 350 / 3550 7900 / 7900 1350 / 1350 600 / 600 Balance 1700 / -1500 -3803 / -3803 2164 / 2264 931 / 931 Weight 54.431 kg 66.395 kg 69.037 kg 73.198 kg Microbiology Reports for the Last 24 Hours: Microbiology
--- NOTE | 2022-12-06 12:06 | HMH.PHAINT1 ---
Pharmacy Intervention Comments: DISCHARGE MEDICATION COUNSELING PROVIDED. DISCUSSED THERE WERE NO CHANGES TO CURRENT MEDICATION REGIMEN. NO QUESTIONS VERBALIZED AT THIS TIME.
--- NOTE | 2022-12-06 12:42 | PC.NURSE ---
pt minimally compliant with care r/t being aware she is being discharged. pt does not want to have vitals taken, she does not want to receive medications and pt does not actively/freely converse with staff.
--- NOTE | 2022-12-08 12:32 | CARE MANAGER ---
Attempted to contact patient x2 related to hospital discharge. No VM option. MOODY Izquierdo
[2023-03-13 10:08] LABS: POC Glucose,Bedside > 600 (70-110)
== END 2022-12-06 14:30 | disposition home or self-care (01) | DRG 871 ==
LOC: ER 21:55 → 2ND 22:52
PROVIDERS: Nurse Practitioner Acute Care; Admitting Provider Internal Medicine Adolescent Medicine; Emergency Provider Emergency Medicine; Visit Provider Internal Medicine Adolescent Medicine
DX: A41.9 Sepsis, unspecified organism (principal); E11.10 Type 2 diabetes mellitus with ketoacidosis without coma; G93.41 Metabolic encephalopathy; F19.20 Other psychoactive substance dependence, uncomplicated; N17.9 Acute kidney failure, unspecified; G80.9 Cerebral palsy, unspecified; B19.20 Unspecified viral hepatitis C without hepatic coma; R65.20 Severe sepsis without septic shock; E87.6 Hypokalemia
CPT/HCPCS: 36415; 71045; 80048; 80053; 80076; 80202; 80305; 80329; 81001; 81025; 82009; 82550; 82553; 82803; 82962; 83605; 83735; 84100; 84145; 84484; 85007; 85025; 87040; 87636; 93005; 97116; 97163; 97166; 97530; 99285; C9803; U0003; U0005

== ENCOUNTER 2024-02-20 03:43 | Emergency (ER) | payer OTHER, SELFPAY ==
[2024-02-20 03:49] VITALS: BP 148/98; PULSE 92; RESP 18; TEMP 37.1; O2SAT 100; BMI 25.0
[2024-02-20 04:01] LABS: Basophils # 0.1 K/mm3 (0-0.2); Basophils % 1.3 % (0.1-2.0); Eosinophils # 0.2 K/mm3 (0.0-0.4); Eosinophils % 2.3 % (0.1-12.0); Hemoglobin 14.5 g/dL (12.2-16.2); Lymphocytes # 3.3 K/mm3 (0.7-4.5); Lymphocytes % 33.4 % (10-50); Mean Corpuscular HGB Conc 32.9 g/dL (31.8-35.4); Mean Corpuscular Hemoglobin 30.8 pg (27.0-31.2); Mean Corpuscular Volume 93.7 fl (81-99); Mean Platelet Volume 8.8 fl (7.4-10.4); Monocytes # 0.3 K/mm3 (0.1-1.0); Neutrophils # 5.9 K/mm3 (1.8-7.8); Platelet Count 231 K/mm3 (142-424); Red Cell Distribution Width 14.7 % (11.5-17.5); White Blood Count 9.9 K/mm3 (4.8-10.8)
[2024-02-20] MEDS: PROMETHAZINE HCL 25MG/ML 1ML VIAL 12.5 MG IV (04:01)
[2024-02-20] MEDS: SODIUM CHLORIDE 0.9% 25ML BAG 25 ML IV (04:02)
[2024-02-20] MEDS: LACTATED RINGERS 1000ML 1,000 ML 999 ML IV (04:02)
--- NOTE | 2024-02-20 04:05 | ED_ITS ---
Discharge Plan Disposition Patient Disposition: Home, Self-Care Condition: Good Prescriptions Prescriptions: New promethazine 12.5 mg tablet 12.5 mg PO TID PRN (Reason: allergy symptoms) Qty: 10 0RF Rx Instructions: 3 doses during day; last dose no later than 4 hr before bedtime No Action amitriptyline 100 mg tablet 100 mg PO HS Qty: 90 1RF aspirin 81 mg tablet,delayed release (DR/EC) 81 mg PO DAILY Qty: 90 1RF atorvastatin 10 mg tablet 10 mg PO HS Qty: 90 1RF (DME) Dexcom G6 Sensor Device See Rx Instructions .ROUTE .MEDSUPPLY Qty: 1 5RF Rx Instructions: As directed bupropion HCl 300 mg tablet extended release 24 hr 300 mg PO DAILY Qty: 90 1RF cyclobenzaprine 5 mg tablet 5 mg PO BID Qty: 180 1RF duloxetine 30 mg capsule,delayed release(DR/EC) 30 mg PO DAILY Qty: 90 1RF ergocalciferol (vitamin D2) 1,250 mcg (50,000 unit) capsule 1,250 mcg PO WEEKLY Qty: 14 3RF insulin glargine [Lantus Solostar U-100 Insulin] 100 unit/mL (3 mL) insulin pen 30 unit SQ HS Qty: 15 2RF (DME) lancets [FreeStyle Lancets] 28 gauge misc See Rx Instructions .ROUTE .MEDSUPPLY Qty: 100 5RF Rx Instructions: As directed (DME) pen needle, diabetic [BD Ultra-Fine Mini Pen Needle] 31 gauge x 3/16 needle See Rx Instructions .ROUTE .MEDSUPPLY Qty: 100 5RF Rx Instructions: As directed (DME) Dexcom G6 Transmitter Device See Rx Instructions .Route Qty: 1 5RF Rx Instructions: As directed ibuprofen 800 mg tablet 800 mg PO Q8H Qty: 90 2RF buprenorphine-naloxone 8-2 mg tablet, sublingual sublingual insulin lispro 100 unit/mL insulin pen See Rx Instructions .ROUTE .COMPLEX Qty: 15 2RF Dose Instruction: INJECT 12 UNITS SUBCUTANEOUSLY BEFORE MEALS Rx Instructions: INJECT 16 UNITS SUBCUTANEOUSLY BEFORE MEALS TID pregabalin [Lyrica] 75 mg capsule 75 mg PO BID Qty: 60 0RF ondansetron 8 mg tablet,disintegrating 8 mg PO Q8H PRN (Reason: nausea and vomiting) 5 Days Qty: 30 0RF Activity Restrictions/Add. Instructions Additional Instructions/Restrictions: You were evaluated in the ER. You are appropriate for discharge at this time. 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 Take EITHER this OR the zofran, not both. Drink plenty of fluids. Continue checking your sugar regularly and appropriately dosing your insulin. Make an appointment with your primary care physician for reevaluation in 3 days. Return to the ER with new, worsening, or otherwise concerning symptoms. Clinical Impressions Clinical Impression: Nausea & vomiting, Cellulitis Print Language Print Language: Filipino Discharge ED Provider: Zoraida Staley General Adult HPI General Chief complaint: Nausea/Vomiting/Diarrhea Stated complaint: Hyperglycemia Time Seen by Provider: 02/20/24 03:46 Mode of Arrival: EMS Source of Information: Patient Limitations: No Limitations Description of Symptoms (Recalled from ER Triage Doc. by RN): Pt arrived to ED via EMS with cc of vomitting, weakness, and being tired. Pt states she has type 1 diabetes. PT states she believes she is in DKA. Pt states her blood sugar at home was 400. EMS reports pt's blood sugar being 93 in route. Pt states taking 30 units of Lantus before bed. Pt states urinating more frequently. Pt states taking Zofran before calling 911 with no relief. Pt states having a dry mouth. Pt's blood sugar 115. History of Present Illness HPI narrative: 43-year-old presents to the ER for concerns of vomiting, weakness, fatigue. Patient is a type I diabetic and is concerned she could be in DKA. Patient reports that her glucose monitor seemed to fail about 24 hours ago, she believes this is from being in the pool. Patient reports she had vomited approximately 12 hours prior to that and started to become concerned about her glucose. Just before she took off her failed monitor, it was reading 400. Patient states she dosed her insulin through the day based on how she felt because she could not find any lancets or a portable glucose monitor. Patient states she has been in DKA previously and feels similar but did not want it to get severe so [facility] reported that patient's blood sugar was 93 and route. Patient reports she took Lantus before bed, she also reports urinating more frequently but having no dysuria or hematuria. Patient took Zofran prior to calling EMS without improvement of her nausea and vomiting, she is asking for additional nausea medication. Patient does report mild chest pain that she believes is from vomiting. Related Data Home Medications ?Medication ?Instructions ?Recorded ?Confirmed buprenorphine 8 mg-naloxone 2 mg tab sublingual 01/30/24 01/30/24 sublingual tablet Previous Rx's ?Medication ?Instructions ?Recorded amitriptyline 100 mg tablet 100 mg PO HS #90 tabs 11/29/23 aspirin 81 mg tablet,delayed 81 mg PO DAILY #90 tabs 11/29/23 release atorvastatin 10 mg tablet 10 mg PO HS #90 tabs 11/29/23 blood-glucose sensor (Dexcom G6 #1 ea 11/29/23 Sensor device) blood-glucose transmitter (Dexcom #1 ea 11/29/23 G6 Transmitter device) bupropion HCl 300 mg 24 hr tablet, 300 mg PO DAILY #90 tabs 11/29/23 extended release cyclobenzaprine 5 mg tablet 5 mg PO BID #180 tabs 11/29/23 duloxetine 30 mg capsule,delayed 30 mg PO DAILY #90 caps 11/29/23 release ergocalciferol (vitamin D2) 1,250 1,250 mcg PO WEEKLY VITAMIN D 11/29/23 mcg (50,000 unit) capsule SUPPLEMENT #14 caps ibuprofen 800 mg tablet 800 mg PO Q8H #90 tabs 11/29/23 insulin glargine 100 unit/mL (3 30 unit (0.3 mL) SQ HS Diabetes 11/29/23 mL) subcutaneous pen (Lantus #15 mL Solostar U-100 Insulin) lancets 28 gauge (FreeStyle #100 ea 11/29/23 Lancets) pen needle, diabetic 31 gauge x #100 ea 11/29/23/16 (BD Ultra-Fine Mini Pen Needle) insulin lispro 100 unit/mL See Rx Instructions .Route 01/30/24 subcutaneous pen .COMPLEX #15 mL ondansetron 8 mg disintegrating 8 mg PO Q8H PRN nausea and 01/30/24 tablet vomiting 5 days #30 tabs pregabalin 75 mg capsule (Lyrica) 75 mg PO BID #60 caps 01/30/24 promethazine 12.5 mg tablet 12.5 mg PO TID PRN allergy 02/20/24 symptoms #10 tabs Allergies Allergy/AdvReac Type Severity Reaction Status Date / Time moxifloxacin [From AVELOX] Allergy Unknown SWELLING Verified 01/30/24 10:36 [facility] Disclaimer: The information contained in this section may have been updated after the patient was seen, as this information can be updated by other users. Medical History (Updated 02/20/24 @ 06:38 by Zoraida Staley MD) Polysubstance (excluding opioids) dependence Hypophosphatemia Abnormal drug screen Severe sepsis with acute organ dysfunction Hepatitis C Tobacco abuse Diabetes Cerebral palsy Social History Smoking Status: Current every day smoker tobacco type: cigarettes packs per day: 1 alcohol intake: current alcohol intake frequency: holidays/special occasions only substance use type: former substance user current occupational status: unemployed Travel in the last 8 weeks: None household members: none housing: house current occupational exposures/hazards: No caffeine: Yes ROS Obtained: Yes All systems reviewed & no additional complaints except as documented Constitutional Constitutional: Denies chills, Reports fatigue, Denies fever(s), Denies headache(s) and Denies weakness Eyes Eyes: Denies change in vision ENT Ears, Nose, Mouth, and Throat: Denies dizziness, Denies headache(s), Denies nasal congestion and Denies sore throat Cardiovascular Cardiovascular: Reports chest pain, Denies dyspnea and Denies leg edema Respiratory Respiratory: Denies cough and Denies dyspnea Gastrointestinal Gastrointestingal: Reports nausea and vomiting; Denies abdominal pain, constipation or diarrhea Genitourinary Female Genitourinary: Denies dysuria, Denies hematuria, Reports urinary frequency, Denies urinary incontinence and Denies urinary urgency Musculoskeletal Musculoskeletal: Denies arthralgias, Denies myalgias, Denies numbness and Denies tingling Integumentary/Breasts Skin/Breast: Denies change in pigmentation Neurologic Neurologic: Denies dizziness, Denies headache(s), Denies numbness, Denies tingling and Denies weakness Endocrine Endocrine: Reports fatigue Physical Exam General General appearance: alert and in no apparent distress Head Head exam: atraumatic and normocephalic Eye Eye exam: Present PERRL and EOMI ENT ENT exam: Present mucous membranes moist Neck Neck exam: Present normal inspection and full ROM Chest Chest inspection: Present symmetric chest wall rise; Absent tenderness Respiratory Respiratory exam: Present normal lung sounds bilaterally; Absent respiratory distress, wheezes or stridor Cardiovascular Cardiovascular exam: Present regular rate and normal rhythm Abdominal Exam Abdominal exam: Present soft and tenderness (Mild epigastric); Absent distention, guarding or rebound Extremities Exam Extremities exam: Present full ROM Neurological Exam Neurological exam: Present alert and oriented X3; Absent motor sensory deficit Psychiatric Psychiatric exam: Present normal affect and normal mood Skin Skin exam: Present warm, dry and other (Erythematous patch approximately 2 cm in diameter on the dorsal aspect of the left foot, patient has similar appearing area on the left ortiz. These are both warm, erythematous, mildly indurated, no fluctuance, no wound) Medical Decision Making Medical Records Medical records reviewed: Yes I reviewed the patient's medical records. MR Comment: Previous admission over 1 year ago for DKA, [facility]haun Inquiry Pt receiving controlled substance: No Vital Signs: 02/20/24 03:49 02/20/24 06:46 Temperature 98.7 F 98.7 F Temperature Source Oral Oral Pulse Rate 82 Pulse Rate [Left Radial] 92 H Respiratory Rate 18 20 Blood Pressure 114/76 Blood Pressure [Right Arm] 148/98 H Blood Pressure Mean [Right Arm] 114 Blood Pressure Source Automatic Cuff Blood Pressure Source [Right Arm] Automatic Cuff Blood Pressure Position Supine Blood Pressure Position [Right Arm] Sitting 02 Sat by Pulse Oximetry 100 Oxygen Delivery Method Room Air Room Air Lab Data Lab Results 02/20/24 03:47: WBC 9.9, RBC 4.70, Hgb 14.5, Hct 44.0, MCV 93.7, MCH 30.8, MCHC 32.9, RDW 14.7, Plt Count 231, MPV 8.8, Neut % (Auto) 60.0, Lymph % (Auto) 33.4, [place] % (Auto) 3.0, Eos % (Auto) 2.3, Baso % (Auto) 1.3, Neut # (Auto) 5.9, Lymph # (Auto) 3.3, [place] # (Auto) 0.3, Eos # (Auto) 0.2, Baso # (Auto) 0.1, Sodium 137, Potassium 3.7, Chloride 100, Carbon Dioxide 26, Anion Gap 14.7, BUN 17, Creatinine 0.60, Estimated Creat Clear 130, Estimated GFR 109, Est GFR ( Amer) 132, Glucose 106 H, Lactate 1.4, Calcium 9.8, Total Bilirubin 0.6, AST 55 H, ALT 45, Alkaline Phosphatase 61, Troponin I < 0.01, C-Reactive Protein 4.1 H, Total Protein 8.1 D, Albumin 4.3, Globulin 3.8 H, Albumin/Globulin Ratio 1.1, L ipase 22 L 02/20/24 04:40: Urine Color Yellow, Urine Appearance Clear, Urine pH 8.0, Ur Specific [place] 1.015, Urine Protein Negative, Urine Glucose (UA) Negative, Urine Ketones Negative, Urine Blood Negative, Urine Nitrate Negative, Urine Bilirubin Negative, Urine Urobilinogen 1.0, Ur Leukocyte Esterase Negative, Urine RBC None, Urine WBC None, Ur Squamous Epith Cells 5-10, Amorphous Sediment Trace, Urine Bacteria Trace 02/20/24 04:46: ESR 15 02/20/24 03:47 02/20/24 03:47 Orders (Tests/Meds): ED MEDICATIONS Discontinued Medications Generic Name Dose Route Start Last Admin Trade Name Sarabjit PRN Reason Stop Dose Admin Lactated Ringer's 1,000 mls @ 999 mls/hr 02/20/24 03:48 02/20/24 04:02 Lactated Ringer's 1000 Ml Bag IV 02/20/24 04:48 999 mls/hr .Q1H1M ONE Administration Dalbavancin 1,500 mg/ Dextrose 250 mls @ 500 mls/hr 02/20/24 05:36 02/20/24 06:00 IV 02/20/24 05:37 500 mls/hr ONCE ONE Administration Promethazine HCl 12.5 mg 02/20/24 03:53 02/20/24 04:01 Promethazine Hcl 25mg/Ml 1ml Vial IV 02/20/24 03:54 12.5 mg ONCE ONE Administration Sodium Chloride 25 ml 02/20/24 03:53 02/20/24 04:02 Sodium Chloride 0.9% 25ml Bag IV 02/20/24 03:54 25 ml ONCE ONE Administration ORDERS Category Date Time Status POCUS Point of Care (ER Only) Stat Exams 02/20/24 04:04 Taken CBC w/Auto Diff [Complete Blood Count Auto Diff] Stat Lab 02/20/24 03:47 Completed CMP [Comprehensive Metabolic Panel] Stat Lab 02/20/24 03:47 Completed CRP [C-Reactive Protein] Stat Lab 02/20/24 03:47 Completed ESR [Erythrocyte Sedimentation Rate] Stat Lab 02/20/24 04:46 Completed Lactic Acid Stat Lab 02/20/24 03:47 Completed Lipase Stat Lab 02/20/24 03:47 Completed Trop I [Troponin I] Stat Lab 02/20/24 03:47 Completed Urinalysis and Microscopic Stat Lab 02/20/24 04:40 Completed VBG [Venous Blood Gas] Stat RT 02/20/24 03:48 Ordered Medical Decision Narrative: In summary, this 43-year-old female presents to the emergency department today with concerns of vomiting, increased urinary frequency, fatigue. On initial evaluation patient is hemodynamically stable, afebrile, mild epigastric tenderness to palpation of the abdomen without rebound or guarding, nonacute abdomen, no CVA tenderness. Patient has erythematous patch on left foot and left ortiz with heat and mild induration, considered cellulitis, abscess. Additional differential diagnosis includes but is not limited to DKA, HHS, hyperglycemia, glucosuria, ketonuria, lactic acidosis, dehydration, electrolyte abnormality, and lower concern for but did consider ACS. Based on these concerns, I ordered serum labs. ECG personally interpreted demonstrates normal sinus rhythm, rate 80, normal axis, normal ME and QTc, no STEMI Patient received IV fluids, Phenergan for treatment. Labs personally reviewed demonstrate VBG pH 7.45, lactic 1.76, pCO2 36.3, bicarb 24.8, this is reassuring against DKA, normal CBC, CMP with no findings of electrolyte abnormality, kidney dysfunction, AST slightly elevated at 55 but no other findings of liver dysfunction, bilirubin normal, lipase normal, no findings of hyperglycemia, patient's glucose was 106. Lactate 1.4 on chemistry. Initial troponin undetectably low at less than 0.01, given duration of patient's symptoms and reassuring ECG as well as low heart score, this is significantly reassuring. [id number] ultrasound of the skin lesions on the left lower extremity was performed. See procedure note for details. On reassessment, patient has had improvement of symptoms including her nausea and has not had any additional emesis in the ER. She has received IV fluids and tolerated oral intake in the ER. I prescribed Phenergan for outpatient management. Patient is receiving Dalvance for her findings consistent with cellulitis on the foot and ortiz. She tolerated this well. Patient was given instructions on symptomatic management, follow up instructions, and return precautions for the emergency department. Patient indicated understanding and was discharged in stable condition. Procedures Miscellaneous Procedure Procedure Performed: Indication: Soft tissue redness, heat Identified structures: Left foot, left ortiz Location: Left foot, left ortiz Findings: Cellulitis left foot Impression: Cellulitis left foot Images were saved to the permanent archive. The study was technically adequate. Soft tissue CPT codes Lower extremity: 81805-39 This study was performed by me, and I personally interpreted all images/videos. Based on my clinical judgment, these images were adequate and did not necessitate further imaging. Critical Care Critical Care Time Critical Care Time: No
[2024-02-20 04:27] LABS: Anion Gap 14.7 mEq/L (5-15); Blood Urea Nitrogen 17 mg/dl (7-17); Carbon Dioxide 26 mmol/L (22.0-30.0); Chloride 100 mmol/L (98-107); Creatinine Clearance Estimated 130 mL/min (50-200); Estimated Glomerular Filt Rate 109 ml/min (>60); GFR (African American) 132 ML/MIN (>60); Potassium 3.7 mmoL/L (3.5-5.1); Sodium 137 mmol/L (136-145)
[2024-02-20 04:28] LABS: Alanine Aminotransferase 45 U/L (12-78); Albumin Level 4.3 g/dl (3.5-5.0); Albumin/Globulin Ratio 1.1 (1.1-1.8); Alkaline Phosphatase 61 U/L (38-126); Aspartate Amino Transferase 55 U/L (14-36); Bilirubin,Total 0.6 mg/dl (0.2-1.3); Calcium 9.8 mg/dl (8.4-10.2); Globulin 3.8 g/dL (1.3-3.2); Glucose 106 mg/dl (74-100); Lipase 22 U/L (23-300); Total Protein,Serum 8.1 g/dl (6.3-8.2)
[2024-02-20 04:29] LABS: Lactic Acid 1.4 mmol/L (0.7-2.1)
[2024-02-20 04:46] LABS: Microscopic, Urine URINE MICROSCOPIC (MICROSCOPIC)
[2024-02-20 04:48] LABS: Appearance,Urine CLEAR (Clear); Bilirubin,Urine Negative (Negative); Blood, Urine Negative (Negative); Color,Urine YELLOW (Yellow); Glucose,Urine (UA) Negative (Negative); Ketones,Urine Negative (Negative); Leukocyte Esterase,Urine Negative (Negative); Nitrate,Urine Negative (Negative); Protein,Urine Negative (Negative); Specific Gravity, Urine 1.015 (1.005-1.030)
[2024-02-20 04:57] LABS: C-Reactive Protein 4.1 mg/L (0-4)
[2024-02-20 04:57] LABS: Amorphous Sediment,Urine Trace /lpf; Bacteria,Urine Trace /lpf
[2024-02-20 05:10] LABS: Troponin I < 0.01 ng/ml (0.00-0.034)
[2024-02-20 05:16] LABS: Erythrocyte Sedimentation Rate 15 mm/hr (0-20)
--- NOTE | 2024-02-20 05:22 | ECG_ITS ---
APPROVED REPORT Exam: Resting ECG HR:80 bpm ECG Measurements Heart Rate 80 AXES AK 136 P 72 QRSd 87 QRS 81 QT 408 T 63 QTc 445 Conclusion SINUS RHYTHM NORMAL ECG Electronically signed by : AYSHA GUTHRIE, 02/20/2024 07:56:34
[2024-02-20] MEDS: DALBAVANCIN HCL 1,500 MG in DEXTROSE 5 % IN WATER 250 ML 500 MG IV (06:00)
[2024-02-20 06:46] VITALS: BP 114/76; PULSE 82; RESP 20; TEMP 37.1; O2SAT 98
[2024-02-20 12:15] LABS: VBG Base Excess 0.9 mmol/L (-2.4-2.3); VBG HCO3 24.8 mmol/L (23-30); VBG PCO2 36.3 mmol/L (35-51); VBG PH 7.53 mmol/L (7.31-7.41); VBG PO2 39.8 mmol/L (28-40); VBG Total CO2 25.9 mmol/L (23-27)
[2024-02-20 12:16] LABS: Lactate Venous 1.8 mmol/L (0.4-2.0); VBG Oxygen Saturation 78.2 % (50-70)
[2024-02-22 04:55] LABS: Osmolality, Urine 549 mOsmol/kg (.)
== END 2024-02-20 06:51 | disposition home or self-care (01) ==
PROVIDERS: Emergency Provider Emergency Medicine
DX: L03.116 Cellulitis of left lower limb (principal); R11.2 Nausea with vomiting, unspecified; R53.83 Other fatigue; R35.0 Frequency of micturition; E10.9 Type 1 diabetes mellitus without complications; F17.210 Nicotine dependence, cigarettes, uncomplicated; R10.13 Epigastric pain; Z79.4 Long term (current) use of insulin
CPT/HCPCS: 80053; 81001; 82803; 83605; 83690; 83935; 84484; 85025; 85651; 86140; 93005; 96361; 96365; 96375; 99284; J0875; J2550; J7060; J7120

== ENCOUNTER 2024-04-10 19:18 | Observation (INO) | payer OTHER, SELFPAY ==
[2024-04-10] VITALS (9 sets, daily range): BP systolic 141–170; BP diastolic 76–113; PULSE 110–131; RESP 15–25; TEMP 36.7–37.6; O2SAT 98–100; BMI 24.1; BMI 22.6
--- NOTE | 2024-04-10 19:21 | ED_ITS ---
Discharge Plan Disposition Patient Disposition: Admitted Condition: Critical Clinical Impressions Clinical Impression: Diabetic ketoacidosis Qualifiers: Diabetes mellitus type: type 1 Diabetes mellitus complication detail: without coma Qualified Code(s): E10.10 - Type 1 diabetes mellitus with ketoacidosis without coma Discharge ED Provider: Damien Poole General Adult HPI <ANANYA Maldonado - Last Filed: 04/10/24 20:47> General Chief complaint: Hyper/Hypoglycemia Stated complaint: hyperglycemia Time Seen by Provider: 04/10/24 19:21 History of Present Illness HPI narrative: Patient presents for evaluation of hyperglycemia . Patient has a 3-day history of increasing blood sugar. She has associated nausea vomiting and abdominal cramping. She is a insulin-dependent diabetic and has been trying to get her blood sugar under control with push doses of insulin subcutaneously at 10 mg at a time. Her blood sugar will lower but go right back up. She denies any chest pain but reports feeling short of breath is having palpitations but no fever chills hemoptysis hematochezia melena diarrhea. Related Data Home Medications ?Medication ?Instructions ?Recorded ?Confirmed buprenorphine 8 mg-naloxone 2 mg tab sublingual 01/30/24 01/30/24 sublingual tablet Previous Rx's ?Medication ?Instructions ?Recorded amitriptyline 100 mg tablet 100 mg PO HS #90 tabs 11/29/23 aspirin 81 mg tablet,delayed 81 mg PO DAILY #90 tabs 11/29/23 release atorvastatin 10 mg tablet 10 mg PO HS #90 tabs 11/29/23 bupropion HCl 300 mg 24 hr tablet, 300 mg PO DAILY #90 tabs 11/29/23 extended release cyclobenzaprine 5 mg tablet 5 mg PO BID #180 tabs 11/29/23 duloxetine 30 mg capsule,delayed 30 mg PO DAILY #90 caps 11/29/23 release ergocalciferol (vitamin D2) 1,250 1,250 mcg PO WEEKLY VITAMIN D 11/29/23 mcg (50,000 unit) capsule SUPPLEMENT #14 caps ibuprofen 800 mg tablet 800 mg PO Q8H #90 tabs 11/29/23 insulin glargine 100 unit/mL (3 30 unit (0.3 mL) SQ HS Diabetes 11/29/23 mL) subcutaneous pen (Lantus #15 mL Solostar U-100 Insulin) lancets 28 gauge (FreeStyle #100 ea 11/29/23 Lancets) pen needle, diabetic 31 gauge x #100 ea 11/29/23 3/16 (BD Ultra-Fine Mini Pen Needle) insulin lispro 100 unit/mL See Rx Instructions .Route 01/30/24 subcutaneous pen .COMPLEX #15 mL ondansetron 8 mg disintegrating 8 mg PO Q8H PRN nausea and 01/30/24 tablet vomiting 5 days #30 tabs pregabalin 75 mg capsule (Lyrica) 75 mg PO BID #60 caps 01/30/24 promethazine 12.5 mg tablet 12.5 mg PO TID PRN allergy 02/20/24 symptoms #10 tabs blood-glucose sensor (Dexcom G6 #1 ea 02/29/24 Sensor device) blood-glucose transmitter (Dexcom #1 ea 02/29/24 G6 Transmitter device) Allergies Allergy/AdvReac Type Severity Reaction Status Date / Time moxifloxacin [From AVELOX] Allergy Unknown SWELLING Verified 01/30/24 10:36 [facility] <ANANYA Maldonado - Last Filed: 04/10/24 20:47> PFS Disclaimer: The information contained in this section may have been updated after the patient was seen, as this information can be updated by other users. Medical History (Updated 04/10/24 @ 20:13 by ANANYA Maldonado) Polysubstance (excluding opioids) dependence Hypophosphatemia Abnormal drug screen Severe sepsis with acute organ dysfunction Hepatitis C Tobacco abuse Diabetes Cerebral palsy Social History Smoking Status: Current every day smoker tobacco type: cigarettes packs per day: 1 alcohol intake: current alcohol intake frequency: holidays/special occasions only substance use type: former substance user current occupational status: unemployed Travel in the last 8 weeks: None household members: none housing: house current occupational exposures/hazards: No caffeine: Yes <ANANYA Maldonado - Last Filed: 04/10/24 20:47> ROS Obtained: Yes Systems reviewed as appropriate & no additional complaints except as documented Physical Exam <ANANYA Maldonado - Last Filed: 04/10/24 20:47> General General appearance: alert and in no apparent distress Respiratory Respiratory exam: Present normal lung sounds bilaterally Cardiovascular Cardiovascular exam: Present tachycardia Neurological Exam Neurological exam: Present alert and oriented X3 Medical Decision Making <ANANYA Maldonado - Last Filed: 04/10/24 20:47> Medical Records Medical records reviewed: Yes I reviewed the patient's medical records. Screening: Per USPSTF and CDC recommendations, given the prevalence of disease in our region, it is our hospital?s policy to screen for HIV and viral Hepatitis for all patients aged 18 and over and those with ongoing risk factors. Deshaun Inquiry Pt receiving controlled substance: No Vital Signs: 04/10/24 19:19 04/10/24 19:30 Temperature 98.1 F Temperature Source Oral Pulse Rate 127 H Pulse Rate [Apical] 131 H Respiratory Rate 21 25 H Blood Pressure 158/104 H Blood Pressure [Right Arm] 148/113 H Blood Pressure Mean [Right Arm] 124 Blood Pressure Source [Right Arm] Automatic Cuff Blood Pressure Position [Right Arm] Sitting 02 Sat by Pulse Oximetry 100 100 Oxygen Delivery Method Room Air Lab Data Lab results reviewed: Yes I reviewed the patient's lab results. Lab Results 04/10/24 19:22: VBG pH 7.02 L, VBG pCO2 24.7 L, VBG pO2 53.0 H, VBG HCO3 6.2 L, VBG Total CO2 7.0 L, VBG O2 Saturation 81.9 H, VBG Base Excess -24.8 L, VBG Lactic Acid 1.9 04/10/24 19:26: WBC 13.3 H, RBC 5.19, Hgb 16.2, Hct 52.7 H, MCV 101.5 H, MCH 31.1, MCHC 30.7 L, RDW 14.2, Plt Count 383, MPV 9.0, Neut % (Auto) 82.9 H, Lymph % (Auto) 12.9, Mower % (Auto) 3.6, Eos % (Auto) 0.2, Baso % (Auto) 0.5, Neut # (Auto) 11.1 H, Lymph # (Auto) 1.7, Mower # (Auto) 0.5, Eos # (Auto) 0.0, Baso # (Auto) 0.1, Sodium 134 L, Potassium 5.4 H, Chloride 105, Carbon Dioxide < 5 L*, Anion Gap 29.4 H, BUN 24 H, Creatinine 1.20 H, Estimated Creat Clear 63, E stimated GFR 49 L, Est GFR ( Amer) 59, Glucose 466 H*, Hemoglobin A1c 10.4 H, Lactate 0.7, Calcium 10.0, Phosphorus 5.3 H, Magnesium 1.9, Total Bilirubin 0.7, AST 29, ALT 42, Alkaline Phosphatase 110, Total Protein 8.6 H, A lbumin 5.1 H, Globulin 3.5 H, Albumin/Globulin Ratio 1.5, Acetone Level Moderate 04/10/24 19:26 04/10/24 19:26 Orders (Tests/Meds): ED MEDICATIONS Generic Name Dose Route Start Last Admin Trade Name Freq PRN Reason Stop Dose Admin Acetaminophen 500 mg 04/10/24 20:43 Acetaminophen 500mg Tab PO 05/10/24 20:42 Q6HP PRN Fever or Mild Pain (1-3) Dextrose 50 ml 04/10/24 20:31 Dextrose 50% 50ml Syringe (Crash Cart) IVP 05/10/24 20:30 NEEDED PRN Per DKA Protocol Hydralazine HCl 10 mg 04/10/24 20:47 Hydralazine 20mg/Ml Vial IV 05/10/24 20:46 Q6HP PRN Hypertensive Emergency Sodium Chloride 2,000 mls @ 999 mls/hr 04/10/24 19:30 04/10/24 19:41 Sod Chlor 0.9% 1000ml Bag IV 05/10/24 19:29 999 mls/hr .Q2H1M BOWEN Administration Sodium Chloride 1,000 mls @ 150 mls/hr 04/10/24 21:30 04/10/24 20:41 Sod Chlor 0.9% 1000ml Bag IV 05/10/24 21:29 150 mls/hr .Q6H40M BOWEN Administration Insulin Human Regular 100 unit 101 mls @ 5.05 mls/hr 04/10/24 20:45 / Sodium Chloride IV 05/10/24 20:44 .Q20H BOWEN Protocol 5 UNIT/HR Dextrose/Sodium Chloride 1,000 mls @ 125 mls/hr 04/10/24 20:45 Dextrose 5%-0.9% Nacl Iv Soln IV 05/10/24 20:44 .Q8H BOWEN Protocol Sodium Chloride 1,000 mls @ 150 mls/hr 04/10/24 20:45 Sod Chlor 0.9% 1000ml Bag IV 05/10/24 20:44 .Q6H40M BOWEN Protocol Morphine Sulfate 2 mg 04/10/24 20:43 Morphine 2mg/Ml Syringe IV 05/10/24 20:42 Q4HP PRN Severe Pain (7-10) Promethazine HCl 25 mg 04/10/24 20:49 04/10/24 21:25 Promethazine Hcl 25mg/Ml 1ml Vial IV 04/10/24 20:50 25 mg ONCE ONE Administration Sodium Bicarbonate 100 meq 04/10/24 20:41 04/10/24 21:16 Sodium Bicarb 8.4% 50ml Syringe (Crash Cart) IV 04/10/24 20:42 100 meq ONCE ONE Administration Sodium Chloride 25 ml 04/10/24 20:48 04/10/24 21:25 Sodium Chloride 0.9% 25ml Bag IV 05/10/24 20:47 25 ml NEEDED PRN Administration for Use with IV Promethazine Tramadol HCl 100 mg 04/10/24 20:46 Tramadol 50mg Tablet PO 05/10/24 20:45 Q6HP PRN Moderate Pain (4-6) Discontinued Medications Generic Name Dose Route Start Last Admin Trade Name Freq PRN Reason Stop Dose Admin Insulin Human Regular 100 unit 101 mls @ 5.05 mls/hr 04/10/24 19:30 04/10/24 20:40 / Sodium Chloride IV 05/10/24 19:29 5 unit/hr .Q20H BOWEN 5.05 mls/hr Administration Protocol 5 UNIT/HR Ondansetron HCl 4 mg 04/10/24 19:43 04/10/24 19:43 Ondansetron 4mg/2ml Vial IV 04/10/24 19:44 4 mg ONCE ONE Administration ORDERS Category Date Time Status XR chest portable Stat Exams 04/10/24 19:22 Completed Acetone, Serum (Rapid) Stat Lab 04/10/24 19:26 Completed Complete Blood Count Auto Diff Stat Lab 04/10/24 19:26 Completed Comprehensive Metabolic Panel Stat Lab 04/10/24 19:26 Completed Hemoglobin A1C Stat Lab 04/10/24 19:26 Completed Lactic Acid Stat Lab 04/10/24 19:26 Completed Magnesium Stat Lab 04/10/24 19:26 Completed Phosphorous Stat Lab 04/10/24 19:26 Completed Urinalysis and Microscopic Stat Lab 04/10/24 19:22 Ordered Blood Culture Stat Micro 04/10/24 21:05 Received Urine Culture Stat Micro 04/10/24 19:22 Ordered Venous Blood Gas Stat RT 04/10/24 19:22 Completed Medical Decision Narrative: In summary patient is a 43-year-old female who presents to the emergency department for evaluation of hyperglycemia. Patient is normotensive tachycardic tachypneic satting at 100% on room air upon arrival, with a temperature of 98.1. Physical exam is remarkable for dry mucous membranes, tachypnea without accessory muscle use, tachycardia noted on the bedside monitor, strong odor of acetone on her breath but otherwise nonfocal. She has normal heart sounds normal breath sounds no abdominal tenderness with normal bowel sounds.. Differential diagnosis includes DKA versus occult infection etc. Initial workup will be conducted with hematologic labs twelve-lead EKG plain film chest x-ray. Initial interventions include crystalloid bolus insulin drip when her labs are back. Initial workup reviewed by me shows that she does have DKA with a pH of 7.02 a serum CO2 of less than 5, serum glucose of 466, hemoglobin A1c of 10.4, phosphorus of 5.3, magnesium 1.9, BUN of 24 creatinine 1.2, GFR of 49 moderate amount of acetone. Given this I had an interactive discussion with hospital medicine regarding patient management and she will be admitted to the ICU for further evaluation and care <Damien Poole MD - Last Filed: 04/10/24 21:37> Vital Signs: 04/10/24 19:19 04/10/24 19:30 Temperature 98.1 F Temperature Source Oral Pulse Rate 127 H Pulse Rate [Apical] 131 H Respiratory Rate 21 25 H Blood Pressure 158/104 H Blood Pressure [Right Arm] 148/113 H Blood Pressure Mean [Right Arm] 124 Blood Pressure Source [Right Arm] Automatic Cuff Blood Pressure Position [Right Arm] Sitting 02 Sat by Pulse Oximetry 100 100 Oxygen Delivery Method Room Air Lab Data Lab Results 04/10/24 19:22: VBG pH 7.02 L, VBG pCO2 24.7 L, VBG pO2 53.0 H, VBG HCO3 6.2 L, VBG Total CO2 7.0 L, VBG O2 Saturation 81.9 H, VBG Base Excess -24.8 L, VBG Lactic Acid 1.9 04/10/24 19:26: WBC 13.3 H, RBC 5.19, Hgb 16.2, Hct 52.7 H, MCV 101.5 H, MCH 31.1, MCHC 30.7 L, RDW 14.2, Plt Count 383, MPV 9.0, Neut % (Auto) 82.9 H, Lymph % (Auto) 12.9, Mower % (Auto) 3.6, Eos % (Auto) 0.2, Baso % (Auto) 0.5, Neut # (Auto) 11.1 H, Lymph # (Auto) 1.7, Mower # (Auto) 0.5, Eos # (Auto) 0.0, Baso # (Auto) 0.1, Sodium 134 L, Potassium 5.4 H, Chloride 105, Carbon Dioxide < 5 L*, Anion Gap 29.4 H, BUN 24 H, Creatinine 1.20 H, Estimated Creat Clear 63, E stimated GFR 49 L, Est GFR ( Amer) 59, Glucose 466 H*, Hemoglobin A1c 10.4 H, Lactate 0.7, Calcium 10.0, Phosphorus 5.3 H, Magnesium 1.9, Total Bilirubin 0.7, AST 29, ALT 42, Alkaline Phosphatase 110, Total Protein 8.6 H, A lbumin 5.1 H, Globulin 3.5 H, Albumin/Globulin Ratio 1.5, Acetone Level Moderate Orders (Tests/Meds): ED MEDICATIONS Generic Name Dose Route Start Last Admin Trade Name Freq PRN Reason Stop Dose Admin Acetaminophen 500 mg 04/10/24 20:43 Acetaminophen 500mg Tab PO 05/10/24 20:42 Q6HP PRN Fever or Mild Pain (1-3) Dextrose 50 ml 04/10/24 20:31 Dextrose 50% 50ml Syringe (Crash Cart) IVP 05/10/24 20:30 NEEDED PRN Per DKA Protocol Hydralazine HCl 10 mg 04/10/24 20:47 Hydralazine 20mg/Ml Vial IV 05/10/24 20:46 Q6HP PRN Hypertensive Emergency Sodium Chloride 2,000 mls @ 999 mls/hr 04/10/24 19:30 04/10/24 19:41 Sod Chlor 0.9% 1000ml Bag IV 05/10/24 19:29 999 mls/hr .Q2H1M BOWEN Administration Sodium Chloride 1,000 mls @ 150 mls/hr 04/10/24 21:30 04/10/24 20:41 Sod Chlor 0.9% 1000ml Bag IV 05/10/24 21:29 150 mls/hr .Q6H40M BOWEN Administration Insulin Human Regular 100 unit 101 mls @ 5.05 mls/hr 04/10/24 20:45 / Sodium Chloride IV 05/10/24 20:44 .Q20H BOWEN Protocol 5 UNIT/HR Dextrose/Sodium Chloride 1,000 mls @ 125 mls/hr 04/10/24 20:45 Dextrose 5%-0.9% Nacl Iv Soln IV 05/10/24 20:44 .Q8H BOWEN Protocol Sodium Chloride 1,000 mls @ 150 mls/hr 04/10/24 20:45 Sod Chlor 0.9% 1000ml Bag IV 05/10/24 20:44 .Q6H40M BOWEN Protocol Morphine Sulfate 2 mg 04/10/24 20:43 Morphine 2mg/Ml Syringe IV 05/10/24 20:42 Q4HP PRN Severe Pain (7-10) Promethazine HCl 25 mg 04/10/24 20:49 04/10/24 21:25 Promethazine Hcl 25mg/Ml 1ml Vial IV 04/10/24 20:50 25 mg ONCE ONE Administration Sodium Bicarbonate 100 meq 04/10/24 20:41 04/10/24 21:16 Sodium Bicarb 8.4% 50ml Syringe (Crash Cart) IV 04/10/24 20:42 100 meq ONCE ONE Administration Sodium Chloride 25 ml 04/10/24 20:48 04/10/24 21:25 Sodium Chloride 0.9% 25ml Bag IV 05/10/24 20:47 25 ml NEEDED PRN Administration for Use with IV Promethazine Tramadol HCl 100 mg 04/10/24 20:46 Tramadol 50mg Tablet PO 05/10/24 20:45 Q6HP PRN Moderate Pain (4-6) Discontinued Medications Generic Name Dose Route Start Last Admin Trade Name Freq PRN Reason Stop Dose Admin Insulin Human Regular 100 unit 101 mls @ 5.05 mls/hr 04/10/24 19:30 04/10/24 20:40 / Sodium Chloride IV 05/10/24 19:29 5 unit/hr .Q20H BOWEN 5.05 mls/hr Administration Protocol 5 UNIT/HR Ondansetron HCl 4 mg 04/10/24 19:43 04/10/24 19:43 Ondansetron 4mg/2ml Vial IV 04/10/24 19:44 4 mg ONCE ONE Administration ORDERS Category Date Time Status XR chest portable Stat Exams 04/10/24 19:22 Completed Acetone, Serum (Rapid) Stat Lab 04/10/24 19:26 Completed Complete Blood Count Auto Diff Stat Lab 04/10/24 19:26 Completed Comprehensive Metabolic Panel Stat Lab 04/10/24 19:26 Completed Hemoglobin A1C Stat Lab 04/10/24 19:26 Completed Lactic Acid Stat Lab 04/10/24 19:26 Completed Magnesium Stat Lab 04/10/24 19:26 Completed Phosphorous Stat Lab 04/10/24 19:26 Completed Urinalysis and Microscopic Stat Lab 04/10/24 19:22 Ordered Blood Culture Stat Micro 04/10/24 21:05 Received Urine Culture Stat Micro 04/10/24 19:22 Ordered Venous Blood Gas Stat RT 04/10/24 19:22 Completed ECG Data Tracing #1: I reviewed this ECG and interpreted as documented below: (Sinus tachycardia [address] or T wave changes concerning for acute ischemia, patient does have mildly peaked T waves in V2, not throughout the precordium. No reciprocal change. AR 132, QRS 87, QTc 4 7) Medical Decision Narrative: In summary patient is a 43-year-old female who presents to the emergency department for evaluation of hyperglycemia. Patient is normotensive tachycardic tachypneic satting at 100% on room air upon arrival, with a temperature of 98.1. Physical exam is remarkable for dry mucous membranes, tachypnea without accessory muscle use, tachycardia noted on the bedside monitor, strong odor of acetone on her breath but otherwise nonfocal. She has normal heart sounds normal breath sounds no abdominal tenderness with normal bowel sounds.. Differential diagnosis includes DKA versus occult infection etc. Initial workup will be conducted with hematologic labs twelve-lead EKG plain film chest x-ray. Initial interventions include crystalloid bolus insulin drip when her labs are back. Initial workup reviewed by me shows that she does have DKA with a pH of 7.02 a serum CO2 of less than 5, serum glucose of 466, hemoglobin A1c of 10.4, phosphorus of 5.3, magnesium 1.9, BUN of 24 creatinine 1.2, GFR of 49 moderate amount of acetone. Given this I had an interactive discussion with hospital medicine regarding patient management and she will be admitted to the ICU for further evaluation and care I was consulted by the DAVID, and we discussed the complexity of the problems being addressed. I approved the treatment and management plan for this patient's care in the Emergency Department, thus performing a substantive portion of the medical decision making. Damien Poole MD Procedures <Damien Poole MD - Last Filed: 04/10/24 21:37> Limited Ultrasound Indication:: Ultrasound-guided line placement Indication: -Difficult access Identified structures: -Left ulnar vein, cephalic and basilic veins Location/access site: -Left ulnar vein Vessel patency: -Patent Direct visualization? -Yes Impression: Successful placement of left upper extremity 20-gauge catheter Images were not saved to permanent archive The study was technically adequate CPT Codes: Venipuncture: 91448-04 Age >3yo: 12433-18 This study was performed by me, and I personally interpreted all images/videos. Based on my clinical judgement, these images were adequate and did not necessitate further imaging Critical Care <ANANYA Maldonado - Last Filed: 04/10/24 20:47> Critical Care Time Critical Care Time: Yes Attestation: On 04/10/24, the high probability of a clinically significant, sudden or life threatening deterioration of the following system(cardiovascular neurologic) required my full and direct attention, intervention and personal management. The time I documented below is in addition to time spent performing reported procedures but includes the following listed in this critical care notation. Total Time Total Critical Care Time: 30 <Damien Poole MD - Last Filed: 04/10/24 21:37> Total Time Total Critical Care Time: 35
--- NOTE | 2024-04-10 19:22 | XR_ITS ---
PROCEDURE INFORMATION: Exam: XR Chest Exam date and time: 04/10/2024 7:32 PM Age: 43 years old Clinical indication: Condition or disease; Other: Dka TECHNIQUE: Imaging protocol: Radiologic exam of the chest. Views: 1 view. COMPARISON: CR XR CHEST PORTABLE 12/03/2022 9:25 PM FINDINGS: Lungs: No evidence of acute pulmonary disease or infiltrates Pleural spaces: No large effusion or pneumothorax. Heart/Mediastinum: No evidence of mediastinal widening or cardiac silhouette enlargement; the mediastinum and heart appear within normal limits for contour and size. Bones/joints: No evidence of acute osseous abnormalities within the visualized portions of the thoracic spine and ribs. Osseous structures appear appropriate for patient age. IMPRESSION: No dense parenchymal consolidation, pleural effusion, or pneumothorax.
--- NOTE | 2024-04-10 19:27 | ECG_ITS ---
APPROVED REPORT Exam: Resting ECG HR:128 bpm ECG Measurements Heart Rate 128 AXES AR 132 P 87 QRSd 87 QRS 90 QT 331 T 65 QTc 407 Conclusion SINUS TACHYCARDIA Electronically signed by : JOHNIE BLAIR, 04/10/2024 21:42:10
[2024-04-10] MEDS: 0.9 % SODIUM CHLORIDE 1000ML 2,000 ML 999 ML IV ×2 (19:41→22:39)
[2024-04-10 19:43] LABS: VBG HCO3 6.2 mmol/L (23-30)
[2024-04-10] MEDS: ONDANSETRON 4MG/2ML VIAL 4 MG IV (19:43)
[2024-04-10 19:44] LABS: Lactate Venous 1.9 mmol/L (0.4-2.0); VBG Base Excess -24.8 mmol/L (-2.4-2.3); VBG Oxygen Saturation 81.9 % (50-70)
[2024-04-10 19:46] LABS: VBG PCO2 24.7 mmol/L (35-51); VBG PH 7.02 mmol/L (7.31-7.41)
[2024-04-10 19:48] LABS: Albumin Level 5.1 g/dl (3.5-5.0); Chloride 105 mmol/L (98-107); Potassium 5.4 mmoL/L (3.5-5.1); Sodium 134 mmol/L (136-145)
[2024-04-10 19:50] LABS: Alanine Aminotransferase 42 U/L (12-78); Aspartate Amino Transferase 29 U/L (14-36); Blood Urea Nitrogen 24 mg/dl (7-17); Creatinine Clearance Estimated 63 mL/min (50-200); Estimated Glomerular Filt Rate 49 ml/min (>60); GFR (African American) 59 ML/MIN (>60); Lactic Acid 0.7 mmol/L (0.7-2.1)
[2024-04-10 19:51] LABS: Albumin/Globulin Ratio 1.5 (1.1-1.8); Alkaline Phosphatase 110 U/L (38-126); Basophils # 0.1 K/mm3 (0-0.2); Basophils % 0.5 % (0.1-2.0); Bilirubin,Total 0.7 mg/dl (0.2-1.3); Eosinophils % 0.2 % (0.1-12.0); Globulin 3.5 g/dL (1.3-3.2); Hematocrit 52.7 % (37.0-47.0); Hemoglobin 16.2 g/dL (12.2-16.2); Lymphocytes # 1.7 K/mm3 (0.7-4.5); Lymphocytes % 12.9 % (10-50); Magnesium 1.9 mg/dl (1.6-2.3); Mean Corpuscular HGB Conc 30.7 g/dL (31.8-35.4); Mean Corpuscular Hemoglobin 31.1 pg (27.0-31.2); Mean Corpuscular Volume 101.5 fl (81-99); Monocytes # 0.5 K/mm3 (0.1-1.0); Monocytes % 3.6 % (1.7-9.3); Neutrophils # 11.1 K/mm3 (1.8-7.8); Neutrophils % 82.9 % (37.0-80.0); Phosphorous 5.3 mg/dl (2.5-4.5); Platelet Count 383 K/mm3 (142-424); Red Blood Count 5.19 M/mm3 (4.20-5.40); Red Cell Distribution Width 14.2 % (11.5-17.5); Total Protein,Serum 8.6 g/dl (6.3-8.2); White Blood Count 13.3 K/mm3 (4.8-10.8)
[2024-04-10 20:04] LABS: Anion Gap 29.4 mEq/L (5-15)
[2024-04-10 20:05] LABS: Carbon Dioxide < 5 mmol/L (22.0-30.0); Glucose 466 mg/dl (74-100)
--- NOTE | 2024-04-10 20:10 | PC.NURSE ---
patient called out saying she has heartburn, Carroll Costa notified
[2024-04-10 20:12] LABS: Hemoglobin A1C 10.4 % (4.0-6.0)
--- NOTE | 2024-04-10 20:15 | PC.NURSE ---
Patient admitted to room 219 as ICU to hospitalist for DKA; inpatient status.
[2024-04-10 20:28] LABS: Acetone, Serum (Rapid) Moderate (None Detect)
[2024-04-10] MEDS: INSULIN REGULAR, HUMAN 100 UNIT in 0.9 % SODIUM CHLORIDE 100 ML 5.05 UNIT IV (20:40)
[2024-04-10] MEDS: 0.9 % SODIUM CHLORIDE 1000ML 1,000 ML 150 ML IV ×3 (20:41→21:30)
--- NOTE | 2024-04-10 20:49 | CT_ITS ---
PROCEDURE INFORMATION: Exam: CT Abdomen And Pelvis Without Contrast Exam date and time: 04/10/2024 9:01 PM Age: 43 years old Clinical indication: Abdominal pain; Additional info: N/v/abd pain in dka PT R/O colitis/sbo TECHNIQUE: Imaging protocol: Computed tomography of the abdomen and pelvis without contrast. Radiation optimization: All CT scans at this facility use at least one of these dose optimization techniques: automated exposure control; mA and/or kV adjustment per patient size (includes targeted exams where dose is matched to clinical indication); or iterative reconstruction. COMPARISON: 1. CR XR CHEST PORTABLE 04/10/2024 7:32 PM 2. CR XR CHEST PORTABLE 12/03/2022 9:25 PM 3. CR XR CHEST PORTABLE 11/02/2022 9:08 AM FINDINGS: Liver: Normal. Gallbladder and biliary ducts: The gallbladder is moderately distended, consider right upper quadrant ultrasound if any concern for cholecystitis. There is cholelithiasis. Pancreas: Normal. Spleen: There are multiple calcifications in the spleen most likely reflects small granulomas. Adrenal glands: The adrenal glands appear normal. Kidneys and ureters: There are no soft tissue renal masses or hydronephrosis. Stomach and bowel: There is large volume stool throughout the colon. Appendix: No evidence of appendicitis. Intraperitoneal space: There is a small volume of free fluid in the pelvis. Vasculature: The abdominal aorta and its major branches appear normal without evidence of aneurysm or stenosis. There are pelvic phleboliths. Lymph nodes: No lymphadenopathy. Urinary bladder: There is moderate distention of the urinary bladder. Reproductive: No acute process. Bones/joints: The visualized osseous structures of the abdomen and pelvis appear normal for patient age. Soft tissues: There is soft tissue stranding of the left anterior abdominal wall, correlate for recent injection. IMPRESSION: 1. The gallbladder is moderately distended, consider right upper quadrant ultrasound if any concern for cholecystitis. 2. Large volume stool throughout the colon.
--- NOTE | 2024-04-10 20:50 | P.HP_ITS ---
History of Present Illness *Admission Date: 04/10/24 *Reason for visit:: Malaise, ataxia, headache, shortness of breath, nausea, abdominal pain *History of present illness: Patient with past medical history of insulin-dependent diabetes, active smoker presents complaining of several nonspecific symptoms. States she suffered from headache starting yesterday, malaise/nausea, abdominal pain x 3 days, shortness of breath x 2 days. Also admits to some ataxia x 3 days, and a stiff neck sta rting 1 day ago. Reports good compliance with insulin at home, yet hemoglobin A1c 10.4 at time of admission. Patient's blood sugar 466, with moderate acetone, +3 urine ketones, and bicarb level less than 5 at time of presentation to hospital. Denies known sick contacts, chest pain, recent travel, diarrhea, accidents, fever/chills. Patient's significant other with patient collaborates patient's story. Patient is honest about being active smoker, but denies illegal drug use or alcohol use. [facility] Disclaimer: The information contained in this section may have been updated after the patient was seen, as this information can be updated by other users. Medical History (Updated 04/11/24 @ 04:50 by Torito Bishop MD) Polysubstance (excluding opioids) dependence Hypophosphatemia Abnormal drug screen Severe sepsis with acute organ dysfunction Hepatitis C Tobacco abuse Diabetes Cerebral palsy Social History Smoking Status: Current every day smoker tobacco type: cigarettes packs per day: 1 alcohol intake: current alcohol intake frequency: holidays/special occasions only substance use type: former substance user current occupational status: unemployed Travel in the last 8 weeks: None household members: none housing: house current occupational exposures/hazards: No caffeine: Yes Review of Systems Review of Systems Review of systems (narrative): All pertinent positive in HPI. Please assume all the 14 review of system is negative unless otherwise stated above Meds Home Medications and Allergies Home Medications ?Medication ?Instructions ?Recorded ?Confirmed ?Type insulin glargine 100 unit/mL (3 30 unit (0.3 mL) SQ HS Diabetes 11/29/23 04/10/24 Rx mL) subcutaneous pen (Lantus #15 mL Solostar U-100 Insulin) lancets 28 gauge (FreeStyle #100 ea 11/29/23 04/10/24 Rx Lancets) pen needle, diabetic 31 gauge x #100 ea 11/29/23 04/10/24 Rx 3/16 (BD Ultra-Fine Mini Pen Needle) buprenorphine 8 mg-naloxone 2 mg 1 tab sublingual DAILY 01/30/24 04/10/24 History sublingual tablet insulin lispro 100 unit/mL See Rx Instructions .Route 01/30/24 04/10/24 Rx subcutaneous pen .COMPLEX #15 mL blood-glucose sensor (Dexcom G6 #1 ea 02/29/24 04/10/24 Rx Sensor device) blood-glucose transmitter (Dexcom #1 ea 02/29/24 04/10/24 Rx G6 Transmitter device) New Prescriptions to Start Prescriptions: Allergies Allergy/AdvReac Type Severity Reaction Status Date / Time moxifloxacin [From AVELOX] Allergy Unknown SWELLING Verified 01/30/24 10:36 Exam Data for Last 24 hours Vital signs and Labs for Last 24 Hours: Temp Pulse Resp BP Pulse Ox O2 Del Method 98.1 F 127 H 25 H 158/104 H 100 Room Air 04/10/24 19:19 04/10/24 19:30 04/10/24 19:30 04/10/24 19:30 04/10/24 19:30 04/10/24 19:19 Laboratory Results - last 24 hr 04/10/24 19:22: VBG pH 7.02 L, VBG pCO2 24.7 L, VBG pO2 53.0 H, VBG HCO3 6.2 L, VBG Total CO2 7.0 L, VBG O2 Saturation 81.9 H, VBG Base Excess -24.8 L, VBG Lactic Acid 1.9 04/10/24 19:26: WBC 13.3 H, RBC 5.19, Hgb 16.2, Hct 52.7 H, MCV 101.5 H, MCH 31.1, MCHC 30.7 L, RDW 14.2, Plt Count 383, MPV 9.0, Neut % (Auto) 82.9 H, Lymph % (Auto) 12.9, [place] % (Auto) 3.6, Eos % (Auto) 0.2, Baso % (Auto) 0.5, Neut # (Auto) 11.1 H, Lymph # (Auto) 1.7, [place] # (Auto) 0.5, Eos # (Auto) 0.0, Baso # (Auto) 0.1, Sodium 134 L, Potassium 5.4 H, Chloride 105, Carbon Dioxide < 5 L*, Anion Gap 29.4 H, BUN 24 H, Creatinine 1.20 H, Estimated Creat Clear 63, Estimated GFR 49 L, Est GFR ( Amer) 59, Glucose 466 H*, Hemoglobin A1c 10.4 H, Lactate 0.7, Calcium 10.0, Phosphorus 5.3 H, Magnesium 1.9, Total Bilirubin 0.7, AST 29, ALT 42, Alkaline Phosphatase 110, Total Protein 8.6 H, Albumin 5.1 H, Globulin 3.5 H, Albumin/Globulin Ratio 1.5, Acetone Level Moderate I & O for Last 24 hours: Intake & Output 04/07/24 04/08/24 04/09/24 04/10/24 23:59 23:59 23:59 23:59 Weight 65.771 kg Constitutional Constitutional: moderate distress, thin and cooperative Comments: ill appearing *Routine HEENT Exam Head: Present normocephalic Eye: Present EOMI ENT: Present mucous membranes dry *Routine Neck Exam Neck: Present supple and full ROM *Routine Respiratory Exam Respiratory: Present CTA bilaterally and normal respiratory effort *Routine Cardiovascular Exam Cardiovascular: Present tachycardia *Routine Abdominal Exam Abdominal: Present soft and normoactive bowel sounds *Routine Rectal Exam Rectal:: deferred *Routine Genitalia Exam Genitalia:: deferred *Routine Extremities Exam Extremities: Present full ROM and normal capillary refill *Routine Skin Exam Skin: Present intact *Routine Neurological Exam Neurological: Present alert and moving all extremities Assessment and Plan *Assessment and plan (1) Diabetic ketoacidosis: Status: Acute Qualifiers: Diabetes mellitus complication detail: without coma Diabetes mellitus type: type 1 Qualified Code(s): E10.10 - Type 1 diabetes mellitus with ketoacidosis without coma Category: Medical Code(s): E11.10 - Type 2 diabetes mellitus with ketoacidosis without coma (2) Hypertensive urgency: Status: Acute Category: Medical Code(s): I16.0 - Hypertensive urgency (3) Constipation: Status: Acute Category: Medical Code(s): K59.00 - Constipation, unspecified (4) Smoker: Status: Acute Category: Social Hx Code(s): F17.200 - Nicotine dependence, unspecified, uncomplicated Plan Patient with past medical history of diabetes presents with bicarb level less than 5, pH 7.02, white blood count 13.3, +3 ketones in urine. Patient reports good compliance with home insulin, yet presents with 04/10 hemoglobin A1c 10.4. Patient admitted for DKA. Plan is noted below: DKA: ? Admit to ICU. Admission BMP glucose 466. Patient's [id number] glucose 04/10 at 2223 equal 326. moderate urine acetone noted at time of admission assessment. Regular insulin drip regular 5 units/h, and will upward titrate per nursing protocol. Routine DKA protocol. Respiratory PCR panel negative. I reviewed CT abdomen/pelvis showing mildly distended gallbladder with large amount of stool. White blood count 13.3. Lactate 0.7. Ordered acute 4-hour BMP labs for insulin drip blood sugar adjustment. - No signs of infection noted during my admission infection assessment so no indication for empirical antibiotic coverage. Reviewed patient's admission UA noting +3 ketones, negative nitrates/leuk esterase, and +2 bacteria. 04/10 I ordered test serum, which is negative. I wanted to ensure that patient's malaise/nausea complaints were not related. Ordered repeat CBC for a.m. Also ordered q4hr magnesium tests. Will order CRP/procalcitonin with a.m. labs tomorrow. Recommended patient be n.p.o., but patient complaining her mouth is extremely dry. Therefore through joint decision-making was able to convince patient to except diabetic appropriate clear diet until anion gap less than 12. Given admission pH 7.02, I wrote for 100 mill equivalents bicarb IV push x 1. I personally interpreted patient's portable chest x-ray at time of admission which showed no infiltrates or pleural effusions, but did appear hyperinflated. Per patient's significant other, patient has no primary care physician or appian bpm developer at this time. Hypertensive urgency: Hydralazine 10 mg IV as needed systolic blood pressure greater than 170. Active smoker: 10 minutes of smoking cessation advice given the patient by Dr. Bishop at time of admission. Nicotine 25 mg every 24 as needed patch ordered by Dr. Bishop. Constipation: Place patient on stool regimen MiraLAX 17 g p.o. daily and Colace 250 mg p.o. daily. Also administering IV fluids via DKA protocol. PPx: Lovenox subcutaneous CODE STATUS: Full MDM [place]: High, patient presented with diabetic ketoacidosis which poses a threat to life and bodily function Data: High, please see imaging/lab work and assessment and plan section above. I personally interpreted patient's portable chest x-ray with my impression given above. Patient's acted as independent historian during interview between Dr. Bishop and patient. Significant other states that patient has no primary care physician, and has never visited an endocrinology. I personally discussed this case with the emergency room provider Aquilino Costa ([place]), and we both agreed that patient required hospitalization due to life-threatening acute DKA episode. Risk: High, I decided to admit patient to hospital given patient in DKA with high risk of bodily injury or if left untreated. 59 minutes of critical care time regarding this patient by Dr. Bishop overnight 04/10/2024
--- NOTE | 2024-04-10 20:56 | PC.NURSE ---
pt to radiology
[2024-04-10] MEDS: SODIUM BICARB 8.4% 50ML SYRINGE (CRASH CART) 100 MEQ IV (21:16)
[2024-04-10 21:23] LABS: Adenovirus,PCR Not Detected (NotDetected); Bordetella Pertussis Not Detected (NotDetected); Chlamydophila Pneumoniae, PCR Not Detected (NotDetected); Coronavirus 19, PCR Not Detected (NotDetected); Coronavirus 229E Not Detected (NotDetected); Coronavirus NL63 Not Detected (NotDetected); Coronavirus OC43 Not Detected (NotDetected); Coronovirus HKU1,PCR Not Detected (NotDetected); Human Metapneumovirus Not Detected (NotDetected); Influenza A, PCR Not Detected (NotDetected); Influenza AH1, 2009 Not Detected (NotDetected); Influenza AH1, PCR Not Detected (NotDetected); Influenza AH3,PCR Not Detected (NotDetected); Influenza B, PCR Not Detected (NotDetected); Mycoplasma Pneumoniae, PCR Not Detected (NotDetected); Parainfluenza 1, PCR Not Detected (NotDetected); Parainfluenza 2, PCR Not Detected (NotDetected); Parainfluenza 3, PCR Not Detected (NotDetected); Parainfluenza 4, PCR Not Detected (NotDetected); Respiratory Syncytial Virus Not Detected (NotDetected); Rhinovirus/Enterovirus Not Detected (NotDetected)
[2024-04-10] MEDS: SODIUM CHLORIDE 0.9% 25ML BAG 25 ML IV (21:25)
[2024-04-10] MEDS: PROMETHAZINE HCL 25MG/ML 1ML VIAL 25 MG IV (21:25)
[2024-04-10 21:34] LABS: Chloride 111 mmol/L (98-107); Potassium 4.8 mmoL/L (3.5-5.1); Sodium 135 mmol/L (136-145)
[2024-04-10 21:35] LABS: HIV (1&2) Antibody Rapid NONREACTIVE (NONREACTIVE)
[2024-04-10 21:37] LABS: Blood Urea Nitrogen 22 mg/dl (7-17); Creatinine Clearance Estimated 68 mL/min (50-200); Estimated Glomerular Filt Rate 54 ml/min (>60); GFR (African American) 66 ML/MIN (>60)
[2024-04-10 21:38] LABS: Calcium 8.9 mg/dl (8.4-10.2); Magnesium 1.7 mg/dl (1.6-2.3); Phosphorous 4.1 mg/dl (2.5-4.5)
[2024-04-10 21:42] LABS: Anion Gap 23.8 mEq/L (5-15)
[2024-04-10 21:48] LABS: Carbon Dioxide < 5 mmol/L (22.0-30.0); Glucose 458 mg/dl (74-100)
[2024-04-10 22:00] LABS: HCG Qualitative, Serum Negative (Negative)
[2024-04-10] MEDS: INSULIN REGULAR, HUMAN 100 UNIT in 0.9 % SODIUM CHLORIDE 100 ML IV (22:15)
[2024-04-10 22:53] LABS: Appearance,Urine CLEAR (Clear); Blood, Urine TRACE-I (Negative); Color,Urine YELLOW (Yellow); Glucose,Urine (UA) 2+ (Negative); Ketones,Urine 3+ (Negative); Leukocyte Esterase,Urine Negative (Negative); Microscopic, Urine URINE MICROSCOPIC (MICROSCOPIC); Nitrate,Urine Negative (Negative); Protein,Urine 1+ (Negative); Specific Gravity, Urine 1.025 (1.005-1.030); Urobilinogen,Urine 0.2 EU/dl (0.2)
[2024-04-10 22:58] LABS: Bilirubin,Urine Negative (Negative)
[2024-04-10 23:07] LABS: RBC,Urine Occasional #/hpf (0-3)
[2024-04-10 23:08] LABS: Bacteria,Urine 2+ /lpf; Mucus,Urine 1+ /lpf; Yeast,Urine 1+ /lpf
[2024-04-10] MEDS: PANTOPRAZOLE 40MG VIAL 40 MG IV (23:18)
[2024-04-11] VITALS (19 sets, daily range): BP systolic 95–146; BP diastolic 52–93; PULSE 92–117; RESP 14–24; TEMP 36.8–37.9; O2SAT 97–100; BMI 22.6
[2024-04-11 01:29] LABS: Chloride 115 mmol/L (98-107); Sodium 137 mmol/L (136-145)
[2024-04-11 01:30] LABS: Potassium 4.1 mmoL/L (3.5-5.1)
[2024-04-11 01:32] LABS: Anion Gap 18.1 mEq/L (5-15); Blood Urea Nitrogen 20 mg/dl (7-17); Creatinine Clearance Estimated 88 mL/min (50-200); Estimated Glomerular Filt Rate 78 ml/min (>60); GFR (African American) 95 ML/MIN (>60)
[2024-04-11 01:33] LABS: Calcium 8.6 mg/dl (8.4-10.2); Glucose 254 mg/dl (74-100); Magnesium 1.8 mg/dl (1.6-2.3)
[2024-04-11 01:36] LABS: Carbon Dioxide 8 mmol/L (22.0-30.0); Phosphorous 1.9 mg/dl (2.5-4.5)
[2024-04-11 02:36] LABS: POC Glucose,Bedside 250 (70-110)
[2024-04-11 02:36] LABS: POC Glucose,Bedside 308 (70-110)
[2024-04-11 02:36] LABS: POC Glucose,Bedside 217 (70-110)
[2024-04-11 02:36] LABS: POC Glucose,Bedside 231 (70-110)
[2024-04-11 02:36] LABS: POC Glucose,Bedside 326 (70-110)
[2024-04-11] MEDS: 0.9 % SODIUM CHLORIDE 1000ML 1,000 ML 150 ML IV (03:30)
[2024-04-11 04:27] LABS: POC Glucose,Bedside 164 (70-110)
[2024-04-11 04:27] LABS: POC Glucose,Bedside 178 (70-110)
[2024-04-11 05:15] LABS: Basophils % 0.4 % (0.1-2.0); Eosinophils # 0.1 K/mm3 (0.0-0.4); Eosinophils % 1.3 % (0.1-12.0); Hematocrit 40.2 % (37.0-47.0); Lymphocytes % 20.1 % (10-50); Mean Corpuscular HGB Conc 31.7 g/dL (31.8-35.4); Mean Corpuscular Hemoglobin 30.4 pg (27.0-31.2); Mean Platelet Volume 8.3 fl (7.4-10.4); Monocytes # 0.5 K/mm3 (0.1-1.0); Neutrophils # 7.3 K/mm3 (1.8-7.8); Neutrophils % 73.2 % (37.0-80.0); Platelet Count 267 K/mm3 (142-424); Red Blood Count 4.19 M/mm3 (4.20-5.40); Red Cell Distribution Width 14.9 % (11.5-17.5)
[2024-04-11 05:19] LABS: Hemoglobin 12.8 g/dL (12.2-16.2)
[2024-04-11 05:26] LABS: Anion Gap 13.7 mEq/L (5-15); Blood Urea Nitrogen 18 mg/dl (7-17); Calcium 8.4 mg/dl (8.4-10.2); Carbon Dioxide 11 mmol/L (22.0-30.0); Chloride 115 mmol/L (98-107); Creatinine Clearance Estimated 101 mL/min (50-200); Estimated Glomerular Filt Rate 91 ml/min (>60); GFR (African American) 111 ML/MIN (>60); Glucose 189 mg/dl (74-100); Magnesium 1.7 mg/dl (1.6-2.3); Phosphorous 2.7 mg/dl (2.5-4.5); Potassium 3.7 mmoL/L (3.5-5.1); Sodium 136 mmol/L (136-145)
[2024-04-11 05:30] LABS: C-Reactive Protein 1.2 mg/L (0-4)
[2024-04-11 05:42] LABS: Procalcitonin 0.128 ng/mL (0.0-2.0)
[2024-04-11 06:10] LABS: POC Glucose,Bedside 171 (70-110)
[2024-04-11 06:10] LABS: POC Glucose,Bedside 205 (70-110)
[2024-04-11] MEDS: D5W/0.9% NaCl w/20mEq KCL 1,000 ML 75 ML IV (07:00)
[2024-04-11 08:14] LABS: POC Glucose,Bedside 146 (70-110)
[2024-04-11 08:14] LABS: POC Glucose,Bedside 207 (70-110)
[2024-04-11 09:04] LABS: Chloride 116 mmol/L (98-107); Potassium 3.5 mmoL/L (3.5-5.1); Sodium 137 mmol/L (136-145)
[2024-04-11 09:06] LABS: Blood Urea Nitrogen 16 mg/dl (7-17); Creatinine Clearance Estimated 101 mL/min (50-200); Estimated Glomerular Filt Rate 91 ml/min (>60); GFR (African American) 111 ML/MIN (>60)
[2024-04-11 09:07] LABS: Anion Gap 12.5 mEq/L (5-15); Calcium 8.7 mg/dl (8.4-10.2); Carbon Dioxide 12 mmol/L (22.0-30.0); Glucose 198 mg/dl (74-100); Magnesium 1.8 mg/dl (1.6-2.3); Phosphorous 2.1 mg/dl (2.5-4.5)
[2024-04-11 09:20] LABS: POC Glucose,Bedside 211 (70-110)
[2024-04-11] MEDS: BUPRENORPHINE/NALOXONE 8MG/2MG ODT 2 EACH SL (09:26)
[2024-04-11] MEDS: POTASSIUM PHOSPHATE 15 MMOL in 0.9 % SODIUM CHLORIDE 250 ML 63.75 MMOL IV (09:26)
[2024-04-11] MEDS: DOCUSATE SODIUM 250MG CAPSULE 250 MG PO (09:27)
[2024-04-11] MEDS: INSULIN GLARGINE 100 UNITS/ML 3ML FLEXPEN 15 UNIT SQ (09:27)
[2024-04-11] MEDS: ENOXAPARIN 40MG/0.4ML SYRINGE 40 MG SQ (09:27)
[2024-04-11] MEDS: POLYETHYLENE GLYCOL 3350 17 GM PACKET PO (09:27)
--- NOTE | 2024-04-11 09:36 | HMH.PHAINT1 ---
Pharmacy Intervention Comments: Home medication list verified using medication list from pharmacy and patient interview.
[2024-04-11] MEDS: ACETAMINOPHEN 500MG TAB 500 MG PO (09:37)
[2024-04-11 10:32] LABS: POC Glucose,Bedside 238 (70-110)
[2024-04-11] MEDS: humaLOG 100 UNITS/ML 10ML VIAL (SSI) SQ ×3 (11:45→20:14)
[2024-04-11] MEDS: buPROPion HCl SR 150MG TAB 150 MG PO ×2 (11:45→20:11)
[2024-04-11 11:47] LABS: POC Glucose,Bedside 251 (70-110)
[2024-04-11 12:56] LABS: Chloride 113 mmol/L (98-107); Potassium 3.4 mmoL/L (3.5-5.1); Sodium 136 mmol/L (136-145)
[2024-04-11 12:59] LABS: Anion Gap 14.4 mEq/L (5-15); Blood Urea Nitrogen 14 mg/dl (7-17); Carbon Dioxide 12 mmol/L (22.0-30.0); Creatinine Clearance Estimated 101 mL/min (50-200); Estimated Glomerular Filt Rate 91 ml/min (>60); GFR (African American) 111 ML/MIN (>60)
[2024-04-11 13:00] LABS: Calcium 8.7 mg/dl (8.4-10.2); Glucose 284 mg/dl (74-100); Magnesium 1.7 mg/dl (1.6-2.3); Phosphorous 2.8 mg/dl (2.5-4.5)
--- NOTE | 2024-04-11 13:31 | EXP.ACUTE.PN ---
Subjective *Date: 04/11/24 *Time: 17:52 Interval history: Patient feeling somewhat better by morning. Appears to be closing. Still having significant abdominal discomfort however and feeling ill. Stable on room air. Remains tachycardic. Interested in trying p.o. intake Medical Exam Vital signs and Labs for Last 24 Hours: Vital Signs Temp Pulse Pulse Resp BP BP Pulse Ox 04/11/24 11:00 102 H 22 134/84 97 04/11/24 10:58 04/11/24 10:00 99 H 22 108/65 L 98 04/11/24 09:47 98.5 F 04/11/24 09:00 04/11/24 09:00 95 H 20 146/93 H 100 04/11/24 08:00 04/11/24 08:00 98 H 18 117/76 100 04/11/24 07:00 92 H 24 134/81 100 04/11/24 06:00 101 H 16 125/73 99 04/11/24 05:00 106 H 17 127/76 99 04/11/24 04:00 110 H 04/11/24 04:00 99.3 F 108 H 16 131/76 100 04/11/24 03:00 107 H 16 125/78 100 04/11/24 02:00 113 H 19 135/82 99 04/11/24 01:00 117 H 22 135/82 100 04/11/24 00:00 99.7 F H 04/11/24 00:00 100.2 F H 110 H 21 143/91 H 100 04/10/24 23:00 04/10/24 23:00 115 H 20 151/92 H 100 04/10/24 22:30 110 H 22 144/76 H 100 04/10/24 22:00 113 H 15 150/87 H 100 04/10/24 21:55 99.7 F H 04/10/24 21:41 117 H 19 170/103 H 100 04/10/24 21:34 98.3 F 118 H 22 141/96 H 04/10/24 19:30 127 H 25 H 158/104 H 100 04/10/24 19:22 113 H 04/10/24 19:19 98.1 F 131 H 21 148/113 H 100 O2 Del Method 04/11/24 11:00 Room Air 04/11/24 10:58 Room Air 04/11/24 10:00 Room Air 04/11/24 09:47 04/11/24 09:00 Room Air 04/11/24 09:00 Room Air 04/11/24 08:00 Room Air 04/11/24 08:00 Room Air 04/11/24 07:00 Room Air 04/11/24 06:00 Room Air 04/11/24 05:00 Room Air 04/11/24 04:00 04/11/24 04:00 04/11/24 03:00 Room Air 04/11/24 02:00 Room Air 04/11/24 01:00 04/11/24 00:00 04/11/24 00:00 04/10/24 23:00 Room Air 04/10/24 23:00 04/10/24 22:30 04/10/24 22:00 Room Air 04/10/24 21:55 04/10/24 21:41 Room Air 04/10/24 21:34 Room Air 04/10/24 19:30 04/10/24 19:22 04/10/24 19:19 Room Air Intake and Output 04/10/24 04/11/24 04/11/24 23:59 07:59 15:59 Intake Total 191 / 372 961.692 / 1478.692 517 / 1478.692 Output Total 800 / 800 Balance -609 / -428 961.692 / 1478.692 517 / 1478.692 Intake: Intake, Oral Amount 360 / 360 Intake, Total IV Amount 191 / 372 961.692 / 1118.692 157 / 1118.692 0.9 % Sodium Chloride 1000ML 1, 181 / 359 790 / 790 000 ml @ 150 mls/hr IV .[id number] BOWEN Rx#:[id number] D5W/0.9% NaCl w/20mEq KCL 1,000 157 / 157 ml @ 75 mls/hr IV .[id number] BOWEN Rx#:[id number] Insulin Regular, Human 100 unit 159 / 159 In 0.9 % Sodium Chloride 100 ml @ 5 UNIT/HR 5.05 mls/hr IV . Q20H BOWEN Rx#:[id number] Output: Output, Urine Amount 800 / 800 Other: Number of Voids 1 Number of Unmeasured Voids 1 Weight 61.49 kg 61.49 kg 61.49 kg Patient Weight 04/11/24 23:59 Weight 61.49 kg Laboratory Results - last 24 hr 04/10/24 19:16: HIV 1&2 Antibody Rapid Nonreactive 04/10/24 19:22: VBG pH 7.02 L, VBG pCO2 24.7 L, VBG pO2 53.0 H, VBG HCO3 6.2 L, VBG Total CO2 7.0 L, VBG O2 Saturation 81.9 H, VBG Base Excess -24.8 L, VBG Lactic Acid 1.9 04/10/24 19:26: WBC 13.3 H, RBC 5.19, Hgb 16.2, Hct 52.7 H, MCV 101.5 H, MCH 31.1, MCHC 30.7 L, RDW 14.2, Plt Count 383, MPV 9.0, Neut % (Auto) 82.9 H, Lymph % (Auto) 12.9, [place] % (Auto) 3.6, Eos % (Auto) 0.2, Baso % (Auto) 0.5, Neut # (Auto) 11.1 H, Lymph # (Auto) 1.7, [place] # (Auto) 0.5, Eos # (Auto) 0.0, Baso # (Auto) 0.1, Sodium 134 L, Potassium 5.4 H, Chloride 105, Carbon Dioxide < 5 L*, Anion Gap 29.4 H, BUN 24 H, Creatinine 1.20 H, Estimated Creat Clear 63, Estimated GFR 49 L, Est GFR ( Amer) 59, Glucose 466 H*, Hemoglobin A1c 10.4 H, Lactate 0.7, Calcium 10.0, Phosphorus 5.3 H, Magnesium 1.9, Total Bilirubin 0.7, AST 29, ALT 42, Alkaline Phosphatase 110, Total Protein 8.6 H, Albumin 5.1 H, Globulin 3.5 H, Albumin/Globulin Ratio 1.5, Serum HCG, Qual Negative, Acetone Level Moderate 04/10/24 21:10: Sodium 135 L, Potassium 4.8, Chloride 111 H, Carbon Dioxide < 5 L*, Anion Gap 23.8 H, BUN 22 H, Creatinine 1.10 H, Estimated Creat Clear 68, Estimated GFR 54 L, Est GFR ( Amer) 66, Glucose 458 H*, Calcium 8.9, Phosphorus 4.1, Magnesium 1.7 D, Chlamy pneumoniae PCR Not detected, Adenovirus (PCR) Not detected, B. pertussis DNA (PCR) Not detected, Coronavirus OC43 (PCR) Not detected, Coronavirus HKU1 (PCR) Not detected, Coronavirus 229E (PCR) Not detected, SARS-CoV-2 (PCR) Not detected, Coronavirus NL63 (PCR) Not detected, Human Metapneumovir PCR Not detected, Influenza A (H1) PCR Not detected, Influ A (H1N1/09) PCR Not detected, Influenza A (H3) PCR Not detected, Influenza Type A (PCR) Not detected, Influenza Type B (PCR) Not detected, M. pneumoniae (PCR) Not detected, Parainfluenza 1 (PCR) Not detected, Parainfluenza 2 (PCR) Not detected, Parainfluenza 3 (PCR) Not detected, Parainfluenza 4 (PCR) Not detected, RSV (PCR) Not detected, Entero/Rhino (PCR) Not detected 04/10/24 22:23: POC Glucose 326 H* 04/10/24 22:45: Urine Color Yellow, Urine Appearance Clear, Urine pH 6.0, Ur Specific [place] 1.025, Urine Protein 1+ A, Urine Glucose (UA) 2+, Urine Ketones 3+, Urine Blood Trace-i, Urine Nitrate Negative, Urine Bilirubin Negative, Urine Urobilinogen 0.2, Ur Leukocyte Esterase Negative, Urine RBC Occasional, Urine WBC 3-5, Ur Squamous Epith Cells 10-20, Urine Bacteria 2+, Urine Mucus 1+, Urine Yeast 1+ 04/10/24 23:06: POC Glucose 308 H* 04/11/24 00:08: POC Glucose 250 H 04/11/24 01:06: POC Glucose 231 H 04/11/24 01:10: Sodium 137, Potassium 4.1, Chloride 115 H, Carbon Dioxide 8 L* D, Anion Gap 18.1 H, BUN 20 H, Creatinine 0.80 D, Estimated Creat Clear 88, Estimated GFR 78, Est GFR ( Amer) 95 D, Glucose 254 H D, Calcium 8.6, Phosphorus 1.9 L D, Magnesium 1.8 04/11/24 02:06: POC Glucose 217 H 04/11/24 03:09: POC Glucose 164 H 04/11/24 04:08: POC Glucose 178 H 04/11/24 05:00: WBC 10.0, RBC 4.19 L, Hgb 12.8 D, Hct 40.2, MCV 96.0, MCH 30.4, MCHC 31.7 L, RDW 14.9, Plt Count 267 D, MPV 8.3, Neut % (Auto) 73.2, Lymph % (Auto) 20.1, [place] % (Auto) 5.0, Eos % (Auto) 1.3, Baso % (Auto) 0.4, Neut # (Auto) 7.3, Lymph # (Auto) 2.0, [place] # (Auto) 0.5, Eos # (Auto) 0.1, Baso # (Auto) 0.0, Sodium 136, Potassium 3.7, Chloride 115 H, Carbon Dioxide 11 L, Anion Gap 13.7, BUN 18 H, Creatinine 0.70, Estimated Creat Clear 101, Estimated GFR 91, Est GFR ( Amer) 111, Glucose 189 H D, Calcium 8.4, Phosphorus 2.7 D, Magnesium 1.7, C-Reactive Protein 1.2, Procalcitonin 0.128 04/11/24 05:02: POC Glucose 205 H 04/11/24 06:03: POC Glucose 171 H 04/11/24 06:58: POC Glucose 146 H 04/11/24 08:06: POC Glucose 207 H 04/11/24 08:35: Sodium 137, Potassium 3.5, Chloride 116 H, Carbon Dioxide 12 L, Anion Gap 12.5, BUN 16, Creatinine 0.70, Estimated Creat Clear 101, Estimated GFR 91, Est GFR ( Amer) 111, Glucose 198 H, Calcium 8.7, Phosphorus 2.1 L, Magnesium 1.8 04/11/24 09:12: POC Glucose 211 H 04/11/24 10:25: POC Glucose 238 H 04/11/24 11:39: POC Glucose 251 H 04/11/24 12:45: Sodium 136, Potassium 3.4 L, Chloride 113 H, Carbon Dioxide 12 L, Anion Gap 14.4, BUN 14, Creatinine 0.70, Estimated Creat Clear 101, Estimated GFR 91, Est GFR ( Amer) 111, Glucose 284 H D, Calcium 8.7, Phosphorus 2.8 D, Magnesium 1.7 I & O for Labs for Last 24 Hours: Intake & Output 04/08/24 04/09/24 04/10/24 04/11/24 23:59 23:59 23:59 23:59 Intake Total 191 / 372 1478.692 / 1478.692 Output Total 800 / 800 Balance -609 / -428 1478.692 / 1478.692 Weight 61.49 kg 61.49 kg Constitutional: Present mild distress, chronically ill appearing and agitated Head: Present atraumatic and normocephalic ENT: Present mucous membranes dry Neck: Present normal inspection Respiratory: Present normal respiratory effort; Absent accessory muscle use, rhonchi, wheezes or crackles Cardiac: Present Regular Rhythm and Tachycardia GI: Present soft, tenderness (Nonfocal) and normal bowel sounds; Absent distention Extremities: Present normal inspection and full ROM Skin: Present intact; Absent erythema Comment:: Numerous track eid on bilateral arms and hands Neuro: Present Grossly Intact, alert and moves all extremities Comment:: Intermittently alert and awake, oriented to self only. Assessment and Plan *Assessment and plan (1) Diabetic ketoacidosis: Status: Acute Qualifiers: Diabetes mellitus complication detail: without coma Diabetes mellitus type: type 1 Qualified Code(s): E10.10 - Type 1 diabetes mellitus with ketoacidosis without coma Category: Medical Code(s): E11.10 - Type 2 diabetes mellitus with ketoacidosis without coma (2) Hypertensive urgency: Status: Acute Category: Medical Code(s): I16.0 - Hypertensive urgency (3) Constipation: Status: Acute Category: Medical Code(s): K59.00 - Constipation, unspecified (4) Smoker: Status: Acute Category: Social Hx Code(s): F17.200 - Nicotine dependence, unspecified, uncomplicated (5) IVDU (intravenous drug user): Status: Chronic Category: Social Hx Code(s): F19.90 - Other psychoactive substance use, unspecified, uncomplicated (6) IDDM (insulin dependent diabetes mellitus): Status: Chronic Category: Medical Code(s): E11.9 - Type 2 diabetes mellitus without complications; Z79.4 - manager intermediate (current) use of insulin (7) Opioid use disorder: Status: Chronic Category: Medical Code(s): F11.90 - Opioid use, unspecified, uncomplicated Plan Patient with past medical history of diabetes presents with bicarb level less than 5, pH 7.02, white blood count 13.3, +3 ketones in urine. Admitted for further management to the ICU. Anion gap closed this morning however still quite sick with metabolic disturbances. Bicarb still quite low at 11. Continues to require stepdown level of care and inpatient management. Problems addressed as follows DKA High anion gap metabolic acidosis Poorly controlled insulin-dependent diabetes -De-escalate from ICU to stepdown. Gap closed this morning. -Gap 13, bicarb 11, sodium 136. Phosphorus 2.7, magnesium 1.7, kidney function normal with BUN 18, creatinine 0.7. Repeat CBC, CMP, magnesium ordered for the morning. ?Initiate diet. -Discontinue insulin drip, initiate basal bolus regimen. Will administer 10 units Lantus this morning. Will administer an additional 15 units this evening. Monitor for insulin needs over the next 24 hours. -Patient does not have primary care, will schedule with close follow-up prior to discharge home. Opiate use disorder: Continue Suboxone 8/2 mg, 2 tablets daily Hypertensive urgency: Blood pressure improving this morning, 129/68. Hydralazine 10 mg IV as needed systolic blood pressure greater than 170. Active smoker:Nicotine 21 mg every 24 as needed patch Constipation: Place patient on stool regimen MiraLAX 17 g p.o. daily and Colace 250 mg p.o. daily. PPx: Lovenox subcutaneous CODE STATUS: Full Regular diet
[2024-04-11 16:31] LABS: POC Glucose,Bedside 196 (70-110)
[2024-04-11] MEDS: ONDANSETRON 4MG/2ML VIAL 4 MG IV (16:43)
--- NOTE | 2024-04-11 18:33 | PC.NURSE ---
Insulin drip turned off this am, patient tolerating sliding scale. VS stable and patient remained on room air. Lung sounds clear. Patient able to ambulate multiple times to bathroom during shift, unable to produce bm. BM regimen in place
[2024-04-11] MEDS: NICOTINE 21MG/24HR PATCH 21 MG TD (20:09)
[2024-04-11] MEDS: PANTOPRAZOLE 40MG VIAL 40 MG IV (20:11)
[2024-04-11] MEDS: ATORVASTATIN 10MG TABLET 10 MG PO (20:12)
[2024-04-11] MEDS: INSULIN GLARGINE 100 UNITS/ML 3ML FLEXPEN 20 UNIT SQ (20:12)
--- NOTE | 2024-04-11 20:57 | PC.NURSE ---
BA is now off at pt request - patient has an unsteady gait and is connected to tele, BP cuff, and ELECTRONIC [employer]CTION HARD[employer]. patient was educated to please press call light when wanting to walk to the bathroom so staff can disconnect her to prevent falls or injury.
[2024-04-12] VITALS: BP 98/53; PULSE 89; RESP 14; TEMP 37.1; O2SAT 97
[2024-04-12 01:33] LABS: POC Glucose,Bedside 338 (70-110)
[2024-04-12 02:00] VITALS: BP 121/70; PULSE 101; RESP 20; O2SAT 99
[2024-04-12 02:57] VITALS: BMI 23.7
[2024-04-12 04:00] VITALS: BP 110/62; PULSE 81; PULSE 86; RESP 14; TEMP 36.7; O2SAT 99
[2024-04-12 05:46] LABS: POC Glucose,Bedside 192 (70-110)
[2024-04-12 06:00] VITALS: BP 123/78; PULSE 90; RESP 14; O2SAT 98
[2024-04-12] MEDS: humaLOG 100 UNITS/ML 10ML VIAL (SSI) SQ (06:11)
[2024-04-12 06:12] LABS: Basophils % 0.8 % (0.1-2.0); Eosinophils # 0.1 K/mm3 (0.0-0.4); Eosinophils % 2.6 % (0.1-12.0); Hematocrit 36.4 % (37.0-47.0); Lymphocytes # 2.2 K/mm3 (0.7-4.5); Mean Corpuscular Hemoglobin 31.9 pg (27.0-31.2); Mean Corpuscular Volume 96.6 fl (81-99); Mean Platelet Volume 10.4 fl (7.4-10.4); Monocytes # 0.3 K/mm3 (0.1-1.0); Monocytes % 5.6 % (1.7-9.3); Neutrophils # 2.6 K/mm3 (1.8-7.8); Neutrophils % 50.1 % (37.0-80.0); Platelet Count 136 K/mm3 (142-424); Red Blood Count 3.77 M/mm3 (4.20-5.40); Red Cell Distribution Width 14.8 % (11.5-17.5); White Blood Count 5.2 K/mm3 (4.8-10.8)
[2024-04-12 06:26] LABS: Magnesium 1.7 mg/dl (1.6-2.3)
[2024-04-12 06:44] LABS: Alanine Aminotransferase 23 U/L (12-78); Albumin/Globulin Ratio 1.2 (1.1-1.8); Alkaline Phosphatase 73 U/L (38-126); Aspartate Amino Transferase 28 U/L (14-36); Bilirubin,Total 0.5 mg/dl (0.2-1.3); Blood Urea Nitrogen 12 mg/dl (7-17); Calcium 8.1 mg/dl (8.4-10.2); Carbon Dioxide 20 mmol/L (22.0-30.0); Chloride 110 mmol/L (98-107); Creatinine Clearance Estimated 148 mL/min (50-200); Estimated Glomerular Filt Rate 135 ml/min (>60); GFR (African American) 163 ML/MIN (>60); Globulin 2.5 g/dL (1.3-3.2); Glucose 167 mg/dl (74-100); Sodium 134 mmol/L (136-145); Total Protein,Serum 5.5 g/dl (6.3-8.2)
[2024-04-12 06:45] LABS: Phosphorous 2.8 mg/dl (2.5-4.5)
[2024-04-12] MEDS: ONDANSETRON 4MG/2ML VIAL 4 MG IV (07:34)
--- NOTE | 2024-04-12 07:34 | P.DS_ITS ---
General Admission date:: 04/10/24 Discharge date: 04/12/24 HPI HPI HPI: Patient with past medical history of insulin-dependent diabetes, active smoker presents complaining of several nonspecific symptoms. States she suffered from headache starting yesterday, malaise/nausea, abdominal pain x 3 days, shortness of breath x 2 days. Also admits to some ataxia x 3 days, and a stiff neck starting 1 day ago. Reports good compliance with insulin at home, yet hemoglobin A1c 10.4 at time of admission. Patient's blood sugar 466, with moderate acetone, +3 urine ketones, and bicarb level less than 5 at time of presentation to hospital. Denies known sick contacts, chest pain, recent travel, diarrhea, accidents, fever/chills. Patient's significant other with patient collaborates patient's story. Patient is honest about being active smoker, but denies illegal drug use or alcohol use. Hospital Course Hospital Course Hospital Course: Patient with past medical history of diabetes presents with bicarb level less than 5, pH 7.02, white blood count 13.3, +3 ketones in urine. Admitted for further management to the ICU. Symptoms improved, anion gap closed over the first 24 to 36 hours of admission. Able to transition to basal bolus regimen. Tolerating p.o. intake. Stable to discharge home with close follow-up as an outpatient for further management. Problems addressed as follows: DKA High anion gap metabolic acidosis Poorly controlled insulin-dependent diabetes -Initiated on DKA protocol with insulin drip and IV fluids. Anion gap closed. Transitioned to basal bolus regimen using insulin glargine and Humalog. Morning of discharge with improvement in her labs. Kidney function normal with BUN 12, creatinine 0.5. Bicarb 20. Anion gap of 7. Tolerating p.o. intake. Still having some heartburn however. Will treat her GERD with pantoprazole. Stable to discharge home with close follow-up as an outpatient. -Needs repeat labs in 1 to 2 weeks to monitor normalization of electrolytes and kidney function. -Patient would like to establish care with Dr. Andre Roque. Follow-up scheduled. -Potassium 3.0 on morning of discharge. Will continue oral supplementation at discharge Opiate use disorder: Continue Suboxone 8/2 mg, 2 tablets daily Hypertensive urgency: Blood pressure improved with treatment of DKA. Morning of DC 125/758. Active smoker:Nicotine 21 mg every 24 as needed patch Constipation: Placed patient on stool regimen MiraLAX 17 g p.o. daily and Colace 250 mg p.o. daily. Total time spent on discharge 32 minutes in counseling, documentation, chart review, and direct care with patient. Exam Data for Last 24 hours Vital signs and Labs for Last 24 Hours: Temp Pulse Resp BP Pulse Ox O2 Del Method 98.1 F 90 14 123/78 98 Room Air 04/12/24 04:00 04/12/24 06:00 04/12/24 06:00 04/12/24 06:00 04/12/24 06:00 04/12/24 06:15 Laboratory Results - last 24 hr 04/11/24 06:58: POC Glucose 146 H 04/11/24 08:06: POC Glucose 207 H 04/11/24 08:35: Sodium 137, Potassium 3.5, Chloride 116 H, Carbon Dioxide 12 L, Anion Gap 12.5, BUN 16, Creatinine 0.70, Estimated Creat Clear 101, Estimated GFR 91, Est GFR ( Amer) 111, Glucose 198 H, Calcium 8.7, Phosphorus 2.1 L , Magnesium 1.8 04/11/24 09:12: POC Glucose 211 H 04/11/24 10:25: POC Glucose 238 H 04/11/24 11:39: POC Glucose 251 H 04/11/24 12:45: Sodium 136, Potassium 3.4 L, Chloride 113 H, Carbon Dioxide 12 L , Anion Gap 14.4, BUN 14, Creatinine 0.70, Estimated Creat Clear 101, Estimated GFR 91, Est GFR ( Amer) 111, Glucose 284 H D, Calcium 8.7, Phosphorus 2.8 D, Magnesium 1.7 04/11/24 16:23: POC Glucose 196 H 04/11/24 20:14: POC Glucose 338 H* 04/12/24 05:19: WBC 5.2 D, RBC 3.77 L, Hgb 12.0 L, Hct 36.4 L, MCV 96.6, MCH 31.9 H, MCHC 33.0, RDW 14.8, Plt Count 136 L D, MPV 10.4, Neut % (Auto) 50.1, Lymph % (Auto) 41.0, [place] % (Auto) 5.6, Eos % (Auto) 2.6, Baso % (Auto) 0.8, Neut # (Auto) 2.6, Lymph # (Auto) 2.2, [place] # (Auto) 0.3, Eos # (Auto) 0.1, Baso # (Auto) 0.0, Sodium 134 L, Potassium 3.0 L, Chloride 110 H, Carbon Dioxide 20 L , Anion Gap 7.0, BUN 12, Creatinine 0.50 L D, Estimated Creat Clear 148, Estimated GFR 135, Est GFR ( Amer) 163 D, Glucose 167 H D, Calcium 8.1 L , Phosphorus 2.8, Magnesium 1.7, Total Bilirubin 0.5, AST 28, ALT 23 D, Alkaline Phosphatase 73, Total Protein 5.5 L D, Albumin 3.0 L D, Globulin 2.5, Albumin/Globulin Ratio 1.2 04/12/24 05:39: POC Glucose 192 H I & O for Last 24 hours: Intake & Output 04/09/24 04/10/24 04/11/24 04/12/24 23:59 23:59 23:59 23:59 Intake Total 191 / 372 2568.692 / 2568.692 Output Total 800 / 800 0 / 0 0 / 0 Balance -609 / -428 2568.692 / 2568.692 0 / 0 Weight 61.49 kg 61.49 kg 64.637 kg Microbiology Reports for the Last 24 Hours: Microbiology 04/10/24 22:45 Urine,Clean Catch Urine Culture - Preliminary 04/10/24 21:05 Blood Blood Culture - Preliminary NO GROWTH AFTER 24 HOURS 04/10/24 21:05 Blood Blood Culture - Preliminary NO GROWTH AFTER 24 HOURS Constitutional Constitutional: no acute distress and chronically ill appearing *Routine HEENT Exam Head: Present normocephalic Eye: Present EOMI and PERRL ENT: Present mucous membranes moist *Routine Neck Exam Neck: Present supple; Absent lymphadenopathy *Routine Respiratory Exam Respiratory: Present CTA bilaterally; Absent rhonchi, wheezes or crackles *Routine Cardiovascular Exam Cardiovascular: Present RRR *Routine Abdominal Exam Abdominal: Present soft, normoactive bowel sounds and tenderness (Epigastric) *Routine Rectal Exam Patient deferred: visual exam *Routine Exam Patient deferred: external exam *Routine Extremities Exam Extremities: Absent cyanosis, clubbing or edema *Routine Skin Exam Skin: Present warm; Absent rash *Routine Neurological Exam Neurological: Present alert, oriented X3 and moving all extremities; Absent altered mental status Routine Psychiatric Exam Psychiatric: Present normal affect Results Data Completed and Pending Labs on day of discharge: Labs from last 24 hours 04/12/24 04/12/24 04/11/24 05:39 05:19 20:14 WBC 5.2 D RBC 3.77 L Hgb 12.0 L Hct 36.4 L MCV 96.6 MCH 31.9 H MCHC 33.0 RDW 14.8 Plt Count 136 L D MPV 10.4 Neut % (Auto) 50.1 Lymph % (Auto) 41.0 [place] % (Auto) 5.6 Eos % (Auto) 2.6 Baso % (Auto) 0.8 Neut # (Auto) 2.6 Lymph # (Auto) 2.2 [place] # (Auto) 0.3 Eos # (Auto) 0.1 Baso # (Auto) 0.0 Sodium 134 L Potassium 3.0 L Chloride 110 H Carbon Dioxide 20 L Anion Gap 7.0 BUN 12 Creatinine 0.50 L D Estimated Creat Clear 148 Estimated GFR 135 Est GFR ( Amer) 163 D Glucose 167 H D POC Glucose 192 H 338 H* Calcium 8.1 L Phosphorus 2.8 Magnesium 1.7 Total Bilirubin 0.5 AST 28 ALT 23 D Alkaline Phosphatase 73 Total Protein 5.5 L D Albumin 3.0 L D Globulin 2.5 Albumin/Globulin Ratio 1.2 04/11/24 04/11/24 04/11/24 16:23 12:45 11:39 WBC RBC Hgb Hct MCV MCH MCHC RDW Plt Count MPV Neut % (Auto) Lymph % (Auto) [place] % (Auto) Eos % (Auto) Baso % (Auto) Neut # (Auto) Lymph # (Auto) [place] # (Auto) Eos # (Auto) Baso # (Auto) Sodium 136 Potassium 3.4 L Chloride 113 H Carbon Dioxide 12 L Anion Gap 14.4 BUN 14 Creatinine 0.70 Estimated Creat Clear 101 Estimated GFR 91 Est GFR ( Amer) 111 Glucose 284 H D POC Glucose 196 H 251 H Calcium 8.7 Phosphorus 2.8 D Magnesium 1.7 Total Bilirubin AST ALT Alkaline Phosphatase Total Protein Albumin Globulin Albumin/Globulin Ratio 04/11/24 04/11/24 04/11/24 10:25 09:12 08:35 WBC RBC Hgb Hct MCV MCH MCHC RDW Plt Count MPV Neut % (Auto) Lymph % (Auto) [place] % (Auto) Eos % (Auto) Baso % (Auto) Neut # (Auto) Lymph # (Auto) [place] # (Auto) Eos # (Auto) Baso # (Auto) Sodium 137 Potassium 3.5 Chloride 116 H Carbon Dioxide 12 L Anion Gap 12.5 BUN 16 Creatinine 0.70 Estimated Creat Clear 101 Estimated GFR 91 Est GFR ( Amer) 111 Glucose 198 H POC Glucose 238 H 211 H Calcium 8.7 Phosphorus 2.1 L Magnesium 1.8 Total Bilirubin AST ALT Alkaline Phosphatase Total Protein Albumin Globulin Albumin/Globulin Ratio 04/11/24 04/11/24 08:06 06:58 WBC RBC Hgb Hct MCV MCH MCHC RDW Plt Count MPV Neut % (Auto) Lymph % (Auto) [place] % (Auto) Eos % (Auto) Baso % (Auto) Neut # (Auto) Lymph # (Auto) [place] # (Auto) Eos # (Auto) Baso # (Auto) Sodium Potassium Chloride Carbon Dioxide Anion Gap BUN Creatinine Estimated Creat Clear Estimated GFR Est GFR ( Amer) Glucose POC Glucose 207 H 146 H Calcium Phosphorus Magnesium Total Bilirubin AST ALT Alkaline Phosphatase Total Protein Albumin Globulin Albumin/Globulin Ratio Preliminary micro results at discharge 04/10/24 22:45 Urine Culture - Preliminary Urine,Clean Catch 04/10/24 21:05 Blood Culture - Preliminary Blood NO GROWTH AFTER 24 HOURS 04/10/24 21:05 Blood Culture - Preliminary Blood NO GROWTH AFTER 24 HOURS DS: Diagnosis Discharge Diagnosis (1) Diabetic ketoacidosis: Status: Acute Code(s): E11.10 - Type 2 diabetes mellitus with ketoacidosis without coma Qualifiers: Diabetes mellitus complication detail: without coma Diabetes mellitus type: type 1 Qualified Code(s): E10.10 - Type 1 diabetes mellitus with ketoacidosis without coma (2) Hypertensive urgency: Status: Acute Code(s): I16.0 - Hypertensive urgency (3) Constipation: Status: Acute Code(s): K59.00 - Constipation, unspecified (4) Smoker: Status: Acute Code(s): F17.200 - Nicotine dependence, unspecified, uncomplicated (5) IVDU (intravenous drug user): Status: Chronic Code(s): F19.90 - Other psychoactive substance use, unspecified, uncomplicated (6) IDDM (insulin dependent diabetes mellitus): Status: Chronic Code(s): E11.9 - Type 2 diabetes mellitus without complications; Z79.4 - skilled nursing (current) use of insulin (7) Opioid use disorder: Status: Chronic Code(s): F11.90 - Opioid use, unspecified, uncomplicated Meds Home Medications and Allergies Home Medications ?Medication ?Instructions ?Recorded ?Confirmed ?Type insulin glargine 100 unit/mL (3 30 unit (0.3 mL) SQ HS Diabetes 11/29/23 04/10/24 Rx mL) subcutaneous pen (Lantus #15 mL Solostar U-100 Insulin) lancets 28 gauge (FreeStyle #100 ea 11/29/23 04/10/24 Rx Lancets) pen needle, diabetic 31 gauge x #100 ea 11/29/23 04/10/24 Rx 3/16 (BD Ultra-Fine Mini Pen Needle) buprenorphine 8 mg-naloxone 2 mg 2 tab sublingual DAILY 01/30/24 04/11/24 History sublingual tablet insulin lispro 100 unit/mL See Rx Instructions .Route 01/30/24 04/10/24 Rx subcutaneous pen .COMPLEX #15 mL blood-glucose sensor (Dexcom G6 #1 ea 02/29/24 04/10/24 Rx Sensor device) blood-glucose transmitter (Dexcom #1 02/29/24 04/10/24 Rx G6 Transmitter device) aspirin 81 mg tablet,delayed 81 mg PO DAILY 04/11/24 04/11/24 History release atorvastatin 10 mg tablet 10 mg PO HS 04/11/24 04/11/24 History bupropion HCl 300 mg 24 hr tablet, 300 mg PO DAILY 04/11/24 04/11/24 History extended release cyclobenzaprine 5 mg tablet 5 mg PO BID 04/11/24 04/11/24 History ergocalciferol (vitamin D2) 1,250 1,250 mcg PO WEEKLY 04/11/24 04/11/24 History mcg (50,000 unit) capsule pantoprazole 40 mg tablet,delayed 40 mg PO HS 30 days #30 tabs 04/12/24 Rx release potassium chloride 20 mEq 20 meq PO DAILY 30 days #30 tabs 04/12/24 Rx tablet,extended release(part/cryst) (Klor-Con M) New Prescriptions to Start Prescriptions: pantoprazole Jake Ross potassium chloride [Klor-Con M20] Jake Ross Allergies Allergy/AdvReac Type Severity Reaction Status Date / Time moxifloxacin [From AVELOX] Allergy Unknown SWELLING Verified 01/30/24 10:36 Discharge Plan Disposition Patient Disposition: Home, Self-Care Condition: Fair Follow up Plan Follow up with: Andre Roque DO [Staff Physician] - 04/30/24 10:00 am Prescriptions/Medication Reconciliation: New potassium chloride [Klor-Con M20] 20 mEq Tablet,Er Particles/Crystals 20 meq PO DAILY 30 Days Qty: 30 0RF pantoprazole 40 mg Tablet,Delayed Release (Dr/Ec) 40 mg PO HS 30 Days Qty: 30 0RF Continued insulin glargine [Lantus Solostar U-100 Insulin] 100 unit/mL (3 mL) insulin pen 30 unit SQ HS Qty: 15 2RF buprenorphine-naloxone 8-2 mg tablet, sublingual 2 tab sublingual DAILY insulin lispro 100 unit/mL insulin pen See Rx Instructions .ROUTE .COMPLEX Qty: 15 2RF Dose Instruction: INJECT 12 UNITS SUBCUTANEOUSLY BEFORE MEALS Rx Instructions: INJECT 16 UNITS SUBCUTANEOUSLY BEFORE MEALS TID atorvastatin 10 mg tablet 10 mg PO HS aspirin 81 mg tablet,delayed release (DR/EC) 81 mg PO DAILY ergocalciferol (vitamin D2) 1,250 mcg (50,000 unit) capsule 1,250 mcg PO WEEKLY cyclobenzaprine 5 mg tablet 5 mg PO BID bupropion HCl 300 mg tablet extended release 24 hr 300 mg PO DAILY No Action (DME) lancets [FreeStyle Lancets] 28 gauge misc See Rx Instructions .ROUTE .MEDSUPPLY Qty: 100 5RF Rx Instructions: As directed (DME) pen needle, diabetic [BD Ultra-Fine Mini Pen Needle] 31 gauge x 3/16 needle See Rx Instructions .ROUTE .MEDSUPPLY Qty: 100 5RF Rx Instructions: As directed (DME) Dexcom G6 Transmitter Device See Rx Instructions .Route Qty: 1 5RF Rx Instructions: As directed (DME) Dexcom G6 Sensor Device See Rx Instructions .ROUTE .MEDSUPPLY Qty: 1 5RF Rx Instructions: As directed Problem Reconciliation Problems Reviewed?: Yes Patient Discharge Instructions ACTIVITY: Continue current activity DIET: continue same diet Patient Instructions: DI for Diabetic Ketoacidosis Print Language: Icelandic Providers Primary Care Provider: Provider,Referral Admit Provider: Jake Ross Attending Provider: Jake Ross
[2024-04-12 08:00] VITALS: BP 125/75; PULSE 99; RESP 18; TEMP 36.7; O2SAT 98
[2024-04-12] MEDS: BUPRENORPHINE/NALOXONE 8MG/2MG ODT 2 EACH SL (08:26)
[2024-04-12] MEDS: POTASSIUM CHLORIDE 20MEQ TAB 40 MEQ PO (08:26)
[2024-04-12] MEDS: buPROPion HCl SR 150MG TAB 150 MG PO (08:26)
[2024-04-12] MEDS: DOCUSATE SODIUM 250MG CAPSULE 250 MG PO (08:26)
[2024-04-12] MEDS: POLYETHYLENE GLYCOL 3350 17 GM PACKET PO (08:27)
[2024-04-12] MEDS: ENOXAPARIN 40MG/0.4ML SYRINGE 40 MG SQ (08:27)
[2024-04-12] MEDS: BELLADONNA ALKALOIDS 60 ML ML PO (08:57)
--- NOTE | 2024-04-12 10:28 | DIET.NUTRFU ---
Completed education prior to discharge. Patient had been practicing keto diet at home for wt loss. She is now at her goal weight., she reports down 30#. Encouraged her to add complex carb back into daily routine like fruit, oatmeal and sweet potatoes continue to limit the simple carbs- candy, sugary beverages. Provided her with multiple handouts on label reading/plate methods/carb counting. Also recommended further follow-up as needed as outpatient [ End ]
[2024-04-12 16:54] LABS: MRSA DNA PCR Negative (Negative)
--- NOTE | 2024-04-16 09:31 | CARE MANAGER ---
Addendum entered by Karlee Carballo RN 04/17/24 14:07: Patient returned call today. She was aware of scheduled f/u appt and stated that she has started her new medication prescribed at discharge. No concerns/questions voiced at time of call. Original Note: Attempted to contact patient x2 related to hospital discharge. Left VM message. MOODY Izquierdo
== END 2024-04-12 10:07 | disposition home or self-care (01) ==
LOC: ER 20:13 → 2ND 20:18
PROVIDERS: Internal Medicine; Physician Assistant; Admitting Provider Internal Medicine Adolescent Medicine; Emergency Provider Emergency Medicine; Visit Provider Internal Medicine Adolescent Medicine
DX: E11.10 Type 2 diabetes mellitus with ketoacidosis without coma (principal); I16.0 Hypertensive urgency; K59.00 Constipation, unspecified; F17.210 Nicotine dependence, cigarettes, uncomplicated; F19.90 Other psychoactive substance use, unspecified, uncomplicated; Z79.4 Long term (current) use of insulin; F11.90 Opioid use, unspecified, uncomplicated; Z79.899 Other long term (current) drug therapy
CPT/HCPCS: 36415; 71045; 74176; 80048; 80053; 81001; 82009; 82803; 82962; 83036; 83605; 83735; 84100; 84145; 84703; 85025; 86140; 87040; 87086; 87088; 87186; 87265; 87389; 87486; 87581; 87632; 87635; 87641; 93005; 99291; G0378; J0574; J1650; J2405; J2550; J7030

== ENCOUNTER 2024-04-30 11:33 | Outpatient (CLI) | payer OTHER, SELFPAY ==
[2024-04-30 12:16] LABS: Basophils # 0.1 K/mm3 (0-0.2); Basophils % 1.5 % (0.1-2.0); Eosinophils # 0.1 K/mm3 (0.0-0.4); Eosinophils % 1.3 % (0.1-12.0); Hematocrit 38.9 % (37.0-47.0); Hemoglobin 13.2 g/dL (12.2-16.2); Lymphocytes # 2.6 K/mm3 (0.7-4.5); Lymphocytes % 44.9 % (10-50); Mean Corpuscular HGB Conc 33.9 g/dL (31.8-35.4); Mean Corpuscular Hemoglobin 30.5 pg (27.0-31.2); Mean Platelet Volume 8.3 fl (7.4-10.4); Monocytes # 0.3 K/mm3 (0.1-1.0); Monocytes % 4.3 % (1.7-9.3); Neutrophils # 2.8 K/mm3 (1.8-7.8); Neutrophils % 47.9 % (37.0-80.0); Platelet Count 243 K/mm3 (142-424); Red Blood Count 4.32 M/mm3 (4.20-5.40); Red Cell Distribution Width 14.2 % (11.5-17.5); White Blood Count 5.8 K/mm3 (4.8-10.8)
[2024-04-30 12:32] LABS: Albumin Level 4.3 g/dl (3.5-5.0); Chloride 105 mmol/L (98-107); Potassium 4.4 mmoL/L (3.5-5.1); Sodium 139 mmol/L (136-145)
[2024-04-30 12:35] LABS: Alanine Aminotransferase 50 U/L (12-78); Albumin/Globulin Ratio 1.5 (1.1-1.8); Alkaline Phosphatase 67 U/L (38-126); Anion Gap 9.4 mEq/L (5-15); Aspartate Amino Transferase 46 U/L (14-36); Bilirubin,Total 0.5 mg/dl (0.2-1.3); Blood Urea Nitrogen 13 mg/dl (7-17); Carbon Dioxide 29 mmol/L (22.0-30.0); Cholesterol 208 mg/dl (140-200); Estimated Glomerular Filt Rate 109 ml/min (>60); GFR (African American) 132 ML/MIN (>60); Globulin 2.8 g/dL (1.3-3.2); Glucose 138 mg/dl (74-100); Total Protein,Serum 7.1 g/dl (6.3-8.2); Triglycerides 100 mg/dl (30-150); VLDL Cholesterol 20 mg/dL (0-40)
[2024-04-30 12:36] LABS: Chol/HDL Ratio 3.2 (1-3.5); HDL Cholesterol 66 mg/dl (40-60)
[2024-04-30 12:46] LABS: Direct LDL Cholesterol 106.56 mg/dL (100-129)
[2024-04-30 12:51] LABS: 25-OH Vitamin D, Total 43.6 ng/mL (30-100)
[2024-04-30 12:54] LABS: Free T4 (Free Thyroxine) 1.16 ng/dl (0.78-2.19)
[2024-04-30 13:09] LABS: Thyroid Stimulating Hormone 2.24 uIU/mL (0.465-4.68)
[2024-04-30 13:40] LABS: Microalbumin/Creatinine Ratio 10.7
[2024-04-30 13:41] LABS: Creatinine,Urine Random 56 mg/dL (Not Estab.)
[2024-04-30 15:27] LABS: HIV (1&2) Antibody Rapid NONREACTIVE (NONREACTIVE)
[2024-05-03 16:14] LABS: GAD-65 <5.0 U/mL (0.0-5.0)
[2024-05-03 18:10] LABS: HCV Ab Reactive (Non Reactive)
[2024-05-13 20:09] LABS: Insulin Autoantibodies (IAA) <5.0 uU/mL (.)
== END 2024-04-30 23:59 | disposition home or self-care (01) ==
LOC: LAB 11:34
PROVIDERS: PCP Internal Medicine; Visit Provider Internal Medicine
DX: Z00.00 Encounter for general adult medical examination without abnormal findings (principal); Z13.29 Encounter for screening for other suspected endocrine disorder; E11.9 Type 2 diabetes mellitus without complications; Z79.4 Long term (current) use of insulin; Z91.89 Other specified personal risk factors, not elsewhere classified; Z13.21 Encounter for screening for nutritional disorder; Z13.220 Encounter for screening for lipoid disorders; Z11.59 Encounter for screening for other viral diseases
CPT/HCPCS: 36415; 80050; 80053; 80061; 82043; 82306; 82570; 83519; 84439; 84443; 85025; 86337; 86803; 87389

== ENCOUNTER 2024-05-22 10:47 | Outpatient (CLI) | payer OTHER, SELFPAY ==
[2024-05-22 11:37] LABS: INR 0.91 (0.9-1.1); Prothrombin Time 10.3 seconds (10.1-12.5)
[2024-05-23 07:20] LABS: Hep A Ab, Total Positive (Negative); Hep B Core Ab, Total Negative (Negative); Hep Be Ag Negative (Negative)
[2024-05-23 11:16] LABS: Hep B Surface Ab, Qual Equivocal (.)
== END 2024-05-22 23:59 | disposition home or self-care (01) ==
PROVIDERS: PCP Nurse Practitioner Family; Visit Provider Nurse Practitioner Family
DX: B19.20 Unspecified viral hepatitis C without hepatic coma (principal); Z11.4 Encounter for screening for human immunodeficiency virus [HIV]
CPT/HCPCS: 36415; 85610; 86704; 86706; 86708; 87350

== ENCOUNTER 2024-09-24 16:32 | Outpatient (CLI) | payer OTHER, SELFPAY ==
[2024-09-24 18:22] LABS: HCG,Quantitative 49051 mIU/ml (0-5.42)
[2024-09-26 08:48] LABS: Progesterone 10.7 ng/mL (.)
== END 2024-09-24 23:59 | disposition home or self-care (01) ==
LOC: LAB 16:33
PROVIDERS: PCP Internal Medicine; Visit Provider Nurse Practitioner Obstetrics & Gynecology
DX: Z32.00 Encounter for pregnancy test, result unknown (principal)
CPT/HCPCS: 36415; 84144; 84702

== ENCOUNTER 2024-09-27 15:33 | Emergency (ER) | payer OTHER, SELFPAY ==
[2024-09-27 15:38] VITALS: BP 138/80; PULSE 91; RESP 18; TEMP 36.2; O2SAT 98; BMI 26.6
[2024-09-27 15:56] LABS: Microscopic, Urine URINE MICROSCOPIC (MICROSCOPIC)
[2024-09-27 16:00] LABS: Appearance,Urine Clear (Clear); Bilirubin,Urine Negative (Negative); Blood, Urine Negative (Negative); Color,Urine Yellow (Yellow); Glucose,Urine (UA) 4+ (Negative); Ketones,Urine Negative (Negative); Nitrate,Urine Negative (Negative); PH,Urine 5.5 (5.0-8.5); Protein,Urine Negative (Negative); Specific Gravity, Urine 1.015 (1.005-1.030)
[2024-09-27 16:01] LABS: Leukocyte Esterase,Urine Negative (Negative); Urobilinogen,Urine 0.2 EU/dl (0.2)
--- NOTE | 2024-09-27 16:18 | PC.NURSE ---
patient came back to ER room 8, reporting lower abdomnal cramping since 09/25 she reports having positive pregnacy blood test on sunday 09/24. she also reports bright red blood on 09/25 that only lasted for a few hours.
[2024-09-27 16:19] LABS: Bacteria,Urine Trace /lpf; Squamous Epithelial Cell,Urine Occasional #/hpf (0-5); WBC,Urine Occasional #/hpf (0-3)
[2024-09-27 16:20] LABS: Benzodiazepines Screen,Urine Negative ng/ml (<200)
[2024-09-27 16:21] LABS: Amphetamine/Metha Screen,Urine Negative ng/ml (<1000)
[2024-09-27 16:22] LABS: Barbiturates Screen,Urine Negative ng/ml (<200); Cannabinoid Screen,Urine Negative ng/ml (<50)
[2024-09-27 16:23] LABS: Cocaine Screen,Urine Negative ng/ml (<300)
[2024-09-27 16:24] LABS: Methadone Screen,Urine Negative ng/ml (<300); Opiate Screen,Urine Negative ng/ml (<300)
[2024-09-27 16:25] LABS: Phencyclidine Screen,Urine Negative ng/ml (<25)
--- NOTE | 2024-09-27 16:49 | HMH.EDGENADL ---
Discharge Plan Disposition Patient Disposition: Home, Self-Care Condition: Good Prescriptions Prescriptions: No Action (DME) lancets [FreeStyle Lancets] 28 gauge misc See Rx Instructions .ROUTE .MEDSUPPLY Qty: 100 5RF Rx Instructions: As directed pregabalin 100 mg capsule 100 mg PO TID Qty: 90 0RF duloxetine 60 mg capsule,delayed release(DR/EC) 60 mg PO DAILY Qty: 90 2RF (DME) Dexcom G7 Sensor Device See Rx Instructions .Route Qty: 1 5RF Rx Instructions: As directed buprenorphine-naloxone 8-2 mg tablet, sublingual 2 tab sublingual DAILY insulin glargine [Lantus Solostar U-100 Insulin] 100 unit/mL (3 mL) insulin pen 30 unit SQ HS Qty: 15 4RF (DME) blood-glucose meter Misc See Rx Instructions .Route Qty: 1 0RF Rx Instructions: As directed (DME) Blood Glucose Test Strip See Rx Instructions .ROUTE .MEDSUPPLY Qty: 50 5RF Rx Instructions: As directed insulin lispro 100 unit/mL insulin pen 16 unit .ROUTE .COMPLEX Rx Instructions: 16 units; bupropion HCl 300 mg tablet extended release 24 hr See Rx Instructions .ROUTE .COMPLEX Qty: 30 2RF Dose Instruction: TAKE ONE TABLET BY MOUTH ONCE A DAY Rx Instructions: TAKE ONE TABLET BY MOUTH ONCE A DAY (DME) pen needle, diabetic [BD Ultra-Fine Mini Pen Needle] 31 gauge x 3/16 needle See Rx Instructions .ROUTE .MEDSUPPLY Qty: 100 5RF Rx Instructions: As directed sofosbuvir-velpatasvir 400-100 mg tablet See Rx Instructions .ROUTE .COMPLEX Qty: 28 2RF Dose Instruction: TAKE ONE TABLET BY MOUTH EVERY DAY Rx Instructions: TAKE ONE TABLET BY MOUTH EVERY DAY cyclobenzaprine 10 mg tablet See Rx Instructions .ROUTE .COMPLEX Qty: 60 0RF Dose Instruction: TAKE ONE TABLET BY MOUTH 3 TIMES A DAY NEEDED FOR MUSCLE SPASMS Rx Instructions: TAKE ONE TABLET BY MOUTH 3 TIMES A DAY NEEDED FOR MUSCLE SPASMS atorvastatin 10 mg tablet 10 mg PO HS ergocalciferol (vitamin D2) 1,250 mcg (50,000 unit) capsule 1,250 mcg PO WEEKLY potassium chloride [Klor-Con M20] 20 mEq Tablet,Er Particles/Crystals 20 meq PO DAILY 30 Days Qty: 30 0RF Referrals Follow up/Referrals: Andre Roque DO [Primary Care Provider] - See instructions Activity Restrictions/Add. Instructions Additional Instructions/Restrictions: Today your evaluated in the emergency department. Please take vitamins. Follow-up with OB as we discussed. Return to the ED for worsening of condition peer Clinical Impressions Clinical Impression: Vaginal bleeding Instructions Patient Instructions: DI for Vaginal Bleeding Print Language Print Language: Mohawk Discharge ED Provider: Damien Poole General Adult HPI General Chief complaint: Abdominal Pain Stated complaint: 4-5 weeks with spotting,cramping Time Seen by Provider: 09/27/24 15:48 Mode of Arrival: Ambulatory Source of Information: Patient Description of Symptoms (Recalled from ER Triage Doc. by RN): Pt presents for abdominal cramping. Pt states she had some bright red bleeding on monday evening briefly. Pt states her LMP was in early july. Pt states she has had 4 pregnancies with 2 miscarriages. Pt is established with Dr. Giles for care. History of Present Illness HPI narrative: Please note that above description of symptoms, in this electronic medical record under categorization of recalled from ER triage doctor by RN are reflective of an initial nursing assessment, however, is not reflective of my full history and physical exam that was personally taken and clarified. Consequentially, this preceding description of symptoms, which may include the patient's categorized chief complaint in the EMR, do not reflect my personal clinical impression, and the ultimate description of history of present illness and patient stated complaints should be deferred to this section of the note. Unless stated otherwise or congruent with this section of the note, additional signs, symptoms, or incongruence should be interpreted as inaccurate with my clinical impression. Related Data Home Medications ?Medication ?Instructions ?Recorded ?Confirmed buprenorphine 8 mg-naloxone 2 mg 2 tab sublingual DAILY 01/30/24 07/31/24 sublingual tablet atorvastatin 10 mg tablet 10 mg PO HS 04/11/24 07/31/24 ergocalciferol (vitamin D2) 1,250 1,250 mcg PO WEEKLY 04/11/24 07/31/24 mcg (50,000 unit) capsule insulin lispro 100 unit/mL 16 unit .Route .COMPLEX 05/22/24 07/31/24 subcutaneous pen Previous Rx's ?Medication ?Instructions ?Recorded lancets 28 gauge (FreeStyle #100 ea 05/15/24 Lancets) potassium chloride 20 mEq 20 meq PO DAILY 30 days #30 tabs 04/12/24 tablet,extended release(part/cryst) (Klor-Con M) blood sugar diagnostic (Blood #50 ea 04/30/24 Glucose Test strips) blood-glucose meter #1 ea 04/30/24 insulin glargine 100 unit/mL (3 30 unit (0.3 mL) SQ HS Diabetes 04/30/24 mL) subcutaneous pen (Lantus #15 mL Solostar U-100 Insulin) bupropion HCl 300 mg 24 hr tablet, See Rx Instructions .Route 05/03/24 extended release .COMPLEX #30 tabs blood-glucose sensor (Dexcom G7 #1 ea 07/31/24 Sensor device) duloxetine 60 mg capsule,delayed 60 mg PO DAILY #90 caps 07/31/24 release pregabalin 100 mg capsule 100 mg PO TID #90 caps 07/31/24 pen needle, diabetic 31 gauge x #100 ea 08/06/2409/29 (BD Ultra-Fine Mini Pen Needle) sofosbuvir 400 mg-velpatasvir 100 See Rx Instructions .Route 09/03/24 mg tablet .COMPLEX #28 tabs cyclobenzaprine 10 mg tablet See Rx Instructions .Route 09/11/24 .COMPLEX #60 tabs Allergies Allergy/AdvReac Type Severity Reaction Status Date / Time moxifloxacin (From AVELOX) Allergy Unknown SWELLING Verified 07/31/24 10:32 [facility] Disclaimer: The information contained in this section may have been updated after the patient was seen, as this information can be updated by other users. Medical History IVDU (intravenous drug user) Polysubstance (excluding opioids) dependence Hypophosphatemia Abnormal drug screen Severe sepsis with acute organ dysfunction Hepatitis C Tobacco abuse Diabetes Cerebral palsy Surgical History History of Social History Smoking Status: Current every day smoker tobacco type: cigarettes packs per day: 1 alcohol intake: never substance use type: former substance user, heroin, opiates and painkillers counseling provided: provider counseling current occupational status: unemployed Travel in the last 8 weeks: None household members: none housing: house current occupational exposures/hazards: No caffeine: Yes Have you lived/traveled outside [place] in past 30 days?: No Contact w/someone who lives/traveled outside US past 30 days?: No Exposure to someone with infectious disease in past 14 days?: No Do you have a fever (greater than 100.4 F or 38 C)?: No Have you tested positive for COVID-19: No Exposed to someone with COVID-19 in past 14 days?: No Do you have a sore throat?: No Do you have a cough?: No Do you have any weakness?: No Do you have any diarrhea?: No Are you experiencing any unusual bleeding?: No Do you have any muscle aches/pain?: No Do you have any abdominal pain?: No Are you experiencing loss of taste or smell?: No Other Medical History Have you received the Flu Vaccine for this season: No Have you received the Pneumonia Vaccine: No ROS Obtained: Yes All systems reviewed & no additional complaints except as documented Physical Exam General General appearance: alert Head Head exam: atraumatic and normocephalic Eye Eye exam: Present normal appearance, PERRL and EOMI Neck Neck exam: Present normal inspection, full ROM and trachea midline Respiratory Respiratory exam: Absent respiratory distress, wheezes, stridor, accessory muscle use or prolonged expiratory phase Cardiovascular Cardiovascular exam: Present other (Pulses equal symmetric in upper and lower extremities) Abdominal Exam Abdominal exam: Present soft; Absent distention, tenderness or pulsatile mass Extremities Exam Extremities exam: Absent edema Neurological Exam Neurological exam: Present alert, oriented X3 and CN II-XII intact; Absent motor sensory deficit Skin Skin exam: Present warm and dry; Absent diaphoresis or erythema Medical Decision Making Medical Records Medical records reviewed: Yes I reviewed the patient's medical records. Screening: Per USPSTF and CDC recommendations, given the prevalence of disease in our region, it is our hospital?s policy to screen for HIV and viral Hepatitis for all patients aged 18 and over and those with ongoing risk factors. Deshaun Inquiry Pt receiving controlled substance: No Deshaun was queried for this patient: No Vital Signs: 09/27/24 15:38 09/27/24 17:00 09/27/24 17:30 Temperature 97.2 F L Temperature Source Oral Pulse Rate 86 90 Pulse Rate [Right] 91 H Respiratory Rate 18 Blood Pressure 131/86 129/84 Blood Pressure [Right Arm] 138/80 Blood Pressure Mean 99 Blood Pressure Mean [Right Arm] 99 Blood Pressure Source Blood Pressure Source [Right Arm] Automatic Cuff Blood Pressure Position Blood Pressure Position [Right Arm] Sitting 02 Sat by Pulse Oximetry 98 99 98 Oxygen Delivery Method Room Air 09/27/24 19:02 Temperature 98.7 F Temperature Source Oral Pulse Rate 84 Pulse Rate [Right] Respiratory Rate 18 Blood Pressure 145/94 H Blood Pressure [Right Arm] Blood Pressure Mean Blood Pressure Mean [Right Arm] Blood Pressure Source Automatic Cuff Blood Pressure Source [Right Arm] Blood Pressure Position Sitting Blood Pressure Position [Right Arm] 02 Sat by Pulse Oximetry Oxygen Delivery Method Room Air Lab Data Lab Results 09/27/24 15:51: Urine Color Yellow, Urine Appearance Clear, Urine pH 5.5, Ur Specific [place] 1.015, Urine Protein Negative, Urine Glucose (UA) 4+, Urine Ketones Negative, Urine Blood Negative, Urine Nitrate Negative, Urine Bilirubin Negative, Urine Urobilinogen 0.2, Ur Leukocyte Esterase Negative, Urine RBC None, Urine WBC Occasional, Ur Squamous Epith Cells Occasional, Urine Bacteria Trace, Urine Opiates Screen Negative, Urine Methadone Screen Negative, Ur Barbituates Screen Negative, Ur Phencyclidine Scrn Negative, Ur Amphetamines Screen Negative, U Benzodiazepines Scrn Negative, Urine Cocaine Screen Negative, U Marijuana (THC) Screen Negative 09/27/24 16:28: WBC 11.3 H, RBC 4.29, Hgb 13.0, Hct 37.5, MCV 87.4, MCH 30.3, MCHC 34.7, RDW 12.1, Plt Count 274, MPV 10.7 H, Neut % (Auto) 64.1, Lymph % (Auto) 27.6, [place] % (Auto) 6.0, Eos % (Auto) 1.3, Baso % (Auto) 0.6, Neut # (Auto) 7.3, Lymph # (Auto) 3.1, [place] # (Auto) 0.7, Eos # (Auto) 0.2, Baso # (Auto) 0.1, Sodium 134 L, Potassium 4.1, Chloride 101, Carbon Dioxide 24, Anion Gap 13.1, BUN 18 H, Creatinine 0.80, Estimated Creat Clear 104, Estimated GFR 78, Est GFR ( Amer) 95, Glucose 258 H, Calcium 9.4, Total Bilirubin 0.3, AST 20, ALT 20, Alkaline Phosphatase 91, Total Protein 7.1, Albumin 4.3, Globulin 2.8, Albumin/Globulin Ratio 1.5, HCG, Quant 33963 H, Blood Type O Negative, Antibody Screen Negative 09/27/24 16:48: Blood Type O Negative, Antibody Screen Negative 09/27/24 16:28 09/27/24 16:28 Orders (Tests/Meds): ED MEDICATIONS Discontinued Medications Generic Name Dose Route Start Last Admin Trade Name Freq PRN Reason Stop Dose Admin Multivit/Folic Acid/Iron 1 each 09/27/24 15:51 Multivitamin W/Iron PO 09/27/24 15:52 ONCE ONE Rho Immune Globulin 300 mcg 09/27/24 17:52 09/27/24 18:09 Rho(D) Immune Globulin 1,500 Unit (300mcg) Syringe IM 10/27/24 17:51 300 mcg NEEDED PRN Administration For Rh Pre/ scrn resu ORDERS Category Date Time Status Rhogam Stat BBK 09/27/24 16:48 Completed Type and Screen Stat BBK 09/27/24 16:28 Completed POCUS Point of Care (ER Only) Stat Exams 09/27/24 15:51 Completed CBC w/Auto Diff [Complete Blood Count Auto Diff] Stat Lab 09/27/24 16:28 Completed CMP [Comprehensive Metabolic Panel] Stat Lab 09/27/24 16:28 Completed HCG,Quantitative Stat Lab 09/27/24 16:28 Completed UA [Urinalysis and Microscopic] Stat Lab 09/27/24 15:51 Completed UDS [Drug Screen,Urine] Stat Lab 09/27/24 15:51 Completed Medical Decision Narrative: 43-year-old female currently , but does not know how far along presenting with vaginal bleeding. States that she has history of type 1 diabetes, has not been using IV drugs and is been clean for years. States that she thinks she is 1 to 2 months , started having vaginal spotting earlier today, had small clot passed earlier today. Associated with lower abdominal/pelvic cramping. No fevers, chills, vomiting or gushes of fluid. Came in for further evaluation. History was obtained via conversation with patient. On arrival, patient hemodynamically stable, alert, oriented x4, appropriate, GCS 15, moving all extremities spontaneously, pupils equal and reactive to light. Full physical exam performed and significant for very clinically well-appearing patient no acute distress. Nontachycardic, normotensive, speaking full senses. Abdomen is benign. Differential includes impending miscarriage, completed miscarriage, subchorionic hemorrhage, abruption, ectopic , among others. Patient placed on continuous cardiac monitoring and continuous pulse ox with initial blood pressure 138/80, heart rate 91, saturation 98% on room air. Workup independently interpreted and significant for O- blood type. Nonactionable CBC or chemistry. Urinalysis with squamous cells, no evidence of infection or asymptomatic bacteriuria. Drug screen negative. Bedside [id number] ultrasound was performed. Viable intrauterine gestation with small amount of subchorionic hemorrhage superiorly. Appears to measure around 9 weeks 2 days. hCG actually appears to be downtrending now 45,000 from 49,000. On reevaluation, patient received RhoGAM to prevent sensitization. Given patient presentation, workup, history, this most likely represents subchorionic hemorrhage and bleeding of early . Because patient at baseline without signs or symptoms of clinical decompensation, deemed appropriate for discharge. Results were relayed to patient who voiced understanding and were agreeable to outpatient management and follow up. I discussed my clinical impression with patient and answered all questions. At this time, the evidence for any other entities in the differential is insufficient to warrant any further testing or ED observation. This was explained as well. Advisory was given that persistent or worsening symptoms require further evaluation. I confirmed the understanding of this discussion. Psychologist [employer] disclaimer Much of this encounter note is an electronic fire boat engineer spoken language to printed text. Electronic fire boat engineer of the spoken language may permit errors. Although I have reviewed the note, some errors may still exist. Procedures Limited Ultrasound Indication:: Ultrasound-guided line placement Indication: -Difficult IV access, multiple unsuccessful pokes Identified structures: -Left upper extremity veins Location/access site: -Left basilic vein Vessel patency: -Patent Direct visualization? -Yes Impression: Successful placement of 20-gauge catheter in left upper extremity basilic vein Images were not saved to permanent archive The study was technically adequate CPT Codes: Venipuncture: 34727-19 Age <3 yo: 27005-62 Age >3yo: 77376-05 Central line <5 yo: 90577-10 Central line >5 yo: 64971-39 This study was performed by me, and I personally interpreted all images/videos. Based on my clinical judgement, these images were adequate and did not necessitate further imaging Views:: Limited OB ultrasound Indication: Positive test, vaginal bleeding Identified structures: -Uterus -Left adnexa -Right adnexa -Pouch of [place] Findings: Uterus: Definitive IUP with heart rate around 160 Right adnexa: -Normal Left adnexa: -Normal Cul de sac: -free fluid absent Impression: -IUP: Definitive IUP around 9 weeks 2 days gestation with heart rate around 160 -Ectopic : Absent -Free fluid: Absent Scant amount of subchorionic hemorrhage Images were saved to permanent archive The study was technically adequate CPT Transabdominal: 40382-50 This study was performed by me, and I personally interpreted all images/videos. Based on my clinical judgement, these images were adequate and did not necessitate further imaging Critical Care Critical Care Time Critical Care Time: No
[2024-09-27 16:59] LABS: Basophils # 0.1 K/mm3 (0-0.2); Basophils % 0.6 % (0.1-2.0); Eosinophils # 0.2 K/mm3 (0.0-0.4); Eosinophils % 1.3 % (0.1-12.0); Hematocrit 37.5 % (37.0-47.0); Lymphocytes # 3.1 K/mm3 (0.7-4.5); Lymphocytes % 27.6 % (10-50); Mean Corpuscular HGB Conc 34.7 g/dL (31.8-35.4); Mean Corpuscular Hemoglobin 30.3 pg (27.0-31.2); Mean Corpuscular Volume 87.4 fl (81-99); Mean Platelet Volume 10.7 fl (7.4-10.4); Monocytes # 0.7 K/mm3 (0.1-1.0); Neutrophils # 7.3 K/mm3 (1.8-7.8); Neutrophils % 64.1 % (37.0-80.0); Platelet Count 274 K/mm3 (142-424); Red Blood Count 4.29 M/mm3 (4.20-5.40); Red Cell Distribution Width 12.1 % (11.5-17.5); White Blood Count 11.3 K/mm3 (4.8-10.8)
[2024-09-27 17:00] VITALS: BP 131/86; PULSE 86; O2SAT 99
[2024-09-27 17:03] LABS: Chloride 101 mmol/L (98-107)
[2024-09-27 17:04] LABS: Albumin Level 4.3 g/dl (3.5-5.0); Potassium 4.1 mmoL/L (3.5-5.1); Sodium 134 mmol/L (136-145)
[2024-09-27 17:07] LABS: Alanine Aminotransferase 20 U/L (12-78); Albumin/Globulin Ratio 1.5 (1.1-1.8); Alkaline Phosphatase 91 U/L (38-126); Anion Gap 13.1 mEq/L (5-15); Aspartate Amino Transferase 20 U/L (14-36); Bilirubin,Total 0.3 mg/dl (0.2-1.3); Blood Urea Nitrogen 18 mg/dl (7-17); Carbon Dioxide 24 mmol/L (22.0-30.0); Creatinine Clearance Estimated 104 mL/min (50-200); Estimated Glomerular Filt Rate 78 ml/min (>60); GFR (African American) 95 ML/MIN (>60); Globulin 2.8 g/dL (1.3-3.2); Total Protein,Serum 7.1 g/dl (6.3-8.2)
[2024-09-27 17:08] LABS: Calcium 9.4 mg/dl (8.4-10.2); Glucose 258 mg/dl (74-100)
[2024-09-27 17:30] VITALS: BP 129/84; PULSE 90; O2SAT 98
[2024-09-27] MEDS: RHO(D) IMMUNE GLOBULIN 1,500 UNIT (300MCG) SYRINGE 300 MCG IM (18:09)
[2024-09-27 18:34] LABS: HCG,Quantitative 44867 mIU/ml (0-5.42)
[2024-09-27 19:02] VITALS: BP 145/94; PULSE 84; RESP 18; TEMP 37.1; O2SAT 99
== END 2024-09-27 19:05 | disposition home or self-care (01) ==
PROVIDERS: Emergency Provider Emergency Medicine; PCP Internal Medicine
DX: O46.90 Antepartum hemorrhage, unspecified, unspecified trimester (principal); R10.9 Unspecified abdominal pain; F17.210 Nicotine dependence, cigarettes, uncomplicated; Z3A.01 Less than 8 weeks gestation of pregnancy
CPT/HCPCS: 80053; 80307; 81001; 84702; 85025; 86850; 96372; 99283; J2790

== ENCOUNTER 2024-10-01 16:25 | Outpatient (CLI) | payer OTHER, SELFPAY | END 2024-10-01 23:59 | disposition home or self-care (01) | LOC: LAB 16:25 | PROVIDERS: PCP Internal Medicine; Visit Provider Nurse Practitioner Obstetrics & Gynecology | DX: O20.9 Hemorrhage in early pregnancy, unspecified (principal); Z3A.01 Less than 8 weeks gestation of pregnancy | CPT/HCPCS: 36415; 84702 ==

== ENCOUNTER 2024-10-04 08:01 | Outpatient (CLI) | payer OTHER, SELFPAY ==
--- NOTE | 2024-10-04 08:02 | US_ITS ---
PROCEDURE: US OB <= 14 WEEKS FETUS CLINICAL INDICATION: Needs BETSY. Dates and viabilility COMPARISON: US POINT OF CARE US (ER ONLY) from 09/27/2024 FINDINGS: Transvaginal sonographic images of the pelvis were obtained. From her last menstrual period she is 11weeks 0 days. An intrauterine gestational sac is present with a pole with a crown-rump length of 4.1cm This correlates to a gestational age of 11weeks 0 days. NOHEMI will remain 04/25/2025. heart tones are present with an FHR of 155bpm. Yolk sac is noted. The yolk sac measures 5.6mm. There appears to be a small anterior sub chorionic hemorrhage The right ovary is seen and appears normal. There is a corpus luteum in the right ovary. The left ovary is not visualized today. There is no fluid in the cul-de-sac. IMPRESSION: 1. Viable fetus within the uterine cavity. heart rate activity is seen. 2. Fetus measures 11 weeks 0 days and this is consistent with her last menstrual period. Her NOHEMI will remain 04/25/2025. 3. The left ovary is not visualized. The right ovary is seen and appears normal. It contains a small corpus luteum. 4. There is no fluid in the cul-de-sac. Dictated by: Aidan Giles MD 10/04/2024 21:09 Aidan Giles MD in OV 10/04/2024 21:09
== END 2024-10-04 23:59 | disposition home or self-care (01) ==
PROVIDERS: PCP Internal Medicine; Visit Provider Nurse Practitioner Obstetrics & Gynecology
DX: Z32.01 Encounter for pregnancy test, result positive (principal); O36.80X0 Pregnancy with inconclusive fetal viability, not applicable or unspecified; N93.9 Abnormal uterine and vaginal bleeding, unspecified; Z3A.11 11 weeks gestation of pregnancy
CPT/HCPCS: 36415; 76801; 84702

== ENCOUNTER 2024-10-22 16:28 | Outpatient (CLI) | payer OTHER, SELFPAY ==
[2024-10-22 17:50] LABS: Basophils # 0.1 K/mm3 (0-0.2); Basophils % 0.7 % (0.1-2.0); Eosinophils # 0.3 K/mm3 (0.0-0.4); Eosinophils % 2.6 % (0.1-12.0); Hematocrit 37.1 % (37.0-47.0); Hemoglobin 12.8 g/dL (12.2-16.2); Lymphocytes # 2.9 K/mm3 (0.7-4.5); Lymphocytes % 29.4 % (10-50); Mean Corpuscular HGB Conc 34.5 g/dL (31.8-35.4); Mean Corpuscular Hemoglobin 30.5 pg (27.0-31.2); Mean Corpuscular Volume 88.5 fl (81-99); Monocytes # 0.4 K/mm3 (0.1-1.0); Monocytes % 4.3 % (1.7-9.3); Neutrophils # 6.1 K/mm3 (1.8-7.8); Neutrophils % 62.8 % (37.0-80.0); Platelet Count 255 K/mm3 (142-424); Red Blood Count 4.19 M/mm3 (4.20-5.40); Red Cell Distribution Width 12.1 % (11.5-17.5); White Blood Count 9.7 K/mm3 (4.8-10.8)
[2024-10-22 20:51] LABS: Hepatitis C Ab Qual. W/ RFX REACTIVE (Negative)
[2024-10-22 20:52] LABS: HIV Combo NEGATIVE (Negative)
[2024-10-23 07:39] LABS: RPR W/RFX Titers Nonreactive (Nonreactive)
[2024-10-24 05:08] LABS: Hepatitis B Surface Antigen Negative (Negative)
[2024-10-24 08:13] LABS: Rubella Antibodies, IgG 1.85 index (Immune >0.99)
== END 2024-10-22 23:59 | disposition home or self-care (01) ==
LOC: LAB 16:29
PROVIDERS: PCP Internal Medicine; Visit Provider Nurse Practitioner Obstetrics & Gynecology
DX: Z34.01 Encounter for supervision of normal first pregnancy, first trimester (principal)
CPT/HCPCS: 36415; 85025; 86592; 86762; 86803; 86850; 86870; 87340; 87389; 87522

== ENCOUNTER 2025-02-17 14:49 | Outpatient (CLI) | payer OTHER, SELFPAY ==
--- OUTSIDE RECORDS SUMMARY | 2025-01-09 08:48 | XMS_ITS | Encounter Summary ---
Author Organization [facility] Address [address] [place] [address] Care Team Providers Care Commanding Officer Garage Name Role Phone Korina Gutierrez MD Primary Care Provider [phone] Reason for Visit * Diagnostic Imaging (Routine) - Authorized Specialty Diagnoses / Procedures Referred By Contac t Referred To Contact Radiology Diagnoses Antepartum multigravida of advanced maternal age Type 1 diabetes mellitus with hyperglycemia Procedures [facility] Staley, Nelson Thorpe MD [address] [place] [address] Phone: tel: fax: Referral ID Status Reason Start Date Expiration Date V isits Requested Visits Authorized Authorized 12/12/2024 03/13/2026 4 4 Encounter Details Date Type Department Care Team (Latest Contact Info) Description 01/09/2025 8:48 AM EDT - 01/09/2025 11:59 PM EDT Hospital Encounter [facility] US PER DIAG [facility] [address] [place] [id number] [place] [address] [place] [address] [address] DANA ROMERO [id number] Discharge Disposition: Home or Self Care Social History Tobacco Use Types Packs/Day Years Used Date Smoking Tobacco: Former Cigarettes 0.5 20 Q uit: 09/28/2024 Smokeless Tobacco: Never Alcohol Use Standard Drinks/Week Comments Not Currently 0 (1 standard drink = 0.6 oz pur e alcohol) PHQ-2 Answer Date Recorded Retired Total Score 12 09/29/2020 Estimated Date of Delivery Comme nts Yes 04/25/2025 Date entered lesly or to episode creation Sex and Gender Information Value Date Recorded Sex Assigned at Not on file Legal Sex Female 1:08 PM EDT Gender Identity Not on file Sexual Orientation Not on file documented as of this encounter Medications at Time of Discharge Acetaminophen Extra Strength 500 MG tablet Take 2 tablets by mouth every 6 (six) to 8 (eight) hours as needed for Pain. 10/16/2024 amitriptyline (ELAVIL) 100 MG tabletIndication s:Depression Take 1 tablet by mouth Every Night. Indications: Depression buPROPion XL (WELLBUTRIN XL) 300 MG 24 hr tablet Take 1 tablet by mouth Daily. 11/06/2024 Continuous Blood Gluc Infant Caregiver (Dexcom G6 Infant Caregiver) device 1 each Continuous. 1 each 09/21/2022 cyclobenzaprine (FLEXERIL) 10 MG tablet Take 1 tablet by mouth 3 (Three) Times a Day As Needed. for muscle spams 10/16/2024 ondansetron (ZOFRAN) 4 MG tabletIndication s:Nausea and Vomiting Take 1 tablet by mouth Every 8 (Eight) Hours As Needed for Nausea or Vomiting. Indications: Nausea and Vomiting Vit-Fe Fumarate-FA (GNP ) 28-0.8 MG tablet Take 1 tablet by mouth Daily. 10/21/2024 vitamin D (ERGOCALCIFEROL) 1.25 MG (90835 UT) capsule capsule Take 1 capsule by mouth 1 (One) Time Per Week. 10/11/2024 Insulin Glargine (Lantus SoloStar) 100 UNIT/ML injection pen Inject 18 Units under the skin into the appropriate area as directed 2 (Two) Times a Day. Try to take 12 hours apart. 15 mL 11/28/2024 Insulin Lispro, 1 Unit Dial, (HUMALOG) 100 UNIT/ML solution pen-injector Inject 24-28 Units under the skin into the appropriate area as directed 3 (Three) Times a Day Before Meals. Give correction of 1 units:25 mg/dl > 120 mg/ dl if blood sugar persistently high after 2-3 hours after a meal. MDD of 100 u 15 mL 1 12/30/2024 documented as of this encounter Plan of Treatment Upcoming Encounters Date Type Department Care Team (Late st Contact Info) Description 03/14/2025 10:45 AM EDT Office Visit [facility] [address] [facility] [address] [place] [address] 03/14/2025 10:45 AM EDT Appointment [facility] US PER DIAG CTR [address] [facility] [place] [address] documented as of this encounter Goals Goal Patient Goal Type Associated Problems Recent Progress Patient-Stated? Author Consistently take medications as prescribed General No Melisa Castle PharmD HEMOGLOBIN A1C < 7 Result Component No Melisa Castle PharmD documented as of this encounter Procedures Procedure Name Priority Date/Time Associated Diagnosis Comments [facility] Routine 01/09/2025 9:58 AM EDT Antepartum multigravida of advanced maternal age Type 1 diabetes mellitus with hyperglycemia documented in this encounter Results * [facility] (01/09/2025 9:58 AM EDT) Anatomical Region Laterality Modality Ultrasound 01/09/2025 9:27 AM EDT Narrative 01/09/2025 9:59 AM EDT PAT NAME: MARC MORALES MED REC#: [id number] DA: [id number] PAT GEND: F PAT TYPE: O EXAM PHYLLIS: [id number] REF PHYS REYNA KENT Comparison Studies The findings of this study are compared to the prior ultrasound study dated 12/12/24 Patient Status Outpatient Indication ======== T1DM. AMA. H/O IV drug use. +Hep C. Previous c/s x 2. Vapes. Maternal cerebral palsy. Maternal Assessment Height 163 cm Height (ft) 5 ft Height (in) 4 in Weight 81 kg Weight (lb) 178 lb BMI 30.55 kg/m Method ======= Transabdominal ultrasound examination. View: Suboptimal view: limited by position ========= Guthrie . Number of fetuses: 1 Dating ====== Method of dating: based on stated NOHEMI GA by prior assessment 24 w + 6 d NOHEMI by prior assessment: 04/25/2025 Ultrasound examination on: 01/09/2025 GA by U/S based upon: AC, BPD, Femur, HC GA by U/S 24 w + 5 d NOHEMI by U/S: 04/26/2025 Previous dating: based on stated NOHEMI, selected on 12/12/2024 Agreed NOHEMI of previous datin04/25/2025 Assigned: based on stated NOHEMI, selected on 01/09/2025 Assigned GA 24 w + 6 d Assigned NOHEMI: 04/25/2025 length 280 d Biometry Standard BPD 61.5 mm 25w 0d 47% Hadlock OFD 82.0 mm 26w 5d 94% Glendy HC 231.8 mm 25w 1d 42% Hadlock AC 200.0 mm 24w 4d 34% Hadlock Femur 42.8 mm 24w 0d 14% Hadlock Humerus 39.5 mm 24w 0d 18% Glendy HC / AC 1.16 EFW 700 g 24w 2d 25% Hadlock EFW (lb) 1 lb EFW (oz) 9 oz EFW by: Hadlock ([id number]) Extended Cav. septi pel. tr 5.3 mm Lime Kiln Worker Helper 6.1 mm Head / Face / Neck Cephalic index 0.75 15% Nicolaides Thorax / Lungs Thoracic circ 176.7 mm 45% [place] Thoracic area 24.6 cm ThC / AC 0.88 Heart / Great Vessels Cardiac axis 46 Cardiac circ 71.6 mm Cardiac area 4.0 cm CC / ThC 0.41 CA / Sandi 0.16 PA main 5.26 mm Ductus art. 3.22 mm 33% Caceres Rt PA branch 3.30 mm 77% Silverio Lt PA branch 6.09 mm >99% Silverio Ao asc 4.35 mm Ao isthmus 4.8 mm >99% Silverio Ao desc 3.57 mm McGoon Index mod. 2.6 PA main / Ao asc 1.21 Ao isthmus / Ductus art. 1.48 IVC 3.96 mm SVC 2.57 mm Extremities / Bony Struc FL / BPD 0.70 FL / HC 0.18 FL / AC 0.21 Other Structures FHR 162 bpm General Evaluation Cardiac activity present. FHR 162 bpm. movements present. Presentation cephalic. Placenta Placental site: posterior. Umbilical cord Cord vessels: 3 vessel cord. Insertion site: placental insertion: normal. Amniotic fluid Amount of AF: normal. MVP 5.7 cm. AYLEEN 17.9 cm. Q1 5.0 cm, Q2 3.8 cm, Q3 3.3 cm, Q4 5.7 cm. Anatomy Cranium: Normal Cavum septi pellucidi: Normal Head / Neck Rt lateral ventricle: Normal Lt lateral ventricle: Normal Lips: Normal Profile: Normal Nose: Normal 4-chamber view: Appears normal RVOT view: Appears normal LVOT view: Appears normal Heart / Thorax Aortic arch view: Appears normal Ductal arch view: Appears normal SVC: Appears Normal IVC: Appears Normal 3-vessel view: Appears normal 0-xngzmi-narmckq view: Appears normal Cardiac axis: Normal Cord insertion: Normal Stomach: Normal Bladder: Normal Cervical spine: Appears normal Thoracic spine: Appears normal Lumbar spine: Appears normal Sacral spine: Appears normal Gender: male Wants to know gender: yes Echocardiogram 2D Echo (Qualitatively) 4-chamber view: Appears normal LVOT view: Appears normal RVOT view: Appears normal 3-vessel view: Appears normal 1-mzlsfs-wljojav view: Appears normal Aortic arch view: Appears normal Ductal arch view: Appears normal SVC: Appears Normal IVC: Appears Normal Cardiac axis: Normal Venous-atrial connections: normal size and morphology AV connections: normal alignment VA connections: normal size and morphology Pulmonary veins: normal size and morphology Right atrium: normal size and morphology Left atrium: normal size and morphology Atrial septum: normal size and morphology Foramen ovale: normal (in the central third/half, flap valve in left atrium) Right ventricle: normal size and morphology Left ventricle: normal size and morphology Ventricular septum: ventricular septum intact (apex to crux) Tricuspid valve: normal size and morphology Mitral valve: normal size and morphology Cross-over gr. arteries: anterior great artery (confirmed to be the pulmonary artery by its branching) which crosses the course of the proximal aorta, indicative of normal relationship of the great arteries Main PA: the main pulmonary artery can be seen bifurcating into the ductus arteriosus and the right pulmonary artery Impression: Normal echocardiogram. Other: Color flow doppler normal across cardiac valves and in cardiac chambers and outflows. B and M-Mode Measurements Thoracic circ 176.7 mm 45% [place] Thoracic area 24.6 cm ThC / AC 0.88 Cardiac axis 46 Cardiac circ 71.6 mm Cardiac area 4.0 cm CC / ThC 0.41 CA / Sandi 0.16 RA length diast 9.23 mm RA width diast 8.67 mm RV width diast 8.85 mm 19% Caceres RV wall diast 2.16 mm 25% Caceres LA length diast 10.0 mm LA width diast 9.5 mm LV width diast 8.06 mm 11% Caceres LV wall diast 2.59 mm 73% Caceres IV Septum diast 2.54 mm 62% Caceres RV inlet 11.93 mm LV inlet 9.57 mm LVOT diam 4.8 mm LVOT area 18.0 mm TV annulus diast 8.0 mm MV annulus diast 8.8 mm MV annulus diast / TV annulus diast 1.10 PA main 5.26 mm Ductus art. 3.22 mm 33% Caceres Rt PA branch 3.30 mm 77% Silverio Lt PA branch 6.09 mm >99% Silverio Ao asc 4.35 mm Ao isthmus 4.8 mm >99% Silverio Ao desc 3.57 mm McGoon Index mod. 2.6 PA main / Ao asc 1.21 Ao isthmus / Ductus art. 1.48 IVC 3.96 mm SVC 2.57 mm RV width diast Zscore (FL) -0.26 RV width diast Zscore (BPD) -0.29 RV width diast Zscore (GA) -0.32 RV width diast Zscore by: Dean LV width diast Zscore (FL) -0.63 LV width diast Zscore (BPD) -0.55 LV width diast Zscore (GA) -0.60 LV width diast Zscore by: Dean RV inlet Zscore (FL) -2.31 RV inlet Zscore (BPD) -2.13 RV inlet Zscore (GA) -2.18 RV inlet Zscore by: Dean LV inlet Zscore (FL) -5.30 LV inlet Zscore (BPD) -4.89 LV inlet Zscore (GA) -4.70 LV inlet Zscore by: Dean RV area Zscore by: Dean LV area Zscore by: Dean TV annulus diast Zscore (FL) 0.48 TV annulus diast Zscore (BPD) 0.40 TV annulus diast Zscore (GA) 0.43 TV annulus diast Zscore by: Dean MV annulus diast Zscore (FL) 1.59 MV annulus diast Zscore (BPD) 1.46 MV annulus diast Zscore (GA) 1.43 MV annulus diast Zscore by: Dean PV annulus syst Zscore by: Dean AoV annulus syst Z-score by: Dean PA main Zscore (FL) 0.32 PA main Zscore (BPD) 0.37 PA main Zscore (GA) 0.35 PA main Zscore by: Dean Ductus arteriosus Zscore (FL) 0.25 Ductus arteriosus Zscore (BPD) 0.32 Ductus arteriosus Zscore (GA) 0.27 Ductus arteriosus Zscore by: Dean Rt PA branch Zscore (FL) 1.41 Rt PA branch Zscore (BPD) 1.39 Rt PA branch Zscore (GA) 1.37 Rt PA branch Zscore by: Dean Lt PA branch Zscore (FL) 4.90 Lt PA branch Zscore (BPD) 4.79 Lt PA branch Zscore (GA) 4.77 Lt PA branch Zscore by: Dean Ao asc Zscore (FL) 0.04 Ao asc Zscore (BPD) 0.00 Ao asc Zscore (GA) 0.01 Ao asc Zscore by: Dean Ao isthmus Zscore (FL) 5.70 Ao isthmus Zscore (BPD) 5.02 Ao isthmus Zscore (GA) 5.29 Ao isthmus Zscore (EFW) 5.83 Ao isthmus Zscore by: Emmett Ao desc Zscore (FL) -0.25 Ao desc Zscore (BPD) -0.24 Ao desc Zscore (GA) -0.29 Ao desc Zscore by: Dean IVC Zscore (FL) 1.91 IVC Zscore (BPD) 1.90 IVC Zscore (GA) 1.87 IVC Zscore by: Dean Intracardial Spectral Doppler TV E-wave -36.46 cm/s TV A-wave -72.06 cm/s TV E / A 0.51 <1% Hecher MV E-wave -28.40 cm/s MV A-wave -50.44 cm/s MV E / A 0.56 12% Hecher Postcardial Spectral Doppler Umbilical A PI 0.96 20% Alfredo Umbilical A RI 0.67 37% Alfredo Umbilical A PS -48.49 cm/s Umbilical A ED -16.17 cm/s Umbilical A TAmax -33.52 cm/s Umbilical A MD -15.28 cm/s Umbilical A S / D 3.00 28% Alfredo Umbilical A HR 171 bpm Lt MCA PS 25.17 cm/s MoM 0.79 Speckle Tracking Device/Procedure: Transabdominal ultrasound examination Doppler Arterial Umbilical A PI 0.96 20% Alfredo Umbilical A RI 0.67 37% Alfredo Umbilical A PS -48.49 cm/s Umbilical A ED -16.17 cm/s Umbilical A TAmax -33.52 cm/s Umbilical A MD -15.28 cm/s Umbilical A S / D 3.00 28% Alfredo Umbilical A HR 171 bpm Lt MCA PS 25.17 cm/s MoM 0.79 Maternal Structures Uterus / Cervix Cervix: Visualized Approach: Transabdominal Cervical length 38.9 mm Consultation / Office Visit Office note to follow Impression ========= Size consistent with dates. No anomalies were identified. heart well visualized and appears structurally normal. No markers for trisomy. The cervical length appears normal. Recommendation We recommend evaluation in 4 weeks. Follow up appointment scheduled here in 4 weeks. Coding ====== Description: 09560-48 Follow Up Ultrasound Description: 85430-04 Echo 2D, heart - initial Description: 35593-33 Doppler echo color flow Cloth Coverer: RT Rivka Singer , [facility] Physician: Chris Figueroa MD, FACOG Electronically signed by: Chris Figueroa MD, FACOG at: 09:59 Procedure Note Nilson Figueroa MD - 01/09/2025 PAT NAME: MARC MORALES MED REC#: [id number] DA: 1980 PAT GEND: F PAT TYPE: O EXAM PHYLLIS: [id number] REF PHYS REYNA KENT Comparison Studies The findings of this study are compared to the prior ultrasound studydated 12/12/24 Patient Status Outpatient Indication ======== T1DM. AMA. H/O IV drug use. +Hep C. Previous c/s x 2. Vapes. Maternalcerebral palsy. Maternal Assessment Xefukg462 cm Height (ft)5 ft Height (in)4 in Vkxnnk60 kg Weight (lb)178 lb BMI30.55 kg/m Method ======= Transabdominal ultrasound examination. View: Suboptimal view: limited byfetal position ========= Guthrie . Number of fetuses: 1 Dating ====== Method of dating:based on stated NOHEMI GA by prior [id number] w + 6 d NOHEMI by prior assessment:04/25/2025 Ultrasound examination on:01/09/2025 GA by U/S based upon:AC, BPD, Femur, HC GA by U/S24 w + 5 d NOHEMI by U/S:04/26/2025 Previous dating:based on stated NOHEMI, selected on 12/12/2024 Agreed NOHEMI of previous datin04/25/2025 Assigned:based on stated NOHEMI, selected on 01/09/2025 Assigned GA24 w + 6 d Assigned NOHEMI:04/25/2025 [id number] d Biometry Standard BPD61.5 mm 25w 0d 47% Hadlock OFD82.0 mm 26w 5d 94% Glendy HC231.8 mm 25w 1d 42% Hadlock AC200.0 mm 24w 4d 34% Hadlock Femur42.8 mm 24w 0d 14% Hadlock Jpoqfms22.5 mm 24w 0d 18% Glendy HC / AC1.16 DRS997 g 24w 2d 25% Hadlock EFW (lb)1 lb EFW (oz)9 oz EFW by:Hadlock ([id number]) Extended Cav. septi pel. tr5.3 mm Vp6.1 mm Head / Face / Neck Cephalic index0.75 15% Nicolaides Thorax / Lungs Thoracic sqse725.7 mm 45% [place] Thoracic area24.6 cm ThC / AC0.88 Heart / Great Vessels Cardiac axis46 Cardiac circ71.6 mm Cardiac area4.0 cm CC / ThC0.41 CA / ThA0.16 PA main5.26 mm Ductus art.3.22 mm 33% Caceres Rt PA branch3.30 mm 77% Silverio Lt PA branch6.09 mm >99% Silverio Ao asc4.35 mm Ao isthmus4.8 mm >99% Silverio Ao desc3.57 mm McGoon Index mod.2.6 PA main / Ao asc1.21 Ao isthmus / Ductus art.1.48 IVC3.96 mm SVC2.57 mm Extremities / Bony Struc FL / BPD0.70 FL / HC0.18 FL / AC0.21 Other Structures CCC096 bpm General Evaluation Cardiac activity present. FHR 162 bpm. movements present. Presentation cephalic. Placenta Placental site: posterior. Umbilical cord Cord vessels: 3 vessel cord. Insertion site: placentalinsertion: normal. Amniotic fluid Amount of AF: normal. MVP 5.7 cm. AYLEEN 17.9 cm. Q1 5.0 cm,Q2 3.8 cm, Q3 3.3 cm, Q4 5.7 cm. Anatomy Cranium:Normal Cavum septi pellucidi:Normal Head / Neck Rt lateral ventricle:Normal Lt lateral ventricle:Normal Lips:Normal Profile:Normal Nose:Normal 4-chamber view:Appears normal RVOT view:Appears normal LVOT view:Appears normal Heart / Thorax Aortic arch view:Appears normal Ductal arch view:Appears normal SVC:Appears Normal IVC:Appears Normal 3-vessel view:Appears normal 0-gstkyt-plmdgro view:Appears normal Cardiac axis:Normal Cord insertion:Normal Stomach:Normal Bladder:Normal Cervical spine:Appears normal Thoracic spine:Appears normal Lumbar spine:Appears normal Sacral spine:Appears normal Gender:male Wants to know gender:yes Echocardiogram 2D Echo (Qualitatively) 4-chamber view:Appears normal LVOT view:Appears normal RVOT view:Appears normal 3-vessel view:Appears normal 4-gwypsn-syhntoa view:Appears normal Aortic arch view:Appears normal Ductal arch view:Appears normal SVC:Appears Normal IVC:Appears Normal Cardiac axis:Normal Venous-atrial connections:normal size and morphology AV connections:normal alignment VA connections:normal size and morphology Pulmonary veins:normal size and morphology Right atrium:normal size and morphology Left atrium:normal size and morphology Atrial septum:normal size and morphology Foramen ovale:normal (in the central third/half, flap valve in leftatrium) Right ventricle:normal size and morphology Left ventricle:normal size and morphology Ventricular septum:ventricular septum intact (apex to crux) Tricuspid valve:normal size and morphology Mitral valve:normal size and morphology Cross-over gr. arteries:anterior great artery (confirmed to be thepulmonary artery by its branching) which crosses the course of theproximal aorta, indicative of normal relationship of the great arteries Main PA:the main pulmonary artery can be seen bifurcating into the ductusarteriosus and the right pulmonary artery Impression:Normal echocardiogram. Other:Color flow doppler normal across cardiac valves and in cardiacchambers and outflows. B and M-Mode Measurements Thoracic bznu142.7 mm 45% [place] Thoracic area24.6 cm ThC / AC0.88 Cardiac axis46 Cardiac circ71.6 mm Cardiac area4.0 cm CC / ThC0.41 CA / ThA0.16 RA length diast9.23 mm RA width diast8.67 mm RV width diast8.85 mm 19% Caceres RV wall diast2.16 mm 25% Caceres LA length diast10.0 mm LA width diast9.5 mm LV width diast8.06 mm 11% Caceres LV wall diast2.59 mm 73% Caceres IV Septum diast2.54 mm 62% Caceres RV inlet11.93 mm LV inlet9.57 mm LVOT diam4.8 mm LVOT area18.0 mm TV annulus diast8.0 mm MV annulus diast8.8 mm MV annulus diast / TV annulus diast1.10 PA main5.26 mm Ductus art.3.22 mm 33% Caceres Rt PA branch3.30 mm 77% Silverio Lt PA branch6.09 mm >99% Silverio Ao asc4.35 mm Ao isthmus4.8 mm >99% Silverio Ao desc3.57 mm McGoon Index mod.2.6 PA main / Ao asc1.21 Ao isthmus / Ductus art.1.48 IVC3.96 mm SVC2.57 mm RV width diast Zscore (FL)-0.26 RV width diast Zscore (BPD)-0.29 RV width diast Zscore (GA)-0.32 RV width diast Zscore by:Dean LV width diast Zscore (FL)-0.63 LV width diast Zscore (BPD)-0.55 LV width diast Zscore (GA)-0.60 LV width diast Zscore by:Dean RV inlet Zscore (FL)-2.31 RV inlet Zscore (BPD)-2.13 RV inlet Zscore (GA)-2.18 RV inlet Zscore by:Dean LV inlet Zscore (FL)-5.30 LV inlet Zscore (BPD)-4.89 LV inlet Zscore (GA)-4.70 LV inlet Zscore by:Dean RV area Zscore by:Dean LV area Zscore by:Dean TV annulus diast Zscore (FL)0.48 TV annulus diast Zscore (BPD)0.40 TV annulus diast Zscore (GA)0.43 TV annulus diast Zscore by:Dean MV annulus diast Zscore (FL)1.59 MV annulus diast Zscore (BPD)1.46 MV annulus diast Zscore (GA)1.43 MV annulus diast Zscore by:Dean PV annulus syst Zscore by:Dean AoV annulus syst Z-score by:Dean PA main Zscore (FL)0.32 PA main Zscore (BPD)0.37 PA main Zscore (GA)0.35 PA main Zscore by:Dean Ductus arteriosus Zscore (FL)0.25 Ductus arteriosus Zscore (BPD)0.32 Ductus arteriosus Zscore (GA)0.27 Ductus arteriosus Zscore by:Dean Rt PA branch Zscore (FL)1.41 Rt PA branch Zscore (BPD)1.39 Rt PA branch Zscore (GA)1.37 Rt PA branch Zscore by:Dean Lt PA branch Zscore (FL)4.90 Lt PA branch Zscore (BPD)4.79 Lt PA branch Zscore (GA)4.77 Lt PA branch Zscore by:Dean Ao asc Zscore (FL)0.04 Ao asc Zscore (BPD)0.00 Ao asc Zscore (GA)0.01 Ao asc Zscore by:Dean Ao isthmus Zscore (FL)5.70 Ao isthmus Zscore (BPD)5.02 Ao isthmus Zscore (GA)5.29 Ao isthmus Zscore (EFW)5.83 Ao isthmus Zscore by:Emmett Ao desc Zscore (FL)-0.25 Ao desc Zscore (BPD)-0.24 Ao desc Zscore (GA)-0.29 Ao desc Zscore by:Dean IVC Zscore (FL)1.91 IVC Zscore (BPD)1.90 IVC Zscore (GA)1.87 IVC Zscore by:Dean Intracardial Spectral Doppler TV E-wave-36.46 cm/s TV A-wave-72.06 cm/s TV E / A0.51 <1% Hecher MV E-wave-28.40 cm/s MV A-wave-50.44 cm/s MV E / A0.56 12% Hecher Postcardial Spectral Doppler Umbilical A PI0.96 20% Alfredo Umbilical A RI0.67 37% Alfredo Umbilical A PS-48.49 cm/s Umbilical A ED-16.17 cm/s Umbilical A TAmax-33.52 cm/s Umbilical A MD-15.28 cm/s Umbilical A S / D3.00 28% Alfredo Umbilical A HR171 bpm Lt MCA PS25.17 cm/s MoM0.79 Speckle Tracking Device/Procedure:Transabdominal ultrasound examination Doppler Arterial Umbilical A PI0.96 20% Alfredo Umbilical A RI0.67 37% Alfredo Umbilical A PS-48.49 cm/s Umbilical A ED-16.17 cm/s Umbilical A TAmax-33.52 cm/s Umbilical A MD-15.28 cm/s Umbilical A S / D3.00 28% Alfredo Umbilical A HR171 bpm Lt MCA PS25.17 cm/s MoM0.79 Maternal Structures Uterus / Cervix Cervix:Visualized Approach:Transabdominal Cervical .9 mm Consultation / Office Visit Office note to follow Impression ========= Size consistent with dates. No anomalies were identified. heart well visualized and appears structurally normal. No markers for trisomy. The cervical length appears normal. Recommendation We recommend evaluation in 4 weeks. Follow up appointment scheduled here in 4 weeks. Coding ====== Description:25997-82 Follow Up Ultrasound Description:42613-05 Echo 2D, heart - initial Description:20688-63 Doppler echo color flow Cloth Coverer: RT Rivka Singer , [facility] Physician: Chris Figueroa MD, FACOG Electronically signed by: Chris Figueroa MD, FACOG at: 09:59 us Nelson Staley MD IMG US ORDERABLES Final Result documented in this encounter Visit Diagnoses Not on filedocumented in this encounter Care Teams Commanding Officer Garage Relationship Specialty Start Date End Date Korina Gutierrez [place] [address] [place] [address] PCP - General Internal Medicine 09/28/20 documented as of this encounter
--- OUTSIDE RECORDS SUMMARY | 2025-01-09 09:15 | XMS_ITS | Encounter Summary ---
Author Organization [facility] Address [address] [place] [address] Care Team Providers Care Commercial Real Estate Assistant Name Role Phone Korina Gutierrez MD Primary Care Provider +1- [phone] Reason for Visit * Reason Comments T1DM; AMA; prev. c/s; maternal CP; vapes Encounter Details Date Type Department Care Team (Late st Contact Info) Description 01/09/2025 9:15 AM EDT Office Visit [facility] MATERNAL MEDICINE [address] [facility] [address] [place] [address] Nilson Figueroa MD [address] [facility] [address] [place] [address] Type 1 diabetes mellitus with hyperglycemia (Primary Dx); Antepartum multigravida of advanced maternal age; , unspecified gestational age Social History Tobacco Use Types Packs/Day Years [...] on file documented as of this encounter Last Filed Vital Signs Vital Sign Reading Time Taken Comments Blood Pressure 119/62 01/09/2025 9:15 AM EDT Pulse - - Temperature - - Respiratory Rate - - Oxygen Saturation - - Inhaled Oxygen Concentration - - Weight 80.8 kg (178 lb 3.2 oz) 01/09/2025 9:15 A M EDT Height - - Body Mass Index 30.12 11/13/2024 1:45 PM EDT documented in this encounter Progress Notes * Nilson Figueroa MD - 01/09/2025 9:57 AM EDTAssociated Problem(s): Type 1 diabetes mellitus with hyperglycemia Patient returns today for complicated by type 1 diabetes and advanced maternal age. Patient currently is using a continuous glucose monitor with her fastings ranging 150 to 200 mg percent and 2-hour postprandials at 150 to 200 mg percent. Patient reports that she is using a Dexcom G6 and is having difficulties with it. Patient is waiting for an insulin pump and needs education through the [facility] before she can start that. We are continuing to follow her sugars weekly. Ultrasound today demonstrates a normally grown fetus with no abnormality seen. heart was well-visualized and appeared structurally normal. Amniotic fluid volume and umbilical artery Dopplers were normal. Middle cerebral artery Dopplers were normal. Cervical length appeared normal. We will continue to follow the patient closely and work towards better glucose control. We will review patient's sugars weekly and make changes as needed. Most recent changes were communicated to thepatient today and we will ensure that the patient has her education appointment with as noted she can start her insulin pump. Patient is scheduled for follow-up ultrasound with us in 4 weeks time. * Erika Porras RN - 01/09/2025 9:15 AM EDT Pt denies complaints with some occasional cramping. Sees for endo and is waiting for appt to be set to get insulin pump initiated. Fasting glucose: 150- 200. 2hrsPP: 150-200. States she has been taking less than ordered dose of short acting insulin as it bottoms out her blood sugar from 150s to50s very quickly. Pt has been doing finger sticks due to having problems with Dexcom. Sees OB 01/15. * Erika Porras RN - 01/09/2025 9:15 AM EDT Pt given Dexcom G7 sample to try with briana instructions since she was having difficulties with the G6. Pt v/u. * Nilson Figueroa MD - 01/09/2025 9:15 AM EDT Images from the original note were not included. Documentation of the ultrasound findings, images, and interpretations will be available in the patient's Viewpoint report which is located in the imaging tab in chart review. Maternal/ Medicine Follow Up Note Name: Mora Feliciano : 1980 Referring Provider: Reyna Kent DO Chief Complaint T1DM; AMA; prev. c/s; maternal CP; vapes Subjective History of Present Illness: Mora Feliciano is a 44 y.o. 24w6d who presents today for diabetes NOHEMI: Estimated Date of Delivery: 04/25/25 ROS: As noted in HPI. Objective Vital Signs BP 119/62 Wt 80.8 kg (178 lb 3.2 oz) LMP (LMP Unknown) Estimated body mass index is 30.12 kg/m?? as calculated from the following: Height as of 11/13/24: 163.8 cm (64.5 ). Weight as of this encounter: 80.8 kg (178 lb 3.2 oz). Physical Exam Ultrasound Impression: See Viewpoint Assessment and Plan Mora Feliciano is a 44 y.o. 24w6d who presents today for diabetes Diagnoses and all orders for this visit: 1. Type 1 diabetes mellitus with hyperglycemia (Primary) Assessment & Plan: Patient returns today for complicated by type 1 diabetes and advanced maternal age. Patient currently is using a continuous glucose monitor with her fastings ranging 150 to 200 mg percent and 2-hour postprandials at 150 to 200 mg percent. Patient reports that she is using a Dexcom G6 and is having difficulties with it. Patient is waiting for an insulin pump and needs education through the [facility] before she can start that. We are continuing to follow her sugars weekly. Ultrasound today demonstrates a normally grown fetus with no abnormality seen. heart was well-visualized and appeared structurally normal. Amniotic fluid volume and umbilical artery Dopplers were normal. Middle cerebral artery Dopplers were normal. Cervical length appeared normal. We will continue to follow the patient closely and work towards better glucose control. We will review patient's sugars weekly and make changes as needed. Most recent changes were communicated to thepatient today and we will ensure that the patient has her education appointment with as noted she can start her insulin pump. Patient is scheduled for follow-up ultrasound with us in 4 weeks time. Orders: - [facility]; Future 2. Antepartum multigravida of advanced maternal age - [facility]; Future 3. , unspecified gestational age - [facility]; Future Follow Up Return in about 4 weeks (around 02/06/2025). I spent 20 minutes caring for the patient on the day of service. This included: obtaining or reviewing a separately obtained medical history, reviewing patient records, performing a medically appropriate exam and/or evaluation, counseling or educating the patient/family/caregiver, ordering medications, labs, and/or procedures and documenting such in the medical record. This does not include time spent on review and interpretation of other tests such as ultrasound or the performance of other procedures such as amniocentesis or CVS. Nilson Figueroa MD Maternal Medicine, [facility] 01/09/2025 documented in this encounter Plan of Treatment Upcoming Encounters Date Type Department Care Team (Late st Contact Info) Description 03/14/2025 10:45 AM EDT Office Visit [facility]NAL MEDICINE [address] [facility] [address] [place] [phone] 03/14/2025 10:45 AM EDT Appointment [facility] US PER DIAG CTR [address] [place] [phone] documented as of this encounter Goals Goal Patient Goal Type Associated Problems Recent Progress Patient-Stated? Author Consistently take medications as prescribed General No Melisa Castle PharmD HEMOGLOBIN A1C < 7 Result Component No Melisa Castle PharmD documented as of this encounter Visit Diagnoses Diagnosis Type 1 diabetes mellitus with hyperglycemia- Primary Antepartum multigravida of advanced maternal age , unspecified gestational age documented in this encounter Care Teams Commercial Real Estate Assistant Relationship Specialty Start Date End Date Korina Gutierrez MD [facility] [place] [address] [place], [place] [phone] PCP - General Internal Medicine 09/28/20 documented as of this encounter
--- OUTSIDE RECORDS SUMMARY | 2025-02-13 14:29 | XMS_ITS | Encounter Summary ---
Author Organization [facility] Address [address] [place] [address] Care Team Providers Care Receiving Weigher Name Role Phone Korina Gutierrez MD Primary Care Provider +1- [phone] Reason for Visit * Diagnostic Imaging (Routine) - Authorized Specialty Diagnoses / Procedures Referred By Contac t Referred To Contact Radiology Diagnoses Antepartum multigravida of advanced maternal age Type 1 diabetes mellitus with hyperglycemia Procedures [facility] Staley, Nelson Thorpe MD [address] [place] [address] Phone: tel: fax: Referral ID Status Reason Start Date Expiration Date V isits Requested Visits Authorized Authorized 12/12/2024 03/13/2026 4 4 Encounter Details Date Type Department Care Team (Latest Contact Info) Description 02/13/2025 2:29 PM EDT - 02/13/2025 11:59 PM EDT Hospital Encounter [facility] US PER DIAG CTR [address] [place] [id number] Reyna Kent DO 1210 [facility] [address] [id number] Discharge Disposition: Home or Self Care Social [...] by mouth Daily. 11/06/2024 Continuous Blood Gluc Laborer Carpentry Dock (Dexcom G6 Laborer Carpentry Dock) device 1 each Continuous. 1 each 09/21/2022 [...] Daily. 10/21/2024 vitamin D (ERGOCALCIFEROL) 1.25 MG (04715 UT) capsule capsule Take 1 capsule by mouth 1 (One) Time Per Week. 10/11/2024 documented as of this encounter Plan of Treatment Upcoming Encounters Date Type Department Care Team (Late st Contact Info) Description 03/14/2025 10:45 AM EDT Office Visit [facility] MATERNAL MEDICINE [address] [facility] [address] [place] [address] 03/14/2025 10:45 AM EDT Appointment [facility] US PER DIAG CTR [address] [facility] [place] [address] Pending Results Name Type Priority Associated Diagnoses Date /Time [facility] Imaging Routine Antepartum multigravida of advanced maternal age Type 1 diabetes mellitus with hyperglycemia 02/13/2025 3:13 PM EDT documented as of this encounter Goals Goal Patient Goal Type Associated Problems Recent Progress Patient-Stated? Author Consistently take medications as prescribed General No Melisa Castle PharmD HEMOGLOBIN A1C < 7 Result Component No Melisa Castle PharmD documented as of this encounter Visit Diagnoses Not on filedocumented in this encounter Care Teams Receiving Weigher Relationship Specialty Start Date End Date Korina Gutierrez [place] [place] [address] PCP - General Internal Medicine 09/28/20 documented as of this encounter
--- OUTSIDE RECORDS SUMMARY | 2025-02-13 15:00 | XMS_ITS | Encounter Summary ---
Author Organization [facility] Address [address] [place] [address] Care Team Providers Care Strap Cutting Machine Operator Name Role Phone Korina Gutierrez MD Primary Care Provider +1- [phone] Reason for Visit * Reason Comments T1DM, AMA, hx C/S, hx drug use, Hep C, v apes, mat. CP Encounter Details Date Type Department Care Team (Late st Contact Info) Description 02/13/2025 3:00 PM EDT Office Visit [facility] MATERNAL MEDICINE [address] [address] Denise Lopez MD [address] [place] [address] Social History Tobacco Use Types Packs/Day Years [...] Sign Reading Time Taken Comments Blood Pressure 131/72 02/13/2025 2:42 PM EDT Pulse - - Temperature - - Respiratory Rate - - Oxygen Saturation - - Inhaled Oxygen Concentration - - Weight 84.5 kg (186 lb 3.2 oz) 02/13/2025 2:42 P M EDT Height - - Body Mass Index 31.47 11/13/2024 1:45 PM EDT documented in this encounter Plan of Treatment Upcoming Encounters Date Type Department Care Team (Late st Contact Info) Description 03/14/2025 10:45 AM EDT Office Visit [facility] MATERNAL MEDICINE [address]00 [facility] [address] [place] [address] 03/14/2025 10:45 AM EDT Appointment [facility] PER DIAG CTR [address] [place] [address] documented as of this encounter Goals Goal Patient Goal Type Associated Problems Recent Progress Patient-Stated? Author Consistently take medications as prescribed General No Melisa Castle PharmD HEMOGLOBIN A1C < 7 Result Component No Melisa Castle PharmD documented as of this encounter Visit Diagnoses Not on filedocumented in this encounter Care Teams Strap Cutting Machine Operator Relationship Specialty Start Date End Date Korina Gutierrez MD [address] [place], [place] [address] PCP - General Internal Medicine 09/28/20 documented as of this encounter
--- OUTSIDE RECORDS SUMMARY | 2025-02-17 14:52 | XMS_ITS | Encounter Summary ---
Author Organization [facility] Address [address] [place] [address] Care Team Providers Care Occupational Safety Specialist Name Role Phone Korina Gutierrez MD Primary Care Provider +1- [phone] Encounter Details Date Type Department Care Team (Late Contact Info) Description 01/15/2025 Telephone [facility] MATERNAL MEDICINE 1700 [facility] [address] [place] [address] Erika Porras, RN Social History Tobacco Use Types Packs/Day Years [...] on file documented as of this encounter Miscellaneous Notes * Telephone Encounter - Erika Porras RN - 01/15/2025 8:55 AM EDT Sent my chart message again after unable to reach pt by phone documented in this encounter Plan of Treatment Upcoming Encounters Date Type Department Care Team (Late Contact Info) Description 03/14/2025 10:45 AM EDT Office Visit [facility] MEDICINE [facility] [facility] [address] [place] [address] 03/14/2025 10:45 AM EDT Appointment [facility] [address] [place] [address] documented as of this encounter Goals Goal Patient Goal Type Associated Problems Recent Progress Patient-Stated? Author Consistently take medications as prescribed General No Melisa Castle PharmD HEMOGLOBIN A1C < 7 Result Component No Melisa Castle PharmD documented as of this encounter Visit Diagnoses Not on filedocumented in this encounter Care Teams Occupational Safety Specialist Relationship Specialty Start Date End Date Korina Gutierrez [place] [address] PCP - General Internal Medicine 09/28/20 documented as of this encounter
--- OUTSIDE RECORDS SUMMARY | 2025-02-17 14:52 | XMS_ITS | Encounter Summary ---
Author Organization [facility] Address [address] [place] [address] Care Team Providers Care Foreign Collection Clerk Name Role Phone Korina Gutierrez MD Primary Care Provider +1- [phone] Encounter Details Date Type Department Care Team (Late st Contact Info) Description 01/22/2025 Medication Therapy Management [facility] MATERNAL MEDICINE [address] [facility] [address] [place] [phone] Eva Belcher MD 1700 [facility] [address] [place] [address] Social History Tobacco Use Types Packs/Day Years [...] on file documented as of this encounter Plan of Treatment Upcoming Encounters Date Type Department Care Team (Late st Contact Info) Description 03/14/2025 10:45 AM EDT Office Visit [facility] MATERNAL MEDICINE [address] [facility] [address] [address] [place] [address] 03/14/2025 10:45 AM EDT Appointment [facility] PER [facility] [address] [place] [id number] documented as of this encounter Goals Goal Patient Goal Type Associated Problems Recent Progress Patient-Stated? Author Consistently take medications as prescribed General No Melisa Castle PharmD HEMOGLOBIN A1C < 7 Result Component No Melisa Castle PharmD documented as of this encounter Visit Diagnoses Not on filedocumented in this encounter Care Teams Foreign Collection Clerk Relationship Specialty Start Date End Date Korina Gutierrez MD [place] [address] PCP - General Internal Medicine 09/28/20 documented as of this encounter
--- OUTSIDE RECORDS SUMMARY | 2025-02-17 14:52 | XMS_ITS | Encounter Summary ---
Author Organization [facility] Address [address] [place] [address] Care Team Providers Care Child Development Consultant Name Role Phone Korina Gutierrez MD Primary Care Provider +1- [phone] Encounter Details Date Type Department Care Team (Latest Contact Info) Description 01/09/2025 Travel Social History Tobacco Use Types Packs/Day Years [...] Description 03/14/2025 10:45 AM EDT Office Visit [facility]ERNAL MEDICINE [facility] [facility] [address] [place] [address] 03/14/2025 10:45 AM EDT Appointment [facility] [address] [place] [address] documented as of this encounter Goals Goal Patient Goal Type Associated Problems Recent Progress Patient-Stated? Author Consistently take medications as prescribed General No Melisa Castle PharmD HEMOGLOBIN A1C < 7 Result Component No Melisa Castle PharmD documented as of this encounter Visit Diagnoses Not on filedocumented in this encounter Care Teams Child Development Consultant Relationship Specialty Start Date End Date Korina Gutierrez MD [address] [place] [address] PCP - General Internal Medicine 09/28/20 documented as of this encounter
--- OUTSIDE RECORDS SUMMARY | 2025-02-17 14:52 | XMS_ITS | Encounter Summary ---
Author Organization [facility] Address [address] [place] [address] Care Team Providers Care Court Monitor Name Role Phone Korina Gutierrez MD Primary Care Provider +1- [phone] Encounter Details Date Type Department Care Team (Late st Contact Info) Description 12/30/2024 Medication Therapy Management [facility] MATERNAL MEDICINE [address] [place] [phone] Nelson Staley MD [address]00 [facility] [address] [place] [address] Social History Tobacco Use Types Packs/Day Years [...] Description 03/14/2025 10:45 AM EDT Office Visit [facility] MATERNAL MEDICINE [address] [place] [phone] 03/14/2025 10:45 AM EDT Appointment [facility] PER [facility] [address] [place] [address] documented as of this encounter Goals Goal Patient Goal Type Associated Problems Recent Progress Patient-Stated? Author Consistently take medications as prescribed General No Melisa Castle PharmD HEMOGLOBIN A1C < 7 Result Component No Melisa Castle PharmD documented as of this encounter Visit Diagnoses Not on filedocumented in this encounter Care Teams Court Monitor Relationship Specialty Start Date End Date Korina Gutierrez [place] [place] [address] PCP - General Internal Medicine 09/28/20 documented as of this encounter
--- OUTSIDE RECORDS SUMMARY | 2025-02-17 14:52 | XMS_ITS | Encounter Summary ---
Author Organization [facility] Address [address] [place] [address] Care Team Providers Care Trim Setter Name Role Phone Korina Gutierrez MD Primary Care Provider +1- [phone] Encounter Details Date Type Department Care Team (Late st Contact Info) Description 12/26/2024 Medication Therapy Management [facility] MATERNAL MEDICINE 17[address] [facility] [place] [place] [phone] Eva Belcher MD 1700 [facility] [address] [place] [address] Social History Tobacco Use Types Packs/Day Years [...] Description 03/14/2025 10:45 AM EDT Office Visit [facility] MATERNAL MEDICINE [address] [facility] [address] [place] [address] 03/14/2025 10:45 AM EDT Appointment [facility] [address] [place] [phone] documented as of this encounter Goals Goal Patient Goal Type Associated Problems Recent Progress Patient-Stated? Author Consistently take medications as prescribed General No Melisa Castle PharmD HEMOGLOBIN A1C < 7 Result Component No Melisa Castle PharmD documented as of this encounter Visit Diagnoses Not on filedocumented in this encounter Care Teams Trim Setter Relationship Specialty Start Date End Date Korina Gutier[place] [place] [address] PCP - General Internal Medicine 09/28/20 documented as of this encounter
--- OUTSIDE RECORDS SUMMARY | 2025-02-17 14:52 | XMS_ITS | Encounter Summary ---
Author Organization [facility] Address [address] [place] [address] Care Team Providers Care Machine Deburrer Name Role Phone Korina Gutierrez MD Primary Care Provider +1- [phone] Reason for Visit * Reason Onset Date Comments Advice Only 02/10/2025 Encounter Details Date Type Department Care Team (Late st Contact Info) Description 02/10/2025 Telephone [facility] MATERNAL MEDICINE 1700 [facility] [address] [place] [address] Kirsten Sim, supervisor gluing Only Social History Tobacco Use Types Packs/Day Years [...] encounter Miscellaneous Notes * Telephone Encounter - Kirsten Sim RN - 02/10/2025 11:06 AM EDT Spoke with patient over the phone. Patient states she did see the message and has adjusted her insulin. She also states she has had to rescheduled her appointment for her insulin pump but will le us know joyce she has received the pump. Kirsten Sim RN documented in this encounter Plan of Treatment Upcoming Encounters Date Type Department Care Team (Late st Contact Info) Description 03/14/2025 10:45 AM EDT Office Visit [facility] MATERNAL MEDICINE 1700 [facility] [address] [place] [address] 03/14/2025 10:45 AM EDT Appointment [facility] PER DIAG [facility] [address] [place] [address] documented as of this encounter Goals Goal Patient Goal Type Associated Problems Recent Progress Patient-Stated? Author Consistently take medications as prescribed General No Melisa Castle PharmD HEMOGLOBIN A1C < 7 Result Component No Melisa Castle PharmD documented as of this encounter Visit Diagnoses Not on filedocumented in this encounter Care Teams Machine Deburrer Relationship Specialty Start Date End Date Korina Gutierrez [place] [address] PCP - General Internal Medicine 09/28/20 documented as of this encounter
--- OUTSIDE RECORDS SUMMARY | 2025-02-17 14:52 | XMS_ITS | Encounter Summary ---
Author Organization [facility] Address [address] [place] [address] Care Team Providers Care Quill Cleaning Machine Operator Name Role Phone Korina Gutierrez MD Primary Care Provider +1- [phone] Reason for Visit * Reason Onset Date Comments Med Management 01/14/2025 glucose Encounter Details Date Type Department Care Team (Late st Contact Info) Description 01/14/[address] [facility] MATERNAL MEDICINE 1700 [facility] [address] [place] [address] Erika Porras, RN Med Management (glucose) Social History Tobacco Use Types Packs/Day Years [...] Miscellaneous Notes * Telephone Encounter - Erika Porras, RN - 01/14/2025 9:05 AM EDT Called pt to let her know there is not data available from her Dexcom for the past week. Pt states she was having sensor problems but now has been able to place one. It does show data from today. Pt states she has been keeping a glucose log at home and will send that log in later tonight via [employer]. documented in this encounter Plan of Treatment Upcoming Encounters Date Type Department Care Team (Late st Contact Info) Description 03/14/2025 10:45 [address] EDT Office [address] [facility] MATERNAL MEDICINE [address] [facility] [address] [place] [address] 03/14/2025 10:45 AM EDT Appointment [facility] PER DI[facility] [address] [place] [address] documented as of this encounter Goals Goal Patient Goal Type Associated Problems Recent Progress Patient-Stated? Author Consistently take medications as prescribed General No Melisa Castle PharmD HEMOGLOBIN A1C < 7 Result Component No Melisa Castle PharmD documented as of this encounter Visit Diagnoses Not on filedocumented in this encounter Care Teams Quill Cleaning Machine Operator Relationship Specialty Start Date End Date Korina Gutierrez MD [address] [place] [address] PCP - General Internal Medicine 09/28/20 documented as of this encounter
--- OUTSIDE RECORDS SUMMARY | 2025-02-17 14:52 | XMS_ITS | Encounter Summary ---
Author Organization [facility] Address [address] [place] [address] Care Team Providers Care It Programmer Analyst Name Role Phone Korina Gutierrez MD Primary Care Provider +1- [phone] Encounter Details Date Type Department Care Team (Late st Contact Info) Description 01/30/2025 Medication Therapy Management [facility] MATERNAL MEDICINE 1700 [facility] [address] [place] [phone] Eva Belcher MD 1700 [facility] [address] [place] [address] Social History Tobacco Use Types Packs/Day Years [...] 03/14/2025 10:45 AM EDT Office Visit [facility] MATERNAL MEDICINE 17[address] [facility] [address] [place] [address] 03/14/2025 10:45 AM EDT Appointment [facility] PER [facility] [address] [place] [phone] documented as of this encounter Goals Goal Patient Goal Type Associated Problems Recent Progress Patient-Stated? Author Consistently take medications as prescribed General No Melisa Castle PharmD HEMOGLOBIN A1C < 7 Result Component No Melisa Castle PharmD documented as of this encounter Visit Diagnoses Not on filedocumented in this encounter Care Teams It Programmer Analyst Relationship Specialty Start Date End Date Korina Gutierrez [place] [address] PCP - General Internal Medicine 09/28/20 documented as of this encounter
--- OUTSIDE RECORDS SUMMARY | 2025-02-17 14:52 | XMS_ITS ---
Author Organization [facility] Address [address] [place] [address] Care Team Providers Care Block Making Machine Operator Name Role Phone Zeny Coleman APRN Primary Care Provider [phone] Reyna Lopez Unavailable [facility] - Diabetes Self-Management Education (DSME) Status:Active (Active) Start date:12/11/2024 Enrollment date:12/11/2024 Enrollment reason:Referred by provider Current support & services provided:Pre-Existing DM with Diabetes Self-Management and Support-Training (DSMT) Case Team Name Relationship Phone Reyna Lopez(Responsible Staff) Registered Nurse [phone] Continued Care and Services Coordination
--- OUTSIDE RECORDS SUMMARY | 2025-02-17 14:52 | XMS_ITS | Clinical Summary ---
Author Organization [facility] Address [address] [place] [address] Care Team Providers Care Exchange Clerk Name Role Phone Korina Gutierrez MD Primary Care Provider [phone] Allergies Active Allergy Reactions Criticality Noted Date Comments Moxifloxacin Hcl Hives,Shortness Of Breath High 02/2023 Medications * This document contains information received from the source organization and may not represent a complete record from that organization. amitriptyline (ELAVIL) 100 MG tabletIndicat ions:Depressi on Take 1 tablet by mouth Every Night. Indications: Depression Active ondansetron (ZOFRAN) 4 MG tabletIndicat ions:Nausea and Vomiting Take 1 tablet by mouth Every 8 (Eight) Hours As Needed for Nausea or Vomiting. Indications: Nausea and Vomiting Active Continuous Blood Gluc Dock Boss (Dexcom G6 Dock Boss) device 1 each Continuous. 1 each 023 Active buPROPion XL (WELLBUTRIN XL) 300 MG 24 hr tablet Take 1 tablet by mouth Daily. 025 Active Acetaminophen Extra Strength 500 MG tablet Take 2 tablets by mouth every 6 (six) to 8 (eight) hours as needed for Pain. 025 Active cyclobenzapri ne (FLEXERIL) 10 MG tablet Take 1 tablet by mouth 3 (Three) Times a Day As Needed. for muscle spams 025 Active vitamin D (ERGOCALCIFER OL) 1.25 MG (65551 UT) capsule capsule Take 1 capsule by mouth 1 (One) Time Per Week. Active Vit-Fe Fumarate-FA (GNP ) 28-0.8 MG tablet Take 1 tablet by mouth Daily. Active Insulin Glargine (Lantus SoloStar) 100 UNIT/ML injection pen Inject 22 Units under the skin into the appropriate area as directed 2 (Two) Times a Day. Try to take 12 hours apart. 15 mL Active Additional Information Patient taking differently: 30 UnitsSubcutaneous 2 Times Daily, Try to take 12 hours apart., Reported on 02/13/2025 Insulin Lispro, 1 Unit Dial, (HUMALOG) 100 UNIT/ML solution pen-injector Inject 34-38 Units under the skin into the appropriate area as directed 3 (Three) Times a Day Before Meals. Give correction of 1 units:20 mg/dl > 120 mg/ dl if blood sugar persistently high after 2-3 hours after a meal. MDD of 125 u 45 mL 1 Active Continuous Glucose Sensor (Dexcom G6 Sensor) Active DULoxetine (CYMBALTA) 60 MG capsule Take 1 capsule by mouth Daily. Active FREESTYLE LITE test strip See Admin Instructions. Active BD Pen Needle Mini Ultrafine 31G X 5 MM misc See Admin Instructions. Active Insulin Glargine (Lantus SoloStar) 100 UNIT/ML injection pen Inject 18 Units under the skin into the appropriate area as directed 2 (Two) Times a Day. Try to take 12 hours apart. 15 mL 025 2024 Discontinued Insulin Lispro, 1 Unit Dial, (HUMALOG) 100 UNIT/ML solution pen-injector Inject 24-28 Units under the skin into the appropriate area as directed 3 (Three) Times a Day Before Meals. Give correction of 1 units:25 mg/dl > 120 mg/ dl if blood sugar persistently high after 2-3 hours after a meal. MDD of 100 u 15 mL 1 025 2024 Discontinued Insulin Glargine (Lantus SoloStar) 100 UNIT/ML injection pen Inject 20 Units under the skin into the appropriate area as directed 2 (Two) Times a Day. Try to take 12 hours apart. 15 mL 025 2024 Discontinued Insulin Lispro, 1 Unit Dial, (HUMALOG) 100 UNIT/ML solution pen-injector Inject 28-32 Units under the skin into the appropriate area as directed 3 (Three) Times a Day Before Meals. Give correction of 1 units:25 mg/dl > 120 mg/ dl if blood sugar persistently high after 2-3 hours after a meal. MDD of 100 u 15 mL 1 025 2024 Discontinued Insulin Lispro, 1 Unit Dial, (HUMALOG) 100 UNIT/ML solution pen-injector Inject 30-35 Units under the skin into the appropriate area as directed 3 (Three) Times a Day Before Meals. Give correction of 1 units:20 mg/dl > 120 mg/ dl if blood sugar persistently high after 2-3 hours after a meal. MDD of 100 u 30 mL 1 025 2024 Discontinued Active Problems Problem Noted Date Diagnosed Date Antepartum multigravida of advanced maternal age 0411/13/2024 Assessment & Plan (12/12/2024 10:19 AM EDT): Patient presents for detailed anatomic survey secondary to advanced maternal age. Patient's had low risk NIPT. Today's anatomic survey appears normal without evidence of aneuploidy. Assessment & Plan (11/13/2024 2:30 PM EDT): The patient will be 44 years old at the time of delivery. She was quoted the following age-related risks at term: Risk for Down syndrome 1 in 40, risk for any chromosomal abnormality 1 in 25. Options in genetic testing and genetic screening were discussed with the patient. I noted an option of genetic testing in the 2nd trimester of transabdominal amniocentesis for the determination of chromosomal complement as well as amniotic fluid alpha-fetoprotein for the evaluation of a open neural tube defect. A procedure-related loss rate of 1 in 500 would be quoted with midtrimester amniocentesis. I also discussed the option of analysis of cell-free DNA in maternal blood. I noted this directed analysis measures the relative proportion of chromosomes with the detection rate of Down syndrome quoted as 99% with a false positive rate of less than .1%. Screening for other aneuploidies is also possible but the detection rate is lower with cell-free DNA technology. I then discussed the clinical utility of ultrasound and/or biochemical screening for the detection of aneuploidy as well as open neural tube defects. Further, I have reviewed her self-reported family history and made suggestions as appropriate based on my review. Patient was offered both amniocentesis and cell free DNA screening. The procedures were explained the risks including risk of loss were outlined. The limitations of both testing were explored. After careful consideration patient elects for cell free DNA screening. 11/13/2024 Type 1 diabetes mellitus with hyperglycemia 02/2023 Assessment & Plan (01/09/2025 9:57 AM EDT): Patient returns today for complicated by type [...] insulin pump and needs education through the [facility] before she can start that. We are [...] needed. Most recent changes were communicated to the patient today and we will ensure that the patient has her education appointment with as noted she can start her insulin pump. Patient is scheduled for follow-up ultrasound with us in 4 weeks time. Assessment & Plan (12/12/2024 9:55 AM EDT): Patient presents for follow-up secondary to type 1 diabetes. Patient currently being followed by our office for glucose control. Patient currently on Lantus 18 units twice a day. Short acting insulin with meals was increased to 16 to 20 units with meals yesterday. Assessment & Plan (11/13/2024 2:33 PM EDT): Patient referred for complicated by diabetes and advanced maternal age. Patient will be 44 years old at delivery. Patient has insulin requiring diabetes and is using a continuous glucose monitor. Patient reports that her fastings are in the 200-250 range usually but may be higher. She additionally notes that her postprandials are markedly elevated as well. She does report that she occasionally has hypoglycemic episodes into the 50 and 60 mg percent range. Ultrasound today demonstrates a normally grown fetus with no abnormality seen. It was too early to perform an anatomic survey. Amniotic fluid volume and cervical length were normal. Patient has poorly controlled pregestational diabetes. Her primary OB has been working with increasing her diabetes control and recently increased her insulin doses. We would be happy to manage her diabetes. We will obtain access to her continuous glucose monitor and evaluate her sugars weekly. We will make changes to her insulin on a weekly basis as needed. Patient was counseled regarding the increased incidence of congenital abnormalities with worsening control at the time of conception. To that end, we will perform an anatomic survey in 4 weeks time and a echocardiogram after that. We will follow the patient monthly to assess for growth and wellbeing. Patient will need testing beginning at 32 weeks gestation. Exact delivery timing will be determined in the third trimester but most likely will not be later than 38 weeks gestation, and indeed with this severe of diabetes may well be earlier than that. Assessment & Plan (09/21/2022 9:54 AM EST): -Diabetes is abvove goal with A1c >10. -Discussed dietary and exercise guidelines with patient and family. -Discussed the importance of yearly eye exams. -Discussed the importance of checking BG's regularly. She would like to start using a CGM. Will send in a RX for this. -Continue Lantus 25 units qhs -Continue Humalog 12 units TID-QID with meals. -Discussed various treatment options with patient, insulin pump vs injections. She would like to start using a CGM with a compatible insulin pump. Discussed these options with her and she would like to start using a Dexcom CGM with Omnipod 5 insulin pump. Will send in RX's for these to the pharmacy and reach out to your rep to have her trained on this system. -S/S hypoglycemia reviewed with Rule of 15's advised. -Follow-up in 3 months. Opioid use disorder, severe, dependence 03/20/20 21 Estimated Date of Delivery Comme nts Yes 04/25/2025 Date entered lesly or to episode creation Encounters Date Type Department Care Team Description 02/13/2025 3:00 PM EDT Office Visit [facility] MATERNAL MEDICINE [address] [facility] [address] [place] [address] Denise Lopez MD 02/13/2025 2:29 PM EDT - 02/13/2025 11:59 PM EDT Hospital Encounter [facility] PER DIAG CTR [address] [place] [address] Reyna Kent DO Discharge Disposition: Home or Self Care 02/13/2025 Travel 02/10/2025 Telephone [facility] [address] [facility] [address] [place] [phone] Kirsten Sim, access clinician Only 02/06/2025 Medication Therapy Management [facility] [address] [facility] [address] [place] [phone] Eva Belcher MD 01/30/2025 Medication Therapy Management [facility] MATERNAL MEDICINE [address] [facility] [address] [place] [address] Eva Belcher MD 01/22/2025 Medication Therapy Management [facility] MATERNAL MEDICINE [address] [facility] [address] [place] [phone] Eva Belcher MD 01/15/2025 Telephone [facility] MATERNAL MEDICINE [address] [facility] [address] [place], [place] [phone] Erika Porras, RN 01/14/2025 Telephone [facility] MATERNAL MEDICINE [address] [facility] [address] [place] [phone] Erika Porras, RN Med Management (glucose) 01/09/2025 9:15 AM EDT Office Visit [facility]NAL MEDICINE [address] [facility] [address] [place] [phone] Nilson Figueroa MD Type 1 diabetes mellitus with hyperglycemia (Primary Dx); Antepartum multigravida of advanced maternal age; , unspecified gestational age 0601/09/2025 8:48 AM EDT - 01/09/2025 11:59 PM EDT Hospital Encounter [facility] US PER DIAG CTR [address] [place] [address] Reyna Kent DO Discharge Disposition: Home or Self Care 01/09/2025 Travel 12/30/2024 Medication Therapy Management [facility]ERNAL MEDICINE [address] [facility] [address] [place] [address] Nelson Staley MD 12/26/2024 Medication Therapy Management [facility]NAL MEDICINE [address] [facility] [address] [place] [phone] Eva Belcher MD 12/17/2024 Medication Therapy Management [facility]NAL MEDICINE [address] [facility] [address] [place] [phone] Eva Belcher MD 12/12/2024 9:45 AM EDT Office Visit [facility]NAL MEDICINE [address] [facility] [address] [place] [phone] Nelson Staley MD Antepartum multigravida of advanced maternal age (Primary Dx); Type 1 diabetes mellitus with hyperglycemia 12/12/2024 9:18 AM EDT - 12/12/2024 11:59 PM EDT Hospital Encounter [facility] PER DIAG CTR [address] [place] [address] Nilson Figueroa MD Type 1 diabetes mellitus with hyperglycemia; Antepartum multigravida of advanced maternal age; , unspecified gestational age Discharge Disposition: Home or Self Care 12/12/2024 Travel 12/11/2024 Medication Therapy Management [facility]ERNAL MEDICINE [address] [facility] [address] [place] [address] Eva Belcher MD 12/02/2024 Telephone [facility]ERNAL MEDICINE [address] [facility] [address] [place] [address] Kirsten Sim, access clinician Only 12/02/2024 Medication Therapy Management [facility] MATERNAL MEDICINE [address] [facility] [address] [place] [address] Eva Belcher MD 11/28/2024 Medication Therapy Management [facility] MATERNAL MEDICINE [address] [facility] [address] [place] [address] Eva Belcher MD 11/21/2024 Medication Therapy Management [facility] MATERNAL MEDICINE [address] [facility] [address] [place] [address] Eva Belcher MD 11/21/2024 Telephone [facility] MATERNAL MEDICINE [address] [facility] [address] [place] [address] Kirsten Sim, access clinician Only 11/19/2024 [facility] MATERNAL MEDICINE [address] [facility] [address] [place] [address] Nia Haas, RN Results 11/18/2024 Telephone [facility] DIABETES ED [address] [facility] [address] [place] [phone] Eva Belcher MD 11/18/2024 Telephone [facility] DIABETES ED [address] [facility] [address] [place] [phone] Kenyatta Mota, PHUONG LD CDE from Last 3 Months Family History Medical History Relation Name Comments Drug abuse Brother Drug abuse Father Bipolar disorder Mother Drug abuse Mother Drug abuse Sister Relation Name Status Comments Brother Father Mother Sister Social History Tobacco Use Types Packs/Day Years Used Date Smoking Tobacco: Former Cigarettes 0.5 20 Q uit: 09/28/2024 Smokeless Tobacco: Never Tobacco Cessation:Counseling Given: Not Answered Alcohol Use Standard Drinks/Week Comments Not Currently [...] on file Sexual Orientation Not on file Last Filed Vital Signs Vital Sign Reading Time Taken Comments Blood Pressure 131/72 02/13/2025 2:42 PM EDT Pulse 122 09/21/2022 8:26 AM EST Temperature 35.9 C (96.7 F) 03/23/2021 8:21 AM EDT Respiratory Rate 20 03/23/2021 8:21 AM EDT Oxygen Saturation 97% 09/21/2022 8:26 AM EST Inhaled Oxygen Concentration - - Weight 84.5 kg (186 lb 3.2 oz) 02/13/2025 2:42 P M EDT Height 163.8 cm (5' 4.5 ) 11/13/2024 1:45 PM EDT Body Mass Index 31.47 11/13/2024 1:45 PM EDT Plan of Treatment Upcoming Encounters Date Type Department Care Team (Late st Contact Info) Description 03/14/2025 10:45 AM EDT Office Visit [facility] MEDIC[facility] [address] [facility] [address] [place] [address] 03/14/2025 10:45 AM EDT Appointment [facility] PER DIAG CTR [address] [place] [address] Health Maintenance Due Date Last Done Comments Annual Gynecologic Pelvic an d Breast Exam 1980 DIABETIC EYE EXAM 1990 DIABETIC FOOT EXAM 1990 URINE MICROALBUMIN-CREATININ E RATIO (uACR) 1990 Pneumococcal Vaccine 0-49 (1 of 2 - PCV) 12/26/1999 PAP SMEAR 2001 Hepatitis B (3 of 3 - 19+ 3- dose series) 12/21/2004 07/29/2004, 06/22/2004 TDAP/TD VACCINES (2 - Td or Tdap) 09/07/2016 007 ANNUAL PHYSICAL 09/29/2020 MAMMOGRAM 2020 HEMOGLOBIN A1C 01/10/2024 07/11/2023, 06/17, 08/31/2022, Additional history exists COVID-19 Vaccine ( - 2023-2 5 season) 2024 RSV Vaccine - Adults (1 - Ri sk 1-dose series) 03/17/2025 INFLUENZA VACCINE 04/16/2025 09/29/2016, 09/27/2016 HEPATITIS C SCREENING Completed 05/04/2021, 021 Goals Goal Patient Goal Type Associated Problems Recent Progress Patient-Stated? Author Consistently take medications as prescribed General No Melisa Castle PharmD HEMOGLOBIN A1C < 7 Result Component No Melisa Castle PharmD Procedures Procedure Name Priority Date/Time Associated Diagnosis Comments [facility] Routine 01/09/2025 9:58 AM EDT Antepartum multigravida of advanced maternal age Type 1 diabetes mellitus with hyperglycemia [facility] Routine 12/12/2024 10:22 AM EDT Type 1 diabetes mellitus with hyperglycemia Antepartum multigravida of advanced maternal age , unspecified gestational age HEPATITIS PANEL, ACUTE STAT 03/20/2021 1:04 AM EDT from Last 3 Months or Most Recently Relevant to Health Maintenance Results * [facility] (01/09/2025 9:58 AM EDT) Only the most recent of2 resultswithin the time period is included. Anatomical Region Laterality Modality Ultrasound 01/09/2025 9:27 AM EDT Narrative 01/09/2025 9:59 AM EDT PAT NAME: MARC FELICIANO MED REC#: [id number] DA: [id number] PAT GEND: F PAT TYPE: O EXAM PHYLLIS: [id number] REF PHYS REYNA KENT Comparison Studies The [...] EFW (oz) 9 oz EFW by: Hadlock ([id number]) Extended Cav. septi pel. tr 5.3 mm Chief Deputy 6.1 mm Head / Face / Neck [...] IVC: Appears Normal 3-vessel view: Appears normal 4-unrivf-rqxhlss view: Appears normal Cardiac axis: Normal Cord insertion: Normal Stomach: Normal Bladder: Normal Cervical spine: Appears normal Thoracic spine: Appears normal Lumbar spine: Appears normal Sacral spine: Appears normal Gender: male Wants to know gender: yes Echocardiogram 2D Echo (Qualitatively) 4-chamber view: Appears normal LVOT view: Appears normal RVOT view: Appears normal 3-vessel view: Appears normal 8-igskkl-gcspief view: Appears normal Aortic arch view: Appears [...] here in 4 weeks. Coding ====== Description: 10665-02 Follow Up Ultrasound Description: 13973-57 Echo 2D, heart - initial Description: 39389-47 Doppler echo color flow Membership Director: RT Rivka Singer , [facility] Physician: Chris Figueroa MD, MANASAOG Electronically signed by: Chris Figueroa MD, FACOG at: 09:59 Procedure Note Nilson Figueroa MD - 01/09/2025 PAT NAME: MARC FELICIANO MED REC#: [id number] DA: [id number] PAT GEND: F PAT TYPE: O EXAM PHYLLIS: [id number] REF PHYS REYNA KENT Comparison Studies The findings of this study are compared to the prior ultrasound studydated 12/12/24 Patient Status Outpatient Indication ======== T1DM. AMA. H/O IV drug use. +Hep C. Previous c/s x 2. Vapes. Maternalcerebral palsy. Maternal Assessment Ivxpju956 cm Height (ft)5 ft Height (in)4 in Zplsww49 kg Weight (lb)178 lb BMI30.55 kg/m Method ======= Transabdominal ultrasound examination. View: Suboptimal view: limited byfetal position ========= [place]rie . Number of fetuses: 1 Dating ====== Method of dating:based on stated NOHEMI GA by prior w + 6 d NOHEMI by prior assessment:04/25/2025 Ultrasound examination on:01/09/2025 GA by U/S based upon:AC, BPD, Femur, HC GA by U/S24 w + 5 d NOHEMI by U/S:04/26/2025 Previous dating:based on stated NOHEMI, selected on 12/12/2024 Agreed NOHEMI of previous datin04/25/2025 Assigned:based on stated NOHEMI, selected on 01/09/2025 Assigned GA24 w + 6 d Assigned NOHEMI:04/25/2025 [id number] d Biometry Standard BPD61.5 mm 25w 0d 47% Hadlock OFD82.0 mm 26w 5d 94% Glendy HC231.8 mm 25w 1d 42% Hadlock AC200.0 mm 24w 4d 34% Hadlock Femur42.8 mm 24w 0d 14% Hadlock Ktokrkl70.5 mm 24w 0d 18% Glendy HC / AC1.16 RJD359 g 24w 2d 25% Hadlock EFW (lb)1 lb EFW (oz)9 oz EFW by:Hadlock ([id number]) Extended Cav. septi pel. tr5.3 mm Vp6.1 mm Head / Face / Neck Cephalic index0.75 15% Nicolaides Thorax / Lungs Thoracic dggs728.7 mm 45% [place] Thoracic area24.6 cm ThC [...] / HC0.18 FL / AC0.21 Other Structures MHR136 bpm General Evaluation Cardiac activity present. FHR [...] SVC:Appears Normal IVC:Appears Normal 3-vessel view:Appears normal 7-ckfzqm-ginrmvu view:Appears normal Cardiac axis:Normal Cord insertion:Normal Stomach:Normal Bladder:Normal Cervical spine:Appears normal Thoracic spine:Appears normal Lumbar spine:Appears normal Sacral spine:Appears normal Gender:male Wants to know gender:yes Echocardiogram 2D Echo (Qualitatively) 4-chamber view:Appears normal LVOT view:Appears normal RVOT view:Appears normal 3-vessel view:Appears normal 6-kzpoxb-kapcbhb view:Appears normal Aortic arch view:Appears normal Ductal [...] and outflows. B and M-Mode Measurements Thoracic fudx017.7 mm 45% [place] Thoracic area24.6 cm ThC [...] Structures Uterus / Cervix Cervix:Visualized Approach:Transabdominal Cervical mcwioq62.9 mm Consultation / Office Visit Office note to follow Impression ========= Size consistent with dates. No anomalies were identified. heart well visualized and appears structurally normal. No markers for trisomy. The cervical length appears normal. Recommendation We recommend evaluation in 4 weeks. Follow up appointment scheduled here in 4 weeks. Coding ====== Description:67626-50 Follow Up Ultrasound Description:90704-10 Echo 2D, heart - initial Description:99638-33 Doppler echo color flow Membership Director: RT Rivka Singer , [facility] Physician: Chris Figueroa MD, FACOG Electronically signed by: Chris Figueroa MD, FACOG at: 09:59 Nelson Staley MD [facility] US ORDERABLES Final Result * (ABNORMAL) Hepatitis Panel, Acute (03/20/2021 1:04 AM EDT) Hepatitis B Surface Ag Non-Reacti ve Non-Reacti ve 03/20/2021 1:43 AM EDT [facility] Hep A IgM Non-Reacti ve Non-Reacti ve 03/20/2021 1:43 AM EDT [facility] Hep B C IgM Non-Reacti ve Non-Reacti ve 03/20/2021 1:43 AM EDT [facility] Hepatitis C Ab Reactive(A ) Non-Reacti ve 03/20/2021 1:43 AM EDT [facility] Blood Venipuncture / Unknown 03/20/2021 1:04 AM EDT 03/20/2021 1:04 AM EDT Narrative [facility] - 03/20/2021 1:43 AM EDT Results may be falsely decreased if patient taking Biotin. Radames Herbert MD LAB BLOOD ORDERABLES Final Result [facility]
[address] [place] [phone], [phone] from Last 3 Months or Most Recently Relevant to Health Maintenance Insurance [facility] Advance Directives * CPR (Attempt to Resuscitate) (Latest Code Status on File) Date Activated Date Inactivated Comments 03/20/2021 1:51 AM 03/23/2021 3:45 PM Question Answer Comments Code Status (Patient has no pulse and is not breathing): CPR (Attempt to Resuscitate) Medical Interventions (Patie nt has pulse or is breathing): Full Level Of Support Discussed With: Patient Care Teams Exchange Clerk Relationship Specialty Start Date End Date Korina Gutierrez MD [address] [place] [address] PCP - General Internal Medicine 09/28/20
--- OUTSIDE RECORDS SUMMARY | 2025-02-17 14:52 | XMS_ITS | Clinical Summary ---
Author Organization [facility] Address [address] [place] [id number] Phone [email or web address] Care Team Providers Care General Dentist/Owner Name Role Phone Unavailable Primary Care Provider Unavailabl e Social History Tobacco Use Types Packs/Day Years Used Date Smoking Tobacco: Never Assessed Comments Unknown Sex and Gender Information Value Date Recorded Sex Assigned at Not on file Legal Sex Female 12:33 AM CDT Gender Identity Not on file Sexual Orientation Not on file Last Filed Vital Signs Vital Sign Reading Time Taken Comments Blood Pressure 164/123 11/05/2020 12:35 AM EDT Pulse 142 11/05/2020 12:35 AM EDT Temperature - - Respiratory Rate 10 11/05/2020 12:35 AM EDT Oxygen Saturation 100% 11/05/2020 12:48 AM EDT Inhaled Oxygen Concentration - - Weight - - Height - - Body Mass Index - - Plan of Treatment Health Maintenance Due Date Last Done Comments Cervical Cancer Screening Combo 1980 Dental Cleaning/Exam 1980 HPV / Cotest 1980 Pap Testing 1980 HPV Immunization (1 - 2-dose series) 12/26/1991 Hepatitis B Immunization (1 of 3 - 19+ 3-dose series) 12/26/1999 Tetanus Diphtheria and Pertu ssis Immunization (1 - Tdap) 12/26/1999 Breast Cancer Screening 2010 Covid-19 Immunization (1 - 2 season) 2024 Influenza Immunization (#1) 2025 HIB Immunization Aged Out No longer e ligible based on patient's age to complete this topic Hepatitis A Immunization Aged Out No longer eligible based on patient's age to complete this topic Pneumococcal: Ped (0 to 5 Yr s) and At-Risk Member (6 to 64 Yrs) Aged Out No longer e ligible based on patient's age to complete this topic Polio Immunization Aged Out No longer eligible based on patient's age to complete this topic Varicella Immunization Aged Out No lo nger eligible based on patient's age to complete this topic Insurance OPT OUT NO COPAY NB
--- OUTSIDE RECORDS SUMMARY | 2025-02-17 14:52 | XMS_ITS | Clinical Summary ---
Author Organization [facility] Address [address] [place] [address] Phone Care Team Providers Care Bookbinder Apprentice Name Role Phone Unavailable Primary Care Provider Unavailabl e Allergies Active Allergy Reactions Criticality Noted Date Comments Moxifloxacin 09/26/2016 Medications citalopram (CELEXA) 40 mg Oral Tablet Take 40 mg by mouth nightly. Active calcium carbonate-vitam in D 500 mg(1,250mg) -200 unit Oral Tablet Take 1 Tab by mouth 3 times daily (with meals). 30 Tab 7 Active Additional Information Patient not taking.Reason: Has to be ordered by detention, Reported on 10/18/2016 insulin aspart (NOVOLOG) 100 unit/mL SubQ Solution Subcutaneous (Inject under the skin) 6 Units 3 times daily (with meals). 10 mL 12 7 Active insulin glargine (LANTUS) 100 unit/mL SubQ Solution Subcutaneous (Inject under the skin) 18 Units every evening. 10 mL 12 7 Active potassium chloride 20 mEq Oral Tablet Sustained Release Take 40 mEq by mouth daily. 30 Tab o 7 Active Lancets Misc Misc As directed 1 box 11 7 Active Blood Sugar Diagnostic Misc Strip Use as directed 1 box 11 7 Active Blood-Glucose Meter Misc Kit Use as directed 1 Kit 7 Active Insulin Syringe-Needle U-100 (BD INSULIN SYRINGE ULT-FINE II) 0.5 mL 31 gauge x 5/16 Misc Syringe Use as directed 1 box 11 7 Active Active Problems Problem Noted Date Diagnosed Date Hypotension due to drugs 09/27/2016 Diabetic ketoacidosis withou t coma associated with type 1 diabetes mellitus 09/26/2016 Dehydration 09/26/2016 Hypokalemia 09/26/2016 Hypocalcemia 09/26/2016 Acute respiratory failure 09/26/2016 CHIQUIS (acute kidney injury) Hypovolemic shock Hypophosphatemia Medical History Medical History Date Comments Diabetes (HCC) Social History Tobacco Use Types Packs/Day Years Used Date Smoking Tobacco: Unknown Comments:pt sedated, unrespo nsive on ventilator Alcohol Use Standard Drinks/Week Comments No 0 (1 standard drink = 0.6 oz pur e alcohol) Comments Unknown Sex and Gender Information Value Date Recorded Sex Assigned at Not on file Legal Sex Female 3:18 PM EDT Gender Identity Not on file Sexual Orientation Not on file Obstetrics History Last Filed Vital Signs Vital Sign Reading Time Taken Comments Blood Pressure 110/70 10/18/2016 2:51 PM EDT Pulse 68 10/18/2016 2:51 PM EDT Temperature 36.7 C (98.1 F) 10/18/2016 2:51 PM EDT Respiratory Rate 16 10/18/2016 2:51 PM EDT Oxygen Saturation 98% 10/11/2016 10:06 AM EDT Inhaled Oxygen Concentration - - Weight 68 kg (150 lb) 10/18/2016 2:51 PM EDT Height 165.1 cm (5' 5 ) 10/18/2016 2:51 PM EDT Body Mass Index 24.96 10/18/2016 2:51 PM EDT Plan of Treatment Health Maintenance Due Date Last Done Comments Annual Wellness Exam 12/26/1983 Kidney Health: uACR 1990 Diabetic Eye Exam 1998 DTaP/TDaP/Td (1 - Tdap) 12/26/1999 Hepatitis B Vaccine (1 of 3 - 19+ 3-dose series) 12/26/1999 Pneumococcal Vaccine 0-49 (1 of 2 - PCV) 12/26/1999 Cervical Cancer Screening 2001 Pap Smear 2001 HPV/Pap Cotest 2010 Hemoglobin A1c 03/29/2017 09/26/2016 Lipids 09/26/2017 09/26/2016 Kidney Health: eGFR 10/11/2017 10/11/2016, 10/10/2016, 10/09/2016, Additional history exists Breast Cancer Screening 2020 COVID-19 Vaccine (2023- season) 2024 Influenza Vaccine (#1) 2025 Meningococcal B Vaccine Aged Out No l onger eligible based on patient's age to complete this topic Procedures Procedure Name Priority Date/Time Associated Diagnosis Comments BASIC METABOLIC PANEL Routine 10/11/2016 6:13 AM EDT TRIGLYCERIDES Routine 09/26/2016 11:35 AM EDT HEMOGLOBIN A1C STAT 09/26/2016 6:30 AM EDT from Last 3 Months or Most Recently Relevant to Health Maintenance Results * (ABNORMAL) BASIC METABOLIC PANEL (10/11/2016 6:13 AM EDT) Sodium 139 136 - 145 mmol/L [facility] Potassium 4.2 3.5 - 5.0 mmol/L [facility] Chloride 105 98 - 107 mmol/L [facility] Total CO2 20(L) 22 - 29 mmol/L [facility] Anion Gap 14 7 - 16 mmol/L [facility] Calcium 9.3 8.6 - 10.2 mg/dL [facility] Glucose Lvl 71(L) 74 - 100 mg/dL [facility] BUN 19 6 - 20 mg/dL [facility] Creatinine 1.26 0.51 - 1.30 mg/dL [facility] GFR Afr Am 58 [facility] GFR Non Afr Am 48 [facility] Blood specimen (specimen) UPPER LIMB STRUCTURE / Unknown 10/11/2016 6:13 AM EDT 10/11/2016 6:25 AM EDT Allyson Limon MD CHEMISTRY ORDERABLES Edited Resu lt - Final [facility] [address] [place] [address] * (ABNORMAL) TRIGLYCERIDES (09/26/2016 11:35 AM EDT) Triglyceride 292(H) <=150 mg/dL [facility] Comment: < 150 Normal 150 - 199 Borderline High 200 - 499 High >= 500 Very High Blood specimen (specimen) 09/26/2016 11:35 AM EDT 09/26/2016 2:37 PM EDT us Zoila Castro MD CHEMISTRY ORDERABLES Final Res ult Performing Organization Address [facility] de Phone Number [facility] [address] [place] [address] * (ABNORMAL) HEMOGLOBIN A1C (09/26/2016 6:30 AM EDT) Hgb A1c 12.1(H) <=7.0 % [facility] Comment: Reference Interval for Hgb A1c Hgb A1c Interpretation < 6.0 Non-Diabetic Range 6.0 - 7.0 ADA Therapeutic Target > 7.0 Action suggested Blood specimen (specimen) UPPER LIMB STRUCTURE / Unknown 09/26/2016 6:30 AM EDT 09/26/2016 8:33 AM EDT us Jamir Santos MD CHEMISTRY ORDERABLES Final Re sult Performing Organization Address [facility] de Phone Number [facility] [address] [place] [address] from Last 3 Months or Most Recently Relevant to Health Maintenance Additional Health Concerns Infection Onset Date Last Indicated MRSA Comment:09/26/16 09/27/2016 09/27/2016 Insurance [employer] MEDICAID [place] Advance Directives For more information, please contact: [phone] * Full Code (Latest Code Status on File) Date Activated Date Inactivated Comments 09/26/2016 8:38 AM 10/11/2016 7:15 PM
--- OUTSIDE RECORDS SUMMARY | 2025-02-17 14:52 | XMS_ITS | Encounter Summary ---
Author Organization [facility] Address [address] [place] [address] Care Team Providers Care Sugar Reprocess Operator Head Name Role Phone Korina Gutierrez MD Primary Care Provider [phone]- [phone] Encounter Details Date Type Department Care Team (Late st Contact Info) Description 02/06/2025 Medication Therapy Management [facility] MATERNAL MEDICINE [address] [facility] [address] [place] [id number] Eva Belcher MD [address] [facility] [address] [place] [address] Social History Tobacco Use Types Packs/Day Years [...] [facility] MATERNAL MEDICINE [address] [facility] [address] [place] [address] 03/14/2025 10:45 AM EDT Appointment [facility] US PER DIAG CTR [address] [place] [id number] documented as of this encounter Goals Goal Patient Goal Type Associated Problems Recent Progress Patient-Stated? Author Consistently take medications as prescribed General No Melisa Castle PharmD HEMOGLOBIN A1C < 7 Result Component No Melisa Castle PharmD documented as of this encounter Visit Diagnoses Not on filedocumented in this encounter Care Teams Sugar Reprocess Operator Head Relationship Specialty Start Date End Date Korina Gutierrez MD [place] [place] [address] PCP - General Internal Medicine 09/28/20 documented as of this encounter
--- OUTSIDE RECORDS SUMMARY | 2025-02-17 14:52 | XMS_ITS | Clinical Summary ---
Author Organization [facility] Address [address] [place] [address] Care Team Providers Care Circus Rider Name Role Phone Virginia Zeny Wilson APRN Primary Care Provider Reyna Lopez Unavailable [phone] Allergies Active Allergy Reactions Criticality Noted Date Comments Moxifloxacin Anaphylaxis High 11/04/2009 Medications Blood Glucose Monitoring Suppl (Blood Glucose Monitor System) w/Device kit dispense 1 meter, use as directed, Dx code: E11.65 04/15/20 20 Active albuterol (2.5 MG/3ML) 0.083% nebulizer solution if needed. 04/08/20 21 Active amitriptyline (Elavil) 50 MG tablet Take 50 mg by mouth every night. 11/24/19 21 Active Sublocade 100 MG/0.5ML solution prefilled syringe Take 0.5 mL (100 mg) by mouth every 28 (twenty-eight) days. 03/24/20 21 Active citalopram (CeleXA) 40 MG tablet Take 1 tablet (40 mg) by mouth 1 (one) time each day. Active Continuous Blood Gluc Pulp Roller (Dexcom G6 modular home crew member) device See administration instructions. see package 04/01/20 21 Active Continuous Blood Gluc Transmit (Dexcom G6 transmitter) misc 03/19/20 21 Active Lantus 100 UNIT/ML injection INJECT 25 UNIT(S) TWICE A DAY BY SUBCUTANEOUS ROUTE FOR 30 DAYS. 11/24/19 21 Active insulin regular (HumuLIN R U-500 KWIKPEN) 500 UNIT/ML CONCENTRATED injection Sliding scale 01/16/20 20 Active Lancets (OneTouch Delica Plus [id number]) [facility] TEST BLOOD SUGAR FOUR TIMES A DAY 04/01/20 Active lisinopril 10 MG tablet Take 1 tablet (10 mg) by mouth 1 (one) time each day. 11/24/19 Active ondansetron (Zofran) 4 MG tablet if needed. 03/19/20 Active potassium chloride CR (Klor-Con) 10 MEQ ER tablet 1 (one) time each day. 07/09/20 Active B-D UF III MINI PEN NEEDLES 31G X 5 MM misc 10/09/19 Active Glecaprevir-Pibr entasvir (Mavyret) 100-40 MG tabletIndication s:Chronic hepatitis C without hepatic coma (CMS/HCC) Take 3 tablets by mouth 1 (one) time each day. Take all 3 tablets at the exact same time each day. Take with food. 84 tablet 1 05/19/20 Active Additional Information Patient not taking.Reported on 12/05/2024 amitriptyline (Elavil) 100 MG tablet 06/12/20 23 Active Aspirin Low Dose 81 MG EC tablet 05/12/20 23 Active atorvastatin (Lipitor) 10 MG tablet 05/12/20 23 Active buPROPion XL (Wellbutrin XL) 150 MG 24 hr tablet 06/12/20 23 Active cyclobenzaprine (Flexeril) 5 MG tablet 05/12/20 23 Active DULoxetine (Cymbalta) [address] capsule 05/12/20 23 Active IBU 800 MG tablet 05/12/20 Active insulin lispro (Admelog, HumaLOG) 100 UNIT/ML injection pen 06/12/20 23 Active Omnipod 5 [id number] Pods Gen 5 (Omnipod5) [facility] 1 each every other day. 15 each 3 12/18/19 Active Insulin Lispro (Admelog, HumaLOG) 100 UNIT/ML injection vial Use in insulin pump, max daily dose 120 units 40 mL 2 12/18/19 Active Active Problems Problem Noted Date Diagnosed Date CHIQUIS (acute kidney injury) 06/16/20232022 Hypophosphatemia 06/16/2023 06/16/2023 Hypovolemic shock 06/16/2023 06/16/2023 Alternating exotropia 06/16/2023 Regular astigmatism of both eyes 06/16/2023 Myopia of both eyes 06/16/2023 Type 2 diabetes mellitus wit hout complication, with long-term current use of insulin 06/15/2023 Type 1 diabetes mellitus with hyperglycemia 03/0 02/202306/16/2023 Overview (06/16/2023): Last Assessment & Plan: -Diabetes is abvove goal with A1c >10. [...] of 15's advised. -Follow-up in 3 months. Assessment & Plan (12/17/2024 5:12 PM EDT): Currently taking Lantus 18u/18u and Lispro 16-18 with meals and correction of 1u:25mg/dl > 120mg/dl - Change Lantus 16u/16u and Lispro 20u with meals, correction 1u:30mg/dl > 120mg/dl Orders: Ambulatory referral to Diabetic Education (External); Future Thyroid Stimulating Hormone, Plasma OB Panel Pre-Eclampsia, Plasma; Future CBC W/O Differential; Future Ambulatory Referral to [facility] Insulin Pump Education; Future Opioid use disorder, severe, dependence 03/20/20 21 06/16/2023 Irregular menses 06/17/2020 06/16/2023 Benign essential HTN 02/11/2020 06/16/2023 Chronic hepatitis C 02/11/2020 06/16/2023 Microalbuminuria 02/10/2020 06/16/2023 Diabetes mellitus type 1 04/14/2017 023 Coulter of multiple specified sites 03/16/2017 06/16/2023 Hypotension due to drugs 09/27/2016 023 Acute respiratory failure 09/26/20162022 Dehydration 09/26/2016 06/16/2023 Diabetic ketoacidosis withou t coma associated with type 1 diabetes mellitus 09/26/2016 06/16/2023 Hypocalcemia 09/26/2016 06/16/2023 Hypokalemia 09/26/2016 06/16/2023 Comments Yes Encounters Date Type Department Care Team Description 12/17/2024 8:30 AM EDT Clinical Support [facility] Diabetes Education [address] [place] [address] Radha Figueroa Type 1 diabetes mellitus without complication (Primary Dx) 12/17/2024 Orders Only [facility] Endocrinology [address] [place] [address] Layla Monique, PharmD, CDE Type 1 diabetes mellitus without complication (Primary Dx) 12/17/2024 Travel 12/11/2024 3:00 PM EDT Education [facility] Diabetes Education [address] [place] [address] Reyna Lopez Pre-existing type 1 diabetes mellitus, in , second trimester (Primary Dx) 12/11/2024 Travel 12/05/2024 3:15 PM EDT Office Visit [facility] OBGYN [address] , [address] [place] [address] Eva Belcher MD Supervision of high risk , antepartum (Primary Dx); Type 1 diabetes mellitus with hyperglycemia ([facility]) 12/05/2024 Travel 11/21/2024 Orders Only Medical Office Building Obstetrics and Gynecology [address] [facility], [address] [place] [address] Reyna Herbert, RN Pre-existing type 1 diabetes mellitus, in , second trimester (Primary Dx) from Last 3 Months Family History Medical History Relation Name Comments Alcohol abuse Mother Cathie Breast cancer Mother Cathie Cardiac disorder Other Relation Name Status Comments Mother Cathie Other Social History Tobacco Use Types Packs/Day Years Used Date Smoking Tobacco: Former Cigarettes 1 20 Passive Smoke Exposure: Never Smokeless Tobacco: Never Tobacco Cessation:Counseling Given: Not Answered Alcohol Use Standard Drinks/Week Comments Not Currently 0 (1 standard drink = 0.6 oz pure alcohol) H/o heavy ETOH every weekend x 4 yrs. Quit 20 yrs ago. PHQ-2 Answer Date Recorded Patient Health Questionnaire-2 Score 1 05/03/2021 Comments Yes Sex and Gender Information Value Date Recorded Sex Assigned at Not on file Legal Sex Female 8:14 PM EDT Gender Identity Not on file Sexual Orientation Not on file Last Filed Vital Signs Vital Sign Reading Time Taken Comments Blood Pressure 123/66 12/05/2024 2:58 PM EDT Pulse 94 12/05/2024 2:58 PM EDT Temperature 36.6 C (97.8 F) 12/05/2024 2:58 PM EDT Respiratory Rate 18 12/05/2024 2:58 PM EDT Oxygen Saturation 98% 12/05/2024 2:58 PM EDT Inhaled Oxygen Concentration - - Weight 77.9 kg (171 lb 11.8 oz) 12/05/2024 2:58 PM EDT Height 165.1 cm (5' 5 ) 12/05/2024 2:58 PM EDT Body Mass Index 28.58 12/05/2024 2:58 PM EDT Plan of Treatment Health Maintenance Due Date Last Done Comments [facility]-Infant/Child/Adol SDOH Screenings 1980 Diabetes: Dental Exam 1990 [facility]-Varicella Vaccines (1 of 2 - 13+ 2-dose series) 1993 HPV Vaccines (1 - 3-dose series) 12/26/1995 [facility]- SDOH Screenings 1998 [facility]-Adult SDOH Screenings 1998 [facility]-Pneumococcal Vaccine: Pediatrics (0 to 5 Years) and At-Risk Patients (6 to 49 Years) (1 of 2 - PCV) 12/26/1999 [facility]-Pap Smear 2001 [facility]-Hepatitis B Vaccines (3 of 3 - 19+ 3-dose series) 12/21/2004 07/29/2004, 06/22/2004 [facility]-Cervical Cancer Screening 2010 [facility]-HPV/Cotest 2010 [facility]-DTaP,Tdap,and Td Vaccines (2 - Td or Tdap) 09/07/2016 09/07/2006 [facility]-Hepatitis A Vaccines (2 of 2 - Risk 2-dose series) 11/27/2018 05/30/2018 [facility]-Depression Screening 05/03/2022 05/03/2021 [facility]-Diabetes: Hemoglobin A1C 01/08/2024 07/11/2023, 09/12/2020, 09/11/2020, Additional history exists [id number] Vaccine ( - 2023- season) 2024 [facility]-Influenza Vaccine (#1) 03/17/202509/29, 09/27/2016, 05/27/2009 [facility]-Zoster Vaccines (1 of 2) 2030 [facility]-RSV Vaccine: 60+ Years or (1 - 1-dose 75+ series) 12/26/2055 [facility]-HIV Screening Completed 05/04/2021, , 12/10/2017 [facility]-Obesity Intervention Completed 025, 12/05/2024, 06/16/2023 [facility]-HIB Vaccines Aged Out No longer e ligible based on patient's age to complete this topic [facility]-IPV Vaccines Aged Out No longer e ligible based on patient's age to complete this topic [facility]-Rotavirus Vaccines Aged Out No lo nger eligible based on patient's age to complete this topic Procedures Procedure Name Priority Date/Time Associated Diagnosis Comments POCT URINALYSIS DIPSTICK Routine 12/05/2024 3:06 PM EDT Supervision of high risk , antepartum HIV 1/2 ANTIBODY/ANTIGEN SCREEN WITH REFLEX TO HIV I/II DIFFERENTIATION Routine 05/04/2021 10:25 AM EDT Chronic hepatitis C without hepatic coma (CMS/HCC) HEMOGLOBIN A1C Routine 04/08/2020 3:50 AM EDT from Last 3 Months or Most Recently Relevant to Health Maintenance Results * (ABNORMAL) POCT Urinalysis Dipstick (12/05/2024 3:06 PM EDT) Pathologist [facility] POCT Urine Color Yellow POCT Urine Clarity Clear POCT Glucose Urine 500(A) Negative mg/dL POCT Bilirubin, Urine Negative Negative POCT Ketones, Urine Trace(A) Negative mg/dL POCT Specific [place], Urine 1.025 POCT Blood, Urine Negative Negative POCT pH, Urine 6.0 5.0 to 8.0 POCT Protein, Urine 30(A) Negative mg/dL POCT Urobilinogen, Urine 1 0.2, 1 E.U./dL POCT Nitrite, Urine Negative Negative POCT Leukocyte Esterase, Urine Negative Negative Test Strip Lot Number [id number] Test Strip Lot Expiration 08/17/2025 Urine Urine specimen obtained by clean catch procedure / Unknown 12/05/2024 3:06 PM EDT Eva Belcher MD POINT OF CARE TEST ENTER/ED IT ORDERABLES Final Result * HIV 1 & 2 Antibody/Antigen Screen (05/04/2021 10:25 AM EDT) [facility] HIV 1 & 2 Antibody/Anti gen Screen Nonreactive Nonreactive 05/04/2021 1:48 PM EDT [facility] Blood Venous blood specimen / Unknown Venipuncture / Unknown 05/04/2021 10:25 AM EDT 05/04/2021 10:25 AM EDT Sara Craig APRN LAB BLOOD ORDERABLES Final Result [facility] [address] [place] [address] * (ABNORMAL) Hemoglobin A1c (04/08/2020 3:50 AM EDT) [facility] Hemoglobin A1c 10.8(H) 4.7 - 6.0 % [facility] Comment: Glycohemoglobin Reference Range, 0 years and up: 4.7 to 6.0% . HA1C Interpretive Data: Diagnosis of Diabetes: Diabetic > or = 6.5% Pre-diabetic 5.7 to 6.4% Non-diabetic < or = 5.6% . Glycemic Targets for Type I and Type II Diabetics: Non- Adults <7.0% Adults <6.0% Children and Adolescents <7.5% . Source: [place] [employer]. Standards of medical care in diabetes, 2017. Diabetes Care.2017:40 (suppl 1):S1-S135. . HbA1c assay performed by an ion-exchange chromatography method that is certified traceable to the DCCT. 04/08/2020 3:50 AM EDT 04/08/2020 5:51 AM EDT us Mona Chance MD LAB BLOOD ORDERABLES Final Resul t [facility] from Last 3 Months or Most Recently Relevant to Health Maintenance Insurance [facility] MEDICAID Care Teams Circus Rider Relationship Specialty Start Date End Date Zeny Coleman APRN PCP - General 11/27/20 Reyna Lopez [address] [address] Registered Nurse 12/11/24
--- OUTSIDE RECORDS SUMMARY | 2025-02-17 14:52 | XMS_ITS | Encounter Summary ---
Author Organization [facility] Address [address] [place] [address] Care Team Providers Care Slip Cover Operator Name Role Phone Korina Gutierrez MD Primary Care Provider +1- [phone] Encounter Details Date Type Department Care Team (Latest Contact Info) Description 02/13/2025 Travel Social History Tobacco Use Types Packs/Day [...] Description 03/14/2025 10:45 AM EDT Office Visit [facility]NAL MEDICINE [address] [facility] [address] [place] [address] 03/14/2025 10:45 AM EDT Appointment [facility] US PER DIAG CTR [address] [place] [address] documented as of this encounter Goals Goal Patient Goal Type Associated Problems Recent Progress Patient-Stated? Author Consistently take medications as prescribed General No Melisa Castle PharmD HEMOGLOBIN A1C < 7 Result Component No Melisa Castle PharmD documented as of this encounter Visit Diagnoses Not on filedocumented in this encounter Care Teams Slip Cover Operator Relationship Specialty Start Date End Date Korina Gutierrez MD [address] [place] [address] PCP - General Internal Medicine 09/28/20 documented as of this encounter
[2025-02-17 14:57] VITALS: BP 134/79; PULSE 84; RESP 16; TEMP 36.7; O2SAT 96; BMI 31.6
[2025-02-17 15:11] VITALS: BMI 30.6
[2025-02-17 15:45] LABS: Microscopic, Urine URINE MICROSCOPIC (MICROSCOPIC)
[2025-02-17 15:46] LABS: Bilirubin,Urine Negative (Negative); Color,Urine YELLOW (Yellow); Glucose,Urine (UA) 3+ (Negative); Ketones,Urine Negative (Negative); Leukocyte Esterase,Urine Negative (Negative); PH,Urine 6.0 (5.0-8.5); Protein,Urine Negative (Negative); Specific Gravity, Urine 1.020 (1.005-1.030); Urobilinogen,Urine 2.0 EU/dl (0.2)
[2025-02-17 15:59] LABS: Bacteria,Urine Trace /lpf; WBC,Urine Occasional #/hpf (0-3)
--- NOTE | 2025-02-17 16:05 | US_ITS ---
PROCEDURE INFORMATION: Exam: US Biophysical Profile Without Non-Stress Test Exam date and time: 02/17/2025 4:28 PM Age: 44 years old Clinical indication: Other: Decreased movement; ; Additional info: Decreased movement, variables on nst TECHNIQUE: Imaging protocol: US biophysical profile without non-stress testing. COMPARISON: US OB <= 14 WEEKS FETUS 10/04/2024 8:07 AM FINDINGS: heart rate: 155 bpm Amniotic fluid index: AYLEEN is 11.35 cm. BIOPHYSICAL PROFILE: breathing (BPP): 2 /2 gross body movement (BPP): 2 /2 tone (BPP): 2 /2 Amniotic fluid (BPP): 2 /2 Biophysical profile score (BPP): 8 /8 MATERNAL ANATOMY: Cervix: Cervical length measures 3.17 cm. IMPRESSION: Biophysical profile score is 8 out of 8.
[2025-02-17] MEDS: LACTATED RINGERS 1000ML 1,000 ML 999 ML IV (16:19)
== END 2025-02-17 17:06 | disposition home or self-care (01) ==
LOC: OBOUT 14:50 → OB 14:51
PROVIDERS: PCP Internal Medicine; Visit Provider Obstetrics & Gynecology
DX: O36.8190 Decreased fetal movements, unspecified trimester, not applicable or unspecified (principal); Z3A.00 Weeks of gestation of pregnancy not specified
CPT/HCPCS: 59025; 76819; 81001; 96360; 99212; G0463; J7120

== ENCOUNTER 2025-02-21 10:13 | Outpatient (CLI) | payer OTHER, SELFPAY ==
--- OUTSIDE RECORDS SUMMARY | 2025-01-09 08:48 | XMS_ITS | Encounter Summary ---
Author Organization [facility] Address [address] [place] [address] Care Team Providers Care Warehouse Man Name Role Phone Korina Gutierrez MD Primary Care Provider [phone]- [phone] Reason for Visit * Diagnostic Imaging (Routine) - Authorized Specialty Diagnoses / Procedures Referred By Contac t Referred To Contact Radiology Diagnoses Antepartum multigravida of advanced maternal age Type 1 diabetes mellitus with hyperglycemia Procedures [facility] Staley, Nelson Thorpe MD [address] [place] [address] Phone: tel: fax: Referral ID Status Reason Start Date Expiration Date V isits Requested Visits Authorized Authorized 12/12/2024 03/13/2026 4 4 Encounter Details Date Type Department Care Team (Latest Contact Info) Description 01/09/2025 8:48 AM EDT - 01/09/2025 11:59 PM EDT Hospital Encounter [facility] US PER DIAG CTR [address] [place] [phone] [place] [address] [place] [address] [address]ERO [id number] Discharge Disposition: Home or Self Care Social [...] by mouth Daily. 11/06/2024 Continuous Blood Gluc Habilitation Assistant (Dexcom G6 Habilitation Assistant) device 1 each Continuous. 1 each 09/21/2022 [...] Daily. 10/21/2024 vitamin D (ERGOCALCIFEROL) 1.25 MG (16468 UT) capsule capsule Take 1 capsule by [...] Description 03/14/2025 10:45 AM EDT Office Visit [facility] MATERNAL MEDICINE [address] [facility] [address] [place] [address] 03/14/2025 10:45 AM EDT Appointment [facility] PER DIAG [facility] [address] [facility] [place] [address] documented as of this encounter Goals Goal Patient Goal Type Associated Problems Recent Progress Patient-Stated? Author Consistently take medications as prescribed General No Melisa Castle PharmD HEMOGLOBIN A1C < 7 Result Component No Melisa Castle PharmD documented as of this encounter Procedures Procedure Name Priority Date/Time Associated Diagnosis Comments [facility] Routine 01/09/2025 9:58 AM EDT Antepartum multigravida of advanced maternal age Type 1 diabetes mellitus with hyperglycemia documented in this encounter Results * [facility] (01/09/2025 9:58 AM EDT) Anatomical Region Laterality Modality Ultrasound 01/09/2025 9:27 AM EDT Narrative 01/09/2025 9:59 AM EDT PAT NAME: MARC MORALES MED REC#: [id number] DA: [id number] PAT GEND: F PAT TYPE: O EXAM PHYLLIS: [id number] REF PHYS REYNA KENT Comparison Studies The [...] EFW (oz) 9 oz EFW by: Hadlock ([id number]) Extended Cav. septi pel. tr 5.3 mm Warehouse Operations Associate 6.1 mm Head / Face / Neck [...] IVC: Appears Normal 3-vessel view: Appears normal 4-xrwxfy-wqgrxmt view: Appears normal Cardiac axis: Normal Cord insertion: Normal Stomach: Normal Bladder: Normal Cervical spine: Appears normal Thoracic spine: Appears normal Lumbar spine: Appears normal Sacral spine: Appears normal Gender: male Wants to know gender: yes Echocardiogram 2D Echo (Qualitatively) 4-chamber view: Appears normal LVOT view: Appears normal RVOT view: Appears normal 3-vessel view: Appears normal 1-gmnegk-drzbhox view: Appears normal Aortic arch view: Appears [...] here in 4 weeks. Coding ====== Description: [id number] Follow Up Ultrasound Description: 81441-63 Echo 2D, heart - initial Description: 06640-74 Doppler echo color flow Floor Steward/Stewardess: RT Rivka Singer , RUST Physician: Chris Figueroa MD, FACOG Electronically signed by: Chris Figueroa MD, FACOG at: 09:59 Procedure Note Nilson Figueroa MD - 01/09/2025 PAT NAME: MARC MORALES MED REC#: [id number] DA: 1980 PAT GEND: F PAT TYPE: O EXAM PHYLLIS: [id number] REF PHYS REYNA KENT Comparison Studies The findings of this study are compared to the prior ultrasound studydated 12/12/24 Patient Status Outpatient Indication ======== T1DM. AMA. H/O IV drug use. +Hep C. Previous c/s x 2. Vapes. Maternalcerebral palsy. Maternal Assessment Ylwpwh797 cm Height (ft)5 ft Height (in)4 in Zjntpe92 kg Weight (lb)178 lb BMI30.55 kg/m Method ======= Transabdominal ultrasound examination. View: Suboptimal view: limited byfetal position ========= Guthrie . Number of fetuses: 1 Dating ====== Method of dating:based on stated NOHEMI GA by prior lzyreulxnu28 w + 6 d NOHEMI by prior assessment:04/25/2025 Ultrasound examination on:01/09/2025 GA by U/S based upon:AC, BPD, Femur, HC GA by U/S24 w + 5 d NOHEMI by U/S:04/26/2025 Previous dating:based on stated NOHEMI, selected on 12/12/2024 Agreed NOHEMI of previous datin04/25/2025 Assigned:based on stated NOHEMI, selected on 01/09/2025 Assigned GA24 w + 6 d Assigned NOHEMI:04/25/2025 d Biometry Standard BPD61.5 mm 25w 0d 47% Hadlock OFD82.0 mm 26w 5d 94% Glendy HC231.8 mm 25w 1d 42% Hadlock AC200.0 mm 24w 4d 34% Hadlock Femur42.8 mm 24w 0d 14% Hadlock Gjvcypo45.5 mm 24w 0d 18% Glendy HC / AC1.16 WKW014 g 24w 2d 25% Hadlock EFW (lb)1 lb EFW (oz)9 oz EFW by:Hadlock ([id number]-[id number]-VA-FL) Extended Cav. septi pel. tr5.3 mm Vp6.1 mm Head / Face / Neck Cephalic index0.75 15% Nicolaides Thorax / Lungs Thoracic dsut966.7 mm 45% [place] Thoracic area24.6 cm ThC [...] / HC0.18 FL / AC0.21 Other Structures RPT453 bpm General Evaluation Cardiac activity present. FHR [...] SVC:Appears Normal IVC:Appears Normal 3-vessel view:Appears normal 1-mvqfuv-jumdrpo view:Appears normal Cardiac axis:Normal Cord insertion:Normal Stomach:Normal Bladder:Normal Cervical spine:Appears normal Thoracic spine:Appears normal Lumbar spine:Appears normal Sacral spine:Appears normal Gender:male Wants to know gender:yes Echocardiogram 2D Echo (Qualitatively) 4-chamber view:Appears normal LVOT view:Appears normal RVOT view:Appears normal 3-vessel view:Appears normal 6-vpnxwr-cueyypr view:Appears normal Aortic arch view:Appears normal Ductal [...] and outflows. B and M-Mode Measurements Thoracic opbi597.7 mm 45% [place] Thoracic area24.6 cm ThC / AC0.88 Cardiac axis46 Cardiac circ71.6 mm Cardiac area4.0 cm CC / ThC0.41 CA / ThA0.16 RA length diast9.23 mm RA width diast8.67 mm RV width diast8.85 mm 19% Caceres RV wall diast2.16 mm 25% Caceres LA length diast10.0 mm LA width diast9.5 mm LV width diast8.06 mm 11% Caceres LV wall diast2.59 mm 73% Ccaeres IV Septum diast2.54 mm 62% Caceres RV [...] branch Zscore (GA)4.77 Lt PA branch Zscore by:Dena Ao asc Zscore (FL)0.04 Ao asc Zscore [...] Structures Uterus / Cervix Cervix:Visualized Approach:Transabdominal Cervical wfybwv15.9 mm Consultation / Office Visit Office note to follow Impression ========= Size consistent with dates. No anomalies were identified. heart well visualized and appears structurally normal. No markers for trisomy. The cervical length appears normal. Recommendation We recommend evaluation in 4 weeks. Follow up appointment scheduled here in 4 weeks. Coding ====== Description:70311-49 Follow Up Ultrasound Description:57458-09 Echo 2D, heart - initial Description:44477-67 Doppler echo color flow Floor Steward/Stewardess: RT Rivka Singer , RUST Physician: Chris Figueroa MD, FACOG Electronically signed by: Chris Figueroa MD, FACOG at: 09:59 us Nelson Staley MD IMG US ORDERABLES Final Result documented in this encounter Visit Diagnoses Not on filedocumented in this encounter Care Teams Warehouse Man Relationship Specialty Start Date End Date Korina Gutier[place] [address] [place] [address] PCP - General Internal Medicine 09/28/20 documented as of this encounter
--- OUTSIDE RECORDS SUMMARY | 2025-01-09 09:15 | XMS_ITS | Encounter Summary ---
Author Organization [facility] Address [address] [place] [address] Care Team Providers Care Progress Clerk Name Role Phone Korina Gutierrez MD Primary Care Provider +1- [phone] Reason for Visit * Reason Comments T1DM; AMA; prev. c/s; maternal CP; vapes Encounter Details Date Type Department Care Team (Late st Contact Info) Description 01/09/2025 9:15 AM EDT Office Visit [facility] MAT[facility] MEDICINE [address] [facility] [address] [place] [phone] Nilson Figuerao MD [address] [facility] [address] [place] [address] Type 1 diabetes mellitus with hyperglycemia (Primary [...] insulin pump and needs education through the [facility] before she can start that. We are [...] insulin pump and needs education through the [facility] before she can start that. We are [...] in 4 weeks time. Orders: - [facility]; Future 2. Antepartum multigravida of advanced maternal age - [facility]; Future 3. , unspecified gestational age - [facility]; Future Follow Up Return in [...] or CVS. Nilson Figueroa MD Maternal Medicine, [facility] 01/09/2025 documented in this encounter Plan of Treatment Upcoming Encounters Date Type Department Care Team (Late st Contact Info) Description 03/14/2025 10:45 AM EDT Office Visit [facility] [address] [facility] [address] [place] [phone] 03/14/2025 10:45 AM EDT Appointment [facility] US PER DIAG CTR [address] [place] [phone] documented as of this encounter Goals Goal [...] age documented in this encounter Care Teams Progress Clerk Relationship Specialty Start Date End Date Korina Gutierrez MD [facility] [address] [place], [place] [phone] PCP - General Internal Medicine 09/28/20 documented as of this encounter
--- OUTSIDE RECORDS SUMMARY | 2025-02-13 14:29 | XMS_ITS | Encounter Summary ---
Author Organization [facility] Address [address] [place] [address] Care Team Providers Care Cigarette Catcher Name Role Phone Korina Gutierrez MD Primary Care Provider +1- [phone] Reason for Visit * Diagnostic Imaging (Routine) - Authorized Specialty Diagnoses / Procedures Referred By Contac t Referred To Contact Radiology Diagnoses Antepartum multigravida of advanced maternal age Type 1 diabetes mellitus with hyperglycemia Procedures [facility] Staley, Nelson Thorpe MD [address] [place] [address] Phone: tel: fax: Referral ID Status Reason Start Date Expiration Date V isits Requested Visits Authorized Authorized 12/12/2024 03/13/2026 4 4 Encounter Details Date Type Department Care Team (Latest Contact Info) Description 02/13/2025 2:29 PM EDT - 02/13/2025 11:59 PM EDT Hospital Encounter [facility] US PER DIAG CTR [address] [place] [id number] Reyna Kent DO [address] [facility] [address] [id number] Discharge Disposition: Home or Self Care Social [...] tablet by mouth Every Night. Indications: Depression BD Pen Needle Mini Ultrafine 31G X 5 MM misc See Admin Instructions. 01/31/2025 buPROPion XL (WELLBUTRIN XL) 300 MG 24 hr tablet Take 1 tablet by mouth Daily. 11/06/2024 Continuous Blood Gluc Penciller (Dexcom G6 Penciller) device 1 each Continuous. 1 each 09/21/2022 Continuous Glucose Sensor (Dexcom G6 Sensor) 02/12/2025 cyclobenzaprine (FLEXERIL) 10 MG tablet Take 1 tablet by mouth 3 (Three) Times a Day As Needed. for muscle spams 10/16/2024 DULoxetine (CYMBALTA) 60 MG capsule Take 1 capsule by mouth Daily. 01/31/2025 FREESTYLE LITE test strip See Admin Instructions. 01/31/2025 Insulin Glargine (Lantus SoloStar) 100 UNIT/ML injection pen Inject 22 Units under the skin into the appropriate area as directed 2 (Two) Times a Day. Try to take 12 hours apart. 15 mL 01/30/2025 Insulin Lispro, 1 Unit Dial, (HUMALOG) 100 UNIT/ML solution pen-injector Inject 34-38 Units under the skin into the appropriate area as directed 3 (Three) Times a Day Before Meals. Give correction of 1 units:20 mg/dl > 120 mg/ dl if blood sugar persistently high after 2-3 hours after a meal. MDD of 125 u 45 mL 1 02/06/2025 ondansetron (ZOFRAN) 4 MG tabletIndication s:Nausea and Vomiting Take 1 tablet by mouth Every 8 (Eight) Hours As Needed for Nausea or Vomiting. Indications: Nausea and Vomiting Vit-Fe Fumarate-FA (GNP ) 28-0.8 MG tablet Take 1 tablet by mouth Daily. 10/21/2024 vitamin D (ERGOCALCIFEROL) 1.25 MG (84772 UT) capsule capsule Take 1 capsule by mouth 1 (One) Time Per Week. 10/11/2024 documented as of this encounter Plan of Treatment Upcoming Encounters Date Type Department Care Team (Late st Contact Info) Description 03/14/2025 10:45 AM EDT Office Visit [facility] MATERNAL MEDICINE [address] [facility] [address] [place] [address] 03/14/2025 10:45 AM EDT Appointment [facility] US PER DIAG CTR [address] [place] [address] documented as of this encounter Goals Goal Patient Goal Type Associated Problems Recent Progress Patient-Stated? Author Consistently take medications as prescribed General No Melisa Castle PharmD HEMOGLOBIN A1C < 7 Result Component No Melisa Castle PharmD documented as of this encounter Procedures Procedure Name Priority Date/Time Associated Diagnosis Comments [facility] Routine 02/13/2025 3:13 PM EDT Antepartum multigravida of advanced maternal age Type 1 diabetes mellitus with hyperglycemia documented in this encounter Results * [facility] (02/13/2025 3:13 PM EDT) Anatomical Region Laterality Modality Ultrasound 02/13/2025 2:47 PM EDT Narrative 02/18/2025 1:20 PM EDT PAT NAME: MARC MORALES MED REC#: [id number] DA: [id number] PAT GEND: F PAT TYPE: O EXAM PHYLLIS: [id number] REF PHYS REYNA KENT Comparison Studies The findings of this study are compared to the prior ultrasound study dated 01/09/25. Patient Status Outpatient Indication ======== T1DM. AMA. H/O IV drug use. +Hep C. Previous c/s x 2. Vapes. Maternal cerebral palsy. Maternal Assessment Height 163 cm Height (ft) 5 ft Height (in) 4 in Weight 84 kg Weight (lb) 186 lb BMI 31.93 kg/m Method ======= Transabdominal ultrasound examination ========= Guthrie . Number of fetuses: 1 Dating ====== GA by prior assessment 29 w + 6 d NOHEMI by prior assessment: 04/25/2025 Ultrasound examination on: 02/13/2025 GA by U/S based upon: AC, BPD, Femur, HC GA by U/S 30 w + 3 d NOHEMI by U/S: 04/21/2025 Method of dating: Restore dating from previous exam Previous dating: based on stated NOHEMI, selected on 01/09/2025 Agreed NOHEMI of previous datin04/25/2025 Assigned: based on stated NOHEMI, selected on 01/09/2025 Assigned GA 29 w + 6 d Assigned NOHEMI: 04/25/2025 length 280 d Biometry Standard BPD 76.9 mm 30w 6d 69% Hadlock OFD 99.6 mm 32w 1d 95% Glendy HC 282.2 mm 31w 0d 46% Hadlock Cerebellum tr 35.1 mm 29w 2d 23% Hill AC 262.0 mm 30w 2d 60% Hadlock Femur 56.7 mm 29w 5d 32% Hadlock Humerus 48.5 mm 28w 4d 17% Glendy HC / AC 1.08 EFW 1,539 g 29w 6d 51% Hadlock EFW (lb) 3 lb EFW (oz) 6 oz EFW by: Hadlock (USG-UA-UC-FL) Extended Cav. septi pel. tr 8.1 mm Cosmetician Apprentice 4.5 mm CM 5.4 mm 11% Nicolaides Head / Face / Neck Cephalic index 0.77 29% Nicolaides Extremities / Bony Struc FL / BPD 0.74 FL / HC 0.20 FL / AC 0.22 Other Structures FHR 150 bpm General Evaluation Cardiac activity present. FHR 150 bpm. movements present. Presentation cephalic. Placenta Placental site: posterior. Amniotic fluid Amount of AF: normal, normal. MVP 5.5 cm. AYLEEN 17.9 cm. Q1 3.9 cm, Q2 4.4 cm, Q3 5.5 cm, Q4 4.1 cm. Anatomy Cranium: Normal Cavum septi pellucidi: Normal Cerebellum: Normal Cisterna magna: Normal Head / Neck Rt lateral ventricle: Normal Lt lateral ventricle: Normal Lips: Normal Profile: Normal Nose: Normal 4-chamber view: Appears normal RVOT view: Normal LVOT view: Normal Heart / Thorax 3-vessel view: Normal 1-gpasim-wacamhv view: normal Cord insertion: Normal Stomach: Appears normal Kidneys: Appears normal Bladder: Appears normal Gender: male Wants to know gender: yes Doppler Arterial Umbilical A PI 1.19 87% Alfredo Umbilical A RI 0.70 79% Alfredo Umbilical A PS -35.92 cm/s Umbilical A ED -10.88 cm/s Umbilical A TAmax -21.10 cm/s Umbilical A MD -10.54 cm/s Umbilical A S / D 3.30 72% Alfredo Umbilical A HR 147 bpm Biophysical Profile 2: breathing movements 2: Gross body movements 2: tone 2: Amniotic fluid volume /8 Biophysical profile score Impression Today's exam reveals a SIUP in cephalic presentation with biometry consistent with dates. Limited anatomic survey appears normal. The AYLEEN and BPP are normal. Recommendation Follow up 4 weeks Coding ======= Description: 65177-58 Follow Up Ultrasound Description: BPP without NST Pilates Instructor: Marisol Odonnell RDMS Physician: Denise Lopez MD, FACOG Electronically signed by: Denise Lopez MD, FACOG at: 13:20 Procedure Note Denise Lopez MD - 02/18/2025 PAT NAME: MARC MORALES MED REC#: [id number] DA: [id number] PAT GEND: F PAT TYPE: O EXAM PHYLLIS: [id number] REF PHYS REYNA KENT Comparison Studies The findings of this study are compared to the prior ultrasound studydated 01/09/25. Patient Status Outpatient Indication ======== T1DM. AMA. H/O IV drug use. +Hep C. Previous c/s x 2. Vapes. Maternalcerebral palsy. Maternal Assessment [id number] cm Height (ft)5 ft Height (in)4 in Qbeliq33 kg Weight (lb)186 lb BMI31.93 kg/m Method ======= Transabdominal ultrasound examination ========= Guthrie . Number of fetuses: 1 Dating ====== GA by prior [id number] w + 6 d NOHEMI by prior assessment:04/25/2025 Ultrasound examination on:02/13/2025 GA by U/S based upon:AC, BPD, Femur, HC GA by U/S30 w + 3 d NOHEMI by U/S:04/21/2025 Method of dating:Restore dating from previous exam Previous dating:based on stated NOHEMI, selected on 01/09/2025 Agreed NOHEMI of previous datin04/25/2025 Assigned:based on stated NOHEMI, selected on 01/09/2025 Assigned GA29 w + 6 d Assigned NOHEMI:04/25/2025 [id number] d Biometry Standard BPD76.9 mm 30w 6d 69% Hadlock OFD99.6 mm 32w 1d 95% Glendy HC282.2 mm 31w 0d 46% Hadlock Cerebellum tr35.1 mm 29w 2d 23% Hill AC262.0 mm 30w 2d 60% Hadlock Femur56.7 mm 29w 5d 32% Hadlock Dvcbxzd24.5 mm 28w 4d 17% Glendy HC / AC1.08 EFW1,539 g 29w 6d 51% Hadlock EFW (lb)3 lb EFW (oz)6 oz EFW by:Hadlock (OGB-FD-US-FL) Extended Cav. septi pel. tr8.1 mm Vp4.5 mm CM5.4 mm 11% Nicolaides Head / Face / Neck Cephalic index0.77 29% Nicolaides Extremities / Bony Struc FL / BPD0.74 FL / HC0.20 FL / AC0.22 Other Structures AQG347 bpm General Evaluation Cardiac activity present. FHR 150 bpm. movements present. Presentation cephalic. Placenta Placental site: posterior. Amniotic fluid Amount of AF: normal, normal. MVP 5.5 cm. AYLEEN 17.9 cm. Q13.9 cm, Q2 4.4 cm, Q3 5.5 cm, Q4 4.1 cm. Anatomy Cranium:Normal Cavum septi pellucidi:Normal Cerebellum:Normal Cisterna magna:Normal Head / Neck Rt lateral ventricle:Normal Lt lateral ventricle:Normal Lips:Normal Profile:Normal Nose:Normal 4-chamber view:Appears normal RVOT view:Normal LVOT view:Normal Heart / Thorax 3-vessel view:Normal 7-lxgbrw-inoqvbe view:normal Cord insertion:Normal Stomach:Appears normal Kidneys:Appears normal Bladder:Appears normal Gender:male Wants to know gender:yes Doppler Arterial Umbilical A PI1.19 87% Alfredo Umbilical A RI0.70 79% Alfredo Umbilical A PS-35.92 cm/s Umbilical A ED-10.88 cm/s Umbilical A TAmax-21.10 cm/s Umbilical A MD-10.54 cm/s Umbilical A S / D3.30 72% Alfredo Umbilical A HR147 bpm Biophysical Profile 2: breathing movements 2: Gross body movements 2: tone 2: Amniotic fluid volume 02/21 Biophysical profile score Impression Today's exam reveals a SIUP in cephalic presentation with biometryconsistent with dates. Limited anatomic survey appears normal. TheAFI and BPP are normal. Recommendation Follow up 4 weeks Coding ======= Description: Follow Up Ultrasound Description: BPP without NST Pilates Instructor: Marisol Odonnell RDMS Physician: Denise Lopez MD, FACOG Electronically signed by: Denise Lopez MD, FACOG at: 13:20 us Nelson Staley MD IMG US ORDERABLES Final Result documented in this encounter Visit Diagnoses Not on filedocumented in this encounter Care Teams Cigarette Catcher Relationship Specialty Start Date End Date Korina Gutierrez MD [facility] [address] [place], [place] [id number] PCP - General Internal Medicine 09/28/20 documented as of this encounter
--- OUTSIDE RECORDS SUMMARY | 2025-02-13 15:00 | XMS_ITS | Encounter Summary ---
Author Organization [facility] Address [address] [place] [address] Care Team Providers Care Scanning Coordinator Name Role Phone Korina Gutierrez MD Primary Care Provider +1- [phone] Reason for Visit * Reason Comments T1DM, AMA, hx C/S, hx drug use, Hep C, v apes, mat. CP Encounter Details Date Type Department Care Team (Late st Contact Info) Description 02/13/2025 3:00 PM EDT Office Visit [facility] MATERNAL MEDICINE [address] [address] Denise Lopez MD [address] [place] [id number] Type 1 diabetes mellitus with hyperglycemia (Primary [...] vaginal bleeding, leaking fluid. Patient reports occasional [place] contractions. States rest helps. Endorses normal movement. NIPT negative. Next OB follow-up appointment with Dr. Porras today. * Denise Lopez MD - 02/13/2025 3:00 PM EDT Patient seen in [facility] today for ultrasound. Please see ultrasound report under imaging tab of patient chart in [facility] (Viewpoint report). Denise Lopez MD documented in this encounter Plan of Treatment Upcoming Encounters Date Type Department Care Team (Late st Contact Info) Description 03/14/2025 10:45 AM EDT Office Visit [facility] MEDIC[facility] [facility] [address] [place] [phone] 03/14/2025 10:45 AM EDT Appointment [facility] [address] [facility] [place] [address] documented as of this encounter Goals Goal Patient Goal Type Associated Problems Recent Progress Patient-Stated? Author Consistently take medications as prescribed General No Melisa Castle, Donovan HEMOGLOBIN A1C < 7 Result Component No Melisa Castle PharmD documented as of this encounter Visit Diagnoses Diagnosis Type 1 diabetes mellitus with hyperglycemia- Primary documented in this encounter Care Teams Scanning Coordinator Relationship Specialty Start Date End Date Korina Gutierrez MD [address] [place] [address] PCP - General Internal Medicine 09/28/20 documented as of this encounter
--- OUTSIDE RECORDS SUMMARY | 2025-02-21 10:19 | XMS_ITS | Encounter Summary ---
Author Organization [facility] Address [address] [place] [address] Care Team Providers Care Svp Chief Marketing Officer Name Role Phone Korina Gutierrez MD Primary Care Provider +1- [phone] Encounter Details Date Type Department Care Team (Late st Contact Info) Description 02/06/2025 Medication Therapy Management [facility] MATERNAL MEDICINE [address] [facility] [place] [address] [place] [phone] Eva Belcher MD 1700 [facility] [address] [place] [address] Social History Tobacco Use Types Packs/Day Years [...] Description 03/14/2025 10:45 AM EDT Office Visit [facility] MATERNAL MEDICINE [address] [facility] [place] [address] [place] [address] 03/14/2025 10:45 AM EDT Appointment [facility] [address] [place] [phone] documented as of this encounter Goals Goal Patient Goal Type Associated Problems Recent Progress Patient-Stated? Author Consistently take medications as prescribed General No Melisa Castle PharmD HEMOGLOBIN A1C < 7 Result Component No Melisa Castle PharmD documented as of this encounter Visit Diagnoses Not on filedocumented in this encounter Care Teams Svp Chief Marketing Officer Relationship Specialty Start Date End Date Korina Gutierrez [place] [address] PCP - General Internal Medicine 09/28/20 documented as of this encounter
--- OUTSIDE RECORDS SUMMARY | 2025-02-21 10:19 | XMS_ITS | Encounter Summary ---
Author Organization [facility] Address [address] [place] [address] Care Team Providers Care National Investigative Producer Name Role Phone Korina Gutierrez MD Primary Care Provider +1- [phone] Encounter Details Date Type Department Care Team (Late st Contact Info) Description 12/26/2024 Medication Therapy Management [facility] MATERNAL MEDICINE 1700 [facility] [address] [place] [phone] Eva Belcher MD 1700 [facility] [address] [place] [address] Social History Tobacco Use Types Packs/Day Years [...] Description 03/14/2025 10:45 AM EDT Office Visit [facility] MATERNAL MEDICINE 17[address] [facility] [address] [place] [address] 03/14/2025 10:45 AM EDT Appointment [facility] [address] [place] [phone] documented as of this encounter Goals Goal Patient Goal Type Associated Problems Recent Progress Patient-Stated? Author Consistently take medications as prescribed General No Melisa Castle PharmD HEMOGLOBIN A1C < 7 Result Component No Melisa Castle PharmD documented as of this encounter Visit Diagnoses Not on filedocumented in this encounter Care Teams National Investigative Producer Relationship Specialty Start Date End Date Korina Gutierrez [place] [address] PCP - General Internal Medicine 09/28/20 documented as of this encounter
--- OUTSIDE RECORDS SUMMARY | 2025-02-21 10:19 | XMS_ITS | Encounter Summary ---
Author Organization [facility] Address [address] [place] [address] Care Team Providers Care Dray Driver Name Role Phone Korina Gutierrez MD Primary Care Provider +1- [phone] Encounter Details Date Type Department Care Team (Late st Contact Info) Description 01/30/2025 Medication Therapy Management [facility] MATERNAL MEDICINE [address] [facility] [address] [place] [phone] Eva Belcher MD 1700 [facility] Fabric[address] [place] [address] Social History Tobacco Use Types Packs/Day Years [...] Visit [facility] MATERNAL MEDICINE [address] [facility] [address] [place] [address] 03/14/2025 10:45 AM EDT Appointment [facility] PER DIAG [facility] [address] [place] [phone] documented as of this encounter Goals Goal Patient Goal Type Associated Problems Recent Progress Patient-Stated? Author Consistently take medications as prescribed General No Melisa Castle PharmD HEMOGLOBIN A1C < 7 Result Component No Melisa Castle PharmD documented as of this encounter Visit Diagnoses Not on filedocumented in this encounter Care Teams Dray Driver Relationship Specialty Start Date End Date Korina Gutierrez [place] [address] PCP - General Internal Medicine 09/28/20 documented as of this encounter
--- OUTSIDE RECORDS SUMMARY | 2025-02-21 10:19 | XMS_ITS | Encounter Summary ---
Author Organization [facility] Address [address] [place] [address] Care Team Providers Care Assistant Signal Maintainer Name Role Phone Korina Gutierrez MD Primary Care Provider +1- [phone] Encounter Details Date Type Department Care Team [...] 03/14/2025 10:45 AM EDT Office Visit [facility] MATERNAL MEDICINE [facility] [facility] [address] [place] [address] 03/14/2025 10:45 AM EDT Appointment [facility] [address] [place] [address] documented as of this encounter Goals Goal Patient Goal Type Associated Problems Recent Progress Patient-Stated? Author Consistently take medications as prescribed General No Melisa Castle PharmD HEMOGLOBIN A1C < 7 Result Component No Melisa Castle PharmD documented as of this encounter Visit Diagnoses Not on filedocumented in this encounter Care Teams Assistant Signal Maintainer Relationship Specialty Start Date End Date Korina Gutierrez MD [address] [place] [address] PCP - General Internal Medicine 09/28/20 documented as of this encounter
--- OUTSIDE RECORDS SUMMARY | 2025-02-21 10:19 | XMS_ITS | Encounter Summary ---
Author Organization [facility] Address [address] [place] [address] Care Team Providers Care Washing Machine Repairer Name Role Phone Korina Gutierrez MD Primary Care Provider +1- [phone] Encounter Details Date Type Department Care Team (Late st Contact Info) Description 01/22/2025 Medication Therapy Management [facility] MATERNAL MEDICINE 1700 [facility] [address] [place] [phone] Eva Belcher MD 1700 [facility] [address] [place] [address] Social History Tobacco Use Types Packs/Day Years [...] [facility] MATERNAL MEDICINE 1700 [facility] [address] [place] [address] 03/14/2025 10:45 AM EDT Appointment [facility] PER DIAG [facility] [address] [place] [address] documented as of this encounter Goals Goal Patient Goal Type Associated Problems Recent Progress Patient-Stated? Author Consistently take medications as prescribed General No Melisa Castle PharmD HEMOGLOBIN A1C < 7 Result Component No Melisa Castle PharmD documented as of this encounter Visit Diagnoses Not on filedocumented in this encounter Care Teams Washing Machine Repairer Relationship Specialty Start Date End Date Korina Gutierrez [place] [address] PCP - General Internal Medicine 09/28/20 documented as of this encounter
--- OUTSIDE RECORDS SUMMARY | 2025-02-21 10:19 | XMS_ITS | Encounter Summary ---
Author Organization [facility] Address [address] [place] [address] Care Team Providers Care Business Development Representative Name Role Phone Korina Gutierrez MD Primary Care Provider +1- [phone] Encounter Details Date Type Department Care Team (Late st Contact Info) Description 12/30/2024 Medication Therapy Management [facility] MATERNAL MEDICINE [address] [place] [phone] Nelson Staley MD 1700 [facility] [address] [place] [address] Social History Tobacco Use Types Packs/Day Years [...] 10:45 AM EDT Office Visit [facility] MATERNAL MEDICINE [address] [place] [phone] 03/14/2025 10:45 AM EDT Appointment [facility] PER [facility] [address] [place] [address] documented as of this encounter Goals Goal Patient Goal Type Associated Problems Recent Progress Patient-Stated? Author Consistently take medications as prescribed General No Melisa Castle PharmD HEMOGLOBIN A1C < 7 Result Component No Melisa Castle PharmD documented as of this encounter Visit Diagnoses Not on filedocumented in this encounter Care Teams Business Development Representative Relationship Specialty Start Date End Date Korina Gutierrez [place] [address] PCP - General Internal Medicine 09/28/20 documented as of this encounter
--- OUTSIDE RECORDS SUMMARY | 2025-02-21 10:19 | XMS_ITS | Clinical Summary ---
Author Organization [facility] Address [address] [place] [address] Phone [email or web address] Care Team Providers Care Admiralty Lawyer Name Role Phone Unavailable Primary Care Provider [...]
--- OUTSIDE RECORDS SUMMARY | 2025-02-21 10:19 | XMS_ITS | Encounter Summary ---
Author Organization [facility] Address [address] [place] [address] Care Team Providers Care Fisheries Specialist Name Role Phone Korina Gutierrez MD Primary Care Provider +1- [phone] Encounter Details Date Type Department Care Team [...] Description 03/14/2025 10:45 AM EDT Office Visit [facility] MATERNAL MEDICINE 1700 [facility] [address] [place] [address] 03/14/2025 10:45 AM EDT Appointment [facility] PER DIAG [facility] [address] [place] [address] documented as of this encounter Goals Goal Patient Goal Type Associated Problems Recent Progress Patient-Stated? Author Consistently take medications as prescribed General No Melisa Castle PharmD HEMOGLOBIN A1C < 7 Result Component No Melisa Castle PharmD documented as of this encounter Visit Diagnoses Not on filedocumented in this encounter Care Teams Fisheries Specialist Relationship Specialty Start Date End Date Korina Gutierrze MD [address] [place] [address] PCP - General Internal Medicine 09/28/20 documented as of this encounter
--- OUTSIDE RECORDS SUMMARY | 2025-02-21 10:19 | XMS_ITS | Encounter Summary ---
Author Organization [facility] Address [address] [place] [address] Care Team Providers Care Senior Enlisted Advisor Name Role Phone Korina Gutierrez MD Primary Care Provider +1- [phone] Reason for Visit * Reason Onset Date Comments Advice Only 02/10/2025 Encounter Details Date Type Department Care Team (Late st Contact Info) Description 02/10/2025 Telephone [facility] MATERNAL MEDICINE [address] [facility] [address] [place] [address] Kirsten Sim, reformatory attendant Only Social History Tobacco Use Types Packs/Day [...] Description 03/14/2025 10:45 AM EDT Office Visit [facility] MATERNAL MEDICINE [address] [facility] [address] [place] [address] 03/14/2025 10:45 AM EDT Appointment [facility] [address] [place] [address] documented as of this encounter Goals Goal Patient Goal Type Associated Problems Recent Progress Patient-Stated? Author Consistently take medications as prescribed General No Melisa Castle PharmD HEMOGLOBIN A1C < 7 Result Component No Melisa Castle PharmD documented as of this encounter Visit Diagnoses Not on filedocumented in this encounter Care Teams Senior Enlisted Advisor Relationship Specialty Start Date End Date Korina Gutierrez [place] [address] PCP - General Internal Medicine 09/28/20 documented as of this encounter
--- OUTSIDE RECORDS SUMMARY | 2025-02-21 10:19 | XMS_ITS ---
Author Organization [facility] Address [address] [place] [address] Care Team Providers Care Sap Consultant Name Role Phone Zeny Coleman APRN Primary Care Provider Reyna Lopez Unavailable [employer] - Diabetes Self-Management Education (DSME) Status:Active (Active) Start date:12/11/2024 Enrollment date:12/11/2024 Enrollment reason:Referred by provider Current support & services provided:Pre-Existing DM with Diabetes Self-Management and Support-Training (DSMT) Case Team Name Relationship Phone Reyna Lopez(Responsible Staff) Registered Nurse [phone] Continued Care and Services Coordination
--- OUTSIDE RECORDS SUMMARY | 2025-02-21 10:19 | XMS_ITS | Clinical Summary ---
Author Organization [facility] Address [address] [place] [address] Phone Care Team Providers Care Casket Assembler Metal Name Role Phone Unavailable Primary Care Provider [...] not taking.Reason: Has to be ordered by [facility], Reported on 10/18/2016 insulin aspart (NOVOLOG) 100 [...] Last Done Comments Annual Wellness Exam 12/26/1983 Diabetic Eye Exam 1998 Kidney Health: uACR 1998 DTaP/TDaP/Td (1 - Tdap) 12/26/1999 Hepatitis [...] EDT) Sodium 139 136 - 145 mmol/L [facility] Potassium 4.2 3.5 - 5.0 mmol/L [facility] Chloride 105 98 - 107 mmol/L [facility] Total CO2 20(L) 22 - 29 mmol/L [facility] Anion Gap 14 7 - 16 mmol/L [facility] Calcium 9.3 8.6 - 10.2 mg/dL [facility] Glucose Lvl 71(L) 74 - 100 mg/dL [facility] BUN 19 6 - 20 mg/dL [facility] Creatinine 1.26 0.51 - 1.30 mg/dL [facility] GFR Afr Am 58 [facility] GFR Non Afr Am 48 [facility] Blood specimen (specimen) UPPER LIMB STRUCTURE / Unknown 10/11/2016 6:13 AM EDT 10/11/2016 6:25 AM EDT Allyson Limon MD CHEMISTRY ORDERABLES Edited Resu lt - Final [facility] [address] [facility] [place] [address] * (ABNORMAL) TRIGLYCERIDES (09/26/2016 11:35 AM EDT) Triglyceride 292(H) <=150 mg/dL [facility] Comment: < 150 Normal 150 - 199 Borderline High 200 - 499 High >= 500 Very High Blood specimen (specimen) 09/26/2016 11:35 AM EDT 09/26/2016 2:37 PM EDT us Zoila Castro MD CHEMISTRY ORDERABLES Final Res ult Performing Organization Address [facility] de Phone Number [facility] [address] [place] [address] * (ABNORMAL) HEMOGLOBIN A1C (09/26/2016 6:30 AM EDT) Hgb A1c 12.1(H) <=7.0 % [facility] Comment: Reference Interval for Hgb A1c Hgb A1c Interpretation < 6.0 Non-Diabetic Range 6.0 - 7.0 ADA Therapeutic Target > 7.0 Action suggested Blood specimen (specimen) UPPER LIMB STRUCTURE / Unknown 09/26/2016 6:30 AM EDT 09/26/2016 8:33 AM EDT us Jamir Santos MD CHEMISTRY ORDERABLES Final Re sult Performing Organization Address [facility] de Phone Number [facility] [address] [place] [address] from Last 3 Months or Most Recently Relevant to Health Maintenance Additional Health Concerns Infection Onset Date Last Indicated MRSA Comment:09/26/16 09/27/2016 09/27/2016 Insurance COMMERCIAL GENERIC MEDICAID [place] Advance Directives For more information, please contact: [phone] * Full Code (Latest Code Status on File) Date Activated Date Inactivated Comments 09/26/2016 8:38 AM 10/11/2016 7:15 PM
--- OUTSIDE RECORDS SUMMARY | 2025-02-21 10:19 | XMS_ITS | Encounter Summary ---
Author Organization [facility] Address [address] [place] [address] Care Team Providers Care Inspector Set Up And Lay Out Name Role Phone Korina Gutierrez MD Primary Care Provider +1- [phone] Reason for Visit * Reason Onset Date Comments Med Management 01/14/2025 glucose Encounter Details Date Type Department Care Team (Late st Contact Info) Description 01/14/2025 Telephone [facility] MATERNAL MEDICINE 1700 [facility] [address] [place] [address] Erika Porras, RN Med Management [...] send that log in later tonight via Medopad[employer]. documented in this encounter Plan of Treatment Upcoming Encounters Date Type Department Care Team (Late st Contact Info) Description 03/14/2025 10:45 AM EDT Office Visit [facility] MATERNAL MEDICINE 1700 [facility] [address] [place] [address] 03/14/2025 10:45 AM EDT Appointment [facility] US PER DIAG CTR [address] [place] [address] documented as of this encounter Goals Goal Patient Goal Type Associated Problems Recent Progress Patient-Stated? Author Consistently take medications as prescribed General No Melisa Castle PharmD HEMOGLOBIN A1C < 7 Result Component No Melisa Castle PharmD documented as of this encounter Visit Diagnoses Not on filedocumented in this encounter Care Teams Inspector Set Up And Lay Out Relationship Specialty Start Date End Date Korina Gutierrez MD [address] [place] [address] PCP - General Internal Medicine 09/28/20 documented as of this encounter
--- OUTSIDE RECORDS SUMMARY | 2025-02-21 10:19 | XMS_ITS | Clinical Summary ---
Author Organization [facility] Address [address] [place] [address] Care Team Providers Care Mysql Database Administrator Name Role Phone Virginia Zeny Wilson APRN Primary Care Provider Reyna Lopez Unavailable Allergies Active Allergy Reactions Criticality Noted Date [...] time each day. Active Continuous Blood Gluc Community Worker (Dexcom G6 receiver dispatcher) device See administration instructions. see package 04/01/20 21 Active Continuous Blood Gluc Transmit (Dexcom G6 transmitter) misc 03/19/20 21 Active Lantus 100 UNIT/ML injection INJECT 25 UNIT(S) TWICE A DAY BY SUBCUTANEOUS ROUTE FOR 30 DAYS. 11/24/19 21 Active insulin regular (HumuLIN R U-500 KWIKPEN) 500 UNIT/ML CONCENTRATED injection Sliding scale 01/16/20 20 Active Lancets (OneTouch Delica Plus [id number]) [facility] TEST BLOOD SUGAR FOUR TIMES A DAY [...] injection pen 06/12/20 23 Active Omnipod 5 [id number] Pods Gen 5 (Omnipod5) [facility] 1 each every other day. 15 each [...] CBC W/O Differential; Future Ambulatory Referral to [facility] Insulin Pump Education; Future Opioid use disorder, [...] Description 12/17/2024 8:30 AM EDT Clinical Support [facility] Diabetes Education [address] [place] [address] Radha Figueroa Type 1 diabetes mellitus without complication (Primary Dx) 12/17/2024 Orders Only [facility] Endocrinology [address] [place] [address] Layla Monique, PharmD, CDE Type 1 diabetes mellitus without complication (Primary Dx) 12/17/2024 Travel 12/11/2024 3:00 PM EDT Education [facility] Diabetes Education [address] [place] [address] Reyna Lopez Pre-existing type 1 diabetes mellitus, in , second trimester (Primary Dx) 12/11/2024 Travel 12/05/2024 3:15 PM EDT Office Visit [facility] OBGYN [address] , [address] [place] [address] Eva Belcher MD Supervision of high risk , antepartum (Primary Dx); Type 1 diabetes mellitus with hyperglycemia ([facility]) 12/05/2024 Travel 11/21/2024 Orders Only Medical Office Building Obstetrics and Gynecology [address] [facility], [address] [place] [address] Reyna Herbert, RN Pre-existing type [...] 12/05/2024 2:58 PM EDT Plan of Treatment Upcoming Encounters Date Type Department Care Team (Late st Contact Info) Description 02/25/2025 1:00 PM EDT Education [facility] Diabetes Education [address] [place] [address] Reyna Harvey RN [address] [place] [address] Health Maintenance Due Date Last Done Comments [...] 01/08/2024 07/11/2023, 09/12/2020, 09/11/2020, Additional history exists [id number] Vaccine (1 - 2023- season) 2024 UKY-Influenza Vaccine (#1) [...] Ketones, Urine Trace(A) Negative mg/dL POCT Specific [place], Urine 1.025 POCT Blood, Urine Negative Negative POCT pH, Urine 6.0 5.0 to 8.0 POCT Protein, Urine 30(A) Negative mg/dL POCT Urobilinogen, Urine 1 0.2, 1 E.U./dL POCT Nitrite, Urine Negative Negative POCT Leukocyte Esterase, Urine Negative Negative Test Strip Lot Number [id number] Test Strip Lot Expiration 08/17/2025 Urine Urine specimen obtained by clean catch procedure / Unknown 12/05/2024 3:06 PM EDT us Eva Belcher MD POINT OF CARE TEST ENTER/ED IT ORDERABLES Final Result * HIV 1 & 2 Antibody/Antigen Screen (05/04/2021 10:25 AM EDT) [facility] HIV 1 & 2 Antibody/Anti gen Screen Nonreactive Nonreactive 05/04/2021 1:48 PM EDT [facility] Blood Venous blood specimen / Unknown Venipuncture / Unknown 05/04/2021 10:25 AM EDT 05/04/2021 10:25 AM EDT Sara Craig CAR RENTAL SERVICE ATTENDANT LAB BLOOD ORDERABLES Final Result [facility] [address] [place] [address] * (ABNORMAL) Hemoglobin A1c (04/08/2020 3:50 AM EDT) Hemoglobin A1c 10.8(H) 4.7 - 6.0 % [facility] Comment: Glycohemoglobin Reference Range, 0 years and up: 4.7 to 6.0% . HA1C Interpretive Data: Diagnosis of Diabetes: Diabetic > or = 6.5% Pre-diabetic 5.7 to 6.4% Non-diabetic < or = 5.6% . Glycemic Targets for Type I and Type II Diabetics: Non- Adults <7.0% Adults <6.0% Children and Adolescents <7.5% . Source: [place] [employer]. Standards of medical care in diabetes, 2017. Diabetes Care.2017:40 (suppl 1):S1-S135. . HbA1c assay performed by an ion-exchange chromatography method that is certified traceable to the DCCT. 04/08/2020 3:50 AM EDT 04/08/2020 5:51 AM EDT us Mona Chance MD LAB BLOOD ORDERABLES Final Resul t [facility] from Last 3 Months or Most Recently Relevant to Health Maintenance Insurance [employer] MEDICA[employer] Care Teams Mysql Database Administrator Relationship Specialty Start Date End Date Zeny Coleman APRN PCP - General 11/27/20 Reyna Lopez [address] [address] Registered Nurse 12/11/24
--- OUTSIDE RECORDS SUMMARY | 2025-02-21 10:19 | XMS_ITS | Clinical Summary ---
Author Organization [facility] Address [address] [place] [address] Care Team Providers Care Career Orientation Teacher Name Role Phone Korina Gutierrez MD Primary Care Provider [phone] Allergies Active Allergy Reactions Criticality Noted Date [...] Nausea and Vomiting Active Continuous Blood Gluc Brace End Mainspring Former (Dexcom G6 Brace End Mainspring Former) device 1 each Continuous. 1 each 023 [...] Active vitamin D (ERGOCALCIFER OL) 1.25 MG (84042 UT) capsule capsule Take 1 capsule by [...] insulin pump and needs education through the [facility] before she can start that. We are [...] Encounters Date Type Department Care Team Description 02/20/2025 Telephone [facility]IC[facility] [address] [facility] [address] [place] [address] Kirsten Sim RN Advice Only 02/13/2025 3:00 PM EDT Office Visit [facility] [address] [facility] [address] [place] [address] Denise Lopez MD Type 1 diabetes mellitus with hyperglycemia (Primary Dx) 02/13/2025 2:29 PM EDT - 02/13/2025 11:59 PM EDT Hospital Encounter [facility] [address] [place] [address] Reyna Kent DO Discharge Disposition: Home or Self Care 02/13/2025 Travel 02/10/2025 Telephone [facility]IC[facility] [address] [facility] [address] [place] [address] Kirsten Sim RN Advice Only 02/06/2025 Medication Therapy Management [facility] [address] [facility] [address] [address] [place] [address] Eva Belcher MD 01/30/2025 Medication Therapy Management [facility] MAT[facility] MEDIC[facility] [address] [facility] [address] [address] [place], [place] [phone] Eva Belcher MD 01/22/2025 Medication Therapy Management [facility] MAT[facility]NAL MEDICINE [address] [facility] [address] [address] [place], [place] [address] Eva Belcher MD 01/15/2025 Telephone [facility] MAT[facility]NAL MEDICINE [address] [facility] [address] [address] [place], [place] [phone] Erika Porras, RN 01/14/2025 Telephone [facility] MEDICINE [address] [facility] [address] [address] [place] [address] Erika Porras, RN Med Management (glucose) 01/09/2025 9:15 AM EDT Office Visit [facility] MAT[facility]NAL MEDICINE [address] [facility] [address] [place] [phone] Nilson Figueroa MD Type 1 diabetes mellitus with hyperglycemia (Primary Dx); Antepartum multigravida of advanced maternal age; , unspecified gestational age 0601/09/2025 8:48 AM EDT - 01/09/2025 11:59 PM EDT Hospital Encounter [facility] [address] [place] [address] Reyna Kent DO Discharge Disposition: Home or Self Care 01/09/2025 Travel 12/30/2024 Medication Therapy Management [facility] [address] [facility] [address] [place] [address] Nelson Staley MD 12/26/2024 Medication Therapy Management [facility] MAT[facility]NAL MEDICINE [address] [facility] [address] [place] [address] Eva Belcher MD 12/17/2024 Medication Therapy Management [facility] MAT[facility]NAL MEDICINE [address] [facility] [address] [place], [place] [phone] Eva Belcher MD 12/12/2024 9:45 AM EDT Office Visit [facility] MATERNAL MEDICINE [address] [facility] [address] [place] [address] Nelson Staley MD Antepartum multigravida of advanced maternal age (Primary Dx); Type 1 diabetes mellitus with hyperglycemia 12/12/2024 9:18 AM EDT - 12/12/2024 11:59 PM EDT Hospital Encounter [facility] [address] [place] [address] Nilson Figueroa MD Type 1 diabetes mellitus with hyperglycemia; Antepartum multigravida of advanced maternal age; , unspecified gestational age Discharge Disposition: Home or Self Care 12/12/2024 Travel 12/11/2024 Medication Therapy Management [facility] [address] [facility] [address] [place], [place] [phone] Eva Belcher MD 12/02/2024 Telephone [facility] MAT[facility]NAL MEDICINE [address] [facility] [address] [place] [address] Kirsten Sim irrigation equipment installer Only 12/02/2024 Medication Therapy Management [facility] MAT[facility]NAL MEDICINE [address] [facility] [address] [place] [address] Eva Belcher MD 11/28/2024 Medication Therapy Management [facility] MAT[facility]NAL MEDICINE [address] [facility] [address] [place] [address] Eva Belcher MD 11/21/2024 Medication Therapy Management [facility] MATERNAL MEDICINE [address] [facility] [address] [place] [address] Eva Belcher MD 11/21/2024 Telephone [facility] MAT[facility]NAL MEDICINE [address] [facility] [address] [address] [place] [address] Kirsten Sim RN Advice Only from Last 3 Months Family History Medical [...] [facility] [facility] [address] [place] [address] 03/14/2025 10:45 AM EDT Appointment [facility] [address] [place] [address] Health Maintenance Due Date Last Done Comments [...] Name Priority Date/Time Associated Diagnosis Comments [facility] Routine 02/13/2025 3:13 PM EDT Antepartum multigravida of advanced maternal age Type 1 diabetes mellitus with hyperglycemia [facility] Routine 01/09/2025 9:58 AM EDT Antepartum multigravida of advanced maternal age Type 1 diabetes mellitus with hyperglycemia [facility] Routine 12/12/2024 10:22 AM EDT Type 1 diabetes mellitus with hyperglycemia Antepartum multigravida of advanced maternal age , unspecified gestational age HEPATITIS PANEL, ACUTE STAT 03/20/2021 1:04 AM EDT from Last 3 Months or Most Recently Relevant to Health Maintenance Results * [facility] (02/13/2025 3:13 PM EDT) Only the most recent of3 resultswithin the time period is included. Anatomical Region Laterality Modality Ultrasound 02/13/2025 2:47 PM EDT Narrative 02/18/2025 1:20 PM EDT PAT NAME: MARC FELICIANO MED REC#: [id number] DA: [id number] PAT GEND: F PAT TYPE: O EXAM PHYLLIS: [id number] REF PHYS REYNA KENT Comparison Studies The [...] EFW (oz) 6 oz EFW by: Hadlock ([id number]) Extended Cav. septi pel. tr 8.1 mm Disease And Insect Control Boss 4.5 mm CM 5.4 mm 11% Nicolaides [...] Normal Heart / Thorax 3-vessel view: Normal 7-hlowhp-wtnltpp view: normal Cord insertion: Normal Stomach: Appears [...] movements 2: tone 2: Amniotic fluid volume 8 Biophysical profile score Impression Today's exam reveals a SIUP in cephalic presentation with biometry consistent with dates. Limited anatomic survey appears normal. The AYLEEN and BPP are normal. Recommendation Follow up 4 weeks Coding ======= Description: 89992-74 Follow Up Ultrasound Description: 82980-49 BPP without NST Evaluation Assistant: Marisol Odonnell RDMS Physician: Denise Lopez MD, FACOG Electronically signed by: Denise Lopez MD, FACOG at: 13:20 Procedure Note Denise Lopez MD - 02/18/2025 PAT NAME: MARC FELICIANO MED REC#: [id number] DA: [id number] PAT GEND: F PAT TYPE: O EXAM PHYLLIS: [id number] REF PHYS REYNA KENT Comparison Studies The findings of this study are compared to the prior ultrasound studydated 01/09/25. Patient Status Outpatient Indication ======== T1DM. AMA. H/O IV drug use. +Hep C. Previous c/s x 2. Vapes. Maternalcerebral palsy. Maternal Assessment Lwlsgb294 cm Height (ft)5 ft Height (in)4 in Jghpvc67 kg Weight (lb)186 lb BMI31.93 kg/m Method ======= Transabdominal ultrasound examination ========= [place] . Number of fetuses: 1 Dating ====== GA by prior [id number] w + 6 d NOHEMI by prior assessment:04/25/2025 Ultrasound examination on:02/13/2025 GA by U/S based upon:AC, BPD, Femur, HC GA by U/S30 w + 3 d NOHEMI by U/S:04/21/2025 Method of dating:Restore dating from previous exam Previous dating:based on stated NOHEMI, selected on 01/09/2025 Agreed ONHEMI of previous datin04/25/2025 Assigned:based on stated NOHEMI, selected on 01/09/2025 Assigned GA29 w + 6 d Assigned NOHEMI:04/25/2025 zxofgj256 d Biometry Standard BPD76.9 mm 30w 6d 69% Hadlock OFD99.6 mm 32w 1d 95% Glendy HC282.2 mm 31w 0d 46% Hadlock Cerebellum tr35.1 mm 29w 2d 23% Hill AC262.0 mm 30w 2d 60% Hadlock Femur56.7 mm 29w 5d 32% Hadlock Iybscol72.5 mm 28w 4d 17% Glendy HC / AC1.08 EFW1,539 g 29w 6d 51% Hadlock EFW (lb)3 lb EFW (oz)6 oz EFW by:Hadlock ([id number]) Extended Cav. septi pel. tr8.1 mm Vp4.5 mm CM5.4 mm 11% Nicolaides Head / Face / Neck Cephalic index0.77 29% Nicolaides Extremities / Bony Struc FL / BPD0.74 FL / HC0.20 FL / AC0.22 Other Structures FQN277 bpm General Evaluation Cardiac activity present. FHR [...] LVOT view:Normal Heart / Thorax 3-vessel view:Normal 0-zkktas-arlzmwj view:normal Cord insertion:Normal Stomach:Appears normal Kidneys:Appears normal [...] Follow Up Ultrasound Description: BPP without NST Evaluation Assistant: Marsiol Odonnell RDMS Physician: Denise Lopez MD, FACOG Electronically signed by: Denise Lopez MD, FACOG at: 13:20 Nelson Staley MD [facility] ORDERABLES Final Result * (ABNORMAL) Hepatitis Panel, Acute (03/20/2021 1:04 AM EDT) Hepatitis B Surface Ag Non-Reacti ve Non-Reacti ve 03/20/2021 1:43 AM EDT [facility] Hep A IgM Non-Reacti ve Non-Reacti ve 03/20/2021 1:43 AM EDT [facility] Hep B C IgM Non-Reacti ve Non-Reacti ve 03/20/2021 1:43 AM EDT [facility] Hepatitis C Ab Reactive(A ) Non-Reacti ve 03/20/2021 1:43 AM EDT [facility] Blood Venipuncture / Unknown 03/20/2021 1:04 AM EDT 03/20/2021 1:04 AM EDT Narrative [facility] - 03/20/2021 1:43 AM EDT Results may be falsely decreased if patient taking Biotin. Radames Herbert MD LAB BLOOD ORDERABLES Final Result [facility]
[address] [place] [address], [phone] from Last 3 Months or Most Recently Relevant to Health Maintenance Insurance [facility] Advance Directives * CPR (Attempt to Resuscitate) (Latest Code Status on File) Date Activated Date Inactivated Comments 03/20/2021 1:51 AM 03/23/2021 3:45 PM Question Answer Comments Code Status (Patient has no pulse and is not breathing): CPR (Attempt to Resuscitate) Medical Interventions (Patie nt has pulse or is breathing): Full Level Of Support Discussed With: Patient Care Teams Career Orientation Teacher Relationship Specialty Start Date End Date Korina Gutierrez MD [address] [place] [address] PCP - General Internal Medicine 09/28/20
--- OUTSIDE RECORDS SUMMARY | 2025-02-21 10:19 | XMS_ITS | Encounter Summary ---
Author Organization [facility] Address [address] [place] [address] Care Team Providers Care Brake Engineer Name Role Phone Korina Gutierrez MD Primary Care Provider [phone] Reason for Visit * Reason Onset Date Comments Advice Only 02/20/2025 Encounter Details Date Type Department Care Team (Late st Contact Info) Description 02/20/2025 Telephone [facility] MATERNAL MEDICINE [address] [facility] [address] [place] [address] Kirsten Sim, automotive parts person Only Social History Tobacco Use Types Packs/Day [...] Telephone Encounter - Kirsten Sim RN - 02/20/2025 10:07 AM EDT Spoke with patient over the phone. Informed patient that DR. Belcher has reviewed her blood sugardata but really needs to know exactly how much insulin she is taking. Requested patient enter in her insulin dosages in the dexcom briana after each injection. Explained to patient since she is basing her fast acting insulin dosage on the amount of carbs she consumes we really need to see that information. Also educated patient of new feature with the dexcom briana. She can take a photo of her meals and the briana will list what she eats. Patient is agreeable. Informed we would run data again on Monday02/24/25. Kirsten Sim RN documented in this encounter Plan of Treatment Upcoming Encounters Date Type Department Care Team (Late st Contact Info) Description 03/14/2025 10:45 AM EDT Office Visit [facility] MATERNAL MEDICINE [address] [facility] [address] [place] [address] 03/14/2025 10:45 AM EDT Appointment [facility] [address] [place] [address] documented as of this encounter Goals Goal Patient Goal Type Associated Problems Recent Progress Patient-Stated? Author Consistently take medications as prescribed General No Melisa Castle PharmD HEMOGLOBIN A1C < 7 Result Component No Melisa Castle PharmD documented as of this encounter Visit Diagnoses Not on filedocumented in this encounter Care Teams Brake Engineer Relationship Specialty Start Date End Date Korina Gutierrez MD [place] [address] PCP - General Internal Medicine 09/28/20 documented as of this encounter
--- OUTSIDE RECORDS SUMMARY | 2025-02-21 10:19 | XMS_ITS | Encounter Summary ---
Author Organization [facility] Address [address] [place] [address] Care Team Providers Care Pet Training Instructor Name Role Phone Korina Gutierrez MD Primary Care Provider [phone] Encounter Details Date Type Department Care Team (Late Contact Info) Description 01/15/2025 Telephone [facility] MATERNAL MEDICINE [address] [facility] [address] [place] [address] Erika Porras, RN Social History [...] Telephone Encounter - Erika Porras, RN - 01/15/2025 8:55 AM EDT Sent my chart message again after unable to reach pt by phone documented in this encounter Plan of Treatment Upcoming Encounters Date Type Department Care Team (Late Contact Info) Description 03/14/2025 10:45 AM EDT Office Visit [facility]ERNAL MEDICINE [address] [facility] [address] [address] [place] [address] 03/14/2025 10:45 AM EDT Appointment [facility] [address] [place] [address] documented as of this encounter Goals Goal Patient Goal Type Associated Problems Recent Progress Patient-Stated? Author Consistently take medications as prescribed General No Melisa Castle PharmD HEMOGLOBIN A1C < 7 Result Component No Melisa Castle PharmD documented as of this encounter Visit Diagnoses Not on filedocumented in this encounter Care Teams Pet Training Instructor Relationship Specialty Start Date End Date Korina Gutierrez [place] [address] PCP - General Internal Medicine 09/28/20 documented as of this encounter
[2025-02-21 10:52] LABS: Hematocrit 33.7 % (37.0-47.0); Hemoglobin 11.3 g/dL (12.2-16.2); Immature Granulocytes % 0.3 %; Mean Corpuscular HGB Conc 33.5 g/dL (31.8-35.4); Mean Corpuscular Hemoglobin 30.1 pg (27.0-31.2); Mean Corpuscular Volume 89.6 fl (81-99); Nucleated Red Blood Cells % 0 %; Platelet Count 223 K/mm3 (142-424); Red Blood Count 3.76 M/mm3 (4.20-5.40); Red Cell Distribution Width-SD 41.5 fL; White Blood Count 9.9 K/mm3 (4.8-10.8)
[2025-02-21] MEDS: RHO(D) IMMUNE GLOBULIN 1,500 UNIT (300MCG) SYRINGE 300 MCG IM (11:52)
[2025-02-21 11:54] VITALS: BP 135/70; PULSE 90; RESP 18; O2SAT 98
[2025-02-21 14:31] LABS: RPR W/RFX Titers Nonreactive (Nonreactive)
== END 2025-02-21 11:54 | disposition home or self-care (01) ==
LOC: LAB 10:15 → INF 10:16
PROVIDERS: PCP Internal Medicine; Visit Provider Nurse Practitioner Obstetrics & Gynecology
DX: O26.899 Other specified pregnancy related conditions, unspecified trimester (principal); Z3A.00 Weeks of gestation of pregnancy not specified; Z67.91 Unspecified blood type, Rh negative
CPT/HCPCS: 36415; 85025; 86592; 96372; J2790

== ENCOUNTER 2025-03-24 12:20 | Outpatient (CLI) | payer OTHER, SELFPAY ==
--- OUTSIDE RECORDS SUMMARY | 2025-02-13 14:29 | XMS_ITS | Encounter Summary ---
Author Organization [facility] Address [address] [place] [address] Care Team Providers Care Pile Driver Operator Name Role Phone Korina Gutierrez MD Primary Care Provider +1- [phone] Reason for Visit * Diagnostic Imaging (Routine) - Closed Specialty Diagnoses / Procedures Referred By Ducac t Referred To Contact Radiology Diagnoses Antepartum multigravida of advanced maternal age Type 1 diabetes mellitus with hyperglycemia Procedures Counts include 234 beds at the [facility] Staley, Nelson Thorpe MD [address] [place] [address] Phone: tel: fax: Referral ID Status Reason Start Date Expiration Date Visits Re quested Visits Authorized [id number] Closed 12/12/2024 03/13/2026 4 4 Encounter Details Date Type Department Care Team (Latest Contact Info) Description 02/13/2025 2:29 PM EDT - 02/13/2025 11:59 PM EDT Hospital Encounter [facility] US PER DIAG CTR [address] [place] [phone] Reyna Kent DO 1210 [facility] [address] [id number] Discharge Disposition: Home or Self Care Social [...] by mouth Daily. 11/06/2024 Continuous Blood Gluc Chemical Engineer (Dexcom G6 Chemical Engineer) device 1 each Continuous. 1 each 09/21/2022 [...] Daily. 10/21/2024 vitamin D (ERGOCALCIFEROL) 1.25 MG (57878 UT) capsule capsule Take 1 capsule by mouth 1 (One) Time Per Week. 10/11/2024 documented as of this encounter Plan of Treatment Upcoming Encounters Date Type Department Care Team (Late st Contact Info) Description 03/28/2025 10:00 AM EDT Appointment [facility] LABOR AND DELIVERY PROCEDURES [address] [place] [address] 03/31/2025 10:30 AM EDT Hospital Encounter [facility] LABOR DELIVERY [address] [place] [address] Jose Maria Mcgarry MD [address] [address] 03/31/2025 10:30 AM EDT - 03/31/2025 11:30 AM EDT Surgery [facility] LABOR DELIVERY [address] [place] [address] Jose Maria Mcgarry MD [address] [address] SECTION REPEAT WITH SALPINGECTOMY Scheduled Procedures Name Priority Associated Diagnoses Date/Ti me SECTION REPEAT WITH SALPINGECTOMY 03/31/2025 10:30 AM EDT documented as of this encounter Goals Goal Patient Goal Type Associated Problems Recent Progress Patient-Stated? Author Consistently take medications as prescribed General No Melisa Castle, Donovan HEMOGLOBIN A1C < 7 Result Component No Melisa Castle PharmD documented as of this encounter Procedures Procedure Name Priority Date/Time Associated Diagnosis Comments [facility] Routine 02/13/2025 3:13 PM EDT Antepartum multigravida of advanced maternal age Type 1 diabetes mellitus with hyperglycemia documented in this encounter Results * [facility] Diagnostic Center (02/13/2025 3:13 PM EDT) Anatomical Region Laterality Modality Ultrasound 02/13/2025 2:47 PM EDT Narrative 02/18/2025 1:20 PM EDT PAT NAME: MARC FELICIANO MED REC#: [id number] DA: [id number] PAT GEND: F PAT TYPE: O EXAM PHYLLIS: [id number] REF PHYS REYNA KENT Comparison Studies The [...] EFW (oz) 6 oz EFW by: Hadlock (LIR-MC-PB-FL) Extended Cav. septi pel. tr 8.1 mm Retail Cosmetics Sales Beauty Advisor 4.5 mm CM 5.4 mm 11% Nicolaides [...] Normal Heart / Thorax 3-vessel view: Normal 7-idlkcq-zwbykkh view: normal Cord insertion: Normal Stomach: Appears [...] Follow up 4 weeks Coding ======= Description: 22985-09 Follow Up Ultrasound Description: 73295-24 BPP without NST Wall And Floor Tiler: Marisol Odonnell RDMS Physician: Denise Lopez MD, FACOG Electronically signed by: Denise Lopez MD, FACOG at: 13:20 Procedure Note Denise Lopez MD - 02/18/2025 PAT NAME: MARC FELICIANO MED REC#: [id number] DA: [id number] PAT GEND: F PAT TYPE: O EXAM PHYLLIS: [id number] REF PHYS REYNA KENT Comparison Studies The findings of this study are compared to the prior ultrasound studydated 01/09/25. Patient Status Outpatient Indication ======== T1DM. AMA. H/O IV drug use. +Hep C. Previous c/s x 2. Vapes. Maternalcerebral palsy. Maternal Assessment Kohkqg373 cm Height (ft)5 ft Height (in)4 in Aqgyqe28 kg Weight (lb)186 lb BMI31.93 kg/m Method ======= Transabdominal ultrasound examination ========= Guthrie . Number of fetuses: 1 Dating ====== GA by prior [id number] w + 6 d NOHEMI by prior [...] GA29 w + 6 d Assigned NOHEMI:04/25/2025 [id number] d Biometry Standard BPD76.9 mm 30w 6d 69% Hadlock OFD99.6 mm 32w 1d 95% Glendy HC282.2 mm 31w 0d 46% Hadlock Cerebellum tr35.1 mm 29w 2d 23% Hill AC262.0 mm 30w 2d 60% Hadlock Femur56.7 mm 29w 5d 32% Hadlock Augnibd70.5 mm 28w 4d 17% Glendy HC / AC1.08 EFW1,539 g 29w 6d 51% Hadlock EFW (lb)3 lb EFW (oz)6 oz EFW by:Hadlock (OQJ-CC-HV-FL) Extended Cav. septi pel. tr8.1 mm Vp4.5 mm CM5.4 mm 11% Nicolaides Head / Face / Neck Cephalic index0.77 29% Nicolaides Extremities / Bony Struc FL / BPD0.74 FL / HC0.20 FL / AC0.22 Other Structures JHM528 bpm General Evaluation Cardiac activity present. FHR [...] LVOT view:Normal Heart / Thorax 3-vessel view:Normal 2-xdzjlg-cptrklk view:normal Cord insertion:Normal Stomach:Appears normal Kidneys:Appears normal [...] Recommendation Follow up 4 weeks Coding ======= Description:15897-33 Follow Up Ultrasound Description:75808-30 BPP without NST Wall And Floor Tiler: Marisol Odonnell RDPA Physician: Denise Lopez MD, FACOG Electronically signed by: Denise Lopez MD, FACOG at: 13:20 Nelson Staley MD IMG US ORDERABLES Final Result documented in this encounter Visit Diagnoses Not on filedocumented in this encounter Care Teams Pile Driver Operator Relationship Specialty Start Date End Date Korina Gut[place] [place] [address] PCP - General Internal Medicine 09/28/20 documented as of this encounter
--- OUTSIDE RECORDS SUMMARY | 2025-02-13 15:00 | XMS_ITS | Encounter Summary ---
Author Organization [facility] Address [address] [place] [address] Care Team Providers Care Shipmaster Name Role Phone Korina Gutierrez MD Primary Care Provider +1- [phone] Reason for Visit * Reason Comments T1DM, AMA, hx C/S, hx drug use, Hep C, v apes, mat. CP Encounter Details Date Type Department Care Team (Late st Contact Info) Description 02/13/2025 3:00 PM EDT Office Visit [facility] MATERNAL MEDICINE [address] [address] Denise Lopez MD [address] [place] [id number] Type 1 diabetes mellitus with hyperglycemia (Primary Dx) Social History Tobacco Use Types Packs/Day Years [...] documented in this encounter Progress Notes * Brynn Reynoso RN - 02/13/2025 3:00 PM EDT Denies vaginal bleeding, leaking fluid. Patient reports occasional Matt-Morris contractions. States rest helps. Endorses normal movement. NIPT negative. Next OB follow-up appointment with Dr. Porras today. * Denise Lopez MD - 02/13/2025 3:00 PM EDT Patient seen in [facility] Center today for ultrasound. Please see ultrasound report under imaging tab of patient chart in [facility] (Viewpoint report). Denise Lopez MD documented in this encounter Plan of Treatment Upcoming Encounters Date Type Department Care Team (Late st Contact Info) Description 03/28/2025 10:00 AM EDT [facility]ointment [facility] DELIVERY PROCED[facility] [address] [place] [address] 03/31/2025 10:30 AM EDT Hospital Encounter [facility] [address] [place] [address] Jose Maria Mcgarry MD [address] [place] [address] 03/31/2025 10:30 AM EDT - 03/31/2025 11:30 AM EDT Surgery [facility] [address] [place] [address] Jose Maria Mcgarry MD [address] [place] [address] SECTION REPEAT WITH SALPINGECTOMY Scheduled Procedures Name Priority Associated Diagnoses Date/Ti me SECTION REPEAT WITH SALPINGECTOMY 03/31/2025 10:30 AM EDT documented as of this encounter Goals Goal Patient Goal Type Associated Problems Recent Progress Patient-Stated? Author Consistently take medications as prescribed General No Melisa Castle, PharmD HEMOGLOBIN A1C < 7 Result Component No Melisa Castle PharmD documented as of this encounter Visit Diagnoses Diagnosis Type 1 diabetes mellitus with hyperglycemia- Primary documented in this encounter Care Teams Shipmaster Relationship Specialty Start Date End Date Korina Gutierrez [place] [address] PCP - General Internal Medicine 09/28/20 documented as of this encounter
--- OUTSIDE RECORDS SUMMARY | 2025-02-25 13:00 | XMS_ITS | Encounter Summary ---
Author Organization [facility] Address [address] [place] [address] Care Team Providers Care Value Analysis Coordinator Name Role Phone eRyna Lopez Unavailable [phone] Andre Roque DO Primary Care Provider [phone] Reason for Visit * Reason Comments Diabetes Mellitus * Consultation (Routine) - Closed Specialty Diagnoses / Procedures Referred By Contgear t Referred To Contact Endocrinology Diagnoses Type 1 diabetes mellitus without complication Eva Belcher MD [address] [facility] [address] [place] [address] Phone: tel: fax: [facility] Diabetes Education [address] [place] [address] Phone: tel: fax: Referral ID Status Reason Start Date Expiration Date Visits Re quested Visits Authorized [id number] Closed 12/17/2024 06/18/2026 1 1 Encounter Details Date Type Department Care Team ([facility] st Contact Info) Description 02/25/2025 1:00 PM EDT Education [facility] Diabetes Education [address] [place] [address] Reyna Harvey RN [address] [facility] [address] [place] [address] Social History Tobacco Use Types Packs/Day Years Used Date Smoking Tobacco: Former Cigarettes 1 20 Passive Smoke Exposure: Never Smokeless Tobacco: Never Alcohol Use Standard Drinks/Week [...] as of this encounter Miscellaneous Notes * Progress Notes - Reyna Harvey RN - 02/25/2025 1:00 PM EDT No charge visit Patient arrived for insulin pump training today. She has not picked up her pump intro kit. She saw Dr Belcher once at [facility]. He other care has been at [facility] high [facility] vice principal. Pump wasordered early December. Discussed with pharmacist Layla with [facility]. Discussed patients doses (unable to see notes from [facility]). Due to TDD being greater that 200 units/day and weeks of gestation, will revisit pump therapy after she delivers. Layla will contact [facility] to f/u with patients BG readings (dexcom connected to their clinic) and her insulin doses. documented in this encounter Plan of Treatment Not on file documented as of this encounter Visit Diagnoses Not on filedocumented in this encounter Additional Health Concerns Assessment Noted Time A fall risk assessment has been complete d for the patient 05/03/2021 1:56 PM EDT A Body Mass Index follow-up plan has been documented for the patient 12/17/2024 10:40 AM EDT documented as of this encounter Care Teams Value Analysis Coordinator Relationship Specialty Start Date End Date Andre Roque DO [address] [facility] [address] [place] [id number] PCP - General 02/25/25 Reyna Lopez [address] [facility] [address] [place] [address] Registered Nurse 12/11/24 documented as of this encounter
--- OUTSIDE RECORDS SUMMARY | 2025-03-14 09:53 | XMS_ITS | Encounter Summary ---
Author Organization [facility] Address [address] [place] [address] Care Team Providers Care Customer Engagement Manager Name Role Phone Korina Gutierrez MD Primary Care Provider +1- [phone] Reason for Visit * Diagnostic Imaging (Routine) - Closed Specialty Diagnoses / Procedures Referred By Ducac t Referred To Contact Radiology Diagnoses Antepartum multigravida of advanced maternal age Type 1 diabetes mellitus with hyperglycemia Procedures [facility] Staley, Nelson Thorpe MD [address] [place] [address] Phone: tel: fax: Referral ID Status Reason Start Date Expiration Date Visits Re quested Visits Authorized Closed 12/12/2024 03/13/2026 4 4 Encounter Details Date Type Department Care Team (Latest Contact Info) Description 03/14/2025 9:53 AM EDT - 03/14/2025 11:59 PM EDT Hospital Encounter [facility] US PER DIAG CTR [address] [place] [address] Reyna Kent DO [address] [facility] [address] [id number] Discharge Disposition: Home or Self Care Social [...] by mouth Daily. 11/06/2024 Continuous Blood Gluc Betting Clerks (Dexcom G6 Betting Clerks) device 1 each Continuous. 1 each 09/21/2022 [...] Daily. 10/21/2024 vitamin D (ERGOCALCIFEROL) 1.25 MG (38020 UT) capsule capsule Take 1 capsule by mouth 1 (One) Time Per Week. 10/11/2024 documented as of this encounter Plan of Treatment Upcoming Encounters Date Type Department Care Team (Late st Contact Info) Description 03/28/2025 10:00 AM EDT Appointment [facility] LABOR AND DELIVERY PROCEDURES [address] [place] [address] 03/31/2025 10:30 AM EDT Hospital Encounter [facility] LABOR DELIVERY [address] [place] [address] Jose Maria Mcgarry MD [address] [address] 03/31/2025 10:30 AM EDT - 03/31/2025 11:30 AM EDT Surgery [facility] LABOR DELIVERY [address] [place] [address] Jose Maria Mcgarry MD [address] [address] SECTION REPEAT WITH SALPINGECTOMY Scheduled Procedures Name [...] Procedure Name Priority Date/Time Associated Diagnosis Comments [facility] Routine 03/14/2025 11:01 AM EDT Antepartum multigravida of advanced maternal age Type 1 diabetes mellitus with hyperglycemia documented in this encounter Results * [facility] (03/14/2025 11:01 AM EDT) Anatomical Region Laterality Modality Ultrasound 03/14/2025 10:2 5 AM EDT Narrative 03/18/2025 10:53 AM EDT PAT NAME: MARC FELICIANO MED REC#: [id number] DA: [id number] PAT GEND: F PAT TYPE: O EXAM PHYLLIS: [id number] REF PHYS REYNA KENT Comparison Studies The findings of this study are compared to the prior ultrasound study dated 02/13/25 Patient Status Outpatient Indication ======== T1DM. AMA. H/O IV drug use. +Hep C. Previous c/s x 2. Vapes. Maternal cerebral palsy. Maternal Assessment Height 163 cm Height (ft) 5 ft Height (in) 4 in Weight 87 kg Weight (lb) 191 lb BMI 32.79 kg/m Method ======= Transabdominal ultrasound examination ========= Guthrie . Number of fetuses: 1 Dating ====== Method of dating: based on stated NOHEMI GA by prior assessment 34 w + 0 d NOHEMI by prior assessment: 04/25/2025 Ultrasound examination on: 03/14/2025 GA by U/S based upon: AC, BPD, Femur, HC GA by U/S 35 w + 0 d NOHEMI by U/S: 04/18/2025 Previous dating: based on stated NOHEMI, selected on 01/09/2025 Agreed NOHEMI of previous datin04/25/2025 Assigned: based on stated NOHEMI, selected on 03/14/2025 Assigned GA 34 w + 0 d Assigned NOHEMI: 04/25/2025 length 280 d Biometry Standard BPD 85.9 mm 34w 4d 66% Hadlock OFD 109.3 mm 36w 1d 89% Glendy HC 311.9 mm 34w 6d 36% Hadlock AC 333.3 mm 37w 2d >99% Hadlock Femur 64.0 mm 33w 0d 18% Hadlock HC / AC 0.94 EFW 2,737 g 35w 5d 87% Hadlock EFW (lb) 6 lb EFW (oz) 1 oz EFW by: Hadlock ([id number]) Extended Wall Mirror Department Supervisor 5.2 mm Head / Face / Neck Cephalic index 0.79 30% Nicolaides Extremities / Bony Struc FL / BPD 0.75 FL / HC 0.21 FL / AC 0.19 Other Structures FHR 169 bpm General Evaluation Cardiac activity present. FHR 169 bpm. movements present. Presentation cephalic. Placenta Placental site: posterior, left. Umbilical cord Cord vessels: 3 vessel cord. Amniotic fluid Amount of AF: normal. MVP 4.1 cm. AYLEEN 12.3 cm. Q1 4.1 cm, Q2 3.6 cm, Q3 2.0 cm, Q4 2.7 cm. Anatomy Cranium: Normal Cavum septi pellucidi: Normal Cerebellum: Normal Cisterna magna: Normal Head / Neck Rt lateral ventricle: Normal Lt lateral ventricle: Normal Lips: Normal Profile: Normal Nose: Normal 4-chamber view: Appears normal RVOT view: Normal LVOT view: Normal Heart / Thorax 3-vessel view: Normal 1-xrqrte-ypueebs view: normal Cord insertion: Normal Stomach: Appears normal Kidneys: Appears normal Bladder: Appears normal Gender: male Wants to know gender: yes Doppler Arterial Umbilical A PI 0.79 32% Alfredo Umbilical A RI 0.54 25% Alfredo Umbilical A PS 53.68 cm/s 70% Ebbing Umbilical A ED 26.56 cm/s Umbilical A TAmax 37.89 cm/s 77% Ebbing Umbilical A MD 24.95 cm/s Umbilical A S / D 2.20 25% Alfredo Umbilical A HR 156 bpm Biophysical Profile 2: breathing movements 2: Gross body movements 2: tone 2: Amniotic fluid volume 8/8 Biophysical profile score Interpretation: normal Impression Marc presents for a follow-up ultrasound to assess interval growth and wellbeing. On today's exam, SIUP is noted in cephalic presentation with biometry demonstrating accelerated growth. EFW overall measures at the 87th percentile. AC measures at the >99th percentile. There is a normal amount of amniotic fluid. Placenta is posterior/left. BPP is 8/8. UA Dopplers are normal. Limited but normal appearing anatomy is visualized. Recommendation Follow-up scheduled in 1wk for AYLEEN/BPP/UA Dopplers. Recommend twice weekly testing until delivery. Recommend admission here for IV insulin drip management of blood sugars at 36wks. Recommend delivery here for NICU capabilities, between 36-37wks. Coding ======= Description: 37177-99 Follow Up Ultrasound Description: 63614-75 BPP with NST Saddle Tree Stitcher: Ary Moe RDMS Physician: Eva Belcher MD Electronically signed by: Eva Belcher MD at: 10:53 Procedure Note Eva Belcher MD - 03/18/2025 PAT NAME: MARC FELICIANO MED REC#: [id number] DA: [id number] PAT GEND: F PAT TYPE: O EXAM PHYLLIS: [id number] REF PHYS REYNA KENT Comparison Studies The findings of this study are compared to the prior ultrasound studydated 02/13/25 Patient Status Outpatient Indication ======== T1DM. AMA. H/O IV drug use. +Hep C. Previous c/s x 2. Vapes. Maternalcerebral palsy. Maternal Assessment [id number] cm Height (ft)5 ft Height (in)4 in Wsfwzu22 kg Weight (lb)191 lb BMI32.79 kg/m Method ======= Transabdominal ultrasound examination ========= Guthrie . Number of fetuses: 1 Dating ====== Method of dating:based on stated NOHEMI GA by prior [id number] w + 0 d NOHEMI by prior assessment:04/25/2025 Ultrasound examination on:03/14/2025 GA by U/S based upon:AC, BPD, Femur, HC GA by U/S35 w + 0 d NOHEMI by U/S:04/18/2025 Previous dating:based on stated NOHEMI, selected on 01/09/2025 Agreed NOHEMI of previous datin04/25/2025 Assigned:based on stated NOHEMI, selected on 03/14/2025 Assigned GA34 w + 0 d Assigned NOHEMI:04/25/2025 [id number] d Biometry Standard BPD85.9 mm 34w 4d 66% Hadlock RJR346.3 mm 36w 1d 89% Glendy HC311.9 mm 34w 6d 36% Hadlock AC333.3 mm 37w 2d >99% Hadlock Femur64.0 mm 33w 0d 18% Hadlock HC / AC0.94 EFW2,737 g 35w 5d 87% Hadlock EFW (lb)6 lb EFW (oz)1 oz EFW by:Hadlock ([id number]) Extended Vp5.2 mm Head / Face / Neck Cephalic index0.79 30% Nicolaides Extremities / Bony Struc FL / BPD0.75 FL / HC0.21 FL / AC0.19 Other Structures FTQ537 bpm General Evaluation Cardiac activity present. FHR 169 bpm. movements present. Presentation cephalic. Placenta Placental site: posterior, left. Umbilical cord Cord vessels: 3 vessel cord. Amniotic fluid Amount of AF: normal. MVP 4.1 cm. AYLEEN 12.3 cm. Q1 4.1 cm,Q2 3.6 cm, Q3 2.0 cm, Q4 2.7 cm. Anatomy Cranium:Normal Cavum septi pellucidi:Normal Cerebellum:Normal Cisterna magna:Normal Head / Neck Rt lateral ventricle:Normal Lt lateral ventricle:Normal Lips:Normal Profile:Normal Nose:Normal 4-chamber view:Appears normal RVOT view:Normal LVOT view:Normal Heart / Thorax 3-vessel view:Normal 6-oyxyzp-ncfjrfr view:normal Cord insertion:Normal Stomach:Appears normal Kidneys:Appears normal Bladder:Appears normal Gender:male Wants to know gender:yes Doppler Arterial Umbilical A PI0.79 32% Alfredo Umbilical A RI0.54 25% Alfredo Umbilical A PS53.68 cm/s 70% Ebbing Umbilical A ED26.56 cm/s Umbilical A TAmax37.89 cm/s 77% Ebbing Umbilical A MD24.95 cm/s Umbilical A S / D2.20 25% Alfredo Umbilical A HR156 bpm Biophysical Profile 2: breathing movements 2: Gross body movements 2: tone 2: Amniotic fluid volume 8/8 Biophysical profile score Interpretation: normal Impression Marc presents for a follow-up ultrasound to assess interval growth andfetal wellbeing. On today's exam, SIUP is noted in cephalic presentation with biometrydemonstrating accelerated growth. EFW overall measures at the 87thpercentile. AC measures at the >99th percentile. There is a normal amount of amniotic fluid.Placenta is posterior/left. BPP is 8/8. UA Dopplers are normal. Limited but normal appearing anatomy is visualized. Recommendation Follow-up scheduled in 1wk for AYLEEN/BPP/UA Dopplers. Recommend twice weekly testing until delivery. Recommend admission here for IV insulin drip management of blood sugars [id number]. Recommend delivery here for NICU capabilities, between 36-37wks. Coding ======= Description:42142-56 Follow Up Ultrasound Description:61178-10 BPP with NST Saddle Tree Stitcher: Ary Moe RDMS Physician: Eva Belcher MD Electronically signed by: Eva Belcher MD at: 10:53 us Nelson Staley MD [facility] ORDERABLES Final Result documented in this encounter Visit Diagnoses Not on filedocumented in this encounter Care Teams Customer Engagement Manager Relationship Specialty Start Date End Date Korina Gutierrez MD [address] [place], [place] [id number] PCP - General Internal Medicine 09/28/20 documented as of this encounter
--- OUTSIDE RECORDS SUMMARY | 2025-03-14 10:45 | XMS_ITS | Encounter Summary ---
Author Organization [facility] Address [address] [place] [address] Care Team Providers Care Permit Review Assistant Name Role Phone Korina Gutierrez MD Primary Care Provider +1- [phone] Reason for Visit * Reason Comments T1DM, AMA, hx C/S, vapes, +Hep C, Mat CP Encounter Details Date Type Department Care Team (Late st Contact Info) Description 03/14/2025 10:45 AM EDT Office Visit [facility] MATERNAL MEDICINE [address] [address] Eva Belcher MD [address] [place] [address] Type 1 diabetes mellitus with hyperglycemia (Primary Dx); Opioid use disorder, severe, dependence; Antepartum multigravida of advanced maternal age; 34 weeks gestation of Social History Tobacco Use Types Packs/Day Years [...] Sign Reading Time Taken Comments Blood Pressure 135/81 03/14/2025 10:15 AM EDT Pulse - - Temperature - - Respiratory Rate - - Oxygen Saturation - - Inhaled Oxygen Concentration - - Weight 87 kg (191 lb 12.8 oz) 03/14/2025 10:15 A M EDT Height - - Body Mass Index 32.41 11/13/2024 1:45 PM EDT documented in this encounter Progress Notes * Eva Belcher MD - 03/18/2025 10:53 AM EDTAssociated Problem(s): Type 1 diabetes mellitus with hyperglycemia Patient is poorly controlled Type 1 DM. She is currently using Lantus 30u BID and Lispro 34-38u with meals. She reports frequent lows overnight and frequent post-meal values that are elevated, but possibly because she is overeating to treat the lows. She does not have a log or her meter with her. She is unable to get the G6 Dexcom. Patient is so poorly controlled, that I recommend inpatient stay with IV insulin drip for several days prior to delivery in hopes of improving outcomes. - Recommend she decrease Lantus to 25u BID and keep her Lispro as is for now - Gave patient a Dexcom G7 and golf manager in hopes of getting some data - We will see her in 1 week for AYLEEN/BPP/UA Dopplers - Recommend inpatient stay here (secondary to IV insulin drop protocol and NICU) starting at 36wks with plan for delivery 36-37wks * Eva Belcher MD - 03/18/2025 10:39 AM EDTAssociated Problem(s): Antepartum multigravida of advanced maternal age S/p low risk NIPT. S/p normal anatomic survey. - Recommend twice weekly testing until delivered - We will see her back in 1 wk for AYLEEN/BPP/UA Dopplers * Brynn Reynoso RN - 03/14/2025 10:45 AM EDT Denies vaginal bleeding, leaking fluid. Patient reports occasional contractions. Endorses normal movement. NIPT negative. Next OB follow-up appointment with Dr. Giles has not yet been scheduled. Patient will call today to set up appointment. * Eva Belcher MD - 03/14/2025 10:45 AM EDT Images from the original note were not included. Maternal/ Medicine Consult Note Name: Mora Feliciano : 1980 Referring Provider: Reyna Kent DO Chief Complaint T1DM, AMA, hx C/S, vapes, +Hep C, Mat CP Subjective History of Present Illness: Mora Feliciano is a 44 y.o. 34w4d who presents today for a follow-up ultrasound. Patient hasbeen lost to care from your office since January. She did not bring any blood glucose data for us to review. She has not bee wearing a CGM. She denies LOF/VB but does have some contractions. +FM. NOHEMI: Estimated Date of Delivery: 04/25/25 ROS: As noted in HPI. Past Medical History: Diagnosis Date Arthritis Cerebral palsy Depression DKA (diabetic ketoacidosis) multiple times, last 04/2024 Hepatitis C took meds Hyperemesis gravidarum resolved Liver disease PTSD (post-traumatic stress disorder) Substance abuse Type 1 diabetes Withdrawal symptoms, drug or narcotic Past Surgical History: Procedure Laterality Date SECTION x2 OB History 5 Para 2 Term 2 0 AB 2 Living 2 SAB 2 IAB 0 Ectopic 0 Molar 0 Multiple 0 Live Births 2 Objective Vital Signs BP 135/81 Wt 87 kg (191 lb 12.8 oz) LMP (LMP Unknown) Estimated body mass index is 32.41 kg/m?? as calculated from the following: Height as of 11/13/24: 163.8 cm (64.5 ). Weight as of this encounter: 87 kg (191 lb 12.8 oz). Physical Exam Constitutional: Appearance: Normal appearance. She is normal weight. HENT: Head: Normocephalic and atraumatic. Cardiovascular: Rate and Rhythm: Normal rate. Pulmonary: Effort: Pulmonary effort is normal. Musculoskeletal: General: Normal range of motion. Cervical back: Normal range of motion and neck supple. Neurological: General: No focal deficit present. Mental Status: She is alert and oriented to person, place, and time. Psychiatric: Mood and Affect: Mood normal. Behavior: Behavior normal. Thought Content: Thought content normal. Judgment: Judgment normal. Ultrasound Impression: Vtx, S>>D, nl AYLEEN, posterior/left placenta, nl anatomy, BPP 8/8, UA Dopplers nl. NST: Indication -- Type 1 DM Duration -- 35mins Outcome -- Reactive Assessment and Plan Diagnoses and all orders for this visit: 1. Type 1 diabetes mellitus with hyperglycemia (Primary) Assessment & Plan: Patient is poorly controlled Type 1 DM. She is currently using Lantus 30u BID and Lispro 34-38u with meals. She reports frequent lows overnight and frequent post-meal values that are elevated, but possibly because she is overeating to treat the lows. She does not have a log or her meter with her. She is unable to get the G6 Dexcom. Patient is so poorly controlled, that I recommend inpatient stay with IV insulin drip for several days prior to delivery in hopes of improving outcomes. - Recommend she decrease Lantus to 25u BID and keep her Lispro as is for now - Gave patient a Dexcom G7 and golf manager in hopes of getting some data - We will see her in 1 week for AYLEEN/BPP/UA Dopplers - Recommend inpatient stay here (secondary to IV insulin drop protocol and NICU) starting at 36wks with plan for delivery 36-37wks Orders: - [facility]; Future 2. Opioid use disorder, severe, dependence - [facility]; Future 3. Antepartum multigravida of advanced maternal age Assessment & Plan: S/p low risk NIPT. S/p normal anatomic survey. - Recommend twice weekly testing until delivered - We will see her back in 1 wk for AYLEEN/BPP/UA Dopplers Orders: - [facility]; Future 4. 34 weeks gestation of - [facility]; Future Follow Up Return in about 1 week (around 03/21/2025). I spent 30 minutes caring for the patient on the [...] other procedures such as amniocentesis or [facility]. Eva Belcher MD 03/14/2025 documented in this encounter Plan of Treatment Upcoming Encounters Date Type Department Care Team (Late st Contact Info) Description 03/28/2025 10:00 AM EDT Appointment [facility] LABOR AND DELIVERY PROCEDURES [address] [place] [address] 03/31/2025 10:30 AM EDT Hospital Encounter [facility] LABOR DELIVERY [address] [facility] [place] [address] Jose Maria Mcgarry MD [address] [address] 03/31/2025 10:30 AM EDT - 03/31/2025 11:30 AM EDT Surgery [facility] LABOR DELIVERY [address] [facility] [place] [address] Jose Maria Mcgarry MD [address] [address] SECTION REPEAT WITH SALPINGECTOMY Scheduled Procedures Name [...] Type 1 diabetes mellitus with hyperglycemia- Primary Opioid use disorder, severe, dependence Antepartum multigravida of advanced maternal age 34 weeks gestation of documented in this encounter Care Teams Permit Review Assistant Relationship Specialty Start Date End Date Korina Gutierrez MD [address] [place] [address] PCP - General Internal Medicine 09/28/20 documented as of this encounter
--- OUTSIDE RECORDS SUMMARY | 2025-03-21 10:00 | XMS_ITS | Encounter Summary ---
Author Organization [facility] Address [address] [place] [id number] Care Team Providers Care Metal Reed Tuner Name Role Phone Korina Gutierrez MD Primary Care Provider +1- [phone] Reason for Referral * Diagnostic Imaging (Routine) - Closed Specialty Diagnoses / Procedures Referred By Contac t Referred To Contact Radiology Diagnoses Antepartum multigravida of advanced maternal age Type 1 diabetes mellitus with hyperglycemia Procedures [facility] Nelson Staley MD [address] [facility] [address] [place] [address] Phone: tel: fax: Referral ID Status Reason Start Date Expiration Date Visits Re quested Visits Authorized Closed 12/12/2024 03/13/2026 4 4 Reason for Visit * Diagnostic Imaging (Routine) - Closed Specialty Diagnoses / Procedures Referred By Contac t Referred To Contact Radiology Diagnoses Antepartum multigravida of advanced maternal age Type 1 diabetes mellitus with hyperglycemia Procedures [facility] Nelson Staley MD [address] [facility] [address] [place] [id number] Phone: tel: fax: Referral ID Status Reason Start Date Expiration Date Visits Re quested Visits Authorized Closed 12/12/2024 03/13/2026 4 4 Encounter Details Date Type Department Care Team (Latest Contact Info) Description 03/21/2025 10:00 AM EDT - 03/21/2025 11:59 PM EDT Hospital Encounter [facility] US PER DIAG CTR [address] [place] [address] Antepartum multigravida of advanced maternal age; Type 1 diabetes mellitus with hyperglycemia Discharge Disposition: Home or Self Care Social [...] by mouth Daily. 11/06/2024 Continuous Blood Gluc Order Packer Or Packager (Dexcom G6 Order Packer Or Packager) device 1 each Continuous. 1 each 09/21/2022 Continuous Glucose Sensor (Dexcom G6 Sensor) 02/12/2025 Continuous Glucose Sensor (Dexcom G7 Sensor) misc Use. cyclobenzaprine (FLEXERIL) 10 MG tablet Take 1 [...] Daily. 10/21/2024 vitamin D (ERGOCALCIFEROL) 1.25 MG (43162 UT) capsule capsule Take 1 capsule by mouth 1 (One) Time Per Week. 10/11/2024 documented as of this encounter Plan of Treatment Upcoming Encounters Date Type Department Care Team (Late st Contact Info) Description 03/28/2025 10:00 AM EDT Appointment [facility] LABOR AND DELIVERY PROCEDURES [address] [place] [address] 03/31/2025 10:30 AM EDT Hospital Encounter [facility] LABOR DELIVERY [address] [place] [address] Jose Maria Mcgarry MD [address] [address] 03/31/2025 10:30 AM EDT - 03/31/2025 11:30 AM EDT Surgery [facility] LABOR DELIVERY [address] [place] [address] Jose Maria Mcgarry MD [address] [place] [address] SECTION REPEAT WITH SALPINGECTOMY Pending Results Name Type Priority Associated Diagnoses Date /Time [facility] Imaging Routine Antepartum multigravida of advanced maternal age Type 1 diabetes mellitus with hyperglycemia 03/21/2025 10:44 AM EDT Scheduled Orders Name Type Priority Associated Diagnoses Orde r Schedule [facility] Imaging Routine Antepartum multigravida of advanced maternal age Type 1 diabetes mellitus with hyperglycemia Once for 1 Occurrences starting 03/21/2025 until 03/21/2025 Scheduled Procedures Name Priority Associated Diagnoses Date/Ti vt SECTION REPEAT WITH SALPINGECTOMY 03/31/2025 10:30 AM EDT documented as of this encounter Goals Goal Patient Goal Type Associated Problems Recent Progress Patient-Stated? Author Consistently take medications as prescribed General No Melisa Castle PharmD HEMOGLOBIN A1C < 7 Result Component No Melisa Castle PharmD documented as of this encounter Visit Diagnoses Diagnosis Antepartum multigravida of advanced maternal age Type 1 diabetes mellitus with hyperglycemia documented in this encounter Care Teams Metal Reed Tuner Relationship Specialty Start Date End Date Korina Gutierrez MD [facility] [place] [address] PCP - General Internal Medicine 09/28/20 documented as of this encounter
--- OUTSIDE RECORDS SUMMARY | 2025-03-21 10:45 | XMS_ITS | Encounter Summary ---
Author Organization [facility] Address [address] [place] [address] Care Team Providers Care Car Tracer Name Role Phone Korina Gutierrez MD Primary Care Provider [phone] Reason for Visit * Reason Comments T1DM, Mat cerebral palsy, +HepC, Hx subs tance abuse, C/S x 2 Encounter Details Date Type Department Care Team (Late st Contact Info) Description 03/21/2025 10:45 AM EDT Office Visit [facility] MATERNAL MEDICINE [address] [address] Denise Lopez MD [address] [facility] [address] [place] [address] [id number] Social History Tobacco Use Types Packs/Day Years [...] Sign Reading Time Taken Comments Blood Pressure 134/84 03/21/2025 10:18 AM EDT Pulse - - Temperature - - Respiratory Rate - - Oxygen Saturation - - Inhaled Oxygen Concentration - - Weight 88.2 kg (194 lb 6.4 oz) 03/21/2025 10:18 AM EDT Height - - Body Mass Index 32.85 11/13/2024 1:45 PM EDT documented in this encounter Progress Notes * Brynn Reynoso RN - 03/21/2025 10:45 AM EDT Denies vaginal bleeding, leaking fluid, and contractions. Endorses normal movement. NIPT negative. Next OB follow-up appointment with Dr. Giles has not been scheduled. documented in this encounter Plan of Treatment Upcoming Encounters Date Type Department Care Team (Late st Contact Info) Description 03/28/2025 10:00 AM EDT Appointment [facility] LABOR AND DELIVERY PROCEDURES [address] [facility] [place] [address] 03/31/2025 10:30 AM EDT Hospital Encounter [facility] LABOR DELIVERY [address] [place] [address] Jose Maria Mcgarry MD [address] [address] 03/31/2025 10:30 AM EDT - 03/31/2025 11:30 AM EDT Surgery [facility]OR DELIVERY [address] [place] [address] Jose Maria Mcgarry MD [address] [place] [address] SECTION REPEAT WITH SALPINGECTOMY Scheduled Procedures Name Priority Associated Diagnoses Date/Ti me SECTION REPEAT WITH SALPINGECTOMY 03/31/2025 10:30 AM EDT documented as of this encounter Goals Goal Patient Goal Type Associated Problems Recent Progress Patient-Stated? Author Consistently take medications as prescribed General No Castle, Melisa, PharmD HEMOGLOBIN A1C < 7 Result Component No Melisa Castle PharmD documented as of this encounter Visit Diagnoses Not on filedocumented in this encounter Care Teams Car Tracer Relationship Specialty Start Date End Date Korina Gutierrez MD [address] [place] [address] PCP - General Internal Medicine 09/28/20 documented as of this encounter
--- OUTSIDE RECORDS SUMMARY | 2025-03-24 12:23 | XMS_ITS | Clinical Summary ---
Author Organization [facility] Address [address] [place] [address] Phone Care Team Providers Care Tractor Mechanic Helper Name Role Phone Unavailable Primary Care Provider [...] not taking.Reason: Has to be ordered by prison, Reported on 10/18/2016 insulin aspart (NOVOLOG) 100 [...] exists Breast Cancer Screening 2020 COVID-19 Vaccine ( season) 2025 Influenza Vaccine (#1) 2025 Meningococcal B Vaccine [...] EDT) Sodium 139 136 - 145 mmol/L [facility] Potassium 4.2 3.5 - 5.0 mmol/L [facility] Chloride 105 98 - 107 mmol/L [facility] Total CO2 20(L) 22 - 29 mmol/L [facility] Anion Gap 14 7 - 16 mmol/L [facility] Calcium 9.3 8.6 - 10.2 mg/dL [facility] Glucose Lvl 71(L) 74 - 100 mg/dL [facility] BUN 19 6 - 20 mg/dL [facility] Creatinine 1.26 0.51 - 1.30 mg/dL [facility] GFR Afr Am 58 [facility] GFR Non Afr Am 48 [facility] Blood specimen (specimen) UPPER LIMB STRUCTURE / Unknown 10/11/2016 6:13 AM EDT 10/11/2016 6:25 AM EDT Allyson Limon MD CHEMISTRY ORDERABLES Edited Resu lt - Final [facility] [address] [place] [address] * (ABNORMAL) TRIGLYCERIDES (09/26/2016 11:35 AM EDT) Triglyceride 292(H) <=150 mg/dL [facility] Comment: < 150 Normal 150 - 199 Borderline High 200 - 499 High >= 500 Very High Blood specimen (specimen) 09/26/2016 11:35 AM EDT 09/26/2016 2:37 PM EDT us Zoila Castro MD CHEMISTRY ORDERABLES Final Res ult Performing Organization Address [facility] de Phone Number [facility] [address] [place] [address] * (ABNORMAL) HEMOGLOBIN A1C (09/26/2016 6:30 AM EDT) Hgb A1c 12.1(H) <=7.0 % [facility] Comment: Reference Interval for Hgb A1c Hgb A1c Interpretation < 6.0 Non-Diabetic Range 6.0 - 7.0 ADA Therapeutic Target > 7.0 Action suggested Blood specimen (specimen) UPPER LIMB STRUCTURE / Unknown 09/26/2016 6:30 AM EDT 09/26/2016 8:33 AM EDT us Jamir Santos MD CHEMISTRY ORDERABLES Final Re sult Performing Organization Address [facility] de Phone Number [facility] [address] [place] [address] from Last 3 Months or Most Recently Relevant to Health Maintenance Additional Health Concerns Infection Onset Date Last Indicated MRSA Comment:09/26/16 09/27/2016 09/27/2016 Insurance COMMERCIAL GENERIC MEDICAID [place] * [facility]or[facility] Account Type Relation to Patient Date of Phone Billing Address [employer] Other [address] [place] [address] Advance Directives For more information, please contact: [phone] * Full Code (Latest Code Status on File) Date Activated Date Inactivated Comments 09/26/2016 8:38 AM 10/11/2016 7:15 PM
--- OUTSIDE RECORDS SUMMARY | 2025-03-24 12:23 | XMS_ITS | Encounter Summary ---
Author Organization [facility] Address [address] [place] [address] Care Team Providers Care Credit And Collections Analyst Name Role Phone Korina Gutierrez MD Primary Care Provider [phone] Encounter Details Date Type Department Care Team (Latest Contact Info) Description 03/14/2025 Travel Social History Tobacco Use Types Packs/Day [...] Info) Description 03/28/2025 10:00 AM EDT Appointment [facility] LABOR AND DELIVERY PROCEDURES [address] [place] [id number] 03/31/2025 10:30 AM EDT Hospital Encounter [facility] LABOR DELIVERY [address] [place] [id number] Jose Maria Mcgarry MD [address] [place] [address] 03/31/2025 10:30 AM EDT - 03/31/2025 11:30 AM EDT Surgery [facility] LABOR DELIVERY [address] [place] [id number] Jose Maria Mcgarry MD [address] [place] [address] SECTION REPEAT WITH SALPINGECTOMY Scheduled Procedures Name [...] on filedocumented in this encounter Care Teams Credit And Collections Analyst Relationship Specialty Start Date End Date Korina Gutierrez MD [address] [place] [address] PCP - General Internal Medicine 09/28/20 documented as of this encounter
--- OUTSIDE RECORDS SUMMARY | 2025-03-24 12:23 | XMS_ITS ---
Author Organization [facility] Address [address] [place] [address] Care Team Providers Care Gelatin Powder Mixer Name Role Phone Reyna Lopez [phone] Andre Roque DO Primary Care Provider [phone] [facility] - Diabetes Self-Management Education (DSME) Status:Active (Active) Start date:12/11/2024 Enrollment date:12/11/2024 Enrollment reason:Referred by provider Current support & services provided:Pre-Existing DM with Diabetes Self-Management and Support-Training (DSMT) Case Team Name Relationship Phone Reyna Lopez(Responsible Staff) Registered Nurse [phone] Continued Care and Services Coordination
--- OUTSIDE RECORDS SUMMARY | 2025-03-24 12:23 | XMS_ITS | Encounter Summary ---
Author Organization [facility] Address [address] [place] [address] Care Team Providers Care Motion Study Technician Name Role Phone Korina Gutierrez MD Primary Care Provider [phone] Reason for Visit * Reason Onset Date Comments Advice Only 03/18/2025 Encounter Details Date Type Department Care Team (Late st Contact Info) Description 03/18/[address] [facility] MATERNAL MEDICINE [address] [facility] [address] [place] [address] Kirsten Sim, certified vehicle fire investigator Only Social History Tobacco Use Types Packs/Day [...] Telephone Encounter - Kirsten Sim RN - 03/18/2025 9:42 AM EDT Spoke with patient over the phone. Patient is no longer able to have dexcom data on phone, she is now using a savings counselor but does not have access to a computer to upload her data. Instructed patient tostart keeping a log and to send in next Monday. Patient is agreeable. Kirsten Sim RN documented in this encounter Plan of Treatment Upcoming Encounters Date Type Department Care Team (Late st Contact Info) Description 03/28/2025 10:00 AM EDT Appointment [facility] LABOR AND DELIVERY PROCEDURES [address] [place] [address] 03/31/2025 10:30 AM EDT Hospital Encounter [facility] LABOR DELIVERY [address] [place] [address] Jose Maria Mcgarry MD [address] [address] 03/31/2025 10:30 AM EDT - 03/31/2025 11:30 AM EDT Surgery [facility] LABOR DELIVERY [address] [place] [address] Jose Maria Mcgarry MD [address] [address] SECTION REPEAT WITH SALPINGECTOMY Scheduled Procedures Name [...] on filedocumented in this encounter Care Teams Motion Study Technician Relationship Specialty Start Date End Date Korina Gutierrez MD [place] [address] PCP - General Internal Medicine 09/28/20 documented as of this encounter
--- OUTSIDE RECORDS SUMMARY | 2025-03-24 12:26 | XMS_ITS | Clinical Summary ---
Author Organization [facility] Address [address] [place] [address] Care Team Providers Care Cigar Bander Hand Name Role Phone Korina Gutierrez MD Primary Care Provider [phone]- [phone] Allergies Active Allergy Reactions Criticality Noted Date Comments Moxifloxacin Hcl Hives,Shortness Of Breath High 02/2023 Medications * This document contains information received from the source organization and may not represent a complete record from that organization. amitriptyline (ELAVIL) 100 MG tabletIndicati ons:Depression Take 1 tablet by mouth Every Night. Indications: Depression Active ondansetron (ZOFRAN) 4 MG tabletIndicati ons:Nausea and Vomiting Take 1 tablet by mouth Every 8 (Eight) Hours As Needed for Nausea or Vomiting. Indications: Nausea and Vomiting Active Continuous Blood Gluc Railroad Car Letterer (Dexcom G6 Railroad Car Letterer) device 1 each Continuous. 1 each 09/22/19 23 Active buPROPion XL (WELLBUTRIN XL) 300 MG 24 hr tablet Take 1 tablet by mouth Daily. 11/07/19 25 Active Acetaminophen Extra Strength 500 MG tablet Take 2 tablets by mouth every 6 (six) to 8 (eight) hours as needed for Pain. 10/17/19 25 Active cyclobenzaprin e (FLEXERIL) 10 MG tablet Take 1 tablet by mouth 3 (Three) Times a Day As Needed. for muscle spams 10/17/19 25 Active vitamin D (ERGOCALCIFERO L) 1.25 MG (32977 UT) capsule capsule Take 1 capsule by mouth 1 (One) Time Per Week. 10/12/19 25 Active Vit-Fe Fumarate-FA (GNP ) 28-0.8 MG tablet Take 1 tablet by mouth Daily. 10/22/19 25 Active Insulin Glargine (Lantus SoloStar) 100 UNIT/ML injection pen Inject 22 Units under the skin into the appropriate area as directed 2 (Two) Times a Day. Try to take 12 hours apart. 15 mL 01/31/20 25 Active Additional Information Patient taking differently: 25 UnitsSubcutaneous 2 Times Daily, Try to take 12 hours apart., Reported on 03/21/2025 Insulin Lispro, 1 Unit Dial, (HUMALOG) 100 UNIT/ML solution pen-injector Inject 34-38 Units under the skin into the appropriate area as directed 3 (Three) Times a Day Before Meals. Give correction of 1 units:20 mg/dl > 120 mg/ dl if blood sugar persistently high after 2-3 hours after a meal. MDD of 125 u 45 mL 1 02/07/20 25 Active Continuous Glucose Sensor (Dexcom G6 Sensor) 02/13/20 25 Active DULoxetine (CYMBALTA) 60 MG capsule Take 1 capsule by mouth Daily. 02/01/20 25 Active FREESTYLE LITE test strip See Admin Instructions. 02/01/20 25 Active BD Pen Needle Mini Ultrafine 31G X 5 MM misc See Admin Instructions. 02/01/20 25 Active Continuous Glucose Sensor (Dexcom G7 Sensor) misc Use. Active Active Problems Problem Noted Date Diagnosed Date Antepartum multigravida of advanced maternal age 0411/13/2024 Assessment & Plan (03/18/2025 10:39 AM EDT): S/p low risk NIPT. S/p normal anatomic survey. - Recommend twice weekly testing until delivered - We will see her back in 1 wk for AYLEEN/BPP/UA Dopplers Assessment & Plan (12/12/2024 10:19 AM EDT): [...] mellitus with hyperglycemia 02/2023 Assessment & Plan (03/18/2025 10:53 AM EDT): Patient is poorly controlled Type 1 DM. She is currently using Lantus 30u BID and Lispro 34-38u with meals. She reports frequent lows overnight and frequent post- meal values that are elevated, but possibly because [...] - Gave patient a Dexcom G7 and specialist physician in hopes of getting some data - We will see her in 1 week for AYLEEN/BPP/UA Dopplers - Recommend inpatient stay here (secondary to IV insulin drop protocol and NICU) starting at 36wks with plan for delivery 36-37wks Assessment & Plan (01/09/2025 9:57 AM EDT): [...] insulin pump and needs education through the [facility] before she can start that. We are [...] Encounters Date Type Department Care Team Description 03/21/2025 10:45 AM EDT Office Visit [facility] [address] [facility] [address] [place] [address] Denise Lopez MD 03/21/2025 10:00 AM EDT - 03/21/2025 11:59 PM EDT Hospital Encounter [facility] [address] [place] [phone] Antepartum multigravida of advanced maternal age; Type 1 diabetes mellitus with hyperglycemia Discharge Disposition: Home or Self Care 03/21/2025 Telephone [facility] [address] [facility] [address] [place] [address] Denise Lopez MD Appointment (CALL PT EXPLAINED WILL BE PRE ADMIT 03-28 AT 10:00AM / C/S W TUBAL IS BOWEN 03/31 AT 10:30AM PT VERBAL UNDERSTAND AND WILL ARRIVE ON THE 03/28/2025 AT 10:00AM) 03/21/2025 Travel 03/20/2025 Telephone [facility] [address] [facility] [address] [place], [place] [address] Kirsten Sim, chainer Only 03/18/2025 Telephone [facility] [address] [facility] [address] [place] [address] Kirsten Sim, chainer Only 03/14/2025 10:45 AM EDT Office Visit [facility] [address] [address] Eva Belcher MD Type 1 diabetes mellitus with hyperglycemia (Primary Dx); Opioid use disorder, severe, dependence; Antepartum multigravida of advanced maternal age; 34 weeks gestation of 03/14/2025 9:53 AM EDT - 03/14/2025 11:59 PM EDT Hospital Encounter [facility] [address] [place] [address] Reyna Kent DO Discharge Disposition: Home or Self Care 03/14/2025 Travel 03/11/2025 Telephone [facility] [address] [facility] [address] [place] [address] Kirsten Sim, chainer Only 03/04/2025 Telephone [facility] [address] [facility] [address] [place] [address] Kirsten Sim, chainer Only 02/20/2025 Telephone [facility] [address] [facility] [address] [place] [phone] Kirsten Sim, chainer Only 02/13/2025 3:00 PM EDT Office Visit [facility] [address] [facility] [address] [place] [address] Denise Lopez MD Type 1 diabetes mellitus with hyperglycemia (Primary Dx) 02/13/2025 2:29 PM EDT - 02/13/2025 11:59 PM EDT Hospital Encounter [facility] [address] [place] [address] Reyna Kent, Discharge Disposition: Home or Self Care 02/13/2025 Travel 02/10/2025 Telephone [facility] [address] [facility] [address] [place] [address] Kirsten Sim, chainer Only 02/06/2025 Medication Therapy Management [facility] [address] [facility] [address] [place] [phone] Eva Belcher MD 01/30/2025 Medication Therapy Management [facility] [address] [facility] [address] [place], [place] [address] Eva Belcher MD 01/22/2025 Medication Therapy Management [facility] [address] [facility] [address] [place] [address] Eva Belcher MD 01/15/2025 Telephone [facility] [address] [facility] [address] [place] [address] Erika Porras, RN 01/14/2025 Telephone [facility] [address] [facility] [address] [place] [address] Erika Porras, RN Med Management (glucose) 01/09/2025 9:15 AM EDT Office Visit [facility] [address] [facility] [address] [place] [address] Nilson Figueroa MD Type 1 diabetes mellitus with hyperglycemia (Primary Dx); Antepartum multigravida of advanced maternal age; , unspecified gestational age 0601/09/2025 8:48 AM EDT - 01/09/2025 11:59 PM EDT Hospital Encounter [facility] [address] [place] [phone] Reyna Kent DO Discharge Disposition: Home or Self Care 01/09/2025 Travel 12/30/2024 Medication Therapy Management [facility] [address] [facility] [address] [place] [address] Nelson Staley MD 12/26/2024 Medication Therapy Management [facility] [address] [facility] [address] [place] [address] Eva Belcher MD from Last 3 Months Family History Medical [...] Pressure 134/84 03/21/2025 10:18 AM EDT Pulse 122 09/21/2022 8:26 AM EST Temperature 35.9 C (96.7 F) 03/23/2021 8:21 AM EDT Respiratory Rate 20 03/23/2021 8:21 AM EDT Oxygen Saturation 97% 09/21/2022 8:26 AM EST Inhaled Oxygen Concentration - - Weight 88.2 kg (194 lb 6.4 oz) 03/21/2025 10:18 AM EDT Height 163.8 cm (5' 4.5 ) 11/13/2024 1:45 PM EDT Body Mass Index 32.85 11/13/2024 1:45 PM EDT Plan of Treatment Upcoming Encounters Date Type Department Care Team (Late st Contact Info) Description 03/28/2025 10:00 AM EDT Appointment [facility] DEL[facility] PROCEDURES [address] [place] [address] 03/31/2025 10:30 AM EDT Hospital Encounter [facility] [address] [facility] [place] [address] Jose Maria Mcgarry MD [address] [address] 03/31/2025 10:30 AM EDT - 03/31/2025 11:30 AM EDT Surgery [facility] DELIV[facility] [address] [place] [address] Jose Maria Mcgarry MD [address] [address] SECTION REPEAT WITH SALPINGECTOMY Scheduled Procedures Name Priority Associated Diagnoses Date/Ti me SECTION REPEAT WITH SALPINGECTOMY 03/31/2025 10:30 AM EDT Health Maintenance Due Date Last Done Comments [...] 06/17, 08/31/2022, Additional history exists COVID-19 Vaccine (1 - 2023-2 5 season) 2025 RSV Vaccine - Adults (1 - Ri sk 1-dose series) 03/17/2025 INFLUENZA VACCINE 04/16/2025 09/29/2016, 09/27/2016 HEPATITIS C SCREENING Completed 05/04/2021, 021 Goals Goal Patient Goal Type Associated Problems Recent Progress Patient-Stated? Author Consistently take medications as prescribed General No Melisa Castle, Donovan HEMOGLOBIN A1C < 7 Result Component No Melisa Castle PharmD Procedures Procedure Name Priority Date/Time Associated Diagnosis Comments NONSTRESS TEST Routine 03/14/2025 11:52 AM EDT [facility] Routine 03/14/2025 11:01 AM EDT Antepartum multigravida of advanced maternal age Type 1 diabetes mellitus with hyperglycemia [facility] Routine 02/13/2025 3:13 PM EDT Antepartum multigravida of advanced maternal age Type 1 diabetes mellitus with hyperglycemia [facility] Routine 01/09/2025 9:58 AM EDT Antepartum multigravida of advanced maternal age Type 1 diabetes mellitus with hyperglycemia HEPATITIS PANEL, ACUTE STAT 03/20/2021 1:04 AM EDT from Last 3 Months or Most Recently Relevant to Health Maintenance Results * Nonstress Test (03/14/2025 11:52 AM EDT) Eva Belcher MD OB GYNE ORDERABLES Final Re sult * [facility] (03/14/2025 11:01 AM EDT) Only the most recent of3 resultswithin the time period is included. Anatomical Region Laterality Modality Ultrasound 03/14/2025 10:2 5 AM EDT Narrative 03/18/2025 10:53 AM EDT PAT NAME: MARC FELICIANO MED REC#: [id number] DA: [id number] PAT GEND: F PAT TYPE: O EXAM PHYLLIS: [id number] REF PHYS REYNA KENT Comparison Studies The [...] EFW (oz) 1 oz EFW by: Hadlock ([id number]) Extended Heat Treater Helper 5.2 mm Head / Face / Neck [...] Normal Heart / Thorax 3-vessel view: Normal 3-makdjk-hfbvqet view: normal Cord insertion: Normal Stomach: Appears [...] NICU capabilities, between 36-37wks. Coding ======= Description: 74306-75 Follow Up Ultrasound Description: 62118-55 BPP with NST Furs Salesperson: Ary Moe RDMS Physician: Eva Belcher MD Electronically signed by: Eva Belcher MD at: 10:53 Procedure Note Eva Belcher MD - 03/18/2025 PAT NAME: MARC FELICIANO MED REC#: [id number] DA: [id number] PAT GEND: F PAT TYPE: O EXAM PHYLLIS: [id number] REF PHYS REYNA KENT Comparison Studies The findings of this study are compared to the prior ultrasound studydated 02/13/25 Patient Status Outpatient Indication ======== T1DM. AMA. H/O IV drug use. +Hep C. Previous c/s x 2. Vapes. Maternalcerebral palsy. Maternal Assessment [id number] cm Height (ft)5 ft Height (in)4 in Ffcrcm50 kg Weight (lb)191 lb BMI32.79 kg/m Method ======= Transabdominal ultrasound examination ========= Guthrie . Number of fetuses: 1 Dating ====== Method of dating:based on stated NOHEMI GA by prior w + 0 d NOHEMI by prior assessment:04/25/2025 Ultrasound examination on:03/14/2025 GA by U/S based upon:AC, BPD, Femur, HC GA by U/S35 w + 0 d NOHEMI by U/S:04/18/2025 Previous dating:based on stated NOHEMI, selected on 01/09/2025 Agreed NOHEMI of previous datin04/25/2025 Assigned:based on stated NOHEMI, selected on 03/14/2025 Assigned GA34 w + 0 d Assigned NOHEMI:04/25/2025 d Biometry Standard BPD85.9 mm 34w 4d 66% Hadlock PJM936.3 mm 36w 1d 89% Glendy HC311.9 mm 34w 6d 36% Hadlock AC333.3 mm 37w 2d >99% Hadlock Femur64.0 mm 33w 0d 18% Hadlock HC / AC0.94 EFW2,737 g 35w 5d 87% Hadlock EFW (lb)6 lb EFW (oz)1 oz EFW by:Hadlock ([id number]-FL) Extended Vp5.2 mm Head / Face / Neck Cephalic index0.79 30% Nicolaides Extremities / Bony Struc FL / BPD0.75 FL / HC0.21 FL / AC0.19 Other Structures IUQ082 bpm General Evaluation Cardiac activity present. FHR [...] LVOT view:Normal Heart / Thorax 3-vessel view:Normal 2-nuthim-xkydsva view:normal Cord insertion:Normal Stomach:Appears normal Kidneys:Appears normal [...] IV insulin drip management of blood sugars [id number]. Recommend delivery here for NICU capabilities, between 36-37wks. Coding ======= Description:03512-40 Follow Up Ultrasound Description:37699-87 BPP with NST Furs Salesperson: Ary Moe RDMS Physician: Eva Belcher MD Electronically signed by: Eva Belcher MD at: 10:53 Nelson Staley MD [facility] US ORDERABLES Final Result * (ABNORMAL) Hepatitis Panel, Acute (03/20/2021 1:04 AM EDT) Hepatitis B Surface Ag Non-Reacti ve Non-Reacti ve 03/20/2021 1:43 AM EDT [facility] Hep A IgM Non-Reacti ve Non-Reacti ve 03/20/2021 1:43 AM EDT [facility] Hep B C IgM Non-Reacti ve Non-Reacti ve 03/20/2021 1:43 AM EDT [facility] Hepatitis C Ab Reactive(A ) Non-Reacti ve 03/20/2021 1:43 AM EDT [facility] Blood Venipuncture / Unknown 03/20/2021 1:04 AM EDT 03/20/2021 1:04 AM EDT Narrative [facility] - 03/20/2021 1:43 AM EDT Results may be falsely decreased if patient taking Biotin. Radames Herbert MD LAB BLOOD ORDERABLES Final Result [facility]
[address] [place] [address], [place] [phone] from Last 3 Months or Most Recently Relevant to Health Maintenance Insurance [facility] Advance Directives * CPR (Attempt to Resuscitate) (Latest Code Status on File) Date Activated Date Inactivated Comments 03/20/2021 1:51 AM 03/23/2021 3:45 PM Question Answer Comments Code Status (Patient has no pulse and is not breathing): CPR (Attempt to Resuscitate) Medical Interventions (Patie nt has pulse or is breathing): Full Level Of Support Discussed With: Patient Care Teams Cigar Bander Hand Relationship Specialty Start Date End Date Korina Gutierrez MD [address] [place] [address] PCP - General Internal Medicine 09/28/20
--- OUTSIDE RECORDS SUMMARY | 2025-03-24 12:26 | XMS_ITS | Encounter Summary ---
Author Organization [facility] Address [address] [place] [address] Care Team Providers Care C S S Representative Name Role Phone Korina Gutierrez MD Primary Care Provider [phone] Reason for Visit * Reason Onset Date Comments Advice Only 02/10/2025 Encounter Details Date Type Department Care Team (Late st Contact Info) Description 02/10/[address] [facility] MEDIC[facility] [address] [facility] [address] [place] [address] Kirsten Sim, substation supervisor Only Social History Tobacco Use Types Packs/Day [...] Info) Description 03/28/2025 10:00 AM EDT Appointment [facility] PROCED[facility] [address] [place] [address] 03/31/2025 10:30 AM EDT Hospital Encounter [facility] DEL[facility] [address] [place] [address] Jose Maria Mcgarry MD [address] [address] 03/31/2025 10:30 AM EDT - 03/31/2025 11:30 AM EDT Surgery [facility] [address] [place] [address] Jose Maria Mcgarry MD [address] [address] SECTION REPEAT WITH SALPINGECTOMY Scheduled Procedures Name Priority Associated Diagnoses Date/Ti me SECTION REPEAT WITH SALPINGECTOMY 03/31/2025 10:30 AM EDT documented as of this encounter Goals Goal Patient Goal Type Associated Problems Recent Progress Patient-Stated? Author Consistently take medications as prescribed General No Melisa Castle, PharmD HEMOGLOBIN A1C < 7 Result Component No Melisa Castle, PharmD documented as of this encounter Visit Diagnoses Not on filedocumented in this encounter Care Teams C S S Representative Relationship Specialty Start Date End Date Korina Gutierrez [place] [address] [place] [address] PCP - General Internal Medicine 09/28/20 documented as of this encounter
--- OUTSIDE RECORDS SUMMARY | 2025-03-24 12:26 | XMS_ITS | Encounter Summary ---
Author Organization [facility] Address [address] [place] [address] Care Team Providers Care Lines Tender Name Role Phone Korina Gutierrez MD Primary Care Provider [phone]- [phone] Reason for Visit * Reason Onset Date Comments Advice Only 02/20/2025 Encounter Details Date Type Department Care Team (Late st Contact Info) Description 02/20/2025 Telephone [facility]NAL MEDICINE [address] [facility] [address] [place] [address] Kirsten Sim, environmental compliance engineer Only Social History Tobacco Use Types Packs/Day [...] Info) Description 03/28/2025 10:00 AM EDT Appointment [facility]OR AND DELIVERY PROCEDURES [address] [place] [address] 03/31/2025 10:30 AM EDT Hospital Encounter [facility] [address] [place] [address] Jose Maria Mcgarry MD [address] [address] 03/31/2025 10:30 AM EDT - 03/31/2025 11:30 AM EDT Surgery [facility] [address] [place] [address] Jose Maria Mcgarry MD [address] [address] SECTION REPEAT WITH SALPINGECTOMY Scheduled Procedures Name [...] on filedocumented in this encounter Care Teams Lines Tender Relationship Specialty Start Date End Date Korina Gutierrez MD [address] [place], [place] [id number] PCP - General Internal Medicine 09/28/20 documented as of this encounter
--- OUTSIDE RECORDS SUMMARY | 2025-03-24 12:26 | XMS_ITS | Encounter Summary ---
Author Organization [facility] Address [address] [place] [address] Care Team Providers Care Limo Driver Name Role Phone Korina Gutierrez MD Primary Care Provider [phone]- [phone] Encounter Details Date Type Department Care Team (Late st Contact Info) Description 02/06/2025 Medication Therapy Management [facility] MATERNAL MEDICINE [address] [place] [phone] Eva Belcher MD [address] [place] [address] Social History Tobacco Use Types Packs/Day Years [...] Info) Description 03/28/2025 10:00 AM EDT Appointment [facility] DELIVERY PROCEDURES [address] [place] [address] 03/31/2025 10:30 AM EDT Hospital Encounter [facility]OR DELIVERY [address] [address] Jose Maria Mcgarry MD [address]00 [facility] [address] [place] [address] 03/31/2025 10:30 AM EDT - 03/31/2025 11:30 AM EDT Surgery [facility] DELIVERY [address] [place] [address] Jose Maria Mcgarry MD [address] [facility] [address] [place] [address] SECTION REPEAT WITH SALPINGECTOMY Scheduled Procedures Name [...] on filedocumented in this encounter Care Teams Limo Driver Relationship Specialty Start Date End Date Korina Gutierrez [place] [address] PCP - General Internal Medicine 09/28/20 documented as of this encounter
--- OUTSIDE RECORDS SUMMARY | 2025-03-24 12:26 | XMS_ITS | Clinical Summary ---
Author Organization [facility] Address [address] [place] [address] Phone [email or web address] Care Team Providers Care Food Or Baggage Handling Rampman Name Role Phone Unavailable Primary Care Provider [...] 2010 Covid-19 Immunization (1 - 2 season) 2025 Influenza Immunization (#1) 2025 HIB Immunization Aged [...]
--- OUTSIDE RECORDS SUMMARY | 2025-03-24 12:26 | XMS_ITS | Encounter Summary ---
Author Organization [facility] Address [address] [place] [address] Care Team Providers Care Shredder Operator Name Role Phone Korina Gutierrez MD Primary Care Provider [phone]- [phone] Encounter Details Date Type Department Care Team (Late st Contact Info) Description 01/30/[address] [facility] MATERNAL MEDICINE [address] [place] [phone] Eva Belcher MD [address] [place] [address] Social History Tobacco Use Types Packs/Day Years [...] Info) Description 03/28/2025 10:00 AM EDT Appointment [facility]OR AND DELIVERY PROCEDURES [address] [place] [address] 03/31/2025 10:30 AM EDT Hospital Encounter [facility]OR DELIVERY [address] [place] [address] Jose Maria cMgarry MD [address]00 [facility] [address] [place] [address] 03/31/2025 10:30 AM EDT - 03/31/2025 11:30 AM EDT Surgery [facility]OR DELIVERY [address] [place] [address] Jose Maria Mcgarry MD [address]00 [facility] [address] [place] [address] SECTION REPEAT WITH SALPINGECTOMY Scheduled Procedures Name [...] on filedocumented in this encounter Care Teams Shredder Operator Relationship Specialty Start Date End Date Korina Gutierrez [place] [address] PCP - General Internal Medicine 09/28/20 documented as of this encounter
--- OUTSIDE RECORDS SUMMARY | 2025-03-24 12:26 | XMS_ITS | Encounter Summary ---
Author Organization [facility] Address [address] [place] [address] Care Team Providers Care Junior Sales Representative Name Role Phone Reyna Lopez Unavailable [phone] Andre Roque DO Primary Care Provider [phone] Encounter Details Date Type Department Care Team (Late st Contact Info) Description 02/25/2025 Orders Only [place] [facility] Endocrinology [address] [place] [address] Layla Monique, PharmD, CDE [address] [facility] [address] [place] [address] Social History Tobacco Use Types [...] as of this encounter Plan of Treatment Not on [...] documented as of this encounter Care Teams Junior Sales Representative Relationship Specialty Start Date End Date Andre Roque DO [address] [facility] [address] [place] [address] PCP - General 02/25/25 Reyna Lopez [address] [place] [address] Registered Nurse 12/11/24 documented as of this encounter
--- OUTSIDE RECORDS SUMMARY | 2025-03-24 12:26 | XMS_ITS | Encounter Summary ---
Author Organization [facility] Address [address] [place] [address] Care Team Providers Care Emergency Medicine Nurse Practitioner Name Role Phone Reyna Lopez Unavailable Andre Roque DO Primary Care Provider [phone] Encounter Details Date Type Department Care Team (Latest Contact Info) Description 02/25/2025 Travel Social History Tobacco Use Types Packs/Day [...] documented as of this encounter Care Teams Emergency Medicine Nurse Practitioner Relationship Specialty Start Date End Date Andre Roque DO [address] [place] [address] [place] [address] PCP - General 02/25/25 Renya Lopez [address] [address] [place] [address] Registered Nurse 12/11/24 documented as of this encounter
--- OUTSIDE RECORDS SUMMARY | 2025-03-24 12:26 | XMS_ITS | Clinical Summary ---
Author Organization [facility] Address [address] [place] [address] Care Team Providers Care Rn Bariatric Name Role Phone FeChemaReyna wood Rivka Unavailable [phone] Andre Roque DO Primary Care Provider [phone] Allergies Active Allergy Reactions Criticality Noted Date [...] time each day. Active Continuous Blood Gluc Ethernet Network Architect (Dexcom G6 blow up operator) device See administration instructions. see package 04/01/20 21 Active Continuous Blood Gluc Transmit (Dexcom G6 transmitter) misc 03/19/20 21 Active Lantus 100 UNIT/ML injection INJECT 25 UNIT(S) TWICE A DAY BY SUBCUTANEOUS ROUTE FOR 30 DAYS. 11/24/19 21 Active insulin regular (HumuLIN R U-500 KWIKPEN) 500 UNIT/ML CONCENTRATED injection Sliding scale 01/16/20 20 Active Lancets (OneTouch Delica Plus [id number]) [facility] TEST BLOOD SUGAR FOUR TIMES A DAY [...] injection pen 06/12/20 23 Active Omnipod 5 [id number] Pods Gen 5 (Omnipod5) [facility] 1 each every other day. 15 each [...] CBC W/O Differential; Future Ambulatory Referral to [facility] Insulin Pump Education; Future Opioid use [...] Encounters Date Type Department Care Team Description 02/25/2025 1:00 PM EDT Education [facility] Diabetes Education [address] [place] [address] Reyna Harvey RN 02/25/2025 Orders Only [facility] Endocrinology [address] [place] [address] Layla Monique, PharmD, CDE 02/25/2025 Travel from Last 3 Months Family History Medical [...] Health Maintenance Due Date Last Done Comments [facility]-/Child/Adol SDOH Screenings 1980 Diabetes: Dental Exam 1990 [facility]-Varicella Vaccines (1 of 2 - 13+ 2-dose series) 1993 [facility]- SDOH Screenings 1998 [facility]-Adult SDOH Screenings 1998 [facility]-Pneumococcal Vaccine: Pediatrics (0 to 5 Years) and At-Risk Patients (6 to 49 Years) (1 of 2 - PCV) 12/26/1999 [facility]-Pap Smear 2001 [facility]-Hepatitis B Vaccines (3 of 3 - 19+ 3-dose series) 12/21/2004 07/29/2004, 06/22/2004 HPV Vaccines (1 - 3-dose SCDM series) 12/26/2007 [facility]-Cervical Cancer Screening 2010 [facility]-HPV/Cotest 2010 [facility]-DTaP,Tdap,and Td Vaccines (2 - Td or Tdap) 09/07/2016 09/07/2006 [facility]-Hepatitis A Vaccines (2 of 2 - Risk 2-dose series) 11/27/2018 05/30/2018 [facility]-Depression Screening 05/03/2022 05/03/2021 [facility]-Diabetes: Hemoglobin A1C 01/08/2024 07/11/2023, 09/12/2020, 09/11/2020, Additional history exists [id number] Vaccine ( - season) 2025 [facility]-Influenza Vaccine (#1) 03/17/202509/29, 09/27/2016, 05/27/2009 [facility]-Zoster [...] Procedure Name Priority Date/Time Associated Diagnosis Comments HIV 1/2 ANTIBODY/ANTIGEN SCREEN WITH REFLEX TO HIV I/II DIFFERENTIATION Routine 05/04/2021 10:25 AM EDT Chronic hepatitis C without hepatic coma (CMS/HCC) HEMOGLOBIN A1C Routine 04/08/2020 3:50 AM EDT from Last 3 Months or Most Recently Relevant to Health Maintenance Results * HIV 1 & 2 Antibody/Antigen Screen (05/04/2021 10:25 AM EDT) HIV 1 & 2 Antibody/Anti gen Screen Nonreactive Nonreactive 05/04/2021 1:48 PM EDT [facility] Blood Venous blood specimen / Unknown Venipuncture / Unknown 05/04/2021 10:25 AM EDT 05/04/2021 10:25 AM EDT Sara Craig APRN LAB BLOOD ORDERABLES Final Result [facility] [address] [place], [place] [id number] * (ABNORMAL) Hemoglobin A1c (04/08/2020 3:50 AM [...] <6.0% Children and Adolescents <7.5% . Source: [place] [employer]. Standards of medical care in [...] Insurance [employer] Care Teams Rn Bariatric Relationship Specialty Start Date End Date Andre Roque DO [address] [place] [address] PCP - General 02/25/25 Reyna Lopez [address] [phone] Registered Nurse 12/11/24
--- OUTSIDE RECORDS SUMMARY | 2025-03-24 12:26 | XMS_ITS | Encounter Summary ---
Author Organization [facility] Address [address] [place] [address] Care Team Providers Care Animal Pathology Teacher Name Role Phone Korina Gutierrez MD Primary Care Provider [phone] Encounter Details Date Type Department Care Team [...] Info) Description 03/28/2025 10:00 AM EDT Appointment [facility] LABOR AND DELIVERY PROCEDURES [address] [place] [address] 03/31/2025 10:30 AM EDT Hospital Encounter [facility] LABOR DELIVERY [address] [place] [address] Jose Maria Mcgarry MD [address] [place] [address] 03/31/2025 10:30 AM EDT - 03/31/2025 11:30 AM EDT Surgery [facility] LABOR DELIVERY [address] [place] [address] Jose Maria Mcgarry MD [address] [place] [address] SECTION REPEAT WITH SALPINGECTOMY Scheduled Procedures Name [...] on filedocumented in this encounter Care Teams Animal Pathology Teacher Relationship Specialty Start Date End Date Korina Gutierrez MD [address] [place] [address] PCP - General Internal Medicine 09/28/20 documented as of this encounter
--- OUTSIDE RECORDS SUMMARY | 2025-03-24 12:28 | XMS_ITS | Encounter Summary ---
Author Organization [facility] Address [address] [place] [address] Care Team Providers Care Vacuum Caster Name Role Phone Korina Gutierrez MD Primary Care Provider [phone] Reason for Visit * Reason Onset Date Comments Advice Only 03/11/2025 Encounter Details Date Type Department Care Team (Late st Contact Info) Description 03/11/2025 Telephone [facility] MATERNAL MEDICINE [address] [facility] [address] [place] [address] Kirsten Sim, edge cutter Only Social History Tobacco Use Types Packs/Day [...] Telephone Encounter - Kirsten Sim RN - 03/11/2025 10:10 AM EDT Spoke with patient over the phone. Patient has not been able to access her CyberSettlet due to being outof data for the month. She states she will have access to wifi tomorrow and will send in blood sugar log. She is going to look into to see if she has been logged out of her Dexcom briana and know to uninstall and reinstall if that doesn't work so we can see her data. Kirsten Sim RN documented in this encounter Plan of Treatment Upcoming Encounters Date Type Department Care Team (Late st Contact Info) Description 03/28/2025 10:00 AM EDT Appointment [facility] LABOR AND DELIVERY PROCEDURES [address] [place] [address] 03/31/2025 10:30 AM EDT Hospital Encounter [facility] LABOR DELIVERY [address] [place] [address] Jose Maria Mcgarry MD [address] [address] 03/31/2025 10:30 AM EDT - 03/31/2025 11:30 AM EDT Surgery [facility] LABOR DELIVERY [address] [place] [address] Jose Maria Mcgarry MD [address] [address] SECTION REPEAT WITH SALPINGECTOMY Scheduled Procedures Name [...] on filedocumented in this encounter Care Teams Vacuum Caster Relationship Specialty Start Date End Date Korina Gutierrez [place] [address] PCP - General Internal Medicine 09/28/20 documented as of this encounter
--- OUTSIDE RECORDS SUMMARY | 2025-03-24 12:28 | XMS_ITS | Encounter Summary ---
Author Organization [facility] Address [address] [place] [address] Care Team Providers Care Chief Executive Name Role Phone Korina Gutierrez MD Primary Care Provider +1- [phone] Encounter Details Date Type Department Care Team (Latest Contact Info) Description 03/21/2025 Travel Social History Tobacco Use Types Packs/Day [...] Info) Description 03/28/2025 10:00 AM EDT Appointment [facility] LABOR AND DELIVERY PROCEDURES [address] [place] [address] 03/31/2025 10:30 AM EDT Hospital Encounter [facility] LABOR DELIVERY [address] [place] [address] Jose Maria Mcgarry MD [address] [place] [address] 03/31/2025 10:30 AM EDT - 03/31/2025 11:30 AM EDT Surgery [facility] LABOR DELIVERY [address] [place] [address] Jose Maria Mcgarry MD [address] [place] [address] SECTION REPEAT WITH SALPINGECTOMY Scheduled Procedures Name [...] on filedocumented in this encounter Care Teams Chief Executive Relationship Specialty Start Date End Date Korina Gutierrez MD [address] [place] [address] PCP - General Internal Medicine 09/28/20 documented as of this encounter
--- OUTSIDE RECORDS SUMMARY | 2025-03-24 12:28 | XMS_ITS | Encounter Summary ---
Author Organization [facility] Address [address] [place] [id number] Care Team Providers Care Rural Mail Carrier Name Role Phone Korina Gutierrez MD Primary Care Provider +1- [phone] Reason for Visit * Reason Onset Date Comments Appointment 03/21/2025 CALL PT EXPLAINE D WILL BE PRE ADMIT 03-28 AT 10:00AM / C/S W TUBAL IS BOWEN 03/31 AT 10:30AM PT VERBAL UNDERSTAND AND WILL ARRIVE ON THE 03/28/2025 AT 10:00AM Encounter Details Date Type Department Care Team (Late st Contact Info) Description 03/21/2025 Telephone [facility] MATERNAL MEDICINE [address] [address] Denise Lopez MD [address] [place] [id number] Appointment (CALL PT EXPLAINED WILL BE PRE ADMIT 03-28 AT 10:00AM / C/S W TUBAL IS BOWEN 03/31 AT 10:30AM PT VERBAL UNDERSTAND AND WILL ARRIVE ON THE 03/28/2025 AT 10:00AM) Social History Tobacco Use Types Packs/Day Years [...] encounter Miscellaneous Notes * Telephone Encounter - Vidhi Rivas RegSched Rep - 03/21/2025 11:15 AM EDT CALL PT EXPLAINED WILL BE PRE ADMIT 03-28 AT 10:00AM / C/S W TUBAL IS BOWEN 03/31 AT 10:30AM PT VERBAL UNDERSTAND AND WILL ARRIVE ON THE 03/28/2025 AT 10:00AM documented in this encounter Plan of Treatment Upcoming Encounters Date Type Department Care Team (Late st Contact Info) Description 03/28/2025 10:00 AM EDT Appointment [facility] LABOR AND DELIVERY PROCEDURES [address] [place] [address] 03/31/2025 10:30 AM EDT Hospital Encounter [facility] LABOR DELIVERY [address] [facility] [address] Jose Maria Mcgarry MD [address] [address] 03/31/2025 10:30 AM EDT - 03/31/2025 11:30 AM EDT Surgery [facility] LABOR DELIVERY [address] [place] [address] Jose Maria Mcgarry MD [address] [address] SECTION REPEAT WITH SALPINGECTOMY Scheduled Procedures Name [...] on filedocumented in this encounter Care Teams Rural Mail Carrier Relationship Specialty Start Date End Date Korina Gutierrez MD [address] [place] [address] PCP - General Internal Medicine 09/28/20 documented as of this encounter
--- OUTSIDE RECORDS SUMMARY | 2025-03-24 12:28 | XMS_ITS | Encounter Summary ---
Author Organization [facility] Address [address] [place] [address] Care Team Providers Care Blow Molder Name Role Phone Korina Gutierrez MD Primary Care Provider +1- [phone] Reason for Visit * Reason Onset Date Comments Advice Only 03/20/2025 Encounter Details Date Type Department Care Team (Late st Contact Info) Description 03/20/[address] [facility] MATERNAL MEDICINE [address] [facility] [address] [place] [address] Kirsten Sim, vending machine servicer Only Social History Tobacco Use Types Packs/Day [...] Telephone Encounter - Kirsten Sim RN - 03/20/2025 10:33 AM EDT Spoke with patient over the phone. Requested patient bring blood sugar log, her warp coiler and charging cord with her tomorrow to her appointment. Patient is agreeable. Kirsten Sim RN documented in this encounter Plan of Treatment Upcoming Encounters Date Type Department Care Team (Late st Contact Info) Description 03/28/2025 10:00 AM EDT Appointment [facility] LABOR AND DELIVERY PROCEDURES [address] [place] [address] 03/31/2025 10:30 AM EDT Hospital Encounter [facility] LABOR DELIVERY [address] [place] [address] Jose Maria Mcgarry MD [address] [id number] 03/31/2025 10:30 AM EDT - 03/31/2025 11:30 AM EDT Surgery [facility] LABOR DELIVERY [address] [place] [address] Jose Maria Mcgarry MD [address] [id number] SECTION REPEAT WITH SALPINGECTOMY Scheduled Procedures Name Priority Associated Diagnoses Date/Ti me SECTION REPEAT WITH SALPINGECTOMY 03/31/2025 10:30 AM EDT documented as of this encounter Goals Goal Patient Goal Type Associated Problems Recent Progress Patient-Stated? Author Consistently take medications as prescribed General No Melisa Castle, PharmGeoff HEMOGLOBIN A1C < 7 Result Component No Melisa Castle PharmD documented as of this encounter Visit Diagnoses Not on filedocumented in this encounter Care Teams Blow Molder Relationship Specialty Start Date End Date Korina Gutierrez MD [address] [place] [address] PCP - General Internal Medicine 09/28/20 documented as of this encounter
--- OUTSIDE RECORDS SUMMARY | 2025-03-24 12:28 | XMS_ITS | Encounter Summary ---
Author Organization [facility] Address [address] [place] [address] Care Team Providers Care Railway Signalling Engineer Name Role Phone Korina Gutierrez MD Primary Care Provider +1- [phone] Reason for Visit * Reason Onset Date Comments Advice Only 03/04/2025 Encounter Details Date Type Department Care Team (Late st Contact Info) Description 03/04/2025 Telephone [facility] MATERNAL MEDICINE [address] [facility] [address] [place] [address] Kirsten Sim, double needle operator Only Social History Tobacco Use Types Packs/Day [...] Telephone Encounter - Kirsten Sim RN - 03/04/2025 8:09 AM EDT Spoke with patient over the phone. Patient states she though her Dexcom was working fine. She didn't realize we couldn't see her data. She is agreeable to make sure her blue tooth is connected etc and will call dexcom technical support later today. Patient states she is not getting her insulin pumpuntil after she has delivered that she was told by [facility] that the amount of insulin she is on it would be better to wait until after delivery. Requested patient keep a log of her blood sugar readingsand send in next week if we cannot get the issue straightened out regarding able to see data. Kirsten Sim RN documented in this encounter Plan of Treatment Upcoming Encounters Date Type Department Care Team (Late st Contact Info) Description 03/28/2025 10:00 AM EDT Appointment [facility] LABOR AND DELIVERY PROCEDURES [address] [place] [address] 03/31/2025 10:30 AM EDT Hospital Encounter [facility] LABOR DELIVERY [address] [place] [address] Jose Maria Mcgarry MD [address] [address] 03/31/2025 10:30 AM EDT - 03/31/2025 11:30 AM EDT Surgery [facility] LABOR DELIVERY [address] [place] [address] Jose Maria Mcgarry MD [address] [address] SECTION REPEAT WITH SALPINGECTOMY Scheduled Procedures Name [...] on filedocumented in this encounter Care Teams Railway Signalling Engineer Relationship Specialty Start Date End Date Korina Gutierrez MD [address] [place] [address] PCP - General Internal Medicine 09/28/20 documented as of this encounter
[2025-03-24 12:48] VITALS: BMI 32.9
[2025-03-24 12:50] VITALS: BP 143/82; PULSE 96; RESP 16; TEMP 36.7; O2SAT 96; BMI 32.9
[2025-03-24 13:05] LABS: Microscopic, Urine URINE MICROSCOPIC (MICROSCOPIC)
[2025-03-24 13:08] LABS: Bilirubin,Urine Negative (Negative); Color,Urine YELLOW (Yellow); Glucose,Urine (UA) 1+ (Negative); Ketones,Urine TRACE (Negative); Leukocyte Esterase,Urine TRACE (Negative); PH,Urine 6.0 (5.0-8.5); Protein,Urine 1+ (Negative); Specific Gravity, Urine 1.015 (1.005-1.030); Urobilinogen,Urine 1.0 EU/dl (0.2)
[2025-03-24 13:11] LABS: Bacteria,Urine 1+ /lpf; Squamous Epithelial Cell,Urine Occasional #/hpf (0-5); WBC,Urine Occasional #/hpf (0-3)
[2025-03-24 13:44] LABS: POC Glucose,Bedside 54 gm/dL (70-110)
[2025-03-24] MEDS: LACTATED RINGERS 1000ML 1,000 ML 999 ML IV (14:34)
== END 2025-03-24 15:48 | disposition home or self-care (01) ==
LOC: OBOUT 12:21 → OB 12:22
PROVIDERS: PCP Internal Medicine; Visit Provider Nurse Practitioner Obstetrics & Gynecology
DX: Z34.83 Encounter for supervision of other normal pregnancy, third trimester (principal); Z3A.35 35 weeks gestation of pregnancy
CPT/HCPCS: 59025; 81001; 82962; 99212; G0463; J7120

== ENCOUNTER 2025-04-25 10:44 | Emergency (ER) | payer OTHER, SELFPAY ==
[2025-04-25 11:01] VITALS: BP 147/102; PULSE 125; RESP 16; TEMP 36.7; O2SAT 98; BMI 28.8
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
[2025-04-25 13:24] VITALS: BP 153/88; PULSE 109; RESP 18; TEMP 36.5; O2SAT 99
== END 2025-04-25 13:24 | disposition home or self-care (01) ==
PROVIDERS: Emergency Provider Student in an Organized Health Care Education/Training Program; PCP Internal Medicine
DX: M54.2 Cervicalgia (principal); S39.012A Strain of muscle, fascia and tendon of lower back, initial encounter; F17.290 Nicotine dependence, other tobacco product, uncomplicated; V49.50XA Passenger injured in collision with unspecified motor vehicles in traffic accident, initial encounter
CPT/HCPCS: 72125; 72128; 72131; 99284; 99285